=== PATIENT | male | born 1935 | race Caucasian/White ===

== ENCOUNTER 2017-12-29 12:22 | Emergency (ER) | payer OTHER ==
[~2017-12-29] VITALS: Ht 182.9 cm; Wt 88.1 kg
[~2017-12-29 12:22] MED LIST: ACET-1256 PO; ASPI81TA28 PO; ATOR-26 PO; BNT10 PO; CIPR250T26 PO; CLOP1TAB15 PO; CYAN100020 PO; DIGE1CAP10 PO; FLM4 PO; FLUT0.15; IMDSR30 PO; MELA1CAP9 PO; MIRT15TA PO; NRV5 PO; NTRGSL/4 UT; PRLSR20 PO; SERT-234 PO
[2017-12-29 12:29] VITALS: TEMP 36.6; Ht 182.9 cm; Wt 88.1 kg
[2017-12-29] MEDS ORDERED: SODIUM CHLORIDE 0.9% 1000ML 1,000 ML IV STA (12:59)
[2017-12-29 13:11] LABS: BASO % 0.3 %; BASO ABS # 0.01 K/uL (0-0.2); EOS % 2.4 %; EOS ABS # 0.07 K/uL (0-0.5); HEMOGLOBIN 12.4 g/dL (14.0-18.0); IG# 0.01 K/uL (0.00-0.02); LYMPH % 22.6 %; LYMPH ABS # 0.67 K/uL (1.2-3.4); MEAN CELL VOLUME 91.4 fL (80-100); MEAN CORPUSCULAR HEMOGLOBIN 30.6 pg (25-34); MEAN CORPUSCULAR HGB CONC 33.5 g/dl (32-36); MEAN PLATELET VOLUME 10.4 fL (7.4-10.4); MONO % 10.8 %; MONO ABS # 0.32 K/uL (0.11-0.59); NEUT % 63.6 %; NEUT ABS # 1.88 K/uL (1.4-6.5); PLATELET COUNT 147 K/uL (130-400); RED CELL DISTRIBUTION WIDTH CV 14.5 % (11.5-14.5); RED CELL DISTRIBUTION WIDTH SD 48.6 fL (36.4-46.3); WHITE BLOOD COUNT 2.96 K/uL (4.8-10.8)
--- NOTE | 2017-12-29 13:19 | EMERGENCY ROOM VISIT NOTE ---
History Report prepared by Katherine: Catrachito Ledbetter Under the Supervision of: Dr. Charanjit Hubbard M.D. First contact with patient: 12:59 Chief Complaint: ABDOMINAL PAIN Stated Complaint: PAIN IN STOMACH Nursing Triage Summary: Pain under left rib, started during the night and has continued. Also reports nausea, vomiting, and diarrhea. Denies blood in vomit. History of Present Illness The patient is a 82 year old male who presents to the Emergency Room with complaints of epigastric abdominal pain. The patient states the symptoms started overnight. He states he has had associated diarrhea as well as small bouts of clear emesis. He states the pain has been up to a 6/10 and currently rates it as a 2/10. He denies any recent illness but his did have similar complaints x2 weeks ago. He denies chest pain. He denies having a history of this pain. The patient denies black or tarry stool. The patient denies any new leg edema. He denies any urinary complaints. Pt denies LOC, headache, fevers, chills, diaphoresis, visual changes, neck pain , chest pain, breathing difficulties, back pain, melena, hematochezia, urinary symptoms, numbness, weakness, lymphadenopathy, rash, or other complaints. Source of History: patient Onset: x1 day Position: abdomen Symptom Intensity: minimal Quality: ache Timing: intermittent Associated Symptoms: + nausea, + vomiting (clear), + diarrhea, No LOC, No fevers, No chills, No sorethroat, No cough, No chest pain, No SOB, No melena, No hematochezia, No urinary symptoms, No weakness, No numbness, No rash Review of Systems See HPI for pertinent positives and negatives. A total of ten systems were reviewed and were otherwise negative. Constitutional: No fever, No chills Respiratory: No cough, No shortness of breath Cardiovascular: No chest pain Abdomen: + pain, + nausea, + vomiting, + diarrhea, No constipation, No GI bleeding Genitourinary - Male: No hematuria, No dysuria, No urinary frequency, No urinary urgency, No urinary hesitancy, No urinary retention Neurologic: No weakness, No numbness/tingling Endocrine: No fatigue Integumentary: No rash Past Medical & Surgical Medical Problems: (1) AAA (abdominal aortic aneurysm) (2) CAD (coronary artery disease) (3) Carotid stenosis (4) CKD (chronic kidney disease), stage III (5) CLL (chronic lymphocytic leukemia) (6) HLD (hyperlipidemia) (7) HTN (hypertension) (8) TREVOR (obstructive sleep apnea) (9) Osteoarthritis (10) Sinus bradycardia (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 Social History Smoking Status: Never Smoker Alcohol Use: none Drug Use: none Marital Status: Housing Status: lives with family Occupation Status: retired Current/Historical Medications Scheduled Acetaminophen (Tylenol), 2 TAB PO BID Amlodipine Besylate (Amlodipine Besylate), 10 MG PO QAM Aspirin (Aspirin Ec), 81 MG PO QAM Atorvastatin (Lipitor), 40 MG PO QPM Clopidogrel (Plavix), 75 MG PO QAM Cyanocobalamin (Vitamin B12), 1 TAB PO QAM Digestive Enzymes (Digestive Enzyme), 1 CAP PO DAILY Isosorbide Mononitrate (Isosorbide Mononitrate ER), 60 MG PO QAM Melatonin (Melatonin), 1 CAP PO HS Mirtazapine (Remeron), 15 MG PO HS Nitroglycerin (Nitrostat), 0.4 MG UT PRN Omeprazole (Prilosec), 20 MG PO QAM Sertraline (Zoloft), 100 MG PO QPM Tamsulosin HCl (Tamsulosin HCl), 0.4 MG PO HS Scheduled PRN Hydrocodone/Acetaminophen 5MG/325MG ([place] 5MG/325MG), 1 TABS PO Q6H PRN for Pain Allergies Coded Allergies: No Known Allergies (Verified , 12/29/17) Physical Exam Vital Signs Date Time Temp Pulse Resp B/P (MAP) Pulse Ox O2 Delivery O2 Flow Rate FiO2 12/29/17 18:55 57 217/84 94 12/29/17 17:15 60 12/29/17 17:00 53 16 199/77 12/29/17 16:30 53 15 203/83 96 Room Air 12/29/17 16:00 204/88 12/29/17 15:58 53 12 96 Room Air 12/29/17 15:31 203/80 12/29/17 15:28 53 14 96 Room Air 12/29/17 15:10 55 18 188/84 95 Room Air 12/29/17 13:49 55 16 193/87 100 Room Air 12/29/17 13:36 54 12/29/17 12:29 36.6 54 17 130/62 97 Room Air Physical Exam GENERAL: Awake, alert, well-appearing, in no distress HENT: Normocephalic, atraumatic. Oropharynx unremarkable. EYES: Normal conjunctiva. Sclera non-icteric. NECK: Supple. No nuchal rigidity. FROM. No masses. RESPIRATORY: Clear to auscultation. No wheezes. No rales. Normal respiratory effort. CARDIAC: Bradycardia. 1+ edema bilateral lower extremities. Normal rhythm. No murmurs. No rubs. Extremities warm and well perfused. Pulses equal. No JVD. GI: Moderate LLQ tenderness. Soft, non-distended. No rebound or guarding. No masses. RECTAL: Deferred. MUSCULOSKELETAL: Atraumatic. Chest examination reveals no tenderness. The back is symmetrical on inspection without obvious abnormality. There is no CVA tenderness to palpation. No joint edema. LOWER EXTREMITIES: Calves are equal size bilaterally and non-tender. No edema. No discoloration. NEURO: Normal sensorium. No sensory or motor deficits noted. SKIN: No rash or jaundice noted. Medical Decision & Procedures ER Provider Diagnostic Interpretation: Radiology results as stated below per my review and radiologist interpretation: CT OF THE ABDOMEN AND PELVIS WITHOUT CONTRAST CLINICAL HISTORY: Left lower quadrant abdominal pain. COMPARISON STUDY: No previous studies for comparison. TECHNIQUE: Axial images of the abdomen and pelvis were obtained without IV contrast. Images were reviewed in the axial, sagittal, and coronal planes. A dose lowering technique was utilized adhering to the principles of ALARA. FINDINGS: A 4 mm subpleural left lower lobe pulmonary nodule is likely benign. Note is made of a 3.8 x 3.8 cm infrarenal abdominal aortic aneurysm without evidence for rupture. Unenhanced images of the liver, spleen, adrenal glands and pancreas are unremarkable. There are gallstones within the gallbladder. A 3 mm calculus within the upper pole of the right kidney is noted. A 5 mm x 3 mm distal left ureteral calculus results in mild left hydroureteronephrosis with perinephric and periureteral infiltration. Mild bladder wall thickening is noted. There is no evidence for a bowel obstruction. Colonic diverticulosis is noted without evidence for acute diverticulitis. No suspicious osseous lesions are present. Moderate levoscoliosis of the lumbar spine is noted. IMPRESSION: 1. 5 mm x 3 mm distal left ureteral calculus results in mild left hydroureteronephrosis with perinephric and periureteral infiltration. 2. 3.8 cm infrarenal abdominal aortic aneurysm. No evidence for rupture. 3. 3 mm right renal calculus. 4. Cholelithiasis. Laboratory Results 12/29/17 12:48 Red Blood Count 4.05, Mean Corpuscular Volume 91.4, Mean Corpuscular Hemoglobin 30.6, Mean Corpuscular Hemoglobin Concent 33.5, Mean Platelet Volume 10.4, Neutrophils (%) (Auto) 63.6, Lymphocytes (%) (Auto) 22.6, Monocytes (%) (Auto) 10.8, Eosinophils (%) (Auto) 2.4, Basophils (%) (Auto) 0.3, Neutrophils # (Auto ) 1.88, Lymphocytes # (Auto) 0.67, Monocytes # (Auto) 0.32, Eosinophils # (Auto ) 0.07, Basophils # (Auto) 0.01 12/29/17 12:48 Test 12/29/17 12:48 12/29/17 17:16 White Blood Count 2.96 K/uL (4.8-10.8) Red Blood Count 4.05 M/uL (4.7-6.1) Hemoglobin 12.4 g/dL (14.0-18.0) Hematocrit 37.0 % (42-52) Mean Corpuscular Volume 91.4 fL (80-100) Mean Corpuscular Hemoglobin 30.6 pg (25-34) Mean Corpuscular Hemoglobin Concent 33.5 g/dl (32-36) Platelet Count 147 K/uL (130-400) Mean Platelet Volume 10.4 fL (7.4-10.4) Neutrophils (%) (Auto) 63.6 % Lymphocytes (%) (Auto) 22.6 % Monocytes (%) (Auto) 10.8 % Eosinophils (%) (Auto) 2.4 % Basophils (%) (Auto) 0.3 % Neutrophils # (Auto) 1.88 K/uL (1.4-6.5) Lymphocytes # (Auto) 0.67 K/uL (1.2-3.4) Monocytes # (Auto) 0.32 K/uL (0.11-0.59) Eosinophils # (Auto) 0.07 K/uL (0-0.5) Basophils # (Auto) 0.01 K/uL (0-0.2) RDW Standard Deviation 48.6 fL (36.4-46.3) RDW Coefficient of Variation 14.5 % (11.5-14.5) Immature Granulocyte % (Auto) 0.3 % Immature Granulocyte # (Auto) 0.01 K/uL (0.00-0.02) Anion Gap 8.0 mmol/L (3-11) Est Creatinine Clear Calc Drug Dose 27.8 ml/min Estimated GFR () 31.3 Estimated GFR (Non- 27.0 BUN/Creatinine Ratio 13.9 (10-20) Calcium Level 9.2 mg/dl (8.5-10.1) Total Bilirubin 0.3 mg/dl (0.2-1) Direct Bilirubin 0.1 mg/dl (0-0.2) Aspartate Amino Transf (AST/SGOT) 36 U/L (15-37) Alanine Aminotransferase (ALT/SGPT) 30 U/L (12-78) Alkaline Phosphatase 125 U/L (45-117) Troponin I < 0.015 ng/ml (0-0.045) Total Protein 8.3 gm/dl (6.4-8.2) Albumin 3.6 gm/dl (3.4-5.0) Lipase 211 U/L (73-393) Urine Color ORANGE Urine Appearance CLEAR (CLEAR) Urine pH 8.0 (4.5-7.5) Urine Specific Left Hand 1.006 (1.000-1.030) Urine Protein TRACE (NEG) Urine Glucose (UA) NEG (NEG) Urine Ketones NEG (NEG) Urine Occult Blood 3+ (NEG) Urine Nitrite NEG (NEG) Urine Bilirubin NEG (NEG) Urine Urobilinogen NEG (NEG) Urine Leukocyte Esterase NEG (NEG) Urine WBC (Auto) 1-5 /hpf (0-5) Urine RBC (Auto) >30 /hpf (0-4) Urine Hyaline Casts (Auto) 0 /lpf (0-5) Urine Epithelial Cells (Auto) 0-5 /lpf (0-5) Urine Bacteria (Auto) NEG (NEG) Laboratory results reviewed by me Medications Administered Medications (Trade) Dose Ordered Sig/Wolf Route Start Time Stop Time Status Last Admin Dose Admin Sodium Chloride 1,000 ml @ 125 mls/hr Q8H STAT IV 12/29/17 12:59 12/29/17 20:10 DC 12/29/17 13:48 125 MLS/HR Ondansetron HCl (ZOFRAN ODT 4MG Home Pack) 1 homepack UD ONCE PO 12/29/17 18:30 12/29/17 18:31 DC 12/29/17 18:36 1 HOMEPACK Acetaminophen/ Hydrocodone Bitart ([place] 5/325mg Home Pack) 1 homepack UD ONCE PO 12/29/17 18:30 12/29/17 18:31 DC 12/29/17 18:36 1 HOMEPACK ECG Per My Interpretation Indication: abdominal pain Rate (beats per minute): 54 Rhythm: sinus bradycardia Findings: 1st degree AV block, other (Poor R-Wave progressionn, No ST Elevations or Depressions, No PACs or PVCs) Medical Decision Triage Nursing notes reviewed. The patient's presentation and history were concerning for flank pain. Etiologies such as diverticulitis, renal colic, appendicitis, mesenteric ischemia, aortic pathology, infections, inflammatory bowel disease, PUD, biliary pathology, UTI, as well as others were entertained. The patient was evaluated. Clinically he is doing well. He declined analgesia. He had some left lower quadrant tenderness. Blood work was remarkable. Creatinine was baseline. CT imaging was performed and revealed a distal left ureteral stone. The patient was reassessed. He was still declining analgesia. Urinalysis performed. The patient had no sign of UTI. On reassessment he was doing well. He still declined analgesia. He felt well. The patient has a left ureteral stone and is doing exceptionally well with this. I discussed careful use of pain medication, [place] if needed. He was also given Zofran. The patient will follow up with his primary physician. If he worsens in any way, has any problems with medications, develops fever, vomiting, or has any other issues he will come back to the emergency department immediately. Patient and feel very comfortable with conservative management. I gave my usual and customary discussion regarding this issue. By the evaluation outlined above other emergent etiologies such as those listed in the differential, as well as others, were deemed relatively unlikely. The patient was educated about the findings as listed above. All questions were answered and the patient was pleased with the treatment. Return instructions were outlined and the patient was discharged in stable condition. The patient was referred to his PCP for follow-up for a recheck of the current condition. Medication Reconcilliation Current Medication List: was personally reviewed by me Blood Pressure Screening Patient's blood pressure: Normal blood pressure Impression Primary Impression: Ureterolithiasis Scribe Attestation The scribe's documentation has been prepared under my direction and personally reviewed by me in its entirety. I confirm that the note above accurately reflects all work, treatment, procedures, and medical decision making performed by me. Departure Information Dispostion Home / Self-Care Prescriptions Hydrocodone/Acetaminophen 5MG/325MG ([place] 5MG/325MG) Tab 1 TABS PO Q6H Y for Pain, #12 TAB Prov: Charanjit Hubbard MD 12/29/17 Referrals Miguel Santos MD (PCP) Forms HOME CARE DOCUMENTATION FORM, IMPORTANT VISIT INFORMATION Patient Instructions My [facility] [address] Additional Instructions KIDNEY STONE INSTRUCTIONS: Hydrocodone/acetaminophen 5/325mg: Take 1-2 pills every 6 hours as needed for pain. Avoid additional Acetaminophen/Tylenol, alcohol, operating machinery or dangerous equipment, working on ladders or roofs, DRIVING, or situations where being under the influence may be dangerous. It is recommended to use a stool softener such as Colace, 100mg twice daily while taking this medication to avoid constipation. Zofran 4 mg oral dissolving tablets: take one tablet and allow it to melt in your mouth every 4 hours as needed for nausea. Strain your urine and collect all the stones or debris for your family doctor. Rest and avoid strenuous activity until your stone passes and symptoms resolve. Drink plenty of fluids. Return to the ER for worsening abdominal or back pain, vomiting, fevers, passing out, or as needed. Follow-up with your primary care physician in 2 to 3 days for a recheck of your current condition.
[2017-12-29 13:25] LABS: ALBUMIN 3.6 gm/dl (3.4-5.0); ALKALINE PHOSPHATASE 125 U/L (45-117); ALT/SGPT 30 U/L (12-78); AST/SGOT 36 U/L (15-37); BLOOD UREA NITROGEN 30 mg/dl (7-18); CALCIUM 9.2 mg/dl (8.5-10.1); CARBON DIOXIDE 26 mmol/L (21-32); CREATININE 2.17 mg/dl (0.60-1.40); GLUCOSE 110 mg/dl (70-99); LIPASE 211 U/L (73-393); POTASSIUM 4.2 mmol/L (3.5-5.1); SODIUM 137 mmol/L (136-145); TOTAL PROTEIN 8.3 gm/dl (6.4-8.2)
--- NOTE | 2017-12-29 14:21 | DIAGNOSTIC IMAGING REPORT ---
CT OF THE ABDOMEN AND PELVIS WITHOUT CONTRAST CLINICAL HISTORY: Left lower quadrant abdominal pain. COMPARISON STUDY: No previous studies for comparison. TECHNIQUE: Axial images of the abdomen and pelvis were obtained without IV contrast. Images were reviewed in the axial, sagittal, and coronal planes. A dose lowering technique was utilized adhering to the principles of ALARA. FINDINGS: A 4 mm subpleural left lower lobe pulmonary nodule is likely benign. Note is made of a 3.8 x 3.8 cm infrarenal abdominal aortic aneurysm without evidence for rupture. Unenhanced images of the liver, spleen, adrenal glands and pancreas are unremarkable. There are gallstones within the gallbladder. A 3 mm calculus within the upper pole of the right kidney is noted. A 5 mm x 3 mm distal left ureteral calculus results in mild left hydroureteronephrosis with perinephric and periureteral infiltration. Mild bladder wall thickening is noted. There is no evidence for a bowel obstruction. Colonic diverticulosis is noted without evidence for acute diverticulitis. No suspicious osseous lesions are present. Moderate levoscoliosis of the lumbar spine is noted. IMPRESSION: 1. 5 mm x 3 mm distal left ureteral calculus results in mild left hydroureteronephrosis with perinephric and periureteral infiltration. 2. 3.8 cm infrarenal abdominal aortic aneurysm. No evidence for rupture. 3. 3 mm right renal calculus. 4. Cholelithiasis. Electronically signed by: Omari Jimenez M.D. 12/29/2017 2:20 PM Dictated Date/Time: 12/29/2017 2:13 PM
[2017-12-29] MEDS ORDERED: HYDR-5688 PO (18:24)
[2017-12-29] MEDS ORDERED: ONDANSETRON HOME PACK 4MG OD TAB PO ONE (18:30)
[2017-12-29] MEDS ORDERED: NORCO 5/325MG HOME PACK PO ONE (18:30)
[2017-12-29 18:55] VITALS: BP 217/84; PULSE 57; O2SAT 94
== END 2017-12-29 18:55 | disposition home or self-care (01) ==
LOC: C.EDB 12:22
DX: N13.2 Hydronephrosis with renal and ureteral calculous obstruction (principal); I71.4 Abdominal aortic aneurysm, without rupture; I25.10 Atherosclerotic heart disease of native coronary artery without angina pectoris; N18.3 Chronic kidney disease, stage 3 (moderate); I12.9 Hypertensive chronic kidney disease with stage 1 through stage 4 chronic kidney disease, or unspecified chronic kidney disease; Z85.6 Personal history of leukemia; E78.5 Hyperlipidemia, unspecified; G47.33 Obstructive sleep apnea (adult) (pediatric); M19.90 Unspecified osteoarthritis, unspecified site; Z98.52 Vasectomy status; Z79.82 Long term (current) use of aspirin; Z79.899 Other long term (current) drug therapy; Z79.01 Long term (current) use of anticoagulants

== ENCOUNTER 2021-08-26 17:21 | Observation (INO) ==
[2021-08-26] MEDS ORDERED: SODIUM CHLORIDE 0.9% 250 ML IV PRN ×3 (17:34→23:36)
--- NOTE | 2021-08-26 18:17 | Emergency Department Note ---
Impression & Plan Symptomatic anemia, Anemia, Leukopenia ED Provider Note NAME: ADONAY SCHWAB AGE: 86 SEX: M : 1935 ARRIVES VIA: Walk-In INFORMANT: Patient ED PROVIDER(S): Bakari Coy DO CHIEF COMPLAINT: anemia HPI: Patient is an 86-year-old male who presents to the ER with a past medical history of hypertension, CLL, CKD, CAD, who presents to the ER for low hemoglob in. Patient notes that he has follow-up with his sheet metal roofer oncologist and had blood work done. Found to have a low hemoglobin and was referred in. he admits to feeling weak when up moving around. Denies any headache or change in vision. No chest pain or shortness of breath. No nausea, vomiting or diarrhea. Denies any black stools or dark tarry stools. No blood per rectum. No other exacerbating or remitting factors. ROS: See above HPI for pertinent positives & negatives. A total of 10 systems reviewed and were otherwise negative. PAST MEDICAL HISTORY:See Below PAST SURGICAL HISTORY:See Below FAMILY HISTORY:See Below SOCIAL HISTORY:See Below HOME MEDICATIONS:See Below ALLERGIES:See Below VITALS:See Below PHYSICAL EXAMINATION: GENERAL: Sitting up in bed, alert, disheveled, pale, EYE EXAM: normal conjunctiva. PERRL and EOM's grossly intact. OROPHARYNX: no exudate, no erythema, lips, buccal mucosa, and tongue normal and mucous membranes are moist NECK: supple, no nuchal rigidity, no adenopathy, non-tender LUNGS: Clear to auscultation. Normal chest wall mechanics HEART: no murmurs, S1 normal and S2 normal ABDOMEN: abdomen soft, non-tender, normo-active bowel sounds, no masses, no rebound or guarding. RECTAL: Hem neg UPPER EXTREMITIES: upper extremities are grossly normal. LOWER EXTREMITIES: No pitting edema. NEURO EXAM: Normal sensorium, cranial nerves II-XII grossly intact, normal speech, no gross weakness of arms, no gross weakness of legs. MEDICAL DECISION MAKING: Patient is an 86-year-old male with a past medical history as described above who presents to the ER for low hemoglobin. He denies any dark or black stools. He was referred in by his sheet metal roofer. IV was established blood was obtained. Labs show leukopenia at 1.7. Mild anemia at 6.4. Severe neutropenia at 310. INR unremarkable. BMP with a creatinine 1.8 consistent with previous. LFTs bilirubin was unremarkable. COVID was negative. Patient was typed and crossed for 2 units. Rectal heme-negative. He was given 2 units PRBCs while in the ER. He was updated at bedside. Discussed with Dr. Perez admitted for further work-up. Triage Nursing notes reviewed. Limited review of prior medical records performed Vital Signs: reviewed and remarkable for no significant abnormalities Differential diagnosis: Differential diagnoses includes but is not limited to gastritis, peptic ulcer disease, GERD, gallbladder disease, pancreatitis, small bowel obstruction, acute coronary syndrome, pericarditis, ischemic bowel, irritable bowel disease, irritable bowel syndrome, appendicitis, diverticulitis, malignancy, hernia, urinary tract infection, torsion, [/ectopic (if female)], perforation, trauma, infectious. ER treatment provided: See below Diagnostics interpreted by me: ECG: Sinus rhythm rate of 66 Left axis PVCs QTC [address] ST depressions in the lateral leads Cardiac Monitoring: An order was placed for continuous cardiac monitoring. The monitor shows a rate of 70 with sinus rhythm. Laboratory studies: As stated above and show below. Imaging studies: See below Consultation(s): none Procedures: none Critical Care: None Past Med/Surg History Social History Smoking Status: Former smoker Feels Safe at Home: Yes Allergies Allergies Allergy/AdvReac Type Severity Reaction Status Date / Time No Known Allergies Allergy Verified 08/26/21 18:11 Home Meds Home Medications Medication Instructions Recorded Confirmed amlodipine 5 mg tablet 5 mg PO QAM 08/26/21 08/26/21 aspirin 81 mg tablet,delayed 81 mg PO QA 08/26/21 08/26/21 release atorvastatin 40 mg tablet 40 mg PO 08/26/21 08/26/21 cyanocobalamin (vitamin B-12) 1,000 mcg PO QAM 08/26/21 08/26/21 1,000 mcg tablet (Vitamin B-12) finasteride 5 mg tablet 5 mg PO HS 08/26/21 08/26/21 hydralazine 25 mg tablet 25 mg PO BID 08/26/21 08/26/21 isosorbide mononitrate 60 mg 60 mg PO QAM 08/26/21 08/26/21 tablet,extended release 24 hr losartan 25 mg tablet 25 mg PO HS 08/26/21 08/26/21 mirtazapine 15 mg tablet 15 mg PO HS 08/26/21 08/26/21 omeprazole 20 mg capsule,delayed 20 mg PO QAM 08/26/21 08/26/21 release sertraline 100 mg tablet 100 mg PO HS 08/26/21 08/26/21 tamsulosin 0.4 mg capsule (Flomax) 0.4 mg PO HS 08/26/21 08/26/21 Results & Data (ED) Vital Signs Vital Signs - 24 hr 08/26/21 17:26 08/26/21 19:43 08/26/21 20:36 Temperature 36.7 C 36.9 C Temperature Source Temporal Artery Scan Oral Pulse Rate 63 62 62 Pulse Rate [Right Finger] 67 Pulse Rhythm Regular Pulse Rhythm [Right Finger] Regular Pulse Strength Pulse Strength [Right Finger] Normal Respiratory Rate 14 17 21 Respiratory Effort / Characteristics Non-Labored Spontaneous Non-Labored Spontaneous Respiratory Depth Normal Normal Respiratory Pattern Regular Blood Pressure 102/68 205/84 H Blood Pressure [Right Arm] 187/88 H Blood Pressure Mean 79 124 Blood Pressure Mean [Right Arm] 121 Blood Pressure Position Sitting Blood Pressure Position [Right Arm] Lying Pulse Oximetry 97 94 95 Oxygen Delivery Method Room Air Room Air Sepsis Recent Fever Within 48 Hours No Sepsis New/Unexplained Change in Mental Status No Sepsis Action Taken by Nursing No Action Required 08/26/21 20:45 08/26/21 20:54 08/26/21 21:09 Temperature 36.2 C L 36.2 C L Temperature Source Oral Oral Pulse Rate 58 L 58 L Pulse Rate [Right Finger] 59 L Pulse Rhythm Irregular Pulse Rhythm [Right Finger] Pulse Strength Normal Pulse Strength [Right Finger] Respiratory Rate 18 17 14 Respiratory Effort / Characteristics Non-Labored Spontaneous Respiratory Depth Normal Respiratory Pattern Blood Pressure 214/81 H 198/74 H Blood Pressure [Right Arm] 202/81 H Blood Pressure Mean 125 115 Blood Pressure Mean [Right Arm] 121 Blood Pressure Position Right Lateral Right Lateral Blood Pressure Position [Right Arm] Right Lateral Pulse Oximetry 97 94 94 Oxygen Delivery Method Room Air Sepsis Recent Fever Within 48 Hours Sepsis New/Unexplained Change in Mental Status Sepsis Action Taken by Nursing 08/26/21 21:39 Temperature 36.1 C L Temperature Source Oral Pulse Rate 59 L Pulse Rate [Right Finger] Pulse Rhythm Regular Pulse Rhythm [Right Finger] Pulse Strength Normal Pulse Strength [Right Finger] Respiratory Rate 21 Respiratory Effort / Characteristics Respiratory Depth Respiratory Pattern Blood Pressure 192/68 H Blood Pressure [Right Arm] Blood Pressure Mean 109 Blood Pressure Mean [Right Arm] Blood Pressure Position Right Lateral Blood Pressure Position [Right Arm] Pulse Oximetry 95 Oxygen Delivery Method Sepsis Recent Fever Within 48 Hours Sepsis New/Unexplained Change in Mental Status Sepsis Action Taken by Nursing Laboratory Data Result diagrams: 08/26/21 18:21 08/26/21 18:21 Lab Results 08/26/21 08/26/21 08/26/21 Range/Units 18:21 18:21 18:21 WBC 1.75 L (4.8-10.8) K/uL RBC 2.46 L (4.7-6.1) M/uL Hgb 6.4 L* (14.0-18.0) g/dL Hct 21.2 L (42-52) % MCV 86.2 (80-100) fL MCH 26.0 (25-34) pg MCHC 30.2 L (32-36) g/dL RDW Std Deviation 48.7 H (36.4-46.3) fL RDW Coeff of Germaine 15.3 H (11.5-14.5) % Plt Count 141 (130-400) K/uL MPV 10.4 (7.4-10.4) fL Immature Gran % (Auto) 0.0 % Neut % (Auto) 17.7 % Lymph % (Auto) 51.4 % [place] % (Auto) 14.3 % Eos % (Auto) 14.9 % Baso % (Auto) 1.7 % Neut # (Auto) 0.31 L* (1.4-6.5) K/uL Lymph # (Auto) 0.90 L (1.2-3.4) K/uL [place] # (Auto) 0.25 (0.11-0.59) K/uL Eos # (Auto) 0.26 (0-0.5) K/uL Baso # (Auto) 0.03 (0-0.2) K/uL Immature Gran # (Auto) 0.00 (0.00-0.02) K/uL Giant Platelets 2+ Ovalocytes 1+ PT 11.6 (9.0-12.0) Seconds INR 1.1 (0.9-1.1) APTT 26.5 (21.0-31.0) Seconds PTT Ratio 1.0 Sodium (136-145) mmol/L Potassium (3.5-5.1) mmol/L Chloride (98-107) mmol/L Carbon Dioxide (21-32) mmol/L Anion Gap (3-11) BUN (6-23) mg/dl Creatinine (0.6-1.4) mg/dl Est Cr Clr Drug Dosing ml/min Est GFR ( Amer) ml/min Est GFR (Non-Af Amer) ml/min BUN/Creatinine Ratio (10-20) Glucose (70-99(Fasting)) mg/dl Calcium (8.5-10.1) mg/dl Total Bilirubin (0.2-1.0) mg/dl AST (13-39) U/L ALT (7-52) U/L Alkaline Phosphatase (34-104) U/L Total Protein (6.0-8.3) gm/dl Albumin (3.4-5.0) gm/dl Globulin (2.5-4.0) gm/dl Albumin/Globulin Ratio (0.9-2) POC Stool Occult Blood (Negative) SARS-CoV-2, RNA, NAAT (NEGATIVE) Blood Type B Positive Blood Type Recheck Antibody Screen NEGATIVE Crossmatch See Detail 08/26/21 08/26/21 08/26/21 Range/Units 18:21 19:45 19:56 WBC (4.8-10.8) K/uL RBC (4.7-6.1) M/uL Hgb (14.0-18.0) g/dL Hct (42-52) % MCV (80-100) fL MCH (25-34) pg MCHC (32-36) g/dL RDW Std Deviation (36.4-46.3) fL RDW Coeff of Germaine (11.5-14.5) % Plt Count (130-400) K/uL MPV (7.4-10.4) fL Immature Gran % (Auto) % Neut % (Auto) % Lymph % (Auto) % [place] % (Auto) % Eos % (Auto) % Baso % (Auto) % Neut # (Auto) (1.4-6.5) K/uL Lymph # (Auto) (1.2-3.4) K/uL [place] # (Auto) (0.11-0.59) K/uL Eos # (Auto) (0-0.5) K/uL Baso # (Auto) (0-0.2) K/uL Immature Gran # (Auto) (0.00-0.02) K/uL Giant Platelets Ovalocytes PT (9.0-12.0) Seconds INR (0.9-1.1) APTT (21.0-31.0) Seconds PTT Ratio Sodium 138 (136-145) mmol/L Potassium 3.9 (3.5-5.1) mmol/L Chloride 105 (98-107) mmol/L Carbon Dioxide 28 (21-32) mmol/L Anion Gap 5 (3-11) BUN 26 H (6-23) mg/dl Creatinine 1.89 H (0.6-1.4) mg/dl Est Cr Clr Drug Dosing 27.0 ml/min Est GFR ( Amer) 35.9 ml/min Est GFR (Non-Af Amer) 31.0 ml/min BUN/Creatinine Ratio 13.8 (10-20) Glucose 132 H (70-99(Fasting)) mg/dl Calcium 8.2 L (8.5-10.1) mg/dl Total Bilirubin 0.3 (0.2-1.0) mg/dl AST 24 (13-39) U/L ALT 12 (7-52) U/L Alkaline Phosphatase 72 (34-104) U/L Total Protein 6.6 (6.0-8.3) gm/dl Albumin 3.3 L (3.4-5.0) gm/dl Globulin 3.3 (2.5-4.0) gm/dl Albumin/Globulin Ratio 1.0 (0.9-2) POC Stool Occult Blood (Negative) SARS-CoV-2, RNA, NAAT NEGATIVE (NEGATIVE) Blood Type Blood Type Recheck B Positive Antibody Screen Crossmatch 08/26/21 Range/Units 20:45 WBC (4.8-10.8) K/uL RBC (4.7-6.1) M/uL Hgb (14.0-18.0) g/dL Hct (42-52) % MCV (80-100) fL MCH (25-34) pg MCHC (32-36) g/dL RDW Std Deviation (36.4-46.3) fL RDW Coeff of Germaine (11.5-14.5) % Plt Count (130-400) K/uL MPV (7.4-10.4) fL Immature Gran % (Auto) % Neut % (Auto) % Lymph % (Auto) % [place] % (Auto) % Eos % (Auto) % Baso % (Auto) % Neut # (Auto) (1.4-6.5) K/uL Lymph # (Auto) (1.2-3.4) K/uL [place] # (Auto) (0.11-0.59) K/uL Eos # (Auto) (0-0.5) K/uL Baso # (Auto) (0-0.2) K/uL Immature Gran # (Auto) (0.00-0.02) K/uL Giant Platelets Ovalocytes PT (9.0-12.0) Seconds INR (0.9-1.1) APTT (21.0-31.0) Seconds PTT Ratio Sodium (136-145) mmol/L Potassium (3.5-5.1) mmol/L Chloride (98-107) mmol/L Carbon Dioxide (21-32) mmol/L Anion Gap (3-11) BUN (6-23) mg/dl Creatinine (0.6-1.4) mg/dl Est Cr Clr Drug Dosing ml/min Est GFR ( Amer) ml/min Est GFR (Non-Af Amer) ml/min BUN/Creatinine Ratio (10-20) Glucose (70-99(Fasting)) mg/dl Calcium (8.5-10.1) mg/dl Total Bilirubin (0.2-1.0) mg/dl AST (13-39) U/L ALT (7-52) U/L Alkaline Phosphatase (34-104) U/L Total Protein (6.0-8.3) gm/dl Albumin (3.4-5.0) gm/dl Globulin (2.5-4.0) gm/dl Albumin/Globulin Ratio (0.9-2) POC Stool Occult Blood Negative (Negative) SARS-CoV-2, RNA, NAAT (NEGATIVE) Blood Type Blood Type Recheck Antibody Screen Crossmatch Administered Medications Discontinued Medications Hydralazine HCl (Hydralazine Hcl 25 Mg Tab) 25 mg PO NOW STA Stop: 08/26/21 20:13 Last Admin: 08/26/21 20:48 Dose: 25 mg Documented by: [id number] Discharge Plan Visit Data Chief Complaint: Abnormal Labs/Diagnostic Testing Stated Complaint: LOW HEMOGLOBIN SENT BY DR ALVARENGA ED Provider: Bakari Coy Discharge Problem: Symptomatic anemia, Anemia, Leukopenia Forms Stand Alone Forms: My [facility] Prescriptions Prescriptions: No Action atorvastatin 40 mg Tablet 40 mg PO HS RF: 0 sertraline 100 mg Tablet 100 mg PO HS RF: 0 cyanocobalamin (vitamin B-12) [Vitamin B-12] 1,000 mcg Tablet 1,000 mcg PO QAM RF: 0 hydralazine 25 mg Tablet 25 mg PO BID RF: 0 amlodipine 5 mg Tablet 5 mg PO QAM RF: 0 aspirin 81 mg Tablet,Delayed Release (Dr/Ec) 81 mg PO QAM RF: 0 isosorbide mononitrate 60 mg Tablet Extended Release 24 Hr 60 mg PO QAM RF: 0 tamsulosin [Flomax] 0.4 mg Capsule 0.4 mg PO HS RF: 0 losartan 25 mg Tablet 25 mg PO HS RF: 0 omeprazole 20 mg Capsule,Delayed Release(Dr/Ec) 20 mg PO QAM RF: 0 mirtazapine 15 mg Tablet 15 mg PO HS RF: 0 finasteride 5 mg Tablet 5 mg PO HS RF: 0 Referrals Referrals: Miguel Santos MD [Primary Care Provider] - Discharge Problem: Anemia Qualifiers: Anemia type: unspecified type Qualified Code(s): D64.9 - Anemia, unspecified Leukopenia Qualifiers: Leukopenia type: unspecified Qualified Code(s): D72.819 - Decreased white blood cell count, unspecified
[2021-08-26 18:55] LABS: INR 1.1 (0.9-1.1); Partial Thromboplastin Time 26.5 Seconds (21.0-31.0); Prothrombin Time 11.6 Seconds (9.0-12.0)
[2021-08-26 18:57] LABS: Hematocrit (blood only) 21.2 % (42-52); Hemoglobin 6.4 g/dL (14.0-18.0); Mean Corpuscular Hgb Conc 30.2 g/dL (32-36); Mean Corpuscular Volume 86.2 fL (80-100); Mean Platelet Volume 10.4 fL (7.4-10.4); Platelet Count 141 K/uL (130-400); RDW Coefficient of Variation 15.3 % (11.5-14.5); RDW Standard Deviation 48.7 fL (36.4-46.3); Red Blood Count 2.46 M/uL (4.7-6.1); White Blood Count 1.75 K/uL (4.8-10.8)
[2021-08-26 18:58] LABS: Basophils # (auto) 0.03 K/uL (0-0.2); Basophils % (auto) 1.7 %; Eosinophils # (auto) 0.26 K/uL (0-0.5); Eosinophils % (auto) 14.9 %; Giant Platelets 2+; Lymphocytes % (auto) 51.4 %; Monocytes # (auto) 0.25 K/uL (0.11-0.59); Monocytes % (auto) 14.3 %; Neutrophils # (auto) 0.31 K/uL (1.4-6.5); Neutrophils % (auto) 17.7 %; Ovalocytes 1+
[2021-08-26 19:34] LABS: Albumin Level 3.3 gm/dl (3.4-5.0); BUN Creatinine Ratio 13.8 (10-20); Bilirubin,Total 0.3 mg/dl (0.2-1.0); Calcium 8.2 mg/dl (8.5-10.1); Est GFR (African American) 35.9 ml/min; Globulin 3.3 gm/dl (2.5-4.0); Potassium 3.9 mmol/L (3.5-5.1); Total Protein 6.6 gm/dl (6.0-8.3)
[2021-08-26] MEDS ORDERED: hydrALAZINE HCL 25 MG TAB PO STA (20:12)
--- NOTE | 2021-08-26 20:56 | History & Physical Report ---
Date of Service August 26, 2021 Assessment & Plan (1) Anemia: Plan: Acute on chronic anemia Hemoglobin drop from baseline Chronic neutropenia, episode of thrombocytopenia as per records hx CLL sp Rituxan (2014) Patient asymptomatic. FOBT done at the ER was negative. hypertensive urgency CAD status post stent/PVD status post surgery AAA, last measurement of 3. 8 cm on outpatient ultrasound 03/29/2021 hyperlipidemia on statin Rx CRI, creatinine at baseline Hyperglycemia, rule out DM past tobacco abuse OBS Medical telemetry given hypertensive urgency Facilitate home BP meds and titrate as needed Transfuse PRBC to maintain hemoglobin greater than 8 and or for symptomatic anemia, hx of vascular disease Follow outpatient anemia work-up results Check hemoglobin A1c DVT prophylaxis. SCDs Re: Episodic thrombocytopenia Full code Patient son requesting updates from providers. Mr. Konstantin Kirkpatrick, contact #[phone]. Text document was generated using [employer] recognition software. It may contain grammatical or spelling errors. Kindly contact undersigned for clarification of any documentation item in question. History of Present Illness Chief Complaint: abnormal blood work Primary Care Provider: Miguel Santos MD History obtained from patient, family, and records. Medical history significant for CAD status post stent, PVD status post surgery, AAA, hypertension, hyperlipidemia, CLL status post Rituxan, CRI (baseline creatinine 1.8-1.9), TREVOR CPAP intolerance, chronic neutropenia, chronic anemia (baseline hemoglobin 9-10), episodic thrombocytopenia, past tobacco abuse. Last confinement 2015 for metabolic encephalopathy. [place] [facility] [place] [facility] for routine follow-up visit today. Blood work requested. Hemoglobin noted to be 6.9. Rest of anemia work-up pending. Patient denies chest pain, SOB, headache, abdominal pain, black/bloody stools. Patient sent to the ER for evaluation. 1 unit PRBC transfused at the ER. 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 Allergies Allergy/AdvReac Type Severity Reaction Status Date / Time No Known Allergies Allergy Verified 08/26/21 18:11 Home Medications Medication Instructions Recorded Confirmed Type amlodipine 5 mg tablet 5 mg PO QAM 08/26/21 08/26/21 History aspirin 81 mg tablet,delayed 81 mg PO M 08/26/21 08/26/21 History release atorvastatin 40 mg tablet 40 mg PO HS 08/26/21 08/26/21 History cyanocobalamin (vitamin B-12) 1,000 mcg PO QAM 08/26/21 08/26/21 History 1,000 mcg tablet (Vitamin B-12) finasteride 5 mg tablet 5 mg PO HS 08/26/21 08/26/21 History hydralazine 25 mg tablet 25 mg PO BID 08/26/21 08/26/21 History isosorbide mononitrate 60 mg 60 mg PO M 08/26/21 08/26/21 History tablet,extended release 24 hr losartan 25 mg tablet 25 mg PO 08/26/21 08/26/21 History mirtazapine 15 mg tablet 15 mg PO HS 08/26/21 08/26/21 History omeprazole 20 mg capsule,delayed 20 mg PO [facility] 08/26/21 08/26/21 History release sertraline 100 mg tablet 100 mg PO 08/26/21 08/26/21 History tamsulosin 0.4 mg capsule (Flomax) 0.4 mg PO HS 08/26/21 08/26/21 History Past Med/Surg History Social History Smoking Status: Former smoker Smoking End Date: 1970; Second Hand Exposure: No; Do You Dip or Chew Tobacco: No; Tobacco Cessation Education Requested by Patient: No Hx Alcohol Use: No Hx Substance Use: No Preferred Language: Niuean Project Planner Required: No Beliefs That Will Affect Care: None Current Living Situation: Spouse Other Information That Helps Us Care for You: No Feels Safe at Home: Yes Safety Concerns: Feels Safe At This Time Assistive Devices: Hearing Aid - Bilateral Review of Systems Review of Systems: As per HPI, all 10 systems reviewed, all other ROS negative Physical Exam Physical Exam: GENERAL: Comfortable, pleasant, slightly hard of hearing, no respiratory distress SKIN: Pallor, warm HEENT: Pale palpebral conjunctivae, no ptosis, dry buccal mucosa NECK : Supple, no tenderness CHEST : CTA, no tenderness HEART : Bradycardic, no obvious murmurs ABDOMEN: Some distention, nontender EXTREMITIES : No LE swelling/tenderness, no other conspicuous deformities noted NEUROLOGIC : Coherent, no facial asymmetry, slightly hard of hearing, no other gross focality Results & Data Results & Data ([facility]) Vital Signs (Past 12 Hours) Vital Signs Temp Pulse Pulse Resp BP BP Pulse Ox 08/26/21 20:45 59 L 18 202/81 H 97 08/26/21 20:36 36.9 C 62 21 205/84 H 95 08/26/21 19:43 62 67 17 187/88 H 94 08/26/21 17:26 36.7 C 63 14 102/68 97 Laboratory Results Laboratory Results WBC 1.75 K/uL (4.8-10.8) L 08/26/21 18:21 RBC 2.46 M/uL (4.7-6.1) L 08/26/21 18:21 Hgb 6.4 g/dL (14.0-18.0) L* 08/26/21 18: Hct 21.2 % (42-52) L 08/26/21 18:21 MCV 86.2 fL (80-100) 08/26/21 18: MCH 26.0 pg (25-34) 08/26/21 18: MCHC 30.2 g/dL (32-36) L 08/26/21 18:21 RDW Std Deviation 48.7 fL (36.4-46.3) H 08/26/21 18:21 RDW Coeff of Germaine 15.3 % (11.5-14.5) H 08/26/21 18:21 Plt Count 141 K/uL (130-400) 08/26/21 18:21 MPV 10.4 fL (7.4-10.4) 08/26/21 18: Immature Gran % (Auto) 0.0 % 08/26/21 18:21 Neut % (Auto) 17.7 % 08/26/21 18:21 Lymph % (Auto) 51.4 % 08/26/21 18:21 Love % (Auto) 14.3 % 08/26/21 18:21 Eos % (Auto) 14.9 % 08/26/21 18:21 Baso % (Auto) 1.7 % 08/26/21 18:21 Neut # (Auto) 0.31 K/uL (1.4-6.5) L* 08/26/21 18:21 Lymph # (Auto) 0.90 K/uL (1.2-3.4) L 08/26/21 18:21 Love # (Auto) 0.25 K/uL (0.11-0.59) 08/26/21 18:21 Eos # (Auto) 0.26 K/uL (0-0.5) 08/26/21 18:21 Baso # (Auto) 0.03 K/uL (0-0.2) 08/26/21 18:21 Immature Gran # (Auto) 0.00 K/uL (0.00-0.02) 08/26/21 18:21 Giant Platelets 2+ 08/26/21 18:21 Ovalocytes 1+ 08/26/21 18: PT 11.6 Seconds (9.0-12.0) 08/26/21 18: INR 1.1 (0.9-1.1) 08/26/21 18:21 APTT 26.5 Seconds (21.0-31.0) 08/26/21 18: PTT Ratio 1.0 08/26/21 18: Sodium 138 mmol/L (136-145) 08/26/21 18:21 Potassium 3.9 mmol/L (3.5-5.1) 08/26/21 18: Chloride 105 mmol/L (98-107) 08/26/21 18: Carbon Dioxide 28 mmol/L (21-32) 08/26/21 18:21 Anion Gap 5 (3-11) 08/26/21 18:21 BUN 26 mg/dl (6-23) H 08/26/21 18: Creatinine 1.89 mg/dl (0.6-1.4) H 08/26/21 18: Est Cr Clr Drug Dosing 27.0 ml/min 08/26/21 18:21 Est GFR ( Amer) 35.9 ml/min 08/26/21 18: Est GFR (Non-Af Amer) 31.0 ml/min 08/26/21 18: BUN/Creatinine Ratio 13.8 (10-20) 08/26/21 18: Glucose 132 mg/dl (70-99(Fasting)) H 08/26/21 18:21 Calcium 8.2 mg/dl (8.5-10.1) L 08/26/21 18:21 Total Bilirubin 0.3 mg/dl (0.2-1.0) 08/26/21 18:21 AST 24 U/L (13-39) 08/26/21 18:21 ALT 12 U/L (7-52) 08/26/21 18:21 Alkaline Phosphatase 72 U/L (34-104) 08/26/21 18:21 Total Protein 6.6 gm/dl (6.0-8.3) 08/26/21 18:21 Albumin 3.3 gm/dl (3.4-5.0) L 08/26/21 18:21 Globulin 3.3 gm/dl (2.5-4.0) 08/26/21 18:21 Albumin/Globulin Ratio 1.0 (0.9-2) 08/26/21 18:21 POC Stool Occult Blood Negative (Negative) 08/26/21 20:45 SARS-CoV-2, RNA, NAAT NEGATIVE (NEGATIVE) 08/26/21 19:45 Blood Type B Positive 08/26/21 18:21 Antibody Screen NEGATIVE 08/26/21 18:21 Crossmatch See Detail 08/26/21 18:21 Diagnostic Findings EKG as per my interpretation: Rate 65, LAD, LAFB, T wave abnormalities inferior leads
[2021-08-26] MEDS: LOSARTAN POTASSIUM 25 MG TAB PO SCH (21:47)
[2021-08-26] MEDS ORDERED: ACETAMINOPHEN 325 MG TAB PO PRN (22:49)
[2021-08-26] MEDS ORDERED: hydrALAZINE HCL 25 MG TAB PO ONE (23:45)
[2021-08-26] MEDS: ATORVASTATIN 40 MG TAB PO SCH (23:49)
[2021-08-26] MEDS: FINASTERIDE 5 MG TAB PO SCH (23:49)
[2021-08-26] MEDS: MIRTAZAPINE TAB 15 MG TAB PO SCH (23:49)
[2021-08-26] MEDS: SERTRALINE HCL 100 MG TABLET PO SCH (23:49)
[2021-08-26] MEDS: TAMSULOSIN HCL 0.4 MG CAP PO SCH (23:50)
[2021-08-27] MEDS ORDERED: amLODIPine BESYLATE 5 MG TAB PO SCH ×2 (03:10→09:00)
[2021-08-27 07:24] LABS: Estimated Average Glucose 117 mg/dl; Hemoglobin A1C 5.7 % (4.5-5.6)
[2021-08-27 07:56] LABS: Hematocrit (blood only) 27.4 % (42-52); Hemoglobin 8.6 g/dL (14.0-18.0); Mean Corpuscular Hemoglobin 26.2 pg (25-34); Mean Corpuscular Hgb Conc 31.4 g/dL (32-36); Mean Corpuscular Volume 83.5 fL (80-100); Mean Platelet Volume 10.1 fL (7.4-10.4); Platelet Count 121 K/uL (130-400); RDW Coefficient of Variation 16.4 % (11.5-14.5); RDW Standard Deviation 50.2 fL (36.4-46.3); Red Blood Count 3.28 M/uL (4.7-6.1); White Blood Count 2.19 K/uL (4.8-10.8)
[2021-08-27 08:26] LABS: BUN Creatinine Ratio 12.9 (10-20); Calcium 8.4 mg/dl (8.5-10.1); Creatinine Clr Calc Pharmacy 29.9 ml/min; Est GFR (African American) 40.5 ml/min; Potassium 4.1 mmol/L (3.5-5.1)
[2021-08-27] MEDS: PANTOprazole 40 MG TAB PO SCH (08:27)
[2021-08-27] MEDS: hydrALAZINE HCL 25 MG TAB PO SCH ×3 (08:27→20:01)
[2021-08-27] MEDS: ISOSORBIDE MONO EXTENDED REL 60 MG TABCR PO SCH (08:27)
[2021-08-27] MEDS: ASPIRIN 81 MG ECTAB PO SCH (08:28)
[2021-08-27] MEDS: CYANOCOBALAMIN (B-12) 500 MCG TABLET PO SCH (08:28)
[2021-08-27] MEDS ORDERED: hydrALAZINE HCL 25 MG TAB PO SCH (09:00)
--- NOTE | 2021-08-27 09:09 | Electrocardiogram Report ---
Test Reason : Blood Pressure : / mmHG Vent. Rate : 066 BPM Atrial Rate : 066 BPM P-R Int : 212 ms QRS Dur : 084 ms QT Int : 420 ms P-R-T Axes : 028 -28 -20 degrees QTc Int : 440 ms Sinus rhythm with 1st degree A-V block with Premature atrial complexes with Aberrant conduction Abnormal ECG When compared with ECG of 29-DEC-2017 13:09, Aberrant conduction is now Present Confirmed by Veto Acevedo ([id number]) on 08/27/2021 9:09:19 AM Referred By: Az Cox Confirmed By:Michael Acevedo
[2021-08-27 10:09] LABS: Basophils # (auto) 0.01 K/uL (0-0.2); Basophils % (auto) 0.5 %; Eosinophils # (auto) 0.37 K/uL (0-0.5); Eosinophils % (auto) 16.9 %; Lymphocytes # (auto) 1.25 K/uL (1.2-3.4); Lymphocytes % (auto) 57.1 %; Monocytes # (auto) 0.37 K/uL (0.11-0.59); Monocytes % (auto) 16.9 %; Neutrophils # (auto) 0.19 K/uL (1.4-6.5); Neutrophils % (auto) 8.6 %; Ovalocytes 1+
[2021-08-27 12:51] LABS: Hematocrit (blood only) 27.6 % (42-52); Hemoglobin 8.8 g/dL (14.0-18.0)
--- NOTE | 2021-08-27 16:30 | Hospitalist Progress Note ---
Date of Service August 27, 2021 Assessment & Plan (1) Anemia: Plan: Acute on chronic anemia Pancytopenia Likely secondary to CLL, Iron deficiency Hb: 6.4>>8.8 Chronic neutropenia, episode of thrombocytopenia as per records H/O CLL sp Rituxan (2014) FOBT negative. Outpatient Iron Studies: Serum iron 29, TIBC 379, transferrin saturation 8%, ferritin 40 S/P PRBC 2 units Start Iron supplements Monitor CBC Consider venofer tomorrow Hypertensive urgency BP slightly elevated Continue home meds CAD/PVD S/P stent AAA, last measurement of 3. 8 cm on outpatient ultrasound 03/29/2021 Continue aspirin, statin Hyperlipidemia on statin CKD III Monitor renal function Prediabetes HbA1C: 5.7 DVT Px: SCDs Re: Anemia, Thrombocytopenia Code Status Full code Admission and Anticipated Discharge Date Admission Date: August 26, 2021 Subjective Patient is seen and examined at bedside States feeling well today Offers no complaints Eager to get discharged Denies any chest pain, shortness of breath, dizziness, nausea, abdominal pain Review of Systems Review of Systems: All systems reviewed & are unremarkable except as noted in Subjective Physical Exam Physical Exam: Physical Exam: Vitals signs as noted above General Appearance:Moderately built and nourished, no apparent distress Head: normocephalic, Atraumatic Eyes: normal inspection, EOMI, +Pallor Neck: supple, Trachea midline Respiratory/Chest: Normal breath sounds, CTA, No accessory muscle use Cardiovascular: S1, S2, +murmur, +Bradycardia Abdomen/GI:Soft, Non tender, Bowel sounds present Extremities/Musculoskeletal:normal inspection, no edema Neurologic/Psych:AAOX3, grossly no focal neurological deficits Skin: normal color, warm Results & Data Results & Data ([facility]) Vital Signs (Past 12 Hours) Vital Signs Temp Pulse Pulse Resp BP Pulse Ox 08/27/21 15:57 36.6 C 52 L 18 168/80 H 93 08/27/21 15:19 47 L 08/27/21 12:55 37.1 C 53 L 19 131/59 L 95 08/27/21 07:42 36.7 C 53 L 18 158/75 H 96 08/27/21 07:00 49 L 08/27/21 04:27 36.7 C 51 L 18 155/58 H 97 Laboratory Results Short CBC 08/26/21 08/27/21 08/27/21 Range/Units 18:21 07:35 12:42 WBC 1.75 L 2.19 L (4.8-10.8) K/uL Hgb 6.4 L* 8.6 L 8.8 L (14.0-18.0) g/dL Hct 21.2 L 27.4 L 27.6 L (42-52) % Plt Count 141 121 L (130-400) K/uL BMP 08/26/21 08/27/21 18:21 07:35 Sodium 138 139 Potassium 3.9 4.1 Chloride 105 107 Carbon Dioxide 28 28 BUN 26 H 22 Creatinine 1.89 H 1.71 H Glucose 132 H 90 Calcium 8.2 L 8.4 L Liver Function 08/26/21 Range/Units 18:21 Total Bilirubin 0.3 (0.2-1.0) mg/dl AST 24 (13-39) U/L ALT 12 (7-52) U/L Alkaline Phosphatase 72 (34-104) U/L Albumin 3.3 L (3.4-5.0) gm/dl
[2021-08-27] MEDS: FERROUS SULFATE 325 MG TAB PO SCH (18:09)
[2021-08-27] MEDS: FINASTERIDE 5 MG TAB PO SCH (20:01)
[2021-08-27] MEDS: ATORVASTATIN 40 MG TAB PO SCH (20:01)
[2021-08-27] MEDS: TAMSULOSIN HCL 0.4 MG CAP PO SCH (20:02)
[2021-08-27] MEDS: LOSARTAN POTASSIUM 25 MG TAB PO SCH (20:02)
[2021-08-27] MEDS: MIRTAZAPINE TAB 15 MG TAB PO SCH (20:02)
[2021-08-27] MEDS: SERTRALINE HCL 100 MG TABLET PO SCH (20:02)
[2021-08-27] MEDS ORDERED: amLODIPine BESYLATE 5 MG TAB PO ONE (21:15)
[2021-08-27] MEDS ORDERED: hydrALAZINE HCL 20 MG/ML VIAL IV STA (22:27)
[2021-08-27] MEDS ORDERED: PROMETHAZINE HCL 6.25 MG in SODIUM CHLORIDE 0.9% 50 ML IV STA (22:28)
[2021-08-27] MEDS ORDERED: PROMETHAZINE HCL 6.25 MG in SODIUM CHLORIDE 0.9% 50 ML IV PRN (22:28)
[2021-08-28 06:43] LABS: BUN Creatinine Ratio 12.8 (10-20); Calcium 8.5 mg/dl (8.5-10.1); Creatinine Clr Calc Pharmacy 27.3 ml/min; Est GFR (African American) 36.4 ml/min; Est GFR (Non-African American) 31.4 ml/min; Potassium 4.3 mmol/L (3.5-5.1)
[2021-08-28 07:13] LABS: Hematocrit (blood only) 28.7 % (42-52); Hemoglobin 8.9 g/dL (14.0-18.0); Mean Corpuscular Hemoglobin 25.9 pg (25-34); Mean Corpuscular Volume 83.7 fL (80-100); Mean Platelet Volume 10.7 fL (7.4-10.4); Platelet Count 134 K/uL (130-400); RDW Coefficient of Variation 16.4 % (11.5-14.5); RDW Standard Deviation 49.9 fL (36.4-46.3); Red Blood Count 3.43 M/uL (4.7-6.1); White Blood Count 1.37 K/uL (4.8-10.8)
[2021-08-28 07:32] LABS: Basophils # (auto) 0.01 K/uL (0-0.2); Basophils % (auto) 0.7 %; Eosinophils # (auto) 0.09 K/uL (0-0.5); Eosinophils % (auto) 6.6 %; Lymphocytes # (auto) 0.75 K/uL (1.2-3.4); Lymphocytes % (auto) 54.7 %; Monocytes # (auto) 0.21 K/uL (0.11-0.59); Monocytes % (auto) 15.3 %; Neutrophils # (auto) 0.31 K/uL (1.4-6.5); Neutrophils % (auto) 22.7 %; Ovalocytes 1+
[2021-08-28] MEDS ORDERED: IRON SUCROSE 200 MG in 0.9 % SODIUM CHLORIDE 100 ML IV ONE (08:00)
[2021-08-28] MEDS: FERROUS SULFATE 325 MG TAB PO SCH (08:07)
[2021-08-28] MEDS: hydrALAZINE HCL 25 MG TAB PO SCH ×2 (08:09→15:07)
[2021-08-28] MEDS ORDERED: amLODIPine BESYLATE 5 MG TAB PO SCH (09:00)
[2021-08-28] MEDS: ISOSORBIDE MONO EXTENDED REL 60 MG TABCR PO SCH (09:42)
[2021-08-28] MEDS: ASPIRIN 81 MG ECTAB PO SCH (09:42)
[2021-08-28] MEDS: CYANOCOBALAMIN (B-12) 500 MCG TABLET PO SCH (09:42)
[2021-08-28] MEDS: PANTOprazole 40 MG TAB PO SCH (09:43)
--- NOTE | 2021-08-28 14:13 | Hospitalist Progress Note ---
Date of Service August 28, 2021 Assessment & Plan (1) Anemia: Plan: Acute on chronic anemia Pancytopenia Likely secondary to CLL, Iron deficiency Hb: 6.4>>8.8>8.9 Chronic neutropenia, episode of thrombocytopenia as per records H/O CLL sp Rituxan (2014) FOBT negative. Outpatient Iron Studies: Serum iron 29, TIBC 379, transferrin saturation 8%, ferritin 40 S/P PRBC 2 units Start Iron supplements Monitor CBC Given IV venofer today Hb Stable Advised to follow-up with Dr. Cox as outpatient Hypertensive urgency BP Stable Continue home meds Sinus Bradycardia First-degree AV block, PACs No pauses Asymptomatic Not on any AV yoni blocking agents CAD/PVD S/P stent AAA, last measurement of 3. 8 cm on outpatient ultrasound 03/29/2021 Continue aspirin, statin Hyperlipidemia on statin CKD III Monitor renal function Prediabetes HbA1C: 5.7 DVT Px: SCDs Re: Anemia, Thrombocytopenia Code Status Full code Admission and Anticipated Discharge Date Admission Date: August 26, 2021 Subjective Patient is seen and examined at bedside Doing well Hb stable Offers no complaints Denies any chest pain, shortness of breath, dizziness, nausea, abdominal pain No bleeding issues Review of Systems Review of Systems: All systems reviewed & are unremarkable except as noted in Subjective Physical Exam Physical Exam: Physical Exam: Vitals signs as noted above General Appearance:Moderately built and nourished, no apparent distress Head: normocephalic, Atraumatic Eyes: normal inspection, EOMI, +Pallor Neck: supple, Trachea midline Respiratory/Chest: Normal breath sounds, CTA, No accessory muscle use Cardiovascular: S1, S2, +murmur, +Bradycardia Abdomen/GI:Soft, Non tender, Bowel sounds present Extremities/Musculoskeletal:normal inspection, no edema Neurologic/Psych:AAOX3, grossly no focal neurological deficits Skin: normal color, warm Results & Data Results & Data ([facility]) Vital Signs (Past 12 Hours) Vital Signs Temp Pulse Pulse Resp BP Pulse Ox 08/28/21 11:07 36.7 C 50 L 16 125/53 L 94 08/28/21 09:46 49 L 158/59 H 08/28/21 07:23 36.8 C 58 L 16 136/58 L 95 08/28/21 06:14 47 L 08/28/21 02:49 36.6 C 54 L 18 158/74 H 95 Laboratory Results Short CBC 08/28/21 Range/Units 05:37 WBC 1.37 L (4.8-10.8) K/uL Hgb 8.9 L (14.0-18.0) g/dL Hct 28.7 L (42-52) % Plt Count 134 (130-400) K/uL BMP 08/28/21 05:37 Sodium 138 Potassium 4.3 Chloride 105 Carbon Dioxide 26 BUN 24 H Creatinine 1.87 H Glucose 99 Calcium 8.5
--- NOTE | 2021-08-28 14:26 | Discharge Summary ---
Date of Service August 28, 2021 Admission HPI Per Admitting Provider History obtained from patient, family, and records. Medical history significant for CAD status post stent, PVD status post surgery, AAA, hypertension, hyperlipidemia, CLL status post Rituxan, CRI (baseline creatinine 1.8-1.9), TREVOR CPAP intolerance, chronic neutropenia, chronic anemia (baseline hemoglobin 9-10), episodic thrombocytopenia, past tobacco abuse. Last confinement 2015 for metabolic encephalopathy. Patient seen at [facility] for routine follow-up visit today. Blood work requested. Hemoglobin noted to be 6.9. Rest of anemia work-up pending. Patient denies chest pain, SOB, headache, abdominal pain, black/bloody stools. Patient sent to the ER for evaluation. 1 unit PRBC transfused at the ER. Medical History as above Surgical History : Dental surgery, vasectomy, tonsillectomy/adenoidectomy, carotid endarterectomy left Family History : Heart disease, stroke Personal/Social history : Past tobacco abuse, rare EtOH intake, retired [employer], lives with Admission Exam Per Admitting Provider Physical Exam Physical Exam: GENERAL: Comfortable, pleasant, slightly hard of hearing, no respiratory distress SKIN: Pallor, warm HEENT: Pale palpebral conjunctivae, no ptosis, dry buccal mucosa NECK : Supple, no tenderness CHEST : CTA, no tenderness HEART : Bradycardic, no obvious murmurs ABDOMEN: Some distention, nontender EXTREMITIES : No LE swelling/tenderness, no other conspicuous deformities noted NEUROLOGIC : Coherent, no facial asymmetry, slightly hard of hearing, no other gross focality Principal Diagnosis Pancytopenia Iron deficiency anemia Hypertensive urgency Sinus bradycardia Discharge Data Allergies Allergy/AdvReac Type Severity Reaction Status Date / Time No Known Allergies Allergy Verified 08/26/21 18:11 Consultations 08/26/21 19:29 ED Decision to Admit Stat Hospital Course (1) Anemia: Acute on chronic anemia Pancytopenia Likely secondary to CLL, Iron deficiency Hb: 6.4>>8.8>8.9 Chronic neutropenia, episode of thrombocytopenia as per records H/O CLL sp Rituxan (2014) FOBT negative. Outpatient Iron Studies: Serum iron 29, TIBC 379, transferrin saturation 8%, ferritin 40 S/P PRBC 2 units Start Iron supplements Monitor CBC Given IV venofer today Hb Stable Advised to follow-up with Dr. Cox as outpatient Hypertensive urgency BP Stable Continue home meds Sinus Bradycardia First-degree AV block, PACs No pauses Asymptomatic Not on any AV yoni blocking agents CAD/PVD S/P stent AAA, last measurement of 3. 8 cm on outpatient ultrasound 03/29/2021 Continue aspirin, statin Hyperlipidemia on statin CKD III Monitor renal function Prediabetes HbA1C: 5.7 DVT Px: SCDs Re: Anemia, Thrombocytopenia Code Status Full code Disposition Home Updated Patient's Son today Total Time Total Time Spent Total Time Spent (In Minutes): 50 minutes Discharge Plan Discharge Items Patient Disposition: Home - Self-Care Reason For Visit: HTN URG, ANEMIA Discharge Diagnosis: Pancytopenia Iron deficiency anemia Hypertensive urgency Sinus bradycardia Activity: Per Instructions section Exercise/Sports: Gradually increase as tolerated Non-emergency contact: Primary Care Provider and Oncologist Call non-emergency contact if: you have any medication questions, your symptoms worsen, your pain is concerning for you and you have a fever Follow-up/Referrals: Miguel Santos MD [Primary Care Provider] - (Date & Time 09/03/2021 10:40 AM Provider Rosaura Jackson MD [facility] ) Diet: Heart Healthy Addtl Attending Provider Instructions: Follow-up with your primary care physician on 09/03/2021 10:40 AM Follow-up with your oncologist Dr. Cox as advised --- Start taking iron supplements as prescribed --- Your hydralazine is increased to 25 mg 3 times a day for better control of blood pressure. --Check your blood pressure regularly and discuss with your physician for further adjustment as needed. Seek immediate medical attention if your symptoms reoccur or worsen Please take all medications as instructed on discharge list below. Please call if you have any questions or problems. You can reach a [facility] hospitalist on duty at [facility] 24 hours a day by calling [phone] Pending Studies at Discharge: No Stand-Alone Forms: My [facility] [employer], Smoking Cessation Medications and DC Order Prescriptions: New ferrous sulfate 325 mg (65 mg iron) Tablet,Delayed Release (Dr/Ec) 325 mg PO BIDM Qty: 60 RF: 1 Continued atorvastatin 40 mg Tablet 40 mg PO HS RF: 0 sertraline 100 mg Tablet 100 mg PO HS RF: 0 cyanocobalamin (vitamin B-12) [Vitamin B-12] 1,000 mcg Tablet 1,000 mcg PO QAM RF: 0 amlodipine 5 mg Tablet 5 mg PO QAM RF: 0 aspirin 81 mg Tablet,Delayed Release (Dr/Ec) 81 mg PO QAM RF: 0 isosorbide mononitrate 60 mg Tablet Extended Release 24 Hr 60 mg PO QAM RF: 0 tamsulosin [Flomax] 0.4 mg Capsule 0.4 mg PO HS RF: 0 losartan 25 mg Tablet 25 mg PO HS RF: 0 omeprazole 20 mg Capsule,Delayed Release(Dr/Ec) 20 mg PO QAM RF: 0 mirtazapine 15 mg Tablet 15 mg PO HS RF: 0 finasteride 5 mg Tablet 5 mg PO HS RF: 0 Changed hydralazine 25 mg Tablet 25 mg PO TID Qty: 0 RF: 0 Discharge Orders: Discharge Order (Routine); Ordered 08/28/21 Ordered By: Richard Mario Admission Data Admit Date/Time: 08/26/21 20:58 Attending Provider: Richard Mario Admit Provider: Israel Pedro Primary Care Provider: Miguel Santos Other Providers: Israel Pedro
== END 2021-08-28 15:50 | disposition home or self-care (01) ==
LOC: ED 17:21 → 2S 17:21 → 2N 08-27 20:28

== ENCOUNTER 2022-09-24 18:38 | Inpatient (IN) ==
--- NOTE | 2022-09-24 18:55 | Emergency Department Note ---
Impression & Plan Acute CHF (congestive heart failure), Acute respiratory failure with hypoxia, Acute dyspnea, Non-ST elevation NC (NSTEMI) ED Provider Note HISTORY OF PRESENT ILLNESS: Patient is an 87-year-old male presenting with shortness of breath. Patient reportedly has been having progressively worsening shortness of breath over the last 2 to 3 days. Reports significantly worsening shortness of breath last night and today. He does not wear any supplemental oxygen at baseline. Denies any DVT or PE history. She is on aspirin and Plavix daily. He has a history of cardiac stents. Reports that last night he felt like he could not catch his breath and had an episode of vomiting. He had another episode of profound shortness of breath and an episode of vomiting today, prompting evaluation in the emergency department. He reports feeling very weak. He has had bilateral lower extremity edema progressively worsening over the last week. He is not on any diuretic. Denies any chest pain but feels like he cannot catch his breath. Denies any abdominal pain. Denies any dysuria or hematuria. Denies any recent fevers. He noticed that the patient's facility checked his oxygen level and start taking a 90% wall seated at the dinner table. When he got back to his room they checked his oxygen level and it was 81%. ROS: as above PHYSICAL EXAM: Constitutional: Patient appears in no acute distress. HENT: Head: Normocephalic and atraumatic. Eyes: EOMI, PERRL Mouth/Throat: Mucous membranes moist. Neck: Trachea midline. Neck supple. Cardiovascular: RRR, No murmurs, rubs or gallops. Intact distal pulses. Pulmonary/Chest: No respiratory distress. Breath sounds clear and equal bilaterally. Conversationally dyspneic. Coarse breath sounds bilaterally. Abdominal: BS +. Abdomen soft, no tenderness, rebound or guarding. Musculoskeletal: No tenderness or deformity noted. +2 pitting edema of bilateral lower extremities extending to knees. Skin: Warm and dry. No rash, erythema, pallor or cyanosis Psychiatric: Appropriate mood and affect for situation. Neurological: Alert and keenly responsive. CN II-XII grossly intact, moving all extremities equally and fully. MDM: - Vitals signs showed hypertension and hypoxia. Patient started on 3 L nasal cannula - History obtained via patient. Patient presents with shortness of breath. Patient has had progressively worsening shortness of breath over the last few days. He is also bilateral lower extremity edema over the last week. He is not on any diuretic. Denies any DVT or PE history. He was hypoxic and having work of breathing earlier this morning, prompting presentation to the ER. No reported cough or fevers. He does not wear any supplemental oxygen at baseline - Chronic conditions affecting care: chronic anemia; CAD (s/p PCI); AAA; HLD; CKD - Differential diagnoses include, but are not limited to: Congestive heart failure; acute coronary syndrome; COPD/asthma exacerbation; pulmonary edema; pulmonary embolism; pneumonia; pneumothorax; viral syndrome - Order placed for continuous cardiac monitoring. At this time, monitor showed rate of 66 bpm with normal sinus rhythm, per my interpretation. - External medical records reviewed. - EKG reviewed by myself showed normal sinus rhythm. Rate 67 bp. QTc 460. No acute ischemic changes. - Laboratory workup interpreted by myself showed chronic leukopenia (WBC 1.55); chronic anemia (Hgb 8.1); normal electrolytes; CKD (Cr 1.71); elevated BNP (2599); elevated troponin (36.8) - NSTEMI likely type II in nature secondary to patient's heart failure exacerbation. - CXR shows pulmonary vascular congestion, per my interpretation. - Patient givne 80 mg IV lasix in ER. - COVID negative - Discussion was had with social service liaison about patient's case and need for admission. - Hospitalist, Dr. Huerta, consulted for admission. - Patient admitted to [facility] Hospitalist service for further evaluation and management. I provided 34 minutes of critical care time to this patient's care outside of billable procedures. ASSESSMENT AND PLAN: Diagnosis: dyspnea; acute hypoxic respiratory failure; acute CHF exacerbation; NSTEMI Plan: admit Past Med/Surg History Social History Smoking Status: Former smoker Second Hand Exposure: No; Do You Dip or Chew Tobacco: No; Hx Alcohol Use: No Hx Substance Use: No Preferred Language: Uzbek Lead Medical Technologist Required: No Beliefs That Will Affect Care: None Current Living Situation: Spouse Feels Safe at Home: Yes Assistive Devices: Hearing Aid - Bilateral Allergies Allergies Allergy/AdvReac Type Severity Reaction Status Date / Time No Known Allergies Allergy Verified 09/24/22 19:08 Home Meds Home Medications Medication Instructions Recorded Confirmed acetaminophen 325 mg tablet 650 mg PO Q8 PRN .Mild pain, fever 09/24/22 09/24/22 (Tylenol) & headache albuterol sulfate 90 mcg/actuation 1 inh inhalation Q4 PRN .sob/cough 09/24/22 09/24/22 aerosol inhaler amlodipine 10 mg tablet 10 mg PO DAILY 09/24/22 09/24/22 aspirin 81 mg chewable tablet 81 mg PO DAILY 09/24/22 09/24/22 atorvastatin 80 mg tablet 40 mg PO HS 09/24/22 09/24/22 carbamide peroxide 6.5 % ear drops 5 - 10 drp otic (ear) DIRECTED 09/24/22 09/24/22 cyanocobalamin (vitamin B-12) 0 mcg PO DAILY 09/24/22 09/24/22 1,000 mcg tablet (Vitamin B-12) ferrous sulfate 325 mg (65 mg 325 mg PO TIDM 09/24/22 09/24/22 iron) tablet finasteride 5 mg tablet 5 mg PO DAILY 09/24/22 09/24/22 hydralazine 25 mg tablet 25 mg PO TID 09/24/22 09/24/22 isosorbide mononitrate 60 mg 60 mg PO DAILY 09/24/22 09/24/22 tablet,extended release 24 hr losartan 25 mg tablet 25 mg PO DAILY 09/24/22 09/24/22 mirtazapine 15 mg tablet 15 mg PO HS 09/24/22 09/24/22 omeprazole 20 mg tablet,delayed 20 mg PO DAILY 09/24/22 09/24/22 release ondansetron HCl 8 mg tablet 8 mg PO Q12H PRN Nausea 09/24/22 09/24/22 sertraline 100 mg tablet 100 mg PO DAILY 09/24/22 09/24/22 tamsulosin 0.4 mg capsule 0.8 mg PO HS 09/24/22 09/24/22 Results & Data (ED) Vital Signs Vital Signs - 24 hr 09/24/22 18:40 09/24/22 19:24 09/24/22 19:59 Temperature 36.8 C Temperature Source Temporal Artery Scan Pulse Rate 69 66 67 Pulse Rate [Right Finger] Respiratory Rate 20 18 Respiratory Effort / Characteristics Short of Breath Respiratory Depth Respiratory Pattern Blood Pressure 156/64 H 143/122 H Blood Pressure [Left Arm] Blood Pressure Mean 94 129 Blood Pressure Mean [Left Arm] Blood Pressure Position [Left Arm] Pulse Oximetry 86 L 91 Oxygen Delivery Method Room Air Nasal Cannula Oxygen Flow Rate 3 Sepsis Recent Fever Within 48 Hours No Sepsis New/Unexplained Change in Mental Status No Sepsis Action Taken by Nursing No Action Required 09/24/22 20:00 09/24/22 20:02 Temperature 36.9 C Temperature Source Oral Pulse Rate 65 Pulse Rate [Right Finger] 67 Respiratory Rate 18 18 Respiratory Effort / Characteristics Non-Labored Spontaneous Respiratory Depth Normal Respiratory Pattern Regular Blood Pressure Blood Pressure [Left Arm] 143/122 H Blood Pressure Mean Blood Pressure Mean [Left Arm] 129 Blood Pressure Position [Left Arm] Semi-fowlers Pulse Oximetry 91 91 Oxygen Delivery Method Nasal Cannula Nasal Cannula Oxygen Flow Rate 3 3 Sepsis Recent Fever Within 48 Hours Sepsis New/Unexplained Change in Mental Status Sepsis Action Taken by Nursing Laboratory Data 09/24/22 19:30 09/24/22 19:30 Lab Results 09/24/22 09/24/22 09/24/22 Range/Units 19:20 19:30 19:30 WBC 1.55 L (4.8-10.8) K/ul RBC 2.60 L (4.70-6.10) M/uL Hgb 8.1 L (14.0-18.0) g/dl Hct 25.0 L (42.0-52.0) % MCV 96.2 (80.0-100.0) fL MCH 31.2 (25.0-34.0) pg MCHC 32.4 (32.0-36.0) g/dL RDW Std Deviation 57.1 H (36.4-46.3) fL RDW Coeff of Germaine 16.2 H (11.5-14.5) % Plt Count 142 (130-400) K/uL MPV 10.6 (9.4-12.4) fL PT (9.0-12.0) Seconds INR (0.9-1.1) VBG pH (7.36-7.41) VBG pCO2 (38-50) mmHg VBG pO2 mmHg VBG HCO3 mmol/L VBG O2 Saturation % VBG Base Excess mEq/L Sodium 137 (136-145) mmol/L Potassium 4.0 (3.5-5.1) mmol/L Chloride 106 (98-107) mmol/L Carbon Dioxide 24 (21-32) mmol/L Anion Gap 7 (3-11) BUN 30 H (6-23) mg/dl Creatinine 1.71 H (0.6-1.4) mg/dl Est Cr Clr Drug Dosing 30.9 ml/min Est GFR ( Amer) 40.3 ml/min Est GFR (Non-Af Amer) 34.7 ml/min BUN/Creatinine Ratio 17.5 (10-20) Glucose 110 H (70-99(Fasting)) mg/dl Calcium 8.4 L (8.6-10.3) mg/dl Magnesium 2.1 (1.7-2.4) mg/dl Total Bilirubin 0.3 (0.2-1.0) mg/dl AST 27 (13-39) U/L ALT 13 (7-52) U/L Alkaline Phosphatase 76 (34-104) U/L Troponin I High Sens 36.8 H (0-20) pg/ml B-Natriuretic Peptide (0-100) pg/ml Total Protein 7.0 (6.0-8.3) gm/dl Albumin 3.2 L (3.4-5.0) gm/dl Globulin 3.8 (2.5-4.0) gm/dl Albumin/Globulin Ratio 0.8 L (0.9-2) SARS-CoV-2, RNA, NAAT NEGATIVE (NEGATIVE) 09/24/22 09/24/22 09/24/22 Range/Units 19:30 19:30 19:56 WBC (4.8-10.8) K/ul RBC (4.70-6.10) M/uL Hgb (14.0-18.0) g/dl Hct (42.0-52.0) % MCV (80.0-100.0) fL MCH (25.0-34.0) pg MCHC (32.0-36.0) g/dL RDW Std Deviation (36.4-46.3) fL RDW Coeff of Germaine (11.5-14.5) % Plt Count (130-400) K/uL MPV (9.4-12.4) fL PT 11.3 (9.0-12.0) Seconds INR 1.0 (0.9-1.1) VBG pH 7.39 (7.36-7.41) VBG pCO2 42 (38-50) mmHg VBG pO2 35 mmHg VBG HCO3 25 mmol/L VBG O2 Saturation 62.2 % VBG Base Excess 0.3 mEq/L Sodium (136-145) mmol/L Potassium (3.5-5.1) mmol/L Chloride (98-107) mmol/L Carbon Dioxide (21-32) mmol/L Anion Gap (3-11) BUN (6-23) mg/dl Creatinine (0.6-1.4) mg/dl Est Cr Clr Drug Dosing ml/min Est GFR ( Amer) ml/min Est GFR (Non-Af Amer) ml/min BUN/Creatinine Ratio (10-20) Glucose (70-99(Fasting)) mg/dl Calcium (8.6-10.3) mg/dl Magnesium (1.7-2.4) mg/dl Total Bilirubin (0.2-1.0) mg/dl AST (13-39) U/L ALT (7-52) U/L Alkaline Phosphatase (34-104) U/L Troponin I High Sens (0-20) pg/ml B-Natriuretic Peptide 2599 H (0-100) pg/ml Total Protein (6.0-8.3) gm/dl Albumin (3.4-5.0) gm/dl Globulin (2.5-4.0) gm/dl Albumin/Globulin Ratio (0.9-2) SARS-CoV-2, RNA, NAAT (NEGATIVE) Discharge Plan Visit Data Chief Complaint: Shortness of Breath/Dyspnea Stated Complaint: LOW O2,TROUBLE BREATHING ED Provider: Nafisa Rice Discharge Problem: Acute CHF (congestive heart failure), Acute respiratory failure with hypoxia, Acute dyspnea, Non-ST elevation NC (NSTEMI) Forms Stand Alone Forms: My [facility] [employer] Prescriptions Prescriptions: No Action atorvastatin 80 mg Tablet 40 mg PO HS acetaminophen [Tylenol] 325 mg Tablet 650 mg PO Q8 PRN (Reason: .Mild pain, fever & headache) ondansetron HCl 8 mg Tablet 8 mg PO Q12H PRN (Reason: Nausea) sertraline 100 mg Tablet 100 mg PO DAILY cyanocobalamin (vitamin B-12) [Vitamin B-12] 1,000 mcg Tablet 0 mcg PO DAILY hydralazine 25 mg Tablet 25 mg PO TID isosorbide mononitrate 60 mg Tablet Extended Release 24 Hr 60 mg PO DAILY tamsulosin 0.4 mg Capsule 0.8 mg PO HS amlodipine 10 mg Tablet 10 mg PO DAILY ferrous sulfate 325 mg (65 mg iron) Tablet 325 mg PO TIDM losartan 25 mg Tablet 25 mg PO DAILY carbamide peroxide 6.5 % Drops 5 - 10 drp OTIC (EAR) DIRECTED Rx Instructions: Apply 5-10 drops into ear bid PRN for up to 4 days. May flush PRN. aspirin [Baby Aspirin] 81 mg Tablet,Chewable 81 mg PO DAILY mirtazapine 15 mg Tablet 15 mg PO HS albuterol sulfate 90 mcg/actuation Hfa Aerosol Inhaler 1 inh INHALATION Q4 PRN (Reason: .sob/cough) finasteride 5 mg Tablet 5 mg PO DAILY omeprazole 20 mg Tablet,Delayed Release (Dr/Ec) 20 mg PO DAILY Referrals Referrals: Miguel Santos MD [Outside Practitioners] -
[2022-09-24 19:52] LABS: Hemoglobin 8.1 g/dl (14.0-18.0); Mean Corpuscular Hemoglobin 31.2 pg (25.0-34.0); Mean Corpuscular Hgb Conc 32.4 g/dL (32.0-36.0); Mean Corpuscular Volume 96.2 fL (80.0-100.0); Mean Platelet Volume 10.6 fL (9.4-12.4); Platelet Count 142 K/uL (130-400); RDW Coefficient of Variation 16.2 % (11.5-14.5); RDW Standard Deviation 57.1 fL (36.4-46.3); White Blood Count 1.55 K/ul (4.8-10.8)
[2022-09-24 20:10] LABS: Albumin Globulin Ratio 0.8 (0.9-2); Albumin Level 3.2 gm/dl (3.4-5.0); BUN Creatinine Ratio 17.5 (10-20); Bilirubin,Total 0.3 mg/dl (0.2-1.0); Calcium 8.4 mg/dl (8.6-10.3); Creatinine Clr Calc Pharmacy 30.9 ml/min; Est GFR (African American) 40.3 ml/min; Est GFR (Non-African American) 34.7 ml/min; Globulin 3.8 gm/dl (2.5-4.0); Magnesium 2.1 mg/dl (1.7-2.4)
[2022-09-24 20:10] LABS: Base Excess VBG 0.3 mEq/L; HCO3 VBG 25 mmol/L; Oxygen Saturation VBG 62.2 %; PCO2 VBG 42 mmHg (38-50); PO2 VBG 35 mmHg; pH VBG 7.39 (7.36-7.41)
[2022-09-24] MEDS ORDERED: FUROSEMIDE 40 MG/4 ML VIAL IV ONE (20:16)
[2022-09-24 20:19] LABS: Troponin I High Sensitivity 36.8 pg/ml (0-20)
[2022-09-24 20:20] LABS: Prothrombin Time 11.3 Seconds (9.0-12.0)
[2022-09-24 20:34] LABS: Basophils # (auto) 0.02 K/uL (0-0.2); Basophils % (auto) 1.3 %; Eosinophils # (auto) 0.16 K/uL (0-0.50); Eosinophils % (auto) 10.3 %; Lymphocytes # (auto) 0.59 K/uL (1.2-3.4); Lymphocytes % (auto) 38.1 %; Monocytes # (auto) 0.32 K/uL (0.11-0.59); Monocytes % (auto) 20.6 %; Neutrophils # (auto) 0.46 K/uL (1.40-6.50); Neutrophils % (auto) 29.7 %; Ovalocytes 1+; Polychromasia 1+; Tear Drop Cells 1+
[2022-09-24 21:37] LABS: Appearance Urine Clear (Clear); Bacteria Urine Automated Negative (Negative); Bilirubin Urine Negative (Negative); Blood Urine 2+ (Negative); Cast Urine Automated 0 /lpf (0-5); Color Urine Yellow; Epithelial Cell Urine Auto 0-5 /lpf (0-5); Glucose Urine UA Negative (Negative); Ketones Urine Negative (Negative); Leukocyte Esterase Urine Negative (Negative); Nitrite Urine Negative (Negative); Protein Urine 2+ (Negative); Specific Gravity Urine 1.015 (1.000-1.030); Urobilinogen Urine Negative (Negative); WBC Urine Automated 0 /hpf (0-5); pH Urine 5.5 (4.5-7.5)
[2022-09-24] MEDS ORDERED: ACETAMINOPHEN 325 MG TAB PO PRN (22:42)
[2022-09-24] MEDS ORDERED: ALBUTEROL HFA 8 GM INHALER INH PRN (22:42)
[2022-09-24] MEDS ORDERED: CARBAMIDE PEROXIDE 6.5% 15 ML BTL OT PRN (22:42)
[2022-09-24] MEDS ORDERED: POLYETHYLENE (MIRALAX) 17 GM PACK PO PRN (22:42)
[2022-09-24] MEDS ORDERED: NITROGLYCERIN SL 0.4 MG/TAB TAB SL PRN (22:42)
[2022-09-24] MEDS: HEPARIN SOD 5,000 UNIT/0.5 ML VIAL SQ SCH (23:10)
[2022-09-25] MEDS ORDERED: XOPENEX/ATROVENT 1.25mg/0.5MG NEB COMBO NEB PRN (00:14)
--- NOTE | 2022-09-25 00:18 | CT Scan Report ---
Exam(s): CT CHEST Without Contrast EXAM: CT Chest Without Intravenous Contrast CLINICAL HISTORY: Reason for exam: sob, hypoxia, recent covid. TECHNIQUE: Axial computed tomography images of the chest without intravenous contrast. CTDI is 12.97 mGy and DLP is 475.51 mGy-cm. Automated exposure control was utilized for the study. A dose lowering technique was utilized adhering to the principles of ALARA. COMPARISON: No relevant prior studies available. FINDINGS: Lungs: Interstitial and airspace opacities throughout the lungs suggestive of pulmonary edema. Pleural space: Moderate bilateral pleural effusions. Heart: Coronary artery calcifications and cardiomegaly. Bones/joints: No acute findings. Soft tissues: Unremarkable. Vasculature: Unremarkable. Lymph nodes: Unremarkable. IMPRESSION: 1. Interstitial and airspace opacities throughout the lungs suggestive of pulmonary edema. 2. Moderate bilateral pleural effusions. 3. Coronary artery calcifications and cardiomegaly. Electronically signed by: Teofilo Monroe MD 09/25/22 00:17 AM
[2022-09-25] MEDS ORDERED: methylPREDNISolone 40 MG in SYRINGE 0 ML IV STA (00:20)
[2022-09-25] MEDS: IPRATROPIUM BROMIDE NEB SOLN 0.02% 2.5 ML VIAL INH PRN ×2 (00:28→08:36)
[2022-09-25] MEDS: LEVALBUTEROL 1.25 MG/3 ML NEB NEB PRN ×2 (00:28→08:36)
[2022-09-25] MEDS ORDERED: PIPERACILLIN/TAZOBACTAM 4.5 GM in DEXTROSE 5% 100 ML IV ONE (00:30)
[2022-09-25] MEDS ORDERED: DOXYCYCLINE HYCLATE 100 MG in DEXTROSE 5% 100 ML IV SCH (01:00)
--- NOTE | 2022-09-25 02:48 | History and Physical Report ---
DATE OF ADMISSION: 09/24/2022. CHIEF COMPLAINT: Shortness of breath. HISTORY OF PRESENT ILLNESS: This is an 87-year-old male with past medical history significant for hyperlipidemia, prediabetes, history of sleep apnea, lung nodules, history of abdominal aortic aneurysm, history of bradycardia, carotid stenosis, CAD status post stents, GERD, BPH, sensorineural hearing loss, history of CLL, status post Rituxan treatment, history of chronic kidney disease stage IV, baseline creatinine 1.8 to 1.9, history of sleep apnea, CPAP intolerance, history of chronic neutropenia, chronic anemia, baseline hemoglobin 9-10, episode of thrombocytopenia, past tobacco abuse, depression, history of B- cell lymphoma,, progressive neutropenia . B-cell CLL noted on bone marrow examination in October 2014, started on single agent Rituxan, received 4 cycles of chemotherapy, last cycle was in December 2014. Seems no improvement in neutrophil count with Rituxan therapy. He also was found to have a lung mass in 2018 of 2.8 cm, remained asymptomatic and declined further workup as per hem/onc notes. He has anemia of chronic kidney disease. He used to get Aranesp . Since he moved to [facility] after his in February 2022, he stopped taking Aranesp as per heme/onco.. Currently, he is on iron replacement therapy and vitamin B12 supplements. Follows with hem/onc. The patient had COVID in July of this year, treated with Paxlovid. Since COVID, on and off he is getting nausea and vomiting. Since last 2 to 3 days, he has more increasing shortness of breath and last couple of days he is also having a few episodes of nausea, vomiting. Whenever he eats, he was vomiting. Today, in the dinner table, he has had an episode of vomiting and also short of breath. Oxygen was 91%.Staff walked him to the room and in the room his oxygen was 81%, so was brought him here. Currently on 3 liters, he is saturating okay. Chest x-ray showed congestion. He received a dose of Lasix. Very hard of hearing. Son is in the room helping with H and P. The patient denies any chest pain. Has cough. Once in a while brings whitish phlegm. Denies any fevers. Has some chronic back pain. Denies any headache. Has some mild dizziness. No blurred visions, no earache. Has some chronic runny nose. Denies any sore throat. No difficulty swallowing. He is eating regular food. Ambulates with a cane. No diarrhea or constipation. Normal bowel and bladder movements. Recently, he noticed swelling in the legs. Hemodynamics are okay. ALLERGIES: No known drug allergies. PAST MEDICAL HISTORY: As mentioned above. PAST SURGICAL HISTORY: Colonoscopy, dental surgery, EGD, cardiac stent, tonsillectomy, left carotid endarterectomy, vasectomy. MEDICATIONS: The patient is on Tylenol 650 mg p.o. every 8 hours p.r.n., albuterol inhalation every 4 hours p.r.n., amlodipine 10 mg p.o. daily, aspirin 81 mg p.o. daily, atorvastatin 40 mg p.o. at bedtime, vitamin B12 1000 mcg daily, ferrous sulfate 325 mg p.o. t.i.d., finasteride 5 mg p.o. daily, hydralazine 25 mg p.o. t.i.d., isosorbide mononitrate 60 mg p.o. daily, losartan 25 mg p.o. daily, Remeron 15 mg p.o. at bedtime, omeprazole 20 mg p.o. daily, Zofran 8 mg p.o. b.i.d. p.r.n., Zoloft 100 mg p.o. daily, Flomax 0.8 mg p.o. at bedtime. FAMILY HISTORY: Significant for mother has arthritis; father has diabetes, ear problems, eye problems, heart disorder, hypertension; mother has eye problems; sister has Parkinson's; son has solitary kidney. SOCIAL HISTORY: . Currently living at [facility]. Quit smoking in 1970. Smoked 1 pack a day for 20 years. Alcohol, rare. No drug use. REVIEW OF SYSTEMS: As per HPI. Rest of the review of systems is negative. PHYSICAL EXAMINATION: GENERAL: The patient is old and frail, not in acute distress. VITAL SIGNS: Temperature 36.9, pulse 65, respiratory rate 18, blood pressure 143/122, oxygen 91% on 2 liters. HEENT: Pupils equal, round and reactive to light. Oral mucosa moist. NECK: No JVD, no neck masses. CARDIOVASCULAR: S1 and S2 heard. Regular rate and rhythm. No murmur, no gallop. RESPIRATORY SYSTEM: Normal AP diameter. Mild tachypnea. Mild bibasilar crackles. No wheezing. ABDOMEN: Soft, bowel sounds present, nontender, no distention. CENTRAL NERVOUS SYSTEM: Alert and oriented. Speech is clear. No facial droop. Obeys simple commands. Insight is okay. Moves extremities. EXTREMITIES: Bilateral lower extremity +2 pedal edema present, no erythema seen. LABORATORY DATA: WBC 1.5, hemoglobin 8.1, hematocrit 25, platelets 142. PT 11.3, INR 1. 0, pH of 7.39. Sodium 137, potassium 4, chloride 106, bicarbonate 24, BUN 30, creatinine 1.7, serum glucose 110, calcium 8.4, magnesium 2.1, total bilirubin 0.3, AST 27, ALT 13, alkaline phosphatase 76. Troponin I high sensitivity 36.8. BNP 2500. Urinalysis pending. SARS-CoV-2 rapid test negative. IMAGING DATA: Chest x-ray, pulmonary edema. EKG: Sinus rhythm with first-degree AV block, rate of 67, left anterior fascicular block, QTc of 460. ASSESSMENT AND PLAN: This is an 87-year-old male who presents with shortness of breath and hypoxia. 1. Shortness of breath and hypoxia: Most likely looks like congestive heart failure. BNP 2500. No history of congestive heart failure in the past. Will follow the echocardiogram. Received a dose of IV Lasix 80 mg in the ER. Will continue with IV Lasix [address] Will get a CT chest to get a better picture. Echocardiogram, serial cardiac enzymes. Monitor in tele floor. Daily weights, inputs and outputs. Cardiology consult in the a.m. Also ordered Harding catheter. Continue oxygen supplementation. 2. Mild elevation of troponin: Most likely demand ischemia. Will follow the serial enzymes, echocardiogram. The patient denies any chest pain. 3. Chronic kidney disease stage IV: Creatinine of 1.7, seems to be around baseline. Will monitor the BUN and creatinine while the patient is on IV diuretics 4. Thrombocytopenia and anemia: Seems to be chronic. Gets iron supplements and vitamin B12 supplements. Follows with heme/onco.Used to be Aranesp which was stopped since he moved to [facility]. Will follow the labs. 5. History of chronic lymphocytic leukemia, history of small B-cell lymphoma: Status post Rituxan, last dose was in December of 2014, follows with hem/onc. 6. History of abdominal aortic aneurysm: Needs followup. 7. History of coronary artery disease: Status post stent. On aspirin, statin, Imdur. 8. History of carotid stenosis: Status post left carotid endarterectomy. On aspirin and statin. 9. Sleep apnea: Seems to be not tolerating CPAP. 10. History of lung nodule: Diagnosed in 2019. Will follow CT chest. The patient has declined workup in the past as per hem/onc notes. 11. Benign prostatic hypertrophy: Continue finasteride and Flomax. Currently Harding is placed. 12. History of depression: Continue Zoloft and mirtazapine. 13. Gastroesophageal reflux disease: Continue omeprazole. 14. Hypertension: On losartan, Imdur, hydralazine, amlodipine. Currently getting IV Lasix. Monitor the blood pressure. 15. Hyperlipidemia: On statin. 16. Prediabetes: Follow HbA1c level, diabetic diet. 17. Lower extremity edema. Mostly from chf. Management as above. Will follow dopplers. 18. Deep venous thrombosis prophylaxis: Placed on heparin subcutaneous. Addendum: On the floor patient was more tachypneic requiring 15lts oxygen. Placed on bipap which seemed helped.Will monitor DISPOSITION: Closely monitor in the tele floor. Level 1 full code only if there is real chance of recovery as per my discussion with the son. Job ID: [id number] MTDD
[2022-09-25] MEDS: HEPARIN SOD 5,000 UNIT/0.5 ML VIAL SQ SCH ×3 (05:30→21:16)
[2022-09-25] MEDS ORDERED: PIPERACILLIN/TAZOBACTAM 4.5 GM in DEXTROSE 5% 100 ML IV SCH (06:00)
[2022-09-25 06:40] LABS: Hematocrit (blood only) 24.2 % (42.0-52.0); Hemoglobin 7.9 g/dl (14.0-18.0); Mean Corpuscular Hemoglobin 31.2 pg (25.0-34.0); Mean Corpuscular Hgb Conc 32.6 g/dL (32.0-36.0); Mean Corpuscular Volume 95.7 fL (80.0-100.0); Mean Platelet Volume 10.5 fL (9.4-12.4); Platelet Count 127 K/uL (130-400); RDW Coefficient of Variation 15.7 % (11.5-14.5); Red Blood Count 2.53 M/uL (4.70-6.10); White Blood Count 1.22 K/ul (4.8-10.8)
[2022-09-25 06:57] LABS: BUN Creatinine Ratio 16.1 (10-20); Calcium 8.6 mg/dl (8.6-10.3); Creatinine Clr Calc Pharmacy 25.1 ml/min; Est GFR (African American) 34.8 ml/min; Potassium 3.9 mmol/L (3.5-5.1)
[2022-09-25 07:20] LABS: Acanthocytes 1+; Ovalocytes 1+
--- NOTE | 2022-09-25 07:22 | Ultrasound Report ---
BILATERAL LOWER EXTREMITY VENOUS DOPPLER HISTORY: Leg pain. dvt? COMPARISON STUDY: None. FINDINGS: There is normal compressibility, flow, and augmentation within the bilateral lower extremit y deep venous systems. IMPRESSION: No DVT within the right or left lower extremity. ACT 112: Negative or not required by law. Electronically signed by: Massimo Posada M.D. 09/25/2022 7:20 AM
[2022-09-25 07:33] LABS: Basophils # (auto) 0.01 K/uL (0-0.2); Basophils % (auto) 0.8 %; Eosinophils # (auto) 0.01 K/uL (0-0.50); Eosinophils % (auto) 0.8 %; Lymphocytes # (auto) 0.32 K/uL (1.2-3.4); Lymphocytes % (auto) 26.2 %; Monocytes % (auto) 8.2 %; Neutrophils # (auto) 0.78 K/uL (1.40-6.50)
--- NOTE | 2022-09-25 07:49 | XRay Report ---
XR chest 2V PA/lateral CLINICAL HISTORY: Dyspnea. COMPARISON STUDY: Chest radiograph December 06, 2015. FINDINGS: There is no pneumothorax. Moderate bilateral pleural effusions are present. There is modera te cardiomegaly. Interstitial thickening and bilateral airspace opacities are noted. These include a 5.4 cm right upper lobe opacity. IMPRESSION: 1. Cardiomegaly. Interstitial thickening consistent with pulmonary edema and moderate bilateral pleur al effusions. 2. Superimposed airspace opacities, as described above, which likely reflect alveolar pulmonary edema or superimposed pneumonia. Radiographic follow-up to exclude the possibility of an underlying lesion is recommended. ACT 112: Negative or not required by law. Electronically signed by: Omari Jimenez M.D. 09/25/2022 7:47 AM
[2022-09-25] MEDS: ISOSORBIDE MONO EXTENDED REL 60 MG TABCR PO SCH (08:23)
[2022-09-25] MEDS: LOSARTAN POTASSIUM 25 MG TAB PO SCH (08:23)
[2022-09-25] MEDS: FERROUS SULFATE 325 MG TAB PO SCH ×3 (08:23→16:54)
[2022-09-25] MEDS: hydrALAZINE HCL 25 MG TAB PO SCH ×3 (08:23→20:02)
[2022-09-25] MEDS: ASPIRIN 81 MG CHEW PO SCH (08:23)
[2022-09-25] MEDS: FUROSEMIDE 40 MG/4 ML VIAL IV SCH ×2 (08:23→16:54)
[2022-09-25] MEDS: CYANOCOBALAMIN (B-12) 500 MCG TABLET PO SCH (08:23)
[2022-09-25] MEDS: FINASTERIDE 5 MG TAB PO SCH (08:23)
[2022-09-25] MEDS: SERTRALINE HCL 100 MG TABLET PO SCH (08:23)
[2022-09-25] MEDS: amLODIPine BESYLATE 5 MG TAB PO SCH (08:23)
[2022-09-25 08:29] LABS: Estimated Average Glucose 103 mg/dl; Hemoglobin A1C 5.2 % (4.5-5.6)
[2022-09-25] MEDS ORDERED: hydrALAZINE HCL 20 MG/ML VIAL IV PRN (08:39)
[2022-09-25] MEDS ORDERED: PANTOprazole 40 MG TAB PO SCH (09:00)
--- NOTE | 2022-09-25 12:11 | Cardiology Consultation ---
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 Echocardiographic findings are diffuse with moderate LV dysfunction and moderate to severe aortic insufficiency. Initial EKG and mild elevation troponins suggest demand based ischemia but not pattern consistent with acute coronary syndrome Recommendations: Continue to treat congestive heart failure with IV furosemide, BiPAP Continue antihypertensive regimen which includes afterload reduction agents of hydralazine isosorbide and losartan. If renal function declines hold losartan Heart failure appropriate beta-nolvia contraindicated given resting bradycardia and first-degree AV block History of Present Illness Reason for Consultation: Pulmonary edema Requesting Physician: Dr. Mario Attending Physician: Richard Mario MD History of Present Illness Patient is an 87-year-old male resident of [facility] his ongoing cardiac issues as per outpatient note of 06/15/2022 as well as recent review include 1.Coronary artery disease status post PCI to the LAD with a drug-eluting stent in 2008 and PCI with a bare metal stent to the RCA in 2014. 2.Hypertension. Longstanding with multiple drug regimen 3.Hyperlipidemia. 4.Carotid occlusive disease status post carotid endarterectomy. 5.Obstructive sleep apnea, intolerant to CPAP. 6.CLL with small B-cell lymphoma, anemia and thrombocytopenia. Chronic left lung mass 7.CKD stage III 3B Patient notes gradual decline over several months with specific worsening since COVID infection in July 2022. Increasing lower extremity edema several weeks with marked dyspnea x2 to 3 days with associated nausea and vomiting as well resulting in evaluation reflecting significant hypoxia, ER visit with pulmonary edema Patient currently on BiPAP and difficulty conversing Feels he has improved since initial ER presentation with diuresis on initial treatment He denies any chest pains or tachypalpitations does note cough. Notes moderate orthopnea. And lower extremity edema. Appetite and taking medications as been stable. No overt bleeding. Chronic anemia and present Echocardiogram reflects diffuse LV dysfunction EF 35 to 40% with moderate aortic insufficiency Allergies Allergy/AdvReac Type Severity Reaction Status Date / Time No Known Allergies Allergy Verified 09/24/22 19:08 Home Medications Medication Instructions Recorded Confirmed Type acetaminophen 325 mg tablet 650 mg PO Q8 PRN .Mild pain, fever 09/24/22 09/24/22 History (Tylenol) & headache albuterol sulfate 90 mcg/actuation 1 inh inhalation Q4 PRN .sob/cough 09/24/22 09/24/22 History aerosol inhaler amlodipine 10 mg tablet 10 mg PO DAILY 09/24/22 09/24/22 History aspirin 81 mg chewable tablet 81 mg PO DAILY 09/24/22 09/24/22 History atorvastatin 80 mg tablet 40 mg PO HS 09/24/22 09/24/22 History carbamide peroxide 6.5 % ear drops 5 - 10 drp otic (ear) DIRECTED 09/24/22 09/24/22 History cyanocobalamin (vitamin B-12) 0 mcg PO DAILY 09/24/22 09/24/22 History 1,000 mcg tablet (Vitamin B-12) ferrous sulfate 325 mg (65 mg 325 mg PO TIDM 09/24/22 09/24/22 History iron) tablet finasteride 5 mg tablet 5 mg PO DAILY 09/24/22 09/24/22 History hydralazine 25 mg tablet 25 mg PO TID 09/24/22 09/24/22 History isosorbide mononitrate 60 mg 60 mg PO DAILY 09/24/22 09/24/22 History tablet,extended release 24 hr losartan 25 mg tablet 25 mg PO DAILY 09/24/22 09/24/22 History mirtazapine 15 mg tablet 15 mg PO HS 09/24/22 09/24/22 History omeprazole 20 mg tablet,delayed 20 mg PO DAILY 09/24/22 09/24/22 History release ondansetron HCl 8 mg tablet 8 mg PO Q12H PRN Nausea 09/24/22 09/24/22 History sertraline 100 mg tablet 100 mg PO DAILY 09/24/22 09/24/22 History tamsulosin 0.4 mg capsule 0.8 mg PO HS 09/24/22 09/24/22 History Patient History Social History Smoking Status: Former smoker Second Hand Exposure: No; Do You Dip or Chew Tobacco: No; Tobacco Cessation Education Requested by Patient: No Hx Alcohol Use: No Hx Substance Use: No Preferred Language: Yakut Communication Ability: Effective Scientific Advisor Required: No Beliefs That Will Affect Care: None Current Living Situation: Personal Care Facility Current Living Situation Comment: Resides at [facility] Other Information That Helps Us Care for You: No Feels Safe at Home: Yes Safety Concerns: Feels Safe At This Time Assistive Devices: Cane, Denture - Upper, Denture - Lower, Glasses and Walker Assistive Devices Comment: Dentures with patient Review of Systems Review of Systems: All systems reviewed & are unremarkable except as noted in HPI & below Results & Data Vital Signs (Past 12 Hours) Vital Signs Temp Pulse Pulse Resp BP Pulse Ox O2 Del Method 09/25/22 11:20 36.7 C 63 28 H 153/71 H 98 BiPAP 09/25/22 07:30 26 H 93 Oxymask 09/25/22 07:44 36.7 C 64 28 H 194/85 H 93 BiPAP 09/25/22 07:23 60 09/25/22 03:29 36.5 C 56 L 20 173/72 H 94 CPAP 09/25/22 02:30 59 L 25 H 94 09/25/22 00:28 69 26 H 98 BiPAP 09/25/22 00:24 71 36 H 97 O2 Flow Rate FiO2 09/25/22 11:20 09/25/22 07:30 10 09/25/22 07:44 09/25/22 07:23 09/25/22 03:29 09/25/22 02:30 60 09/25/22 00:28 60 09/25/22 00:24 60 Laboratory Results Laboratory Results - last 24 hr 09/24/22 09/24/22 09/24/22 19:20 19:30 19:30 WBC 1.55 L RBC 2.60 L Hgb 8.1 L Hct 25.0 L MCV 96.2 MCH 31.2 MCHC 32.4 RDW Std Deviation 57.1 H RDW Coeff of Germaine 16.2 H Plt Count 142 MPV 10.6 Immature Gran % (Auto) 0.0 Neut % (Auto) 29.7 Lymph % (Auto) 38.1 Irion % (Auto) 20.6 Eos % (Auto) 10.3 Baso % (Auto) 1.3 Neut # (Auto) 0.46 L* Lymph # (Auto) 0.59 L Irion # (Auto) 0.32 Eos # (Auto) 0.16 Baso # (Auto) 0.02 Immature Gran # (Auto) 0.00 L Polychromasia 1+ Tear Drop Cells 1+ Ovalocytes 1+ Acanthocytes (Spur) PT INR VBG pH VBG pCO2 VBG pO2 VBG HCO3 VBG O2 Saturation VBG Base Excess Sodium 137 Potassium 4.0 Chloride 106 Carbon Dioxide 24 Anion Gap 7 BUN 30 H Creatinine 1.71 H Est Cr Clr Drug Dosing 30.9 Est GFR ( Amer) 40.3 Est GFR (Non-Af Amer) 34.7 BUN/Creatinine Ratio 17.5 Glucose 110 H POC Glucose Estimat Average Glucose Hemoglobin A1c Calcium 8.4 L Magnesium 2.1 Total Bilirubin 0.3 AST 27 ALT 13 Alkaline Phosphatase 76 Troponin I High Sens 36.8 H B-Natriuretic Peptide Total Protein 7.0 Albumin 3.2 L Globulin 3.8 Albumin/Globulin Ratio 0.8 L Procalcitonin Urine Color Urine Appearance Urine pH Ur Specific [place] Urine Protein Urine Glucose (UA) Urine Ketones Urine Blood Urine Nitrite Urine Bilirubin Urine Urobilinogen Ur Leukocyte Esterase Urine WBC (Auto) Urine RBC (Auto) U Hyaline Cast (Auto) U Epithel Cells (Auto) Urine Bacteria (Auto) Nasal Screen MRSA (PCR) SARS-CoV-2, RNA, NAAT NEGATIVE 09/24/22 09/24/22 09/24/22 19:30 19:30 19:30 WBC RBC Hgb Hct MCV MCH MCHC RDW Std Deviation RDW Coeff of Germaine Plt Count MPV Immature Gran % (Auto) Neut % (Auto) Lymph % (Auto) Irion % (Auto) Eos % (Auto) Baso % (Auto) Neut # (Auto) Lymph # (Auto) Irion # (Auto) Eos # (Auto) Baso # (Auto) Immature Gran # (Auto) Polychromasia Tear Drop Cells Ovalocytes Acanthocytes (Spur) PT 11.3 INR 1.0 VBG pH VBG pCO2 VBG pO2 VBG HCO3 VBG O2 Saturation VBG Base Excess Sodium Potassium Chloride Carbon Dioxide Anion Gap BUN Creatinine Est Cr Clr Drug Dosing Est GFR ( Amer) Est GFR (Non-Af Amer) BUN/Creatinine Ratio Glucose POC Glucose Estimat Average Glucose Hemoglobin A1c Calcium Magnesium Total Bilirubin AST ALT Alkaline Phosphatase Troponin I High Sens B-Natriuretic Peptide 2599 H Total Protein Albumin Globulin Albumin/Globulin Ratio Procalcitonin 0.05 Urine Color Urine Appearance Urine pH Ur Specific [place] Urine Protein Urine Glucose (UA) Urine Ketones Urine Blood Urine Nitrite Urine Bilirubin Urine Urobilinogen Ur Leukocyte Esterase Urine WBC (Auto) Urine RBC (Auto) U Hyaline Cast (Auto) U Epithel Cells (Auto) Urine Bacteria (Auto) Nasal Screen MRSA (PCR) SARS-CoV-2, RNA, NAAT 09/24/22 09/24/22 09/24/22 19:56 20:58 22:53 WBC RBC Hgb Hct MCV MCH MCHC RDW Std Deviation RDW Coeff of Germaine Plt Count MPV Immature Gran % (Auto) Neut % (Auto) Lymph % (Auto) Irion % (Auto) Eos % (Auto) Baso % (Auto) Neut # (Auto) Lymph # (Auto) Irion # (Auto) Eos # (Auto) Baso # (Auto) Immature Gran # (Auto) Polychromasia Tear Drop Cells Ovalocytes Acanthocytes (Spur) PT INR VBG pH 7.39 VBG pCO2 42 VBG pO2 35 VBG HCO3 25 VBG O2 Saturation 62.2 VBG Base Excess 0.3 Sodium Potassium Chloride Carbon Dioxide Anion Gap BUN Creatinine Est Cr Clr Drug Dosing Est GFR ( Amer) Est GFR (Non-Af Amer) BUN/Creatinine Ratio Glucose POC Glucose 132 H Estimat Average Glucose Hemoglobin A1c Calcium Magnesium Total Bilirubin AST ALT Alkaline Phosphatase Troponin I High Sens B-Natriuretic Peptide Total Protein Albumin Globulin Albumin/Globulin Ratio Procalcitonin Urine Color Yellow Urine Appearance Clear Urine pH 5.5 Ur Specific [place] 1.015 Urine Protein 2+ H Urine Glucose (UA) Negative Urine Ketones Negative Urine Blood 2+ H Urine Nitrite Negative Urine Bilirubin Negative Urine Urobilinogen Negative Ur Leukocyte Esterase Negative Urine WBC (Auto) 0 Urine RBC (Auto) 5-10 H U Hyaline Cast (Auto) 0 U Epithel Cells (Auto) 0-5 Urine Bacteria (Auto) Negative Nasal Screen MRSA (PCR) SARS-CoV-2, RNA, NAAT 09/24/22 09/25/22 09/25/22 22:54 06:15 06:15 WBC 1.22 L RBC 2.53 L Hgb 7.9 L Hct 24.2 L MCV 95.7 MCH 31.2 MCHC 32.6 RDW Std Deviation 55.0 H RDW Coeff of Germaine 15.7 H Plt Count 127 L MPV 10.5 Immature Gran % (Auto) 0.0 Neut % (Auto) 64.0 Lymph % (Auto) 26.2 Irion % (Auto) 8.2 Eos % (Auto) 0.8 Baso % (Auto) 0.8 Neut # (Auto) 0.78 L* Lymph # (Auto) 0.32 L Irion # (Auto) 0.10 L Eos # (Auto) 0.01 Baso # (Auto) 0.01 Immature Gran # (Auto) 0.00 L Polychromasia Tear Drop Cells Ovalocytes 1+ Acanthocytes (Spur) 1+ PT INR VBG pH VBG pCO2 VBG pO2 VBG HCO3 VBG O2 Saturation VBG Base Excess Sodium Potassium Chloride Carbon Dioxide Anion Gap BUN Creatinine Est Cr Clr Drug Dosing Est GFR ( Amer) Est GFR (Non-Af Amer) BUN/Creatinine Ratio Glucose POC Glucose Estimat Average Glucose Hemoglobin A1c Calcium Magnesium Total Bilirubin AST ALT Alkaline Phosphatase Troponin I High Sens 60.2 H* D B-Natriuretic Peptide Total Protein Albumin Globulin Albumin/Globulin Ratio Procalcitonin Urine Color Urine Appearance Urine pH Ur Specific [place] Urine Protein Urine Glucose (UA) Urine Ketones Urine Blood Urine Nitrite Urine Bilirubin Urine Urobilinogen Ur Leukocyte Esterase Urine WBC (Auto) Urine RBC (Auto) U Hyaline Cast (Auto) U Epithel Cells (Auto) Urine Bacteria (Auto) Nasal Screen MRSA (PCR) Negative SARS-CoV-2, RNA, NAAT 09/25/22 09/25/22 09/25/22 06:15 06:15 10:36 WBC RBC Hgb Hct MCV MCH MCHC RDW Std Deviation RDW Coeff of Germaine Plt Count MPV Immature Gran % (Auto) Neut % (Auto) Lymph % (Auto) Irion % (Auto) Eos % (Auto) Baso % (Auto) Neut # (Auto) Lymph # (Auto) Irion # (Auto) Eos # (Auto) Baso # (Auto) Immature Gran # (Auto) Polychromasia Tear Drop Cells Ovalocytes Acanthocytes (Spur) PT INR VBG pH VBG pCO2 VBG pO2 VBG HCO3 VBG O2 Saturation VBG Base Excess Sodium 138 Potassium 3.9 Chloride 105 Carbon Dioxide 26 Anion Gap 7 BUN 31 H Creatinine 1.93 H Est Cr Clr Drug Dosing 25.1 Est GFR ( Amer) 34.8 Est GFR (Non-Af Amer) 30.0 BUN/Creatinine Ratio 16.1 Glucose 120 H POC Glucose Estimat Average Glucose 103 Hemoglobin A1c 5.2 Calcium 8.6 Magnesium 2.0 Total Bilirubin AST ALT Alkaline Phosphatase Troponin I High Sens 70.1 H* B-Natriuretic Peptide Total Protein Albumin Globulin Albumin/Globulin Ratio Procalcitonin Urine Color Urine Appearance Urine pH Ur Specific [place] Urine Protein Urine Glucose (UA) Urine Ketones Urine Blood Urine Nitrite Urine Bilirubin Urine Urobilinogen Ur Leukocyte Esterase Urine WBC (Auto) Urine RBC (Auto) U Hyaline Cast (Auto) U Epithel Cells (Auto) Urine Bacteria (Auto) Nasal Screen MRSA (PCR) SARS-CoV-2, RNA, NAAT
--- NOTE | 2022-09-25 15:23 | Electrocardiogram Report ---
Test Reason : Blood Pressure : / mmHG Vent. Rate : 067 BPM Atrial Rate : 067 BPM P-R Int : 224 ms QRS Dur : 092 ms QT Int : 436 ms P-R-T Axes : 037 -47 115 degrees QTc Int : 460 ms Sinus rhythm with 1st degree A-V block Left anterior fascicular block Minimal voltage criteria for LVH, may be normal variant Abnormal ECG When compared with ECG of 26-AUG-2021 18:36, Aberrant conduction is no longer Present Nonspecific T wave abnormality no longer evident in Inferior leads Confirmed by Veto Acevedo ([id number] on 09/25/2022 3:22:49 PM Referred By: REFERRED SELF Confirmed By:Michael Acevedo
--- NOTE | 2022-09-25 16:35 | Hospitalist Progress Note ---
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 Acute systolic CHF Acute respiratory failure with hypoxia secondary to above Troponin elevation: Type II SD secondary to demand ischemia H/O TREVOR: Intolerance to CPAP --ECHO: Moderate global hypokinesis of left ventricle. Left ventricle is normal in size. EF 35 to 40%. Grade 1 diastolic dysfunction. Moderate to severe aortic regurgitation. Mild to moderate mitral regurgitation. Mild tricuspid regurgitation. --Venous Doppler:No DVT within the right or left lower extremity. --CT Chest:Interstitial and airspace opacities throughout the lungs suggestive of pulmonary edema. Moderate bilateral pleural effusions. Coronary artery calcifications and cardiomegaly. Continue BiPAP for respiratory support Continue IV Lasix Monitor I's and O's, daily weight, volume status Appreciate cardiology input Continue hydralazine, isosorbide and losartan No beta-nolvia as patient has bradycardia, first-degree AV block CKD IV Baseline creatinine ~ 1.9 Monitor renal function Avoid nephrotoxic agents as able May need to hold losartan if renal function worsens Anemia of chronic disease Chronic neutropenia Thrombocytopenia H/O CLL S/P Rituxan H/O B-cell lymphoma Previously on Anaresp Monitor CBC Neutropenia precautions Follows with oncology as outpatient H/O Abdominal aortic aneurysm coronary artery disease S/P Stent carotid stenosis: Status post left carotid endarterectomy. Continue aspirin, statin, Imdur. H/O lung nodule: Diagnosed in 2019 Patient has declined workup in the past as per Oncology BPH Continue finasteride and Flomax Depression: continue Zoloft and mirtazapine. GERD Continue PPI Hypertension: Hypertensive Urgency Continue losartan, Imdur, hydralazine, amlodipine Hyperlipidemia: On statin. Prediabetes: HbA1c level 5.2 Diet controlled DVT Px: Heparin SQ Code Status Full Code Admission and Anticipated Discharge Date Admission Date: September 24, 2022 Subjective Patient is seen and examined at bedside Dyspnea is better when compared to time of admission Reports cough with expectoration On BiPAP No other complaints Review of Systems Review of Systems: All systems reviewed & are unremarkable except as noted in Subjective Physical Exam Physical Exam: Physical Exam: Vitals signs as noted above General Appearance:Moderately built and nourished, no apparent distress Head: normocephalic, Atraumatic Eyes: normal inspection, EOMI Neck: supple, Trachea midline Respiratory/Chest: Decreased breath sounds, Basal Rales, No accessory muscle use Cardiovascular: S1, S2, No murmur Abdomen/GI:Soft, Non tender, Bowel sounds present Extremities/Musculoskeletal:normal inspection, 1-2+ pedal edema Neurologic/Psych:AAOX3, grossly no focal neurological deficits Skin: normal color, warm Results & Data Results & Data Vital Signs (Past 12 Hours) Vital Signs Temp Pulse Pulse Resp BP Pulse Ox O2 Del Method 09/25/22 15:57 55 L 09/25/22 12:00 93 High Flow Nasal Cannula 09/25/22 14:57 36.7 C 55 L 32 H 142/51 H 92 BiPAP 09/25/22 14:12 66 32 H 93 09/25/22 07:30 64 32 H 98 09/25/22 08:00 BiPAP, High Flow Nasal Cannula 09/25/22 11:20 36.7 C 63 28 H 153/71 H 98 BiPAP 09/25/22 07:30 26 H 93 Oxymask 09/25/22 07:44 36.7 C 64 28 H 194/85 H 93 BiPAP 09/25/22 07:23 60 O2 Flow Rate FiO2 09/25/22 15:57 09/25/22 12:00 10 09/25/22 14:57 09/25/22 14:12 40 09/25/22 07:30 60 09/25/22 08:00 09/25/22 11:20 09/25/22 07:30 10 09/25/22 07:44 09/25/22 07:23 Laboratory Results Short CBC 09/24/22 09/25/22 Range/Units 19:30 06:15 WBC 1.55 L 1.22 L (4.8-10.8) K/ul Hgb 8.1 L 7.9 L (14.0-18.0) g/dl Hct 25.0 L 24.2 L (42.0-52.0) % Plt Count 142 127 L (130-400) K/uL BMP 09/24/22 09/25/22 19:30 06:15 Sodium 137 138 Potassium 4.0 3.9 Chloride 106 105 Carbon Dioxide 24 26 BUN 30 H 31 H Creatinine 1.71 H 1.93 H Glucose 110 H 120 H Calcium 8.4 L 8.6 Liver Function 09/24/22 Range/Units 19:30 Total Bilirubin 0.3 (0.2-1.0) mg/dl AST 27 (13-39) U/L ALT 13 (7-52) U/L Alkaline Phosphatase 76 (34-104) U/L Albumin 3.2 L (3.4-5.0) gm/dl Urine 09/24/22 Range/Units 20:58 Urine Color Yellow Urine Appearance Clear (Clear) Urine pH 5.5 (4.5-7.5) Ur Specific [place] 1.015 (1.000-1.030) Urine Protein 2+ H (Negative) Urine Glucose (UA) Negative (Negative)
[2022-09-25] MEDS: NITROGLYCERIN 2% OINTMENT 30GM TUBE EXT SCH ×2 (16:54→21:16)
[2022-09-25] MEDS: TAMSULOSIN HCL 0.4 MG CAP PO SCH (20:02)
[2022-09-25] MEDS: ATORVASTATIN 40 MG TAB PO SCH (20:02)
[2022-09-25] MEDS: MIRTAZAPINE TAB 15 MG TAB PO SCH (20:02)
[2022-09-26] MEDS ORDERED: PANTOPRAZOLE BOLUS/DRIP 1 EACH IV STA (01:18)
[2022-09-26] MEDS ORDERED: PANTOprazole 80 MG in DEXTROSE 5% 100 ML IV ONE (01:30)
[2022-09-26 02:10] LABS: Hematocrit (blood only) 25.6 % (42.0-52.0); Hemoglobin 8.4 g/dl (14.0-18.0)
[2022-09-26] MEDS: PANTOprazole 40 MG in DEXTROSE 5% 100 ML IV SCH ×3 (02:11→12:20)
[2022-09-26] MEDS: NITROGLYCERIN 2% OINTMENT 30GM TUBE EXT SCH ×4 (03:30→22:56)
[2022-09-26 08:23] LABS: Hematocrit (blood only) 25.6 % (42.0-52.0); Hemoglobin 8.2 g/dl (14.0-18.0); Mean Corpuscular Hemoglobin 30.8 pg (25.0-34.0); Mean Corpuscular Volume 96.2 fL (80.0-100.0); Platelet Count 140 K/uL (130-400); RDW Coefficient of Variation 15.9 % (11.5-14.5); RDW Standard Deviation 56.1 fL (36.4-46.3); Red Blood Count 2.66 M/uL (4.70-6.10); White Blood Count 1.97 K/ul (4.8-10.8)
[2022-09-26] MEDS: hydrALAZINE HCL 25 MG TAB PO SCH ×3 (08:32→20:37)
[2022-09-26] MEDS: ASPIRIN 81 MG CHEW PO SCH (08:32)
[2022-09-26] MEDS: FERROUS SULFATE 325 MG TAB PO SCH ×2 (08:32→12:21)
[2022-09-26] MEDS: FINASTERIDE 5 MG TAB PO SCH (08:32)
[2022-09-26 08:33] LABS: BUN Creatinine Ratio 16.8 (10-20); Calcium 8.3 mg/dl (8.6-10.3); Creatinine Clr Calc Pharmacy 25.5 ml/min; Est GFR (African American) 35.4 ml/min; Est GFR (Non-African American) 30.6 ml/min; Magnesium 1.9 mg/dl (1.7-2.4); Potassium 3.4 mmol/L (3.5-5.1)
[2022-09-26] MEDS: LOSARTAN POTASSIUM 25 MG TAB PO SCH (08:33)
[2022-09-26] MEDS: amLODIPine BESYLATE 5 MG TAB PO SCH (08:33)
[2022-09-26] MEDS: ISOSORBIDE MONO EXTENDED REL 60 MG TABCR PO SCH (08:34)
[2022-09-26] MEDS: CYANOCOBALAMIN (B-12) 500 MCG TABLET PO SCH (08:34)
[2022-09-26] MEDS: FUROSEMIDE 40 MG/4 ML VIAL IV SCH ×2 (08:35→17:23)
[2022-09-26] MEDS: SERTRALINE HCL 100 MG TABLET PO SCH (08:35)
[2022-09-26] MEDS ORDERED: POTASSIUM CHLORIDE CRTAB 20 MEQ TABCR PO ONE (09:13)
[2022-09-26] MEDS: POTASSIUM CHLORIDE / WTR 10 MEQ/100 ML PLCT IV SCH ×2 (09:33→10:46)
--- NOTE | 2022-09-26 10:59 | Communication Note ---
Date of Service: September 26, 2022 Received consult for melena for 87 yo M with mult comorbidities admit for SOB attrib to CHF currently on high oxygen requirement. We are consulted for melen a, but he is hypertensive and hgb is stable. He is also reported to have nausea. He is at high risk for complications from endoscopy, and there is no urgent indcation for a procedure. Would follow for now. Diet as tolerated,cont pulm toilet. Can switch PPI to oral twice daily. Would hold iron given nausea. Please reconsult if has evidence of clnically significant GIB, or if nausea is persistent and unexplained.
--- NOTE | 2022-09-26 15:26 | Cardiology Progress Note ---
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 Echocardiographic findings are diffuse with moderate LV dysfunction and moderate to severe aortic insufficiency, LVEF 35-40%. Initial EKG and mild elevation troponin levels suggest demand based ischemia but not pattern consistent with acute coronary syndrome Recommendations: Continue to treat congestive heart failure with IV furosemide 40 mg IV BID. Continue antihypertensive regimen which includes afterload reduction agents of hydralazine, isosorbide, topical nitroglycerin and losartan. If renal function declines hold losartan Heart failure appropriate beta-nolvia contraindicated given resting bradycardia and first-degree AV block. Admission and Anticipated Discharge Date Admission Date: September 24, 2022 Subjective Patient seen in cardiology follow up. He is out of bed in in the bedside chair. He is off of Bipap. SOB improved. Telemetry reveals sinus bradycardia, for the most part in the 50s, occasionally down to the 40s. Review of Systems Review of Systems: All systems reviewed & are unremarkable except as noted in HPI & below Physical Exam Constitutional: no acute distress Respiratory: Auscultation: + diminished lung sounds (decreased BS at the bases); no crackles and no rales Cardiovascular: Rate/Rhythm: regular rate and regular rhythm Heart Sounds: normal S1 and normal S2; no murmur Extremities: + edema (trace LE and pedal edema) Neurologic: PERRL, EOMI, accommodation nl, no face palsy, no dysarthria Results & Data Vital Signs (Past 12 Hours) Vital Signs Temp Pulse Pulse Resp BP Pulse Ox O2 Del Method 09/26/22 15:15 36.8 C 53 L 18 142/52 H 94 High Flow Nasal Cannula 09/26/22 11:56 36.7 C 56 L 19 147/53 H 90 High Flow Nasal Cannula 09/26/22 11:21 93 Oxymask 09/26/22 10:30 93 Oxymask 09/26/22 10:09 96 Oxymask 09/26/22 07:48 36.6 C 65 20 180/66 H 94 Oxymask 09/26/22 07:45 68 09/26/22 07:45 Oxymask, BiPAP O2 Flow Rate 09/26/22 15:15 4 09/26/22 11:56 4 09/26/22 11:21 4 09/26/22 10:30 6 09/26/22 10:09 8 09/26/22 07:48 13 09/26/22 07:45 09/26/22 07:45 Laboratory Results CBC 09/26/22 09/26/22 Range/Units 01:31 07:16 WBC 1.97 L (4.8-10.8) K/ul RBC 2.66 L (4.70-6.10) M/uL Hgb 8.4 L 8.2 L (14.0-18.0) g/dl Hct 25.6 L 25.6 L (42.0-52.0) % Plt Count 140 (130-400) K/uL Comprehensive Metabolic Panel 09/26/22 Range/Units 07:16 Sodium 139 (136-145) mmol/L Potassium 3.4 L (3.5-5.1) mmol/L Chloride 103 (98-107) mmol/L Carbon Dioxide 28 (21-32) mmol/L BUN 32 H (6-23) mg/dl Creatinine 1.90 H (0.6-1.4) mg/dl Glucose 104 H (70-99(Fasting)) mg/dl Calcium 8.3 L (8.6-10.3) mg/dl
--- NOTE | 2022-09-26 16:45 | Hospitalist Progress Note ---
Date of Service September 26, 2022 Assessment & Plan (1) Acute CHF (congestive heart failure): (2) Heart failure with reduced ejection fraction due to cardiomyopathy: Plan: Patient is an 87 yr male who presents with shortness of breath and hypoxia. Acute systolic CHF Acute respiratory failure with hypoxia secondary to above Troponin elevation: Type II GA secondary to demand ischemia H/O TREVOR: Intolerance to CPAP --ECHO: Moderate global hypokinesis of left ventricle. Left ventricle is normal in size. EF 35 to 40%. Grade 1 diastolic dysfunction. Moderate to severe aortic regurgitation. Mild to moderate mitral regurgitation. Mild tricuspid regurgitation. --Venous Doppler:No DVT within the right or left lower extremity. --CT Chest:Interstitial and airspace opacities throughout the lungs suggestive of pulmonary edema. Moderate bilateral pleural effusions. Coronary artery calcifications and cardiomegaly. -- Respiratory status improved: On 4 L supplemental oxygen BiPAP as needed Monitor I's and O's, daily weight, volume status Appreciate cardiology input Continue hydralazine, isosorbide and losartan No beta-nolvia as patient has bradycardia, first-degree AV block Continue IV Lasix Melena Chronic per patient + FOBT Hb Stable Continue PPI Appreciate GI Input Monitor CBC Advance diet as tolerated Delirium Reorient frequently CKD IV Baseline creatinine ~ 1.9 Monitor renal function Avoid nephrotoxic agents as able May need to hold losartan if renal function worsens Renal function stable Anemia of chronic disease Chronic neutropenia Thrombocytopenia H/O CLL S/P Rituxan H/O B-cell lymphoma Previously on Aranesp Monitor CBC Neutropenia precautions Follows with oncology as outpatient H/O Abdominal aortic aneurysm coronary artery disease S/P Stent carotid stenosis: Status post left carotid endarterectomy. Continue aspirin, statin, Imdur. H/O lung nodule: Diagnosed in 2019 Patient has declined workup in the past as per Oncology BPH Continue finasteride and Flomax Depression: continue Zoloft and mirtazapine. GERD Continue PPI Hypertension: Hypertensive Urgency Continue losartan, Imdur, hydralazine, amlodipine Hyperlipidemia: On statin. Prediabetes: HbA1c level 5.2 Diet controlled DVT Px: Heparin SQ Code Status Full Code Admission and Anticipated Discharge Date Admission Date: September 24, 2022 Subjective Patient is seen and examined at bedside States feeling better today Delirious overnight but more oriented this morning Saturating well on 4 L supplemental oxygen Had melena overnight Still has minimal cough with expectoration Denies any chest pain, dizziness, nausea, vomiting, abdominal pain Hemoglobin stable Review of Systems Review of Systems: All systems reviewed & are unremarkable except as noted in Subjective Physical Exam Physical Exam: Physical Exam: Vitals signs as noted above General Appearance:Moderately built and nourished, no apparent distress Head: normocephalic, Atraumatic Eyes: normal inspection, EOMI Neck: supple, Trachea midline Respiratory/Chest: Decreased breath sounds, CTA, No accessory muscle use Cardiovascular: S1, S2, No murmur Abdomen/GI:Soft, Non tender, Bowel sounds present Extremities/Musculoskeletal:normal inspection, 1-2+ pedal edema Neurologic/Psych:AAOX3, grossly no focal neurological deficits Skin: normal color, warm Results & Data Results & Data Vital Signs (Past 12 Hours) Vital Signs Temp Pulse Pulse Resp BP Pulse Ox O2 Del Method 09/26/22 15:15 36.8 C 53 L 18 142/52 H 94 High Flow Nasal Cannula 09/26/22 11:56 36.7 C 56 L 19 147/53 H 90 High Flow Nasal Cannula 09/26/22 11:21 93 Oxymask 09/26/22 10:30 93 Oxymask 09/26/22 10:09 96 Oxymask 09/26/22 07:48 36.6 C 65 20 180/66 H 94 Oxymask 09/26/22 07:45 68 09/26/22 07:45 Oxymask, BiPAP O2 Flow Rate 09/26/22 15:15 4 09/26/22 11:56 4 09/26/22 11:21 4 09/26/22 10:30 6 09/26/22 10:09 8 09/26/22 07:48 13 09/26/22 07:45 09/26/22 07:45 Laboratory Results Short CBC 09/26/22 09/26/22 Range/Units 01:31 07:16 WBC 1.97 L (4.8-10.8) K/ul Hgb 8.4 L 8.2 L (14.0-18.0) g/dl Hct 25.6 L 25.6 L (42.0-52.0) % Plt Count 140 (130-400) K/uL BMP 09/26/22 07:16 Sodium 139 Potassium 3.4 L Chloride 103 Carbon Dioxide 28 BUN 32 H Creatinine 1.90 H Glucose 104 H Calcium 8.3 L
[2022-09-26] MEDS: MIRTAZAPINE TAB 15 MG TAB PO SCH (20:37)
[2022-09-26] MEDS: TAMSULOSIN HCL 0.4 MG CAP PO SCH (20:37)
[2022-09-26] MEDS: ATORVASTATIN 40 MG TAB PO SCH (20:37)
[2022-09-26] MEDS: PANTOprazole 40 MG TAB PO SCH (20:38)
[2022-09-27] MEDS: NITROGLYCERIN 2% OINTMENT 30GM TUBE EXT SCH ×3 (05:23→16:56)
[2022-09-27 07:20] LABS: Hematocrit (blood only) 26.6 % (42.0-52.0); Hemoglobin 8.5 g/dl (14.0-18.0); Mean Corpuscular Hemoglobin 30.7 pg (25.0-34.0); Mean Platelet Volume 10.9 fL (9.4-12.4); Platelet Count 136 K/uL (130-400); RDW Coefficient of Variation 15.7 % (11.5-14.5); RDW Standard Deviation 55.7 fL (36.4-46.3); Red Blood Count 2.77 M/uL (4.70-6.10); White Blood Count 1.98 K/ul (4.8-10.8)
[2022-09-27 07:34] LABS: BUN Creatinine Ratio 15.9 (10-20); Calcium 8.6 mg/dl (8.6-10.3); Creatinine Clr Calc Pharmacy 24.1 ml/min; Est GFR (African American) 33.1 ml/min; Est GFR (Non-African American) 28.6 ml/min; Potassium 3.4 mmol/L (3.5-5.1)
[2022-09-27] MEDS: PANTOprazole 40 MG TAB PO SCH ×2 (08:32→20:31)
[2022-09-27] MEDS: LOSARTAN POTASSIUM 25 MG TAB PO SCH (08:36)
[2022-09-27] MEDS: CYANOCOBALAMIN (B-12) 500 MCG TABLET PO SCH (08:36)
[2022-09-27] MEDS: SERTRALINE HCL 100 MG TABLET PO SCH (08:36)
[2022-09-27] MEDS: hydrALAZINE HCL 25 MG TAB PO SCH ×3 (08:36→20:31)
[2022-09-27] MEDS: FINASTERIDE 5 MG TAB PO SCH (08:37)
[2022-09-27] MEDS: amLODIPine BESYLATE 5 MG TAB PO SCH (08:37)
[2022-09-27] MEDS: ASPIRIN 81 MG CHEW PO SCH (08:37)
[2022-09-27] MEDS: FUROSEMIDE 40 MG/4 ML VIAL IV SCH ×2 (08:37→16:55)
[2022-09-27] MEDS: ISOSORBIDE MONO EXTENDED REL 60 MG TABCR PO SCH (08:37)
--- NOTE | 2022-09-27 10:34 | XRay Report ---
XR chest 1V portable CLINICAL HISTORY: increased oxygen needs TECHNIQUE: Single frontal radiograph of the chest was obtained. Comparison: Comparison is made to chest radiograph 09/24/2022 FINDINGS: No lines and tubes are seen. Cardiomegaly is noted. Multifocal airspace opacities are seen. There are bilateral pleural effusions. IMPRESSION: Redemonstration of multifocal airspace opacities and bilateral pleural effusions, approximately uncha nged from prior exam. Previously noted density in the right upper lung is less confluent on today's e xam reason suspicion for underlying mass. ACT 112: Negative or not required by law. Electronically signed by: Romario Martínez M.D. 09/27/2022 10:32 AM
[2022-09-27] MEDS: POTASSIUM CHLORIDE CRTAB 20 MEQ TABCR PO SCH ×2 (10:55→20:31)
--- NOTE | 2022-09-27 11:55 | Communication Note ---
Date of Service: September 27, 2022 Hgb stable from yesterday to today, no further recs. Please call us if needed.
[2022-09-27] MEDS: DOXYCYCLINE HYCLATE 100 MG CAP PO SCH ×2 (13:22→20:31)
--- NOTE | 2022-09-27 16:23 | Hospitalist Progress Note ---
Date of Service September 27, 2022 Assessment & Plan (1) Acute CHF (congestive heart failure): (2) Heart failure with reduced ejection fraction due to cardiomyopathy: Plan: Patient is an 87 yr male who presents with shortness of breath and hypoxia. Acute systolic CHF Acute respiratory failure with hypoxia secondary to above Troponin elevation: Type II CT secondary to demand ischemia H/O TREVOR: Intolerance to CPAP --ECHO: Moderate global hypokinesis of left ventricle. Left ventricle is normal in size. EF 35 to 40%. Grade 1 diastolic dysfunction. Moderate to severe aortic regurgitation. Mild to moderate mitral regurgitation. Mild tricuspid regurgitation. --Venous Doppler:No DVT within the right or left lower extremity. --CT Chest:Interstitial and airspace opacities throughout the lungs suggestive of pulmonary edema. Moderate bilateral pleural effusions. Coronary artery calcifications and cardiomegaly. BiPAP as needed Monitor I's and O's, daily weight, volume status Appreciate cardiology input Continue hydralazine, isosorbide and losartan No beta-nolvia as patient has bradycardia, first-degree AV block Continue IV Lasix Wean off of supplemental oxygen as able ? Pneumonia Check bio fire Empirically started on Doxy Check procalcitonin Melena Chronic per patient + FOBT Hb Stable Continue PPI Appreciate GI Input Monitor CBC Delirium Reorient frequently Delirium precautions Melatonin at bedtime CKD IV Baseline creatinine ~ 1.9 Monitor renal function Avoid nephrotoxic agents as able May need to hold losartan if renal function worsens Renal function stable Cr 2.0 today Anemia of chronic disease Chronic neutropenia Thrombocytopenia H/O CLL S/P Rituxan H/O B-cell lymphoma Previously on Aranesp Monitor CBC Neutropenia precautions Follows with oncology as outpatient H/O Abdominal aortic aneurysm coronary artery disease S/P Stent carotid stenosis: Status post left carotid endarterectomy. Continue aspirin, statin, Imdur. H/O lung nodule: Diagnosed in 2019 Patient has declined workup in the past as per Oncology BPH Continue finasteride and Flomax Depression: continue Zoloft and mirtazapine. GERD Continue PPI Hypertension: Hypertensive Urgency Continue losartan, Imdur, hydralazine, amlodipine Hyperlipidemia: On statin. Prediabetes: HbA1c level 5.2 Diet controlled DVT Px: Heparin SQ Code Status Full Code Admission and Anticipated Discharge Date Admission Date: September 24, 2022 Subjective Patient is seen and examined at bedside Delirious overnight but oriented this morning Persistent cough with expectoration Chest x-ray today suggestive of multifocal pneumonia, bilateral pleural effusions. Saturating well on 6 L supplemental oxygen Hb stable No Bleeding issues today Denies any chest pain, dizziness, nausea, vomiting, abdominal pain Review of Systems Review of Systems: All systems reviewed & are unremarkable except as noted in Subjective Physical Exam Physical Exam: Physical Exam: Vitals signs as noted above General Appearance:Moderately built and nourished, no apparent distress Head: normocephalic, Atraumatic Eyes: normal inspection, EOMI Neck: supple, Trachea midline Respiratory/Chest: Decreased breath sounds, CTA, No accessory muscle use Cardiovascular: S1, S2, No murmur Abdomen/GI:Soft, Non tender, Bowel sounds present Extremities/Musculoskeletal:normal inspection, 1-2+ pedal edema Neurologic/Psych:AAOX3, grossly no focal neurological deficits Skin: normal color, warm Results & Data Results & Data Vital Signs (Past 12 Hours) Vital Signs Temp Pulse Pulse Resp BP Pulse Ox O2 Del Method 09/27/22 15:48 36.8 C 71 20 154/77 H 90 Nasal Cannula 09/27/22 09:00 Nasal Cannula, High Flow Nasal Cannula 09/27/22 11:34 36.7 C 64 21 144/59 H 92 Nasal Cannula 09/27/22 11:09 92 High Flow Nasal Cannula 09/27/22 09:30 93 High Flow Nasal Cannula 09/27/22 08:30 94 High Flow Nasal Cannula 09/27/22 07:27 36.6 C 69 24 173/72 H 92 High Flow Nasal Cannula 09/27/22 07:25 64 O2 Flow Rate 09/27/22 15:48 6 09/27/22 09:00 09/27/22 11:34 5 09/27/22 11:09 6 09/27/22 09:30 8 09/27/22 08:30 10 09/27/22 07:27 15 09/27/22 07:25 Laboratory Results Short CBC 09/27/22 Range/Units 06:48 WBC 1.98 L (4.8-10.8) K/ul Hgb 8.5 L (14.0-18.0) g/dl Hct 26.6 L (42.0-52.0) % Plt Count 136 (130-400) K/uL BMP 09/27/22 06:48 Sodium 139 Potassium 3.4 L Chloride 102 Carbon Dioxide 29 BUN 32 H Creatinine 2.01 H Glucose 99 Calcium 8.6
[2022-09-27 16:32] LABS: Adenovirus PCR Not Detected (NotDetected); Bordetella parapertussis PCR Not Detected (NotDetected); Bordetella pertussis PCR Not Detected (NotDetected); Chlamydia pneumoniae PCR Not Detected (NotDetected); Coronavirus 229E PCR Not Detected (NotDetected); Coronavirus CoV-2 (COVID19)PCR Not Detected (NotDetected); Coronavirus HKU1 PCR Not Detected (NotDetected); Coronavirus NL63 PCR Not Detected (NotDetected); Coronavirus OC43PCR Not Detected (NotDetected); Human Metapneumovirus PCR Not Detected (NotDetected); Influenza A PCR Not Detected (NotDetected); Influenza B PCR Not Detected (NotDetected); Mycoplasma pneumoniae PCR Not Detected (NotDetected); Parainfluenza Virus 1 PCR Not Detected (NotDetected); Parainfluenza Virus 2 PCR Not Detected (NotDetected); Parainfluenza Virus 3 PCR Not Detected (NotDetected); Parainfluenza Virus 4 PCR Not Detected (NotDetected); Respiratory Syncytial VirusPCR Not Detected (NotDetected); Rhinovirus/Enterovirus PCR Not Detected (NotDetected)
--- NOTE | 2022-09-27 17:17 | Cardiology Progress Note ---
Date of Service September 27, 2022 Assessment & Plan (1) Acute CHF (congestive heart failure): (2) Acute respiratory failure with hypoxia: (3) Heart failure with reduced ejection fraction due to cardiomyopathy: (4) CKD (chronic kidney disease), stage III: Plan 87-year-old male presents with subacute onset respiratory distress of several days in duration with declining functional capacity times several months and evidence of pulmonary edema, hypoxic respiratory failure and declined LV systolic function. Echocardiographic findings are diffuse with moderate LV dysfunction and moderate to severe aortic insufficiency, LVEF 35-40%. Initial EKG and mild elevation troponin levels suggest demand based ischemia but not pattern consistent with acute coronary syndrome Recommendations: Continue to treat congestive heart failure with IV furosemide 40 mg IV BID. Continue antihypertensive regimen which includes afterload reduction agents of hydralazine, isosorbide, and losartan. If renal function declines hold losartan. Discontinue topical nitrates. Heart failure appropriate beta-nolvia contraindicated given resting bradycardia and first-degree AV block. Admission and Anticipated Discharge Date Admission Date: September 24, 2022 Subjective Patient seen in cardiology follow-up. He is eating his evening meal. Feeling well. Breathing much improved over the last 48 hours. He has not required BiPAP, but still has a significant oxygen requirement as he is on 6 L/min by nasal cannula with pulse oximetry of 90%. Blood pressure still little on the high side, but generally improved. Physical Exam Constitutional: no acute distress Respiratory: Auscultation: + diminished lung sounds (decreased BS at the bases); no crackles and no rales Cardiovascular: Rate/Rhythm: regular rate and regular rhythm Heart Sounds: normal S1 and normal S2; no murmur Extremities: + edema (trace LE and pedal edema) Neurologic: PERRL, EOMI, accommodation nl, no face palsy, no dysarthria Results & Data Vital Signs (Past 12 Hours) Vital Signs Temp Pulse Pulse Resp BP Pulse Ox O2 Del Method 09/27/22 15:48 36.8 C 71 20 154/77 H 90 Nasal Cannula 09/27/22 09:00 Nasal Cannula, High Flow Nasal Cannula 09/27/22 11:34 36.7 C 64 21 144/59 H 92 Nasal Cannula 09/27/22 11:09 92 High Flow Nasal Cannula 09/27/22 09:30 93 High Flow Nasal Cannula 09/27/22 08:30 94 High Flow Nasal Cannula 09/27/22 07:27 36.6 C 69 24 173/72 H 92 High Flow Nasal Cannula 09/27/22 07:25 64 O2 Flow Rate 09/27/22 15:48 6 09/27/22 09:00 09/27/22 11:34 5 09/27/22 11:09 6 09/27/22 09:30 8 09/27/22 08:30 10 09/27/22 07:27 15 09/27/22 07:25 Laboratory Results Cardiac Enzymes 09/27/22 Range/Units 06:48 B-Natriuretic Peptide 2018 H (0-100) pg/ml Coagulation 09/27/22 Range/Units 06:48 B-Natriuretic Peptide 2018 H (0-100) pg/ml CBC 09/27/22 Range/Units 06:48 WBC 1.98 L (4.8-10.8) K/ul RBC 2.77 L (4.70-6.10) M/uL Hgb 8.5 L (14.0-18.0) g/dl Hct 26.6 L (42.0-52.0) % Plt Count 136 (130-400) K/uL Comprehensive Metabolic Panel 09/27/22 Range/Units 06:48 Sodium 139 (136-145) mmol/L Potassium 3.4 L (3.5-5.1) mmol/L Chloride 102 (98-107) mmol/L Carbon Dioxide 29 (21-32) mmol/L BUN 32 H (6-23) mg/dl Creatinine 2.01 H (0.6-1.4) mg/dl Glucose 99 (70-99(Fasting)) mg/dl Calcium 8.6 (8.6-10.3) mg/dl
[2022-09-27] MEDS: ATORVASTATIN 40 MG TAB PO SCH (20:31)
[2022-09-27] MEDS: MIRTAZAPINE TAB 15 MG TAB PO SCH (20:31)
[2022-09-27] MEDS: TAMSULOSIN HCL 0.4 MG CAP PO SCH (20:31)
[2022-09-28 07:47] LABS: Hematocrit (blood only) 30.2 % (42.0-52.0); Hemoglobin 9.8 g/dl (14.0-18.0)
[2022-09-28] MEDS: amLODIPine BESYLATE 5 MG TAB PO SCH (08:20)
[2022-09-28] MEDS: DOXYCYCLINE HYCLATE 100 MG CAP PO SCH ×2 (08:21→21:08)
[2022-09-28] MEDS: FINASTERIDE 5 MG TAB PO SCH (08:21)
[2022-09-28] MEDS: CYANOCOBALAMIN (B-12) 500 MCG TABLET PO SCH (08:21)
[2022-09-28] MEDS: ASPIRIN 81 MG CHEW PO SCH (08:21)
[2022-09-28] MEDS: LOSARTAN POTASSIUM 25 MG TAB PO SCH (08:22)
[2022-09-28] MEDS: hydrALAZINE HCL 25 MG TAB PO SCH ×3 (08:22→21:06)
[2022-09-28] MEDS: FUROSEMIDE 40 MG/4 ML VIAL IV SCH ×2 (08:22→17:15)
[2022-09-28] MEDS: ISOSORBIDE MONO EXTENDED REL 60 MG TABCR PO SCH (08:22)
[2022-09-28] MEDS: PANTOprazole 40 MG TAB PO SCH ×2 (08:22→21:08)
[2022-09-28] MEDS: SERTRALINE HCL 100 MG TABLET PO SCH (08:23)
[2022-09-28] MEDS: POTASSIUM CHLORIDE CRTAB 20 MEQ TABCR PO SCH ×2 (08:23→21:13)
[2022-09-28 08:40] LABS: BUN Creatinine Ratio 15.5 (10-20); Calcium 8.8 mg/dl (8.6-10.3); Creatinine Clr Calc Pharmacy 24.2 ml/min; Est GFR (African American) 33.3 ml/min; Est GFR (Non-African American) 28.7 ml/min; Magnesium 1.8 mg/dl (1.7-2.4); Potassium 3.8 mmol/L (3.5-5.1)
--- NOTE | 2022-09-28 14:13 | Hospitalist Progress Note ---
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 Acute systolic CHF Acute respiratory failure with hypoxia secondary to above Troponin elevation: Type II IN secondary to demand ischemia H/O TREVOR: Intolerance to CPAP --ECHO: Moderate global hypokinesis of left ventricle. Left ventricle is normal in size. EF 35 to 40%. Grade 1 diastolic dysfunction. Moderate to severe aortic regurgitation. Mild to moderate mitral regurgitation. Mild tricuspid regurgitation. --Venous Doppler:No DVT within the right or left lower extremity. --CT Chest:Interstitial and airspace opacities throughout the lungs suggestive of pulmonary edema. Moderate bilateral pleural effusions. Coronary artery calcifications and cardiomegaly. BiPAP as needed Monitor I's and O's, daily weight, volume status Appreciate cardiology input Continue hydralazine, isosorbide and losartan No beta-nolvia as patient has bradycardia, first-degree AV block Continue IV Lasix Given persistent hypoxia despite IV diuretics, will consult pulmonary for possible thoracentesis Suspected Pneumonia/ ? mass Biofire: Negative Normal procalcitonin Empirically started on Doxy Melena Chronic per patient + FOBT Continue PPI Appreciate GI Input Monitor CBC Hb Stable Delirium Reorient frequently Delirium precautions Melatonin at bedtime CKD IV Baseline creatinine ~ 1.9 Monitor renal function Avoid nephrotoxic agents as able May need to hold losartan if renal function worsens Renal function stable Cr 2.0 today Anemia of chronic disease Chronic neutropenia Thrombocytopenia H/O CLL S/P Rituxan H/O B-cell lymphoma Previously on Aranesp Monitor CBC Neutropenia precautions Follows with oncology as outpatient H/O Abdominal aortic aneurysm coronary artery disease S/P Stent carotid stenosis: Status post left carotid endarterectomy. Continue aspirin, statin, Imdur. H/O lung nodule: Diagnosed in 2019 Patient has declined workup in the past as per Oncology BPH Continue finasteride and Flomax Depression: continue Zoloft and mirtazapine. GERD Continue PPI Hypertension: Hypertensive Urgency Continue losartan, Imdur, hydralazine, amlodipine BP better today Hyperlipidemia: On statin. Prediabetes: HbA1c level 5.2 Diet controlled DVT Px: Heparin SQ Code Status Full Code Admission and Anticipated Discharge Date Admission Date: September 24, 2022 Subjective Patient is seen and examined at bedside Offers no new complaints Remains hypoxic requiring 15 L supplemental oxygen Denies any chest pain, dyspnea, dizziness, nausea, abdominal pain Reports cough with occasional expectoration Review of Systems Review of Systems: All systems reviewed & are unremarkable except as noted in Subjective Physical Exam Physical Exam: Physical Exam: Vitals signs as noted above General Appearance:Moderately built and nourished, no apparent distress Head: normocephalic, Atraumatic Eyes: normal inspection, EOMI Neck: supple, Trachea midline Respiratory/Chest: Decreased breath sounds, No accessory muscle use Cardiovascular: S1, S2, No murmur Abdomen/GI:Soft, Non tender, Bowel sounds present Extremities/Musculoskeletal:normal inspection, 1-2+ pedal edema Neurologic/Psych:AAOX3, grossly no focal neurological deficits Skin: normal color, warm Results & Data Results & Data Vital Signs (Past 12 Hours) Vital Signs Temp Pulse Resp BP Pulse Ox O2 Del Method O2 Flow Rate 09/28/22 11:56 36.3 C L 86 20 116/42 L 94 Oxymask 15 09/28/22 07:52 Oxymask 15 09/28/22 07:29 36.9 C 81 20 161/79 H 91 Oxymask 15 09/28/22 04:04 36.7 C 65 20 168/68 H 91 Oxymask 15 Laboratory Results Short CBC 09/28/22 Range/Units 07:03 Hgb 9.8 L (14.0-18.0) g/dl Hct 30.2 L (42.0-52.0) % BMP 09/28/22 07:03 Sodium 138 Potassium 3.8 Chloride 101 Carbon Dioxide 29 BUN 31 H Creatinine 2.00 H Glucose 102 H Calcium 8.8
--- NOTE | 2022-09-28 15:34 | Pulmonary Consultation ---
Date of Consultation September 28, 2022 Assessment & Plan (1) Acute CHF (congestive heart failure): (2) Acute dyspnea: (3) Pleural effusion: Plan Impression: 87-year-old male with heart failure exacerbation with reduced ejection fraction and severe AI with bilateral pleural effusions despite attempts at diuresis. His serum creatinine has bumped with diuretic. He is almost 4 L negative since admission. Recommendations: 1. Bilateral pleural effusions: Suspect related to valvular heart disease as well as decreased ejection fraction. Given his persistent hypoxemia effusions despite diuresis, it is appropriate to consider thoracentesis to characterize the fluid on initial attempt as well as see if it offers him a clinical benefit. Would not recommend thoracentesis as a long-term management for the patient's volume status. Refractory pleural effusions in the setting of heart failure typically portend a very poor prognosis and consideration for discussion of the patient's CODE STATUS and establishment of goals of therapy would be appropriate. 2. Hypoxemia: Continue supplemental oxygen titrated to keep oxygen saturations at or above 88%. Hopefully thoracentesis will result in improvement in the patient's pulmonary aeration and oxygen requirement. 3. Management of the patient's other medical issues is deferred to the primary admitting service. We will follow-up with pleural fluid studies as well as postthoracentesis chest x-ray. The above recommendations and plan were discussed with the patient. He agreed to proceed as outlined above. History of Present Illness Attending Physician: Richard Mario MD History of Present Illness Asked by hospitalist to evaluate this patient with heart failure and bilateral pleural effusions for possible thoracentesis. History is obtained from review electronic medical record as well as discussion with the patient. Patient is an 87-year-old male who presented to the hospital 09/24/2022 with complaints of shortness of breath. His BNP was markedly elevated. Echocardiogram showed an EF of 20% with valvular dysfunction (severe AI). He was seen by cardiology. He does have chronic kidney disease as well as a history of CLL/small B-cell lymphoma. He has undergone diuresis but unfortunately the effusions are persisted and he remains on high flow oxygen. The patient is not coughing or expectorating phlegm. He denies chest pain or palpitations. He does get dizzy and lightheaded with significant activity. He has not had any fevers chills or night sweats. Allergies Allergy/AdvReac Type Severity Reaction Status Date / Time No Known Allergies Allergy Verified 09/24/22 19:08 Home Medications Medication Instructions Recorded Confirmed Type acetaminophen 325 mg tablet 650 mg PO Q8 PRN .Mild pain, fever 09/24/22 09/24/22 History (Tylenol) & headache albuterol sulfate 90 mcg/actuation 1 inh inhalation Q4 PRN .sob/cough 09/24/22 09/24/22 History aerosol inhaler amlodipine 10 mg tablet 10 mg PO DAILY 09/24/22 09/24/22 History aspirin 81 mg chewable tablet 81 mg PO DAILY 09/24/22 09/24/22 History atorvastatin 80 mg tablet 40 mg PO HS 09/24/22 09/24/22 History carbamide peroxide 6.5 % ear drops 5 - 10 drp otic (ear) DIRECTED 09/24/22 09/24/22 History cyanocobalamin (vitamin B-12) 0 mcg PO DAILY 09/24/22 09/24/22 History 1,000 mcg tablet (Vitamin B-12) ferrous sulfate 325 mg (65 mg 325 mg PO TIDM 09/24/22 09/24/22 History iron) tablet finasteride 5 mg tablet 5 mg PO DAILY 09/24/22 09/24/22 History hydralazine 25 mg tablet 25 mg PO TID 09/24/22 09/24/22 History isosorbide mononitrate 60 mg 60 mg PO DAILY 09/24/22 09/24/22 History tablet,extended release 24 hr losartan 25 mg tablet 25 mg PO DAILY 09/24/22 09/24/22 History mirtazapine 15 mg tablet 15 mg PO HS 09/24/22 09/24/22 History omeprazole 20 mg tablet,delayed 20 mg PO DAILY 09/24/22 09/24/22 History release ondansetron HCl 8 mg tablet 8 mg PO Q12H PRN Nausea 09/24/22 09/24/22 History sertraline 100 mg tablet 100 mg PO DAILY 09/24/22 09/24/22 History tamsulosin 0.4 mg capsule 0.8 mg PO HS 09/24/22 09/24/22 History Patient History Social History Smoking Status: Former smoker Second Hand Exposure: No; Do You Dip or Chew Tobacco: No; Tobacco Cessation Education Requested by Patient: No Hx Alcohol Use: No Hx Substance Use: No Preferred Language: Salvadorean Communication Ability: Effective Rn Orthopedic Required: No Beliefs That Will Affect Care: None Current Living Situation: Personal Care Facility Current Living Situation Comment: Resides at [facility] Other Information That Helps Us Care for You: No Feels Safe at Home: Yes Safety Concerns: Feels Safe At This Time Assistive Devices: Cane Assistive Devices Comment: Dentures with patient Review of Systems Review of Systems: All systems reviewed & are unremarkable except as noted in Subjective Physical Exam Constitutional: no acute distress Respiratory: Auscultation: + diminished lung sounds (decreased BS at the bases); no crackles and no rales Cardiovascular: Rate/Rhythm: regular rate and regular rhythm Heart Sounds: normal S1, normal S2 and + murmur Extremities: + edema (trace LE and pedal edema) Neurologic: PERRL, EOMI, accommodation nl, no face palsy, no dysarthria Results & Data Results & Data Vital Signs (Past 12 Hours) Vital Signs Temp Pulse Pulse Resp BP Pulse Ox O2 Del Method 09/28/22 07:29 62 09/28/22 11:56 36.3 C L 86 20 116/42 L 94 Oxymask 09/28/22 07:52 Oxymask 09/28/22 07:29 36.9 C 81 20 161/79 H 91 Oxymask 09/28/22 04:04 36.7 C 65 20 168/68 H 91 Oxymask O2 Flow Rate 09/28/22 07:29 09/28/22 11:56 15 09/28/22 07:52 15 09/28/22 07:29 15 09/28/22 04:04 15 Critical Care Results & Data Vital Signs (Past 12 Hours) Vital Signs Temp Pulse Pulse Resp BP Pulse Ox O2 Del Method 09/28/22 07:29 62 09/28/22 11:56 36.3 C L 86 20 116/42 L 94 Oxymask 09/28/22 07:52 Oxymask 09/28/22 07:29 36.9 C 81 20 161/79 H 91 Oxymask 09/28/22 04:04 36.7 C 65 20 168/68 H 91 Oxymask O2 Flow Rate 09/28/22 07:29 09/28/22 11:56 15 09/28/22 07:52 15 09/28/22 07:29 15 09/28/22 04:04 15 Lab & Micro Results (Past 24 Hours) Hgb 9.8 g/dl (14.0-18.0) L 09/28/22 Hct 30.2 % (42.0-52.0) L 09/28/22 Na 138 mmol/L (136-145) 09/28/22 K 3.8 mmol/L (3.5-5.1) 09/28/22 Cl 101 mmol/L (98-107) 09/28/22 CO2 29 mmol/L (21-32) 09/28/22 Anion Gap 8 (3-11) 09/28/22 BUN 31 mg/dl (6-23) H 09/28/22 Creatinine 2.00 mg/dl (0.6-1.4) H 09/28/22 Estimated GFR ( Amer) 33.3 ml/min 09/28/22 Estimated GFR (Non-Af Amer) 28.7 ml/min 09/28/22 BUN/Creatinine Ratio 15.5 (10-20) 09/28/22 Glu 102 mg/dl (70-99(Fasting)) H 09/28/22 Ca 8.8 mg/dl (8.6-10.3) 09/28/22 Mg 1.8 mg/dl (1.7-2.4) 09/28/22 07:03 Calcium Level 8.8 mg/dl (8.6-10.3) 09/28/22 07:03 I & O Totals 24 Hours 09/27/22 09/28/22 09/29/22 06:59 06:59 06:59 Intake Total 1398.667 / 0071.420 4404 / 1270 Output Total 1853 / 1853 2250 / 2250 Balance -454.333 / -454.333 -980 / -980 Cumulative 09/24/22 18:38 thru 09/28/22 05:45 Intake Total 4032.667 Output Total 7953 Balance -3920.333 RT Ventilator Mngmt (Last Documented) Ventilator Ordered Settings Respiratory Rate 20 09/28/22 11:56 Fraction of Inspired Oxygen 40 09/25/22 22:59 Ventilator - PT Measurements Respiratory Rate 20 PG Care Time/CCT Total # of Minutes Spent Total Time Spent with Patient: Total time spent is greater than 50% in coordination of care (as documented) at patient's floor/unit and/or counseling patient: Coding Level of Care Code 28287 INT INP/OBS CARE 375MIN Diagnoses Acute CHF (congestive heart failure) I50.9 Acute dyspnea R06.00 Pleural effusion J90
--- NOTE | 2022-09-28 15:35 | Procedure Note ---
Procedure Note Date of Service September 28, 2022 Note Procedure: Diagnostic therapeutic ultrasound-guided catheter thoracentesis, right Absorption And Adsorption Engineer: Dr. Rm Schafer Indication: Pleural effusion Consent: Signed by patient and verified with timeout prior to procedure Anesthesia: 8 mL's 1% lidocaine without epinephrine local. Procedure: Consent was verified and timeout performed. Appropriate imaging studies were reviewed prior to the procedure. Patient was placed in a seated position and limited thoracic ultrasound was performed of the bilateral chest. Bilateral effusions were identified, right greater than left. Compressive atelectasis was also noted. Site appropriate for thoracentesis was selected on the right. The skin was prepped and draped in normal sterile fashion. Lidocaine was used for local analgesia. Fluid was aspirated via the finder needle. A small skin wilian was made with the scalpel and the catheter over the needle apparatus was advanced over the rib into the pleural space. Using the syringe one-way valve system, a total of 1500 mL's of clear yellow fluid was removed. Procedure was terminated due to patient cough. The catheter was removed and observed to be intact. A sterile dressing was applied. Post procedure chest x-ray was ordered. Post procedure ultrasound demonstrated a small residual pleural fluid collection. Lung sliding was present Fluid was sent for cytology, Gram stain and culture, cell count differential, LDH, pH, total protein, and glucose. The patient tolerated the procedure well without obvious complication Coding CPT Codes Pulmonary/Thoracic - Pulmonary and Thoracic: 09485 Thoracentesis w imaging ([id number]) [facility] [place] Procedure Codes (Charges) Pulmonary/Thoracic Procedure 1: Pulmonary and Thoracic: 63448 Thoracentesis w imaging
[2022-09-28 16:09] LABS: Glucose Pleural Fluid 113 mg/dl; LDH Pleural Fluid 103 U/L; Total Protein Pleural Fluid < 3.0 gm/dl
--- NOTE | 2022-09-28 16:54 | XRay Report ---
XR chest 1V portable CLINICAL HISTORY: S/P Thoracentesis COMPARISON STUDY: Chest CT September 24, 2022. Chest radiograph September 27, 2022. FINDINGS: There is no pneumothorax following right thoracentesis. The right pleural effusion has sign ificantly decreased in size. There is a small residual right pleural effusion. A small to moderate le ft pleural effusion is again noted. Interstitial thickening and bilateral opacities are present. Find ings have improved since exam of September 24, 2022. IMPRESSION: 1. No pneumothorax following right thoracentesis. 2. Interstitial thickening and bilateral opacities suggestive of pulmonary edema, improved since capri ier exam of September 24, 2022. ACT 112: Negative or not required by law. Electronically signed by: Omari Jimenez M.D. 09/28/2022 4:53 PM
[2022-09-28 17:38] LABS: Appearance Pleural Fluid Slightly Hazy; Color Pleural Fluid Pale Yellow; Eosinophils, Fluid 1 %; Lymphocytes, Fluid 21 %; Mono,Macrophage,Mesothelial 75 %; Neutrophils, Fluid 3 %; RBC Pleural Fluid Auto < 2000 /uL; Source Pleural Fluid Right Lung; WBC Pleural Fluid Auto 231 /uL
--- NOTE | 2022-09-28 18:13 | Cardiology Progress Note ---
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 Echocardiographic findings are diffuse with moderate LV dysfunction and moderate to severe aortic insufficiency, LVEF 35-40%. Initial EKG and mild elevation troponin levels suggest demand based ischemia but not pattern consistent with acute coronary syndrome Recommendations: Continue to treat congestive heart failure with IV furosemide 40 mg IV BID. Continue antihypertensive regimen which includes afterload reduction agents of hydralazine, isosorbide. Holding losartan as creatinine has trended up to 2 mg/dL. Pulmonary input noted and appreciated, with patient having undergone right-sided thoracentesis today yielding 1500 mL of pleural fluid. Heart failure appropriate beta-nolvia contraindicated given resting bradycardia and first-degree AV block. Admission and Anticipated Discharge Date Admission Date: September 24, 2022 Subjective Patient seen in cardiology follow-up. Denies subjective complaint but has ongoing significant oxygen demand, with low pulse oximetry when he removes his oxygen and he is currently on a 15 L/min oxime mask supplementation. Physical Exam Constitutional: no acute distress Respiratory: Auscultation: + diminished lung sounds (decreased BS at the bases); no crackles and no rales Cardiovascular: Rate/Rhythm: regular rate and regular rhythm Heart Sounds: normal S1 and normal S2; no murmur Extremities: + edema (trace LE and pedal edema) Neurologic: PERRL, EOMI, accommodation nl, no face palsy, no dysarthria Results & Data Vital Signs (Past 12 Hours) Vital Signs Temp Pulse Pulse Resp BP Pulse Ox O2 Del Method 09/28/22 14:59 60 09/28/22 07:29 62 09/28/22 11:56 36.3 C L 86 20 116/42 L 94 Oxymask 09/28/22 07:52 Oxymask 09/28/22 07:29 36.9 C 81 20 161/79 H 91 Oxymask O2 Flow Rate 09/28/22 14:59 09/28/22 07:29 09/28/22 11:56 15 09/28/22 07:52 15 09/28/22 07:29 15 Laboratory Results CBC 09/28/22 Range/Units 07:03 Hgb 9.8 L (14.0-18.0) g/dl Hct 30.2 L (42.0-52.0) % Comprehensive Metabolic Panel 09/28/22 Range/Units 07:03 Sodium 138 (136-145) mmol/L Potassium 3.8 (3.5-5.1) mmol/L Chloride 101 (98-107) mmol/L Carbon Dioxide 29 (21-32) mmol/L BUN 31 H (6-23) mg/dl Creatinine 2.00 H (0.6-1.4) mg/dl Glucose 102 H (70-99(Fasting)) mg/dl Calcium 8.8 (8.6-10.3) mg/dl Intake and Output 09/28/22 09/28/22 09/28/22 06:59 14:59 22:59 Intake Total 480 / 1270 Output Total 450 / 2250 Balance 30 / -980 Intake: Oral 480 / 1270 Output: Urine Amount (Catheter) 450 / 2250 Harding/Indwelling 450 / 2250 Other: Weight 77.8 kg Weight Measurement Method Built in [facility]
[2022-09-28] MEDS ORDERED: OLANZapine ZYDIS 5 MG ORALLY DIS. TAB PO PRN (19:39)
[2022-09-28] MEDS: TAMSULOSIN HCL 0.4 MG CAP PO SCH (21:07)
[2022-09-28] MEDS: MIRTAZAPINE TAB 15 MG TAB PO SCH (21:07)
[2022-09-28] MEDS: ATORVASTATIN 40 MG TAB PO SCH (21:08)
[2022-09-29 08:47] LABS: Hematocrit (blood only) 26.3 % (42.0-52.0); Hemoglobin 8.6 g/dl (14.0-18.0); Mean Corpuscular Hemoglobin 30.5 pg (25.0-34.0); Mean Corpuscular Hgb Conc 32.7 g/dL (32.0-36.0); Mean Corpuscular Volume 93.3 fL (80.0-100.0); Mean Platelet Volume 10.7 fL (9.4-12.4); Platelet Count 143 K/uL (130-400); RDW Coefficient of Variation 15.4 % (11.5-14.5); RDW Standard Deviation 53.1 fL (36.4-46.3); Red Blood Count 2.82 M/uL (4.70-6.10); White Blood Count 2.52 K/ul (4.8-10.8)
[2022-09-29 09:08] LABS: BUN Creatinine Ratio 17.1 (10-20); Calcium 8.5 mg/dl (8.6-10.3); Creatinine Clr Calc Pharmacy 22.4 ml/min; Est GFR (African American) 30.3 ml/min; Est GFR (Non-African American) 26.2 ml/min; Magnesium 1.7 mg/dl (1.7-2.4); Potassium 3.8 mmol/L (3.5-5.1)
[2022-09-29] MEDS: POTASSIUM CHLORIDE CRTAB 20 MEQ TABCR PO SCH ×2 (09:09→20:24)
[2022-09-29] MEDS: CYANOCOBALAMIN (B-12) 500 MCG TABLET PO SCH (09:09)
[2022-09-29] MEDS: FINASTERIDE 5 MG TAB PO SCH (09:09)
[2022-09-29] MEDS: amLODIPine BESYLATE 5 MG TAB PO SCH (09:10)
[2022-09-29] MEDS: DOXYCYCLINE HYCLATE 100 MG CAP PO SCH ×2 (09:10→20:24)
[2022-09-29] MEDS: PANTOprazole 40 MG TAB PO SCH ×2 (09:10→20:25)
[2022-09-29] MEDS: SERTRALINE HCL 100 MG TABLET PO SCH (09:10)
[2022-09-29] MEDS: ASPIRIN 81 MG CHEW PO SCH (09:10)
[2022-09-29] MEDS: ISOSORBIDE MONO EXTENDED REL 60 MG TABCR PO SCH (09:10)
[2022-09-29] MEDS: hydrALAZINE HCL 25 MG TAB PO SCH ×3 (09:11→20:24)
[2022-09-29] MEDS: FUROSEMIDE 40 MG/4 ML VIAL IV SCH ×2 (09:11→17:03)
--- NOTE | 2022-09-29 10:21 | Pulmonology Progress Note ---
Date of Service September 29, 2022 Assessment & Plan (1) Acute CHF (congestive heart failure): (2) Acute respiratory failure with hypoxia: (3) Pleural effusion: Plan IMPRESSION: 87-year-old male with heart failure exacerbation in the setting of heart failure with reduced ejection fraction and severe aortic insufficiency presenting with bilateral pleural effusions despite aggressive attempts at diuresis. Patient is status post RIGHT-sided thoracentesis with drainage of 1500 mL of pleural fluid. He continues to require 6 L nasal cannula. RECOMMENDATIONS: 1. Bilateral Pleural Effusions - * Patient down to 6 L nasal cannula at this time. Apparently, the patient is prone to remove his oxygen desaturate well into the low 80s. He now has a one-to-one sitter. * Patient doing well status post RIGHT-sided thoracentesis. * Drain approximately 1500 mL of transudative fluid. * Pleural gram stain without significant findings. * Cytology still pending. * Discussed with him draining LEFT-sided pleural fluid. He reports that he would rather hold off at this time. He states that he did not have too much discomfort with the RIGHT-sided thoracentesis procedure, but wishes to forego LEFT-sided thoracentesis at this point if able. * He is down on his FiO2 requirement. We will continue to titrate down as tolerated. * Continue with ongoing management of the patient's underlying heart failure. 2. Hypoxemia - * Likely secondary to #1. * Titrate down supplemental O2 as tolerated. * Goal SaO2 >88%. 3. Acute CHF Exacerbation - * Per cardiology recommendations. Thank you for allowing us to participate in the care of this patient. We will continue to follow along. Admission and Anticipated Discharge Date Admission Date: September 24, 2022 Subjective Patient was seen and evaluated by myself. He is resting comfortably in a bedside chair. He does have a one-to-one sitter as he is prone to remove his oxygen and desat well into the 80s. He reports that his breathing feels improved. He does appear pleasantly confused, but is able to provide some historical information. He reports no complaints of chest pain, hemoptysis, or worsening cough. He states that he did well with the procedure yesterday with minimal discomfort. Review of Systems Review of Systems: A complete 6 point review of systems was reviewed with the patient with pertinent positives and negatives as per history of present illness. All else were negative. Physical Exam Physical Exam: VITAL SIGNS - Vital signs and nursing notes were reviewed. GENERAL - 87-year-old male appearing his stated age who is in no acute distress. Communicates well with provider and answers questions appropriately. Seems pleasantly confused. SKIN - RIGHT sided thoracentesis site clean, dry, and intact. NOSE - Midline and without cyanosis. MOUTH/OROPHARYNX - Without perioral cyanosis. NECK - Neck with FROM. LUNGS - Auscultation reveals clear lung sounds on the RIGHT with slight LEFT sided basilar rales appreciated. CARDIAC - RRR with S1/S2. No murmur, rubs, or gallops appreciated. ABDOMEN - Flat abdomen. BS normoactive all four quadrants. No tenderness, palpable masses, or ascites noted. EXTREMITIES - +3/5 radial palpated throughout. PSYCH - Patient awake and alert to location and reason for visit. Otherwise seem a bit confused. Results & Data Results & Data Vital Signs (Past 12 Hours) Vital Signs Temp Pulse Resp BP BP Pulse Ox O2 Del Method 09/29/22 09:39 61 16 129/57 L 95 Nasal Cannula 09/29/22 08:00 37.1 C 150/68 H 09/29/22 09:30 94 Nasal Cannula 09/28/22 22:45 36.7 C 62 20 144/54 H 94 Oxymask O2 Flow Rate 09/29/22 09:39 8 09/29/22 08:00 09/29/22 09:30 9 09/28/22 22:45 8 PG Care Time/CCT Total # of Minutes Spent Total Time Spent with Patient: Total time spent is greater than 50% in coordination of care (as documented) at patient's floor/unit and/or counseling patient: Coding Level of Care Code 73774 SUB INP/OBS CARE 2/35MIN Diagnoses Acute CHF (congestive heart failure) I50.9 Acute respiratory failure with hypoxia J96.01 Pleural effusion J90
--- NOTE | 2022-09-29 17:23 | Hospitalist Progress Note ---
Date of Service September 29, 2022 Assessment & Plan (1) Acute CHF (congestive heart failure): (2) Heart failure with reduced ejection fraction due to cardiomyopathy: Plan: Patient is an 87 yr male who presents with shortness of breath and hypoxia. Acute systolic CHF Acute respiratory failure with hypoxia secondary to above Troponin elevation: Type II CA secondary to demand ischemia H/O TREVOR: Intolerance to CPAP --ECHO: Moderate global hypokinesis of left ventricle. Left ventricle is normal in size. EF 35 to 40%. Grade 1 diastolic dysfunction. Moderate to severe aortic regurgitation. Mild to moderate mitral regurgitation. Mild tricuspid regurgitation. --Venous Doppler:No DVT within the right or left lower extremity. --CT Chest:Interstitial and airspace opacities throughout the lungs suggestive of pulmonary edema. Moderate bilateral pleural effusions. Coronary artery calcifications and cardiomegaly. BiPAP as needed --S/P thoracentesis on 09/28/2022: 1500 mL of transudative fluid removed. Monitor I's and O's, daily weight, volume status Appreciate cardiology input Continue hydralazine, isosorbide No beta-nolvia as patient has bradycardia, first-degree AV block Continue IV Lasix Hold losartan as creatinine levels worsening Suspected Pneumonia--Less likely Biofire: Negative Normal procalcitonin Empirically started on Doxy Melena Chronic per patient + FOBT Continue PPI Appreciate GI Input Monitor CBC Hb 8.6 today Delirium Reorient frequently Delirium precautions Melatonin at bedtime CKD IV Baseline creatinine ~ 1.9 Monitor renal function Avoid nephrotoxic agents as able hold losartan Renal function stable Cr 2.16 today Anemia of chronic disease Chronic neutropenia Thrombocytopenia H/O CLL S/P Rituxan H/O B-cell lymphoma Previously on Aranesp Monitor CBC Neutropenia precautions Follows with oncology as outpatient H/O Abdominal aortic aneurysm coronary artery disease S/P Stent carotid stenosis: Status post left carotid endarterectomy. Continue aspirin, statin, Imdur. H/O lung nodule: Diagnosed in 2019 Patient has declined workup in the past as per Oncology BPH Continue finasteride and Flomax Depression: continue Zoloft and mirtazapine. GERD Continue PPI Hypertension: Hypertensive Urgency Continue Imdur, hydralazine, amlodipine Hold losartan as above Hyperlipidemia: On statin. Prediabetes: HbA1c level 5.2 Diet controlled DVT Px: Heparin SQ Code Status Full Code Admission and Anticipated Discharge Date Admission Date: September 24, 2022 Subjective Patient is seen and examined at bedside Patient was delirious overnight and received Zyprexa Oriented this morning sitting in chair comfortably during my encounter Saturating well on 3 L supplemental oxygen Offers no new complaints Minimal non expectorant cough Denies any chest pain, dyspnea, dizziness, nausea, abdominal pain Review of Systems Review of Systems: All systems reviewed & are unremarkable except as noted in Subjective Physical Exam Physical Exam: Physical Exam: Vitals signs as noted above General Appearance:Moderately built and nourished, no apparent distress Head: normocephalic, Atraumatic Eyes: normal inspection, EOMI Neck: supple, Trachea midline Respiratory/Chest: Decreased breath sounds, No accessory muscle use Cardiovascular: S1, S2, No murmur Abdomen/GI:Soft, Non tender, Bowel sounds present Extremities/Musculoskeletal:normal inspection, 1-2+ pedal edema Neurologic/Psych:AAOX3, grossly no focal neurological deficits Skin: normal color, warm Results & Data Results & Data Vital Signs (Past 12 Hours) Vital Signs Temp Pulse Resp BP BP Pulse Ox O2 Del Method 09/29/22 17:10 91 Nasal Cannula 09/29/22 16:00 36.6 C 56 L 18 134/47 L 96 Nasal Cannula 09/29/22 12:10 36.3 C L 60 18 110/47 L 93 Nasal Cannula 09/29/22 12:21 Nasal Cannula 09/29/22 09:39 61 16 129/57 L 95 Nasal Cannula 09/29/22 08:00 37.1 C 150/68 H 09/29/22 09:30 94 Nasal Cannula O2 Flow Rate 09/29/22 17:10 3 09/29/22 16:00 4 09/29/22 12:10 5 09/29/22 12:21 7 09/29/22 09:39 8 09/29/22 08:00 09/29/22 09:30 9 Laboratory Results Short CBC 09/29/22 Range/Units 08:09 WBC 2.52 L (4.8-10.8) K/ul Hgb 8.6 L (14.0-18.0) g/dl Hct 26.3 L (42.0-52.0) % Plt Count 143 (130-400) K/uL BMP 09/29/22 08:09 Sodium 138 Potassium 3.8 Chloride 101 Carbon Dioxide 29 BUN 37 H Creatinine 2.16 H Glucose 110 H Calcium 8.5 L
--- NOTE | 2022-09-29 18:57 | Cardiology Progress Note ---
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 Continue furosemide 40 mg IV twice daily. Pulmonary input noted and appreciated, with patient having undergone right-sided thoracentesis today yielding 1500 mL of pleural fluid on 09/28/2022. Heart failure appropriate beta-nolvia contraindicated given resting bradycardia and first-degree AV block. Admission and Anticipated Discharge Date Admission Date: September 24, 2022 Subjective Patient seen in cardiology follow-up. Denies chest discomfort. Oxygen saturation improved status post thoracentesis, down to 3 L nasal cannula today for pulse oximetry of 91%. Physical Exam Constitutional: no acute distress Respiratory: Auscultation: + diminished lung sounds (decreased BS at the bases); no crackles and no rales Cardiovascular: Rate/Rhythm: regular rate and regular rhythm Heart Sounds: normal S1 and normal S2; no murmur Extremities: + edema (trace LE and pedal edema) Neurologic: PERRL, EOMI, accommodation nl, no face palsy, no dysarthria Results & Data Vital Signs (Past 12 Hours) Vital Signs Temp Pulse Resp BP BP Pulse Ox O2 Del Method 09/29/22 17:10 91 Nasal Cannula 09/29/22 16:00 36.6 C 56 L 18 134/47 L 96 Nasal Cannula 09/29/22 12:10 36.3 C L 60 18 110/47 L 93 Nasal Cannula 09/29/22 12:21 Nasal Cannula 09/29/22 09:39 61 16 129/57 L 95 Nasal Cannula 09/29/22 08:00 37.1 C 150/68 H 09/29/22 09:30 94 Nasal Cannula O2 Flow Rate 09/29/22 17:10 3 09/29/22 16:00 4 09/29/22 12:10 5 09/29/22 12:21 7 09/29/22 09:39 8 09/29/22 08:00 09/29/22 09:30 9
[2022-09-29] MEDS: TAMSULOSIN HCL 0.4 MG CAP PO SCH (20:23)
[2022-09-29] MEDS: ATORVASTATIN 40 MG TAB PO SCH (20:24)
[2022-09-29] MEDS: MIRTAZAPINE TAB 15 MG TAB PO SCH (20:25)
--- NOTE | 2022-09-30 08:08 | Pulmonology Progress Note ---
Date of Service September 30, 2022 Assessment & Plan (1) Acute CHF (congestive heart failure): (2) Acute respiratory failure with hypoxia: (3) Pleural effusion: Plan IMPRESSION: 87-year-old male with heart failure exacerbation in the setting of heart failure with reduced ejection fraction and severe aortic insufficiency presenting with bilateral pleural effusions despite aggressive attempts at diuresis. Patient is status post RIGHT-sided thoracentesis with drainage of 1500 mL of pleural fluid. His oxygen requirement is decreasing and he is not interested in additional procedures. RECOMMENDATIONS: 1. Bilateral Pleural Effusions -transudative on the right. Suspect the same e tiology on the left. The patient's not interested in pursuing additional invasive pulmonary procedures at this time. We will follow-up with pleural fluid cytology and contact the patient if significant findings are identified. Ongoing management per cardiology and primary service 2. Hypoxemia -improving: Continue to wean as tolerated 3. Acute CHF Exacerbation -Per cardiology We will sign off at this point in time. Please contact us if we can be of additional assistance. Admission and Anticipated Discharge Date Admission Date: September 24, 2022 Subjective Patient seen and examined. He is in no distress. He is experiencing some delirium requiring a sitter. He states his breathing is fine. He states he wants to go home. He is not interested in any additional invasive pulmonary procedures at this time Review of Systems Review of Systems: All systems reviewed & are unremarkable except as noted in Subjective Physical Exam Constitutional: no acute distress Respiratory: Auscultation: + diminished lung sounds (decreased BS at the bases); no crackles and no rales Cardiovascular: Rate/Rhythm: regular rate and regular rhythm Heart Sounds: normal S1, normal S2 and + murmur Extremities: + edema (trace LE and pedal edema) Neurologic: PERRL, EOMI, accommodation nl, no face palsy, no dysarthria Results & Data Results & Data Vital Signs (Past 12 Hours) Vital Signs Temp Pulse Pulse Resp BP BP Pulse Ox 09/30/22 07:01 36.8 C 65 18 150/61 H 90 09/30/22 04:00 36.7 C 63 20 147/62 H 93 09/29/22 22:00 69 09/29/22 22:00 09/29/22 22:51 36.9 C 72 20 154/64 H 89 L 09/29/22 20:28 Pulse Ox O2 Del Method O2 Del Method O2 Flow Rate O2 Flow Rate 09/30/22 07:01 Nasal Cannula 4 09/30/22 04:00 Nasal Cannula 3 09/29/22 22:00 09/29/22 22:00 94 Nasal Cannula 3 09/29/22 22:51 Nasal Cannula 3 09/29/22 20:28 Nasal Cannula 3 Laboratory Results Pleural fluid studies consistent with transudate Pleural fluid cytology pending PG Care Time/CCT Total # of Minutes Spent Total Time Spent with Patient: Total time spent is greater than 50% in coordination of care (as documented) at patient's floor/unit and/or counseling patient: Coding Level of Care Code 97871 SUB INP/OBS CARE 2/35MIN Diagnoses Acute CHF (congestive heart failure) I50.9 Acute respiratory failure with hypoxia J96.01 Pleural effusion J90
[2022-09-30 08:16] LABS: Hematocrit (blood only) 25.3 % (42.0-52.0); Hemoglobin 8.5 g/dl (14.0-18.0); Mean Corpuscular Hemoglobin 31.3 pg (25.0-34.0); Mean Corpuscular Hgb Conc 33.6 g/dL (32.0-36.0); Mean Platelet Volume 10.2 fL (9.4-12.4); Platelet Count 129 K/uL (130-400); RDW Coefficient of Variation 15.6 % (11.5-14.5); RDW Standard Deviation 53.1 fL (36.4-46.3); Red Blood Count 2.72 M/uL (4.70-6.10); White Blood Count 1.92 K/ul (4.8-10.8)
[2022-09-30 08:32] LABS: BUN Creatinine Ratio 17.9 (10-20); Calcium 8.5 mg/dl (8.6-10.3); Creatinine Clr Calc Pharmacy 21.7 ml/min; Est GFR (African American) 29.2 ml/min; Est GFR (Non-African American) 25.2 ml/min
[2022-09-30] MEDS: CYANOCOBALAMIN (B-12) 500 MCG TABLET PO SCH (08:51)
[2022-09-30] MEDS: POTASSIUM CHLORIDE CRTAB 20 MEQ TABCR PO SCH ×2 (08:52→20:16)
[2022-09-30] MEDS: amLODIPine BESYLATE 5 MG TAB PO SCH (08:52)
[2022-09-30] MEDS: SERTRALINE HCL 100 MG TABLET PO SCH (08:52)
[2022-09-30] MEDS: FINASTERIDE 5 MG TAB PO SCH (08:53)
[2022-09-30] MEDS: DOXYCYCLINE HYCLATE 100 MG CAP PO SCH ×2 (08:53→20:23)
[2022-09-30] MEDS: hydrALAZINE HCL 25 MG TAB PO SCH ×3 (08:53→20:24)
[2022-09-30] MEDS: ASPIRIN 81 MG CHEW PO SCH (08:54)
[2022-09-30] MEDS: ISOSORBIDE MONO EXTENDED REL 60 MG TABCR PO SCH (08:54)
[2022-09-30] MEDS: PANTOprazole 40 MG TAB PO SCH ×2 (08:54→20:23)
[2022-09-30] MEDS: FUROSEMIDE 40 MG/4 ML VIAL IV SCH ×2 (08:55→17:31)
--- NOTE | 2022-09-30 13:02 | Cardiology Progress Note ---
Date of Service September 30, 2022 Assessment & Plan (1) Acute CHF (congestive heart failure): (2) Acute respiratory failure with hypoxia: (3) Heart failure with reduced ejection fraction due to cardiomyopathy: (4) CKD (chronic kidney disease), stage III: Plan Continue furosemide 40 mg IV twice daily through today, holding thereafter Considering a trial of low dose spironolactone pending eGFR in AM Beta-nolvia contraindicated given resting bradycardia and first-degree AV block , aortic insufficiency. Admission and Anticipated Discharge Date Admission Date: September 24, 2022 Supervising Physician Co-Signing Physician Notes Supervising Physician Attestation: I have personally performed a history and physical examination on the patient. I agree with the physician programs assistant's findings and plan as documented with the following additions. Subjective: Patient with ongoing oxygen requirement, 4 L/min nasal cannula, pulse oximetry 92%. He is frustrated with regards to how long he has been in the hospital. He resides at [facility]. Exam: Pulmonary mildly reduced breath sounds at bases Cardiovascular: Regular, 1/6 systolic murmur, no edema Data: Telemetry reveals sinus rhythm 60s Creatinine 2.23 Assessment and Plan: -As noted above -Pulmonary input noted and appreciated with patient having undergone previous thoracentesis this hospital stay. DVT prophylaxis: Patient is not on pharmacologic DVT prophylaxis. Continue SCDs Kang Lovett, Subjective Patient seen and examined. Chart, medications, and telemetry reviewed. Son at bedside. Status post right-sided thoracentesis, declining left-sided thoracentesis Complaints: Dry mouth. Low back pain. Started eating the same chicken 3 consecutive meals. No chest pain. Breathing has improved. No palpitations. No orthopnea. No PND. No peripheral edema. SPO2 95% on 4 L/min via nasal cannula. Continuous night monitor reveals sinus rhythm in the 60s. September 25, 2022 TTE Interpretation Summary ([facility], Dr. St): Normal size LV. Moderate global hypokinesis of the LV. Ejection fraction 35 to 40%. Grade 1 diastolic dysfunction. Moderately calcified aortic valve leaflets, minimal aortic stenosis. Moderate to severe aortic regurgitation. Mild to moderate mitral regurgitation. Mild tricuspid regurgitation. Physical Exam Physical Exam: General: A&Ox3. NAD. HENT: Normocephalic. Atraumatic. Eyes: PER. Conjunctiva pink, sclera clear. Neck: 3 cm JVD. + HJR. Heart: RRR. Soft systolic murmur. No diastolic murmur appreciated in the supine or upright position. Lungs: Absent breath sounds one third up on the left. All at the right base. No wheeze. Abdomen: +BS. Enlarged, pulsatile liver Harding catheter in place Extremities: No clubbing, cyanosis, or edema. Limited neurological examination is without focal deficits. Pulses: radial=2/4, posterior tibial=2/4. Results & Data Vital Signs (Past 12 Hours) Vital Signs Temp Pulse Resp BP BP Pulse Ox O2 Del Method 09/30/22 11:34 36.8 C 61 18 102/47 L 95 Nasal Cannula 09/30/22 07:01 36.8 C 65 18 150/61 H 90 Nasal Cannula 09/30/22 04:00 36.7 C 63 20 147/62 H 93 Nasal Cannula O2 Flow Rate 09/30/22 11:34 4 09/30/22 07:01 4 09/30/22 04:00 3 Laboratory Results CBC 09/30/22 Range/Units 07:47 WBC 1.92 L (4.8-10.8) K/ul RBC 2.72 L (4.70-6.10) M/uL Hgb 8.5 L (14.0-18.0) g/dl Hct 25.3 L (42.0-52.0) % Plt Count 129 L (130-400) K/uL Comprehensive Metabolic Panel 09/30/22 Range/Units 07:47 Sodium 138 (136-145) mmol/L Potassium 4.0 (3.5-5.1) mmol/L Chloride 101 (98-107) mmol/L Carbon Dioxide 30 (21-32) mmol/L BUN 40 H (6-23) mg/dl Creatinine 2.23 H (0.6-1.4) mg/dl Glucose 110 H (70-99(Fasting)) mg/dl Calcium 8.5 L (8.6-10.3) mg/dl Intake and Output 09/29/22 09/30/22 09/30/22 22:59 06:59 14:59 Intake Total 150 / 750 Output Total 1200 / 2250 600 / 2250 Balance -1050 / -1500 -600 / -1500 Intake: Oral 150 / 750 Output: Urine Amount (Catheter) 1200 / 2250 600 / 2250 Harding/Indwelling 1200 / 2250 600 / 2250 Other: Other Intake Source sips Weight 72.8 kg Weight Measurement Method Built in [facility]
--- NOTE | 2022-09-30 16:16 | Hospitalist Progress Note ---
Date of Service September 30, 2022 Assessment & Plan (1) Acute CHF (congestive heart failure): (2) Heart failure with reduced ejection fraction due to cardiomyopathy: Plan: Patient is an 87 yr male who presents with shortness of breath and hypoxia. Acute systolic CHF Acute respiratory failure with hypoxia secondary to above Troponin elevation: Type II KS secondary to demand ischemia H/O TREVOR: Intolerance to CPAP --ECHO: Moderate global hypokinesis of left ventricle. Left ventricle is normal in size. EF 35 to 40%. Grade 1 diastolic dysfunction. Moderate to severe aortic regurgitation. Mild to moderate mitral regurgitation. Mild tricuspid regurgitation. --Venous Doppler:No DVT within the right or left lower extremity. --CT Chest:Interstitial and airspace opacities throughout the lungs suggestive of pulmonary edema. Moderate bilateral pleural effusions. Coronary artery calcifications and cardiomegaly. BiPAP as needed --S/P thoracentesis on 09/28/2022: 1500 mL of transudative fluid removed. Monitor I's and O's, daily weight, volume status Appreciate cardiology input Continue hydralazine, isosorbide No beta-nolvia as patient has bradycardia, first-degree AV block Received IV Lasix 40 mg this morning Hold losartan as creatinine levels worsening Reassess renal function tomorrow prior to restarting IV Lasix Creatinine slowly worsening Consider to be started on trial of Aldactone as able Suspected Pneumonia--Less likely Biofire: Negative Normal procalcitonin Empirically started on Doxy Melena Chronic per patient + FOBT Continue PPI Appreciate GI Input Monitor CBC Hb 8.5 today Delirium Reorient frequently Delirium precautions Melatonin at bedtime CKD IV Baseline creatinine ~ 1.9 Monitor renal function Avoid nephrotoxic agents as able hold losartan Renal function stable Cr 2.23 today Will consider nephrology input if renal function continues to worsen Anemia of chronic disease Chronic neutropenia Thrombocytopenia H/O CLL S/P Rituxan H/O B-cell lymphoma Previously on Aranesp Monitor CBC Neutropenia precautions Follows with oncology as outpatient H/O Abdominal aortic aneurysm coronary artery disease S/P Stent carotid stenosis: Status post left carotid endarterectomy. Continue aspirin, statin, Imdur. H/O lung nodule: Diagnosed in 2019 Patient has declined workup in the past as per Oncology BPH Continue finasteride and Flomax Depression: continue Zoloft and mirtazapine. GERD Continue PPI Hypertension: Hypertensive Urgency Continue Imdur, hydralazine, amlodipine Hold losartan as above Hyperlipidemia: On statin. Prediabetes: HbA1c level 5.2 Diet controlled DVT Px: Heparin SQ Code Status Full Code Admission and Anticipated Discharge Date Admission Date: September 24, 2022 Subjective Patient is seen and examined at bedside No significant change compared to yesterday Saturating well on 4 L supplemental oxygen Patient offers no new complaints Blood pressure relatively low Sitting in chair during my encounter Denies any chest pain, dyspnea, dizziness, nausea, abdominal pain Review of Systems Review of Systems: All systems reviewed & are unremarkable except as noted in Subjective Physical Exam Physical Exam: Physical Exam: Vitals signs as noted above General Appearance:Moderately built and nourished, no apparent distress Head: normocephalic, Atraumatic Eyes: normal inspection, EOMI Neck: supple, Trachea midline Respiratory/Chest: Decreased breath sounds, No accessory muscle use Cardiovascular: S1, S2, No murmur Abdomen/GI:Soft, Non tender, Bowel sounds present Extremities/Musculoskeletal:normal inspection, 1+ pedal edema Neurologic/Psych:AAOX3, grossly no focal neurological deficits Skin: normal color, warm Results & Data Results & Data Vital Signs (Past 12 Hours) Vital Signs Temp Pulse Resp BP BP Pulse Ox Pulse Ox 09/30/22 14:57 36.8 C 62 20 107/51 L 92 09/30/22 08:00 09/30/22 08:30 95 09/30/22 11:34 36.8 C 61 18 102/47 L 95 09/30/22 07:01 36.8 C 65 18 150/61 H 90 O2 Del Method O2 Del Method O2 Flow Rate 09/30/22 14:57 Nasal Cannula 4 09/30/22 08:00 Nasal Cannula 4 09/30/22 08:30 Room Air 09/30/22 11:34 Nasal Cannula 4 09/30/22 07:01 Nasal Cannula 4
[2022-09-30] MEDS: ATORVASTATIN 40 MG TAB PO SCH (20:16)
[2022-09-30] MEDS: MIRTAZAPINE TAB 15 MG TAB PO SCH (20:23)
[2022-09-30] MEDS: TAMSULOSIN HCL 0.4 MG CAP PO SCH (20:23)
[2022-10-01 06:27] LABS: BUN Creatinine Ratio 17.9 (10-20); Calcium 8.4 mg/dl (8.6-10.3); Creatinine Clr Calc Pharmacy 21.7 ml/min; Est GFR (African American) 29.2 ml/min; Est GFR (Non-African American) 25.2 ml/min; Potassium 3.9 mmol/L (3.5-5.1)
[2022-10-01] MEDS: ISOSORBIDE MONO EXTENDED REL 60 MG TABCR PO SCH (08:18)
[2022-10-01] MEDS: DOXYCYCLINE HYCLATE 100 MG CAP PO SCH ×2 (08:18→20:12)
[2022-10-01] MEDS: POTASSIUM CHLORIDE CRTAB 20 MEQ TABCR PO SCH ×2 (08:18→20:12)
[2022-10-01] MEDS: hydrALAZINE HCL 25 MG TAB PO SCH ×3 (08:19→20:12)
[2022-10-01] MEDS: CYANOCOBALAMIN (B-12) 500 MCG TABLET PO SCH (08:19)
[2022-10-01] MEDS: SERTRALINE HCL 100 MG TABLET PO SCH (08:19)
[2022-10-01] MEDS: PANTOprazole 40 MG TAB PO SCH ×2 (08:19→20:11)
[2022-10-01] MEDS: amLODIPine BESYLATE 5 MG TAB PO SCH (08:19)
[2022-10-01] MEDS: ASPIRIN 81 MG CHEW PO SCH (08:20)
[2022-10-01] MEDS: FINASTERIDE 5 MG TAB PO SCH (08:20)
[2022-10-01] MEDS ORDERED: FUROSEMIDE 40 MG/4 ML VIAL IV ONE (11:34)
--- NOTE | 2022-10-01 12:06 | Cardiology Progress Note ---
Date of Service October 01, 2022 Assessment & Plan (1) Acute CHF (congestive heart failure): (2) Acute respiratory failure with hypoxia: (3) Heart failure with reduced ejection fraction due to cardiomyopathy: (4) CKD (chronic kidney disease), stage III: Plan Transition from furosemide 40 mg twice daily to torsemide 20 mg twice daily at 7 AM and 1400. Will likely need to permit some degree of azotemia. Hold off on spironolactone for now given elevated creatinine of just above 2. Patient is status post thoracentesis of right pleural effusion yielding 1500 mL of transudate of fluid this admission. Follow-up chest x-ray on 09/28/2022 was markedly improved. Discontinue Harding catheter. Beta-nolvia contraindicated given resting bradycardia and first-degree AV block, aortic insufficiency. Admission and Anticipated Discharge Date Admission Date: September 24, 2022 Subjective Patient sitting in bedside chair. Harding catheter remains in place. Most recent pulse oximetry 98% on 4 L nasal cannula Physical Exam Constitutional: no acute distress Respiratory: Auscultation: + diminished lung sounds (decreased BS at the bases); no crackles and no rales Cardiovascular: Rate/Rhythm: regular rate and regular rhythm Heart Sounds: normal S1 and normal S2; no murmur Extremities: + edema (trace LE and pedal edema) Neurologic: PERRL, EOMI, accommodation nl, no face palsy, no dysarthria Results & Data Vital Signs (Past 12 Hours) Vital Signs Temp Pulse Resp BP Pulse Ox O2 Del Method O2 Flow Rate 10/01/22 10:45 36.7 C 60 18 143/68 H 98 Nasal Cannula 4 10/01/22 07:10 36.8 C 62 16 139/74 94 Nasal Cannula 3 10/01/22 03:00 36.8 C 65 20 150/58 H 92 Nasal Cannula 2 Laboratory Results Comprehensive Metabolic Panel 10/01/22 Range/Units 05:39 Sodium 138 (136-145) mmol/L Potassium 3.9 (3.5-5.1) mmol/L Chloride 102 (98-107) mmol/L Carbon Dioxide 30 (21-32) mmol/L BUN 40 H (6-23) mg/dl Creatinine 2.23 H (0.6-1.4) mg/dl Glucose 97 (70-99(Fasting)) mg/dl Calcium 8.4 L (8.6-10.3) mg/dl Intake and Output 09/30/22 10/01/22 10/01/22 22:59 06:59 14:59 Intake Total 120 / 825 180 / 825 240 / 240 Output Total 851 / 1426 425 / 1426 Balance -731 / -601 -245 / -601 240 / 240 Intake: Oral 120 / 825 180 / 825 240 / 240 Output: Urine Amount (Catheter) 850 / 1425 425 / 1425 Harding/Indwelling 850 / 1425 425 / 1425 # Bowel Movements Other: Weight 74.5 kg Weight Measurement Method Built in [facility]
--- NOTE | 2022-10-01 13:26 | XRay Report ---
XR chest 1V portable HISTORY: Dyspnea COMPARISON: Chest 09/28/2022. FINDINGS: No pneumothorax. The cardiac silhouette remains enlarged. There is upper lobe and perihilar interstitial thickening which has slightly progressed. Small left pleural effusion, unchanged. IMPRESSION: 1. Interval progression of interstitial thickening which likely represents pulmonary edema. 2. Small left pleural effusion persists. 3. No pneumothorax. ACT 112: Negative or not required by law. Electronically signed by: Massimo Posada M.D. 10/01/2022 1:25 PM
--- NOTE | 2022-10-01 13:28 | Hospitalist Progress Note ---
Date of Service October 01, 2022 Assessment & Plan (1) Acute CHF (congestive heart failure): (2) Heart failure with reduced ejection fraction due to cardiomyopathy: Plan: Patient is an 87 yr male who presents with shortness of breath and hypoxia. Acute systolic CHF Acute respiratory failure with hypoxia secondary to above Troponin elevation: Type II PR secondary to demand ischemia H/O TREVOR: Intolerance to CPAP --ECHO: Moderate global hypokinesis of left ventricle. Left ventricle is normal in size. EF 35 to 40%. Grade 1 diastolic dysfunction. Moderate to severe aortic regurgitation. Mild to moderate mitral regurgitation. Mild tricuspid regurgitation. --Venous Doppler:No DVT within the right or left lower extremity. --CT Chest:Interstitial and airspace opacities throughout the lungs suggestive of pulmonary edema. Moderate bilateral pleural effusions. Coronary artery calcifications and cardiomegaly. BiPAP as needed --S/P thoracentesis on 09/28/2022: 1500 mL of transudative fluid removed. Monitor I's and O's, daily weight, volume status Appreciate cardiology input Continue hydralazine, isosorbide No beta-nolvia as patient has bradycardia, first-degree AV block Received IV Lasix 40 mg this morning Hold losartan for now Cr stable when compared to yesterday Chest x-ray today suggestive of pulmonary edema, no significant pleural effusions No plan to be started on spironolactone given creatinine greater than 2 Plan to transition to torsemide as recommended by cardiology Will need 2 step prior to discharge Needs follow-up with cardiology upon discharge Suspected Pneumonia--Less likely Biofire: Negative Normal procalcitonin Empirically started on Doxy Melena Chronic per patient + FOBT Continue PPI Appreciate GI Input Monitor CBC Hb 8.5 Delirium Reorient frequently Delirium precautions Melatonin at bedtime CKD IV Baseline creatinine ~ 1.9 Monitor renal function Avoid nephrotoxic agents as able hold losartan Renal function stable Cr 2.23 today Anemia of chronic disease Chronic neutropenia Thrombocytopenia H/O CLL S/P Rituxan H/O B-cell lymphoma Previously on Aranesp Monitor CBC Neutropenia precautions Follows with oncology as outpatient H/O Abdominal aortic aneurysm coronary artery disease S/P Stent carotid stenosis: Status post left carotid endarterectomy. Continue aspirin, statin, Imdur. H/O lung nodule: Diagnosed in 2019 Patient has declined workup in the past as per Oncology BPH Continue finasteride and Flomax Depression: continue Zoloft and mirtazapine. GERD Continue PPI Hypertension: Hypertensive Urgency Continue Imdur, hydralazine, amlodipine Hold losartan as above Hyperlipidemia: On statin. Prediabetes: HbA1c 5.2 Diet controlled DVT Px: Heparin SQ Code Status Full Code Disposition PT OT prior to discharge Admission and Anticipated Discharge Date Admission Date: September 24, 2022 Subjective Patient is seen and examined at bedside Sitting in chair comfortably during my encounter Offers no new complaints Saturating well on 4 L supplemental oxygen Sitter at bedside Chest x-ray today suggestive of pulmonary edema, no significant pleural effusions Denies any chest pain, dyspnea, dizziness, nausea, abdominal pain Review of Systems Review of Systems: All systems reviewed & are unremarkable except as noted in Subjective Physical Exam Physical Exam: Physical Exam: Vitals signs as noted above General Appearance:Moderately built and nourished, no apparent distress Head: normocephalic, Atraumatic Eyes: normal inspection, EOMI Neck: supple, Trachea midline Respiratory/Chest: Decreased breath sounds, + Crackles, No accessory muscle use Cardiovascular: S1, S2, No murmur Abdomen/GI:Soft, Non tender, Bowel sounds present Extremities/Musculoskeletal:normal inspection, 1+ pedal edema Neurologic/Psych:AAOX3, grossly no focal neurological deficits Skin: normal color, warm Results & Data Results & Data Vital Signs (Past 12 Hours) Vital Signs Temp Pulse Resp BP Pulse Ox O2 Del Method O2 Flow Rate 10/01/22 10:45 36.7 C 60 18 143/68 H 98 Nasal Cannula 4 10/01/22 07:10 36.8 C 62 16 139/74 94 Nasal Cannula 3 10/01/22 03:00 36.8 C 65 20 150/58 H 92 Nasal Cannula 2 Laboratory Results [facility] 10/01/22 05:39 Sodium 138 Potassium 3.9 Chloride 102 Carbon Dioxide 30 BUN 40 H Creatinine 2.23 H Glucose 97 Calcium 8.4 L
[2022-10-01] MEDS: TORSEMIDE 10 MG TAB PO SCH (14:15)
[2022-10-01] MEDS: IPRATROPIUM BROMIDE NEB SOLN 0.02% 2.5 ML VIAL INH PRN (15:06)
[2022-10-01] MEDS: LEVALBUTEROL 1.25 MG/3 ML NEB NEB PRN (15:06)
[2022-10-01 20:06] LABS: Appearance Urine Cloudy (Clear); Bacteria Urine Automated Negative (Negative); Bilirubin Urine Negative (Negative); Blood Urine 2+ (Negative); Color Urine Yellow; Epithelial Cell Urine Auto 0-5 /lpf (0-5); Glucose Urine UA Negative (Negative); Ketones Urine Negative (Negative); Leukocyte Esterase Urine Negative (Negative); Nitrite Urine Negative (Negative); Protein Urine Trace (Negative); Urobilinogen Urine Negative (Negative)
[2022-10-01] MEDS: ATORVASTATIN 40 MG TAB PO SCH (20:10)
[2022-10-01] MEDS: TAMSULOSIN HCL 0.4 MG CAP PO SCH (20:11)
[2022-10-01] MEDS: MIRTAZAPINE TAB 15 MG TAB PO SCH (20:13)
[2022-10-02 06:39] LABS: Hematocrit (blood only) 25.4 % (42.0-52.0); Hemoglobin 8.2 g/dl (14.0-18.0); Mean Corpuscular Hemoglobin 30.5 pg (25.0-34.0); Mean Corpuscular Hgb Conc 32.3 g/dL (32.0-36.0); Mean Corpuscular Volume 94.4 fL (80.0-100.0); Mean Platelet Volume 9.8 fL (9.4-12.4); Platelet Count 141 K/uL (130-400); RDW Coefficient of Variation 15.6 % (11.5-14.5); RDW Standard Deviation 53.7 fL (36.4-46.3); Red Blood Count 2.69 M/uL (4.70-6.10); White Blood Count 1.84 K/ul (4.8-10.8)
[2022-10-02 06:53] LABS: BUN Creatinine Ratio 17.9 (10-20); Calcium 8.7 mg/dl (8.6-10.3); Creatinine Clr Calc Pharmacy 20.7 ml/min; Est GFR (African American) 27.5 ml/min; Est GFR (Non-African American) 23.8 ml/min; Potassium 3.9 mmol/L (3.5-5.1)
[2022-10-02] MEDS: TORSEMIDE 10 MG TAB PO SCH ×2 (07:35→13:29)
[2022-10-02] MEDS: FINASTERIDE 5 MG TAB PO SCH (08:50)
[2022-10-02] MEDS: CYANOCOBALAMIN (B-12) 500 MCG TABLET PO SCH (08:50)
[2022-10-02] MEDS: DOXYCYCLINE HYCLATE 100 MG CAP PO SCH (08:50)
[2022-10-02] MEDS: ISOSORBIDE MONO EXTENDED REL 60 MG TABCR PO SCH (08:50)
[2022-10-02] MEDS: PANTOprazole 40 MG TAB PO SCH ×2 (08:50→21:44)
[2022-10-02] MEDS: ASPIRIN 81 MG CHEW PO SCH (08:50)
[2022-10-02] MEDS: amLODIPine BESYLATE 5 MG TAB PO SCH (08:50)
[2022-10-02] MEDS: hydrALAZINE HCL 25 MG TAB PO SCH ×3 (08:51→21:43)
[2022-10-02] MEDS: POTASSIUM CHLORIDE CRTAB 20 MEQ TABCR PO SCH (08:51)
[2022-10-02] MEDS: SERTRALINE HCL 100 MG TABLET PO SCH (08:51)
--- NOTE | 2022-10-02 15:58 | Hospitalist Progress Note ---
Date of Service October 02, 2022 Assessment & Plan (1) Acute CHF (congestive heart failure): (2) Heart failure with reduced ejection fraction due to cardiomyopathy: Plan: Patient is an 87 yr male who presents with shortness of breath and hypoxia. Acute systolic CHF Acute respiratory failure with hypoxia secondary to above Troponin elevation: Type II RI secondary to demand ischemia H/O TREVOR: Intolerance to CPAP --ECHO: Moderate global hypokinesis of left ventricle. Left ventricle is normal in size. EF 35 to 40%. Grade 1 diastolic dysfunction. Moderate to severe aortic regurgitation. Mild to moderate mitral regurgitation. Mild tricuspid regurgitation. --Venous Doppler:No DVT within the right or left lower extremity. --CT Chest:Interstitial and airspace opacities throughout the lungs suggestive of pulmonary edema. Moderate bilateral pleural effusions. Coronary artery calcifications and cardiomegaly. BiPAP as needed --S/P thoracentesis on 09/28/2022: 1500 mL of transudative fluid removed. Monitor I's and O's, daily weight, volume status Appreciate cardiology input Continue hydralazine, isosorbide No beta-nolvia as patient has bradycardia, first-degree AV block Was receiving parenteral diuretics, now switched to torsemide 20mg BID Hold losartan for now due to hypotension Chest x-ray 10/01 suggestive of pulmonary edema, no significant pleural effusions. On exam patient does appear euvolemic. With his CKD, would be ca utious with diuresis No plan to be started on spironolactone given creatinine greater than 2 Needs follow-up with cardiology upon discharge Suspected Pneumonia--Less likely Biofire: Negative Normal procalcitonin Empirically started on Doxy. Will discontinue Melena Chronic per patient + FOBT Continue PPI Appreciate GI Input Monitor CBC Hb 8.5 Delirium Reorient frequently Delirium precautions Melatonin at bedtime CKD IV Baseline creatinine ~ 1.9 Monitor renal function Avoid nephrotoxic agents as able hold losartan Renal function stable Anemia of chronic disease Chronic neutropenia Thrombocytopenia H/O CLL S/P Rituxan H/O B-cell lymphoma Previously on Aranesp Monitor CBC Neutropenia precautions Follows with oncology as outpatient H/O Abdominal aortic aneurysm coronary artery disease S/P Stent carotid stenosis: Status post left carotid endarterectomy. Continue aspirin, statin, Imdur. H/O lung nodule: Diagnosed in 2019 Patient has declined workup in the past as per Oncology BPH Continue finasteride and Flomax Depression: continue Zoloft and mirtazapine. GERD Continue PPI Hypertension: Hypertensive Urgency Continue Imdur, hydralazine, amlodipine Hold losartan as above Hyperlipidemia: On statin. Prediabetes: HbA1c 5.2 Diet controlled DVT Px: Heparin SQ Code Status Full Code Disposition Patient is medically stable for discharge. Needs placement. Admission and Anticipated Discharge Date Admission Date: September 24, 2022 Subjective Patient feels well. Wants to go home Denies discomfort currently Review of Systems Review of Systems: as above Physical Exam Physical Exam: Appears well. Sitting in chair, pleasant and comfortable. Forgetful Respiratory: No wheezing/rhonchi/rales, diminished at bases Cardiovascular: Regular rate and rhythm, no murmurs/rubs Gastrointestinal (Abdomen): soft, non tender Musculoskeletal: No edema Neurologic: awake, spontaneously moving extremities, forgetful Results & Data Results & Data Vital Signs (Past 12 Hours) Vital Signs Temp Pulse Pulse Resp BP Pulse Ox O2 Del Method 10/02/22 15:28 60 10/02/22 15:08 36.8 C 61 20 100/50 L 98 Nasal Cannula 10/02/22 11:28 36.7 C 60 19 103/47 L 98 Nasal Cannula 10/02/22 09:58 59 L 10/02/22 09:58 Nasal Cannula 10/02/22 07:51 36.8 C 61 17 137/66 98 Nasal Cannula O2 Flow Rate 10/02/22 15:28 10/02/22 15:08 4 10/02/22 11:28 4 10/02/22 09:58 10/02/22 09:58 4 10/02/22 07:51 4
--- NOTE | 2022-10-02 19:32 | Cardiology Progress Note ---
Date of Service October 02, 2022 Assessment & Plan (1) Acute CHF (congestive heart failure): (2) Acute respiratory failure with hypoxia: (3) Heart failure with reduced ejection fraction due to cardiomyopathy: (4) CKD (chronic kidney disease), stage III: Plan Patient oral torsemide 20 mg BID today, 10/02/22, having been on furosemide 40 mg IV BID. Mental status, respiratory status improved, however creatinine has increased slightly to 2.34. Will hold torsemide and potassium tomorrow pending repeat chemistry panel. If creatinine is less than 2.3 , resume torsemide 20 mg twice daily, if stable, consider torsemide 20 mg daily, if greater than 2.5 mg/dL, hold diuretics tomorr ow. As previously noted, will likely need to put up with some degree of azotemia. Beta-nolvia contraindicated given resting bradycardia and first-degree AV block, aortic insufficiency. Dr Germaine taylor on 10/03/22, call with questions or concerns. Admission and Anticipated Discharge Date Admission Date: September 24, 2022 Subjective Patient seen in cardiology follow-up. Oxygen weaned to 1 L/min, pulse oximetry 97%. Mental status improved. No acute complaints. Physical Exam Constitutional: no acute distress Respiratory: Auscultation: + diminished lung sounds (decreased BS at the bases); no crackles and no rales Cardiovascular: Rate/Rhythm: regular rate and regular rhythm Heart Sounds: normal S1 and normal S2; no murmur Extremities: + edema (trace LE and pedal edema) Neurologic: PERRL, EOMI, accommodation nl, no face palsy, no dysarthria Results & Data Vital Signs (Past 12 Hours) Vital Signs Temp Pulse Pulse Resp BP Pulse Ox O2 Del Method 10/02/22 18:08 97 Nasal Cannula 10/02/22 15:28 60 10/02/22 15:08 36.8 C 61 20 100/50 L 98 Nasal Cannula 10/02/22 11:28 36.7 C 60 19 103/47 L 98 Nasal Cannula 10/02/22 09:58 59 L 10/02/22 09:58 Nasal Cannula 10/02/22 07:51 36.8 C 61 17 137/66 98 Nasal Cannula O2 Flow Rate 10/02/22 18:08 1 10/02/22 15:28 10/02/22 15:08 4 10/02/22 11:28 4 10/02/22 09:58 10/02/22 09:58 4 10/02/22 07:51 4 Laboratory Results CBC 10/02/22 Range/Units 06:13 WBC 1.84 L (4.8-10.8) K/ul RBC 2.69 L (4.70-6.10) M/uL Hgb 8.2 L (14.0-18.0) g/dl Hct 25.4 L (42.0-52.0) % Plt Count 141 (130-400) K/uL Comprehensive Metabolic Panel 10/02/22 Range/Units 06:13 Sodium 139 (136-145) mmol/L Potassium 3.9 (3.5-5.1) mmol/L Chloride 101 (98-107) mmol/L Carbon Dioxide 31 (21-32) mmol/L BUN 42 H (6-23) mg/dl Creatinine 2.34 H (0.6-1.4) mg/dl Glucose 101 H (70-99(Fasting)) mg/dl Calcium 8.7 (8.6-10.3) mg/dl Intake and Output 10/02/22 10/02/22 10/02/22 06:59 14:59 22:59 Intake Total 120 / 800 300 / 300 Output Total 850 / 2151 300 / 300 Balance -730 / -1351 0 / 0 Intake: Oral 120 / 800 300 / 300 Output: Urine Amount (Catheter) 850 / 2150 300 / 300 Harding/Indwelling 850 / 2150 300 / 300 Other: Weight 73.8 kg 73.8 kg Weight Measurement Method Built in [facility] Patient Weight 10/03/22 06:59 Weight 73.8 kg
[2022-10-02] MEDS: ATORVASTATIN 40 MG TAB PO SCH (21:43)
[2022-10-02] MEDS: MIRTAZAPINE TAB 15 MG TAB PO SCH (21:44)
[2022-10-02] MEDS: TAMSULOSIN HCL 0.4 MG CAP PO SCH (21:44)
[2022-10-03] MEDS: CYANOCOBALAMIN (B-12) 500 MCG TABLET PO SCH (09:39)
[2022-10-03] MEDS: PANTOprazole 40 MG TAB PO SCH ×2 (09:40→20:31)
[2022-10-03] MEDS: hydrALAZINE HCL 25 MG TAB PO SCH ×3 (09:40→20:30)
[2022-10-03] MEDS: FINASTERIDE 5 MG TAB PO SCH (09:40)
[2022-10-03] MEDS: ISOSORBIDE MONO EXTENDED REL 60 MG TABCR PO SCH (09:41)
[2022-10-03] MEDS: SERTRALINE HCL 100 MG TABLET PO SCH (09:41)
[2022-10-03] MEDS: amLODIPine BESYLATE 5 MG TAB PO SCH (09:41)
[2022-10-03] MEDS: ASPIRIN 81 MG CHEW PO SCH (09:41)
[2022-10-03 12:57] LABS: BUN Creatinine Ratio 20.4 (10-20); Calcium 8.4 mg/dl (8.6-10.3); Est GFR (African American) 23.3 ml/min; Est GFR (Non-African American) 20.1 ml/min; Hemoglobin 7.9 g/dl (14.0-18.0); Mean Corpuscular Hemoglobin 30.6 pg (25.0-34.0); Mean Corpuscular Hgb Conc 32.9 g/dL (32.0-36.0); Mean Platelet Volume 10.8 fL (9.4-12.4); Platelet Count 170 K/uL (130-400); RDW Coefficient of Variation 15.4 % (11.5-14.5); RDW Standard Deviation 52.4 fL (36.4-46.3); Red Blood Count 2.58 M/uL (4.70-6.10); White Blood Count 1.67 K/ul (4.8-10.8)
--- NOTE | 2022-10-03 14:38 | Hospitalist Progress Note ---
Date of Service October 03, 2022 Assessment & Plan (1) Acute CHF (congestive heart failure): (2) Heart failure with reduced ejection fraction due to cardiomyopathy: Plan: Patient is an 87 yr male who presents with shortness of breath and hypoxia. Acute systolic CHF Acute respiratory failure with hypoxia secondary to above Troponin elevation: Type II CA secondary to demand ischemia H/O TREVOR: Intolerance to CPAP --ECHO: Moderate global hypokinesis of left ventricle. Left ventricle is normal in size. EF 35 to 40%. Grade 1 diastolic dysfunction. Moderate to severe aortic regurgitation. Mild to moderate mitral regurgitation. Mild tricuspid regurgitation. --Venous Doppler:No DVT within the right or left lower extremity. --CT Chest:Interstitial and airspace opacities throughout the lungs suggestive of pulmonary edema. Moderate bilateral pleural effusions. Coronary artery calcifications and cardiomegaly. BiPAP as needed --S/P thoracentesis on 09/28/2022: 1500 mL of transudative fluid removed. Monitor I's and O's, daily weight, volume status Appreciate cardiology input Continue hydralazine, isosorbide No beta-nolvia as patient has bradycardia, first-degree AV block Was receiving parenteral diuretics, now switched to torsemide 20mg BID Chest x-ray 10/01 suggestive of pulmonary edema, no significant pleural effusions. On exam patient does appear euvolemic. No plan to be started on spironolactone given creatinine greater than 2 Needs follow-up with cardiology upon discharge Suspected Pneumonia--Less likely Biofire: Negative Normal procalcitonin Empirically started on Doxy. Now discontinued Melena Chronic per patient + FOBT Continue PPI Appreciate GI Input Monitor CBC Hb 8.5 Delirium Reorient frequently Delirium precautions Melatonin at bedtime CKD IV Baseline creatinine ~ 1.9 Monitor renal function Avoid nephrotoxic agents as able hold losartan Renal function stable Anemia of chronic disease Chronic neutropenia Thrombocytopenia H/O CLL S/P Rituxan H/O B-cell lymphoma Previously on Aranesp Monitor CBC Neutropenia precautions Follows with oncology as outpatient H/O Abdominal aortic aneurysm coronary artery disease S/P Stent carotid stenosis: Status post left carotid endarterectomy. Continue aspirin, statin, Imdur. H/O lung nodule: Diagnosed in 2019 Patient has declined workup in the past as per Oncology BPH Continue finasteride and Flomax Depression: continue Zoloft and mirtazapine. GERD Continue PPI Hypertension: Hypertensive Urgency Continue Imdur, hydralazine, amlodipine Hold losartan as above Hyperlipidemia: On statin. Prediabetes: HbA1c 5.2 Diet controlled DVT Px: Heparin SQ Code Status Full Code Disposition Patient is medically stable for discharge. Needs placement. Admission and Anticipated Discharge Date Admission Date: September 24, 2022 Subjective Patient and family thought he was being discharged today to rehab. He was dressed, his bags were packed He was understandably disappointed and upset when told we are still waiting to hear back from rehab He is doing well otherwise Currently on room air Tolerating meals Refused telemetry and vitals this morning but later agreed Review of Systems Review of Systems: as above Physical Exam Physical Exam: Sitting in chair, dressed in home clothes, upset but pleasant Respiratory: Clear, no wheezing/rhonchi/rales Cardiovascular: Regular rate and rhythm, no murmurs/rubs/gallops Gastrointestinal (Abdomen): soft, non tender Musculoskeletal: trace ankle edema Neurologic: awake, alert, spontaneously moving extremities Results & Data Results & Data Vital Signs (Past 12 Hours) Vital Signs Temp Pulse Resp BP BP Pulse Ox Pulse Ox 10/03/22 14:17 62 126/62 10/03/22 13:00 94 10/03/22 11:46 36.6 C 61 19 100/49 L 94 10/03/22 09:31 36.6 C 60 18 143/61 H 96 10/03/22 03:27 36.7 C 63 20 141/65 H 95 O2 Del Method O2 Del Method 10/03/22 14:17 10/03/22 13:00 Room Air 10/03/22 11:46 Room Air 10/03/22 09:31 Room Air 10/03/22 03:27 Room Air
[2022-10-03] MEDS: ATORVASTATIN 40 MG TAB PO SCH (20:30)
[2022-10-03] MEDS: MIRTAZAPINE TAB 15 MG TAB PO SCH (20:31)
[2022-10-03] MEDS: TAMSULOSIN HCL 0.4 MG CAP PO SCH (20:31)
[2022-10-04 06:27] LABS: Hematocrit (blood only) 24.8 % (42.0-52.0); Hemoglobin 8.3 g/dl (14.0-18.0); Mean Corpuscular Hemoglobin 30.7 pg (25.0-34.0); Mean Corpuscular Hgb Conc 33.5 g/dL (32.0-36.0); Mean Corpuscular Volume 91.9 fL (80.0-100.0); Mean Platelet Volume 10.8 fL (9.4-12.4); Platelet Count 175 K/uL (130-400); RDW Coefficient of Variation 15.5 % (11.5-14.5); RDW Standard Deviation 51.6 fL (36.4-46.3); White Blood Count 1.76 K/ul (4.8-10.8)
[2022-10-04 06:33] LABS: BUN Creatinine Ratio 21.9 (10-20); Calcium 8.6 mg/dl (8.6-10.3); Creatinine Clr Calc Pharmacy 18.6 ml/min; Est GFR (African American) 24.3 ml/min; Est GFR (Non-African American) 20.9 ml/min; Magnesium 1.7 mg/dl (1.7-2.4); Potassium 3.6 mmol/L (3.5-5.1)
[2022-10-04] MEDS: amLODIPine BESYLATE 5 MG TAB PO SCH (08:10)
[2022-10-04] MEDS: ASPIRIN 81 MG CHEW PO SCH (08:10)
[2022-10-04] MEDS: hydrALAZINE HCL 25 MG TAB PO SCH ×3 (08:10→21:02)
[2022-10-04] MEDS: CYANOCOBALAMIN (B-12) 500 MCG TABLET PO SCH (08:10)
[2022-10-04] MEDS: FINASTERIDE 5 MG TAB PO SCH (08:11)
[2022-10-04] MEDS: SERTRALINE HCL 100 MG TABLET PO SCH (08:11)
[2022-10-04] MEDS: PANTOprazole 40 MG TAB PO SCH ×2 (08:11→21:03)
[2022-10-04] MEDS: ISOSORBIDE MONO EXTENDED REL 60 MG TABCR PO SCH (08:11)
[2022-10-04] MEDS ORDERED: MAGNESIUM SULFATE / D5W 1 GM/100 ML BAG IV ONE (11:42)
[2022-10-04] MEDS ORDERED: POTASSIUM CHLORIDE 10 MEQ TABCR PO STA (11:45)
--- NOTE | 2022-10-04 12:36 | Hospitalist Progress Note ---
Date of Service October 04, 2022 Assessment & Plan (1) Acute CHF (congestive heart failure): (2) Heart failure with reduced ejection fraction due to cardiomyopathy: Plan: Patient is an 87 yr male who presents with shortness of breath and hypoxia here with acute systolic CHF. Acute systolic CHF Troponin elevation: Type II IA secondary to demand ischemia H/O TREVOR: Intolerance to CPAP --ECHO: Moderate global hypokinesis of left ventricle. Left ventricle is normal in size. EF 35 to 40%. Grade 1 diastolic dysfunction. Moderate to severe aortic regurgitation. Mild to moderate mitral regurgitation. Mild tricuspid regurgitation. --Venous Doppler:No DVT within the right or left lower extremity. --CT Chest:Interstitial and airspace opacities throughout the lungs suggestive of pulmonary edema. Moderate bilateral pleural effusions. Coronary artery calcifications and cardiomegaly. BiPAP as needed --S/P thoracentesis on 09/28/2022: 1500 mL of transudative fluid removed. Monitor I's and O's, daily weight, volume status Appreciate cardiology input Continue hydralazine, isosorbide No beta-nolvia as patient has bradycardia, first-degree AV block Was receiving parenteral diuretics, now switched to torsemide 20mg BID which has been held due to REGINA No plan to be started on spironolactone given creatinine greater than 2 Needs follow-up with cardiology upon discharge Acute respiratory failure with hypoxia secondary to above -now weaned to room air Suspected Pneumonia--Less likely Biofire: Negative Normal procalcitonin Empirically started on Doxy. Now discontinued Melena Chronic per patient + FOBT Continue PPI Appreciate GI Input Monitor CBC Hb 8.5 Delirium Reorient frequently Delirium precautions Melatonin at bedtime REGINA on CKD IV Baseline creatinine ~ 1.9 Monitor renal function Avoid nephrotoxic agents as able hold losartan hold torsemide monitor BMP Anemia of chronic disease Chronic neutropenia Thrombocytopenia H/O CLL S/P Rituxan H/O B-cell lymphoma Previously on Aranesp Monitor CBC Neutropenia precautions Follows with oncology as outpatient H/O Abdominal aortic aneurysm coronary artery disease S/P Stent carotid stenosis: Status post left carotid endarterectomy. Continue aspirin, statin, Imdur. H/O lung nodule: Diagnosed in 2019 Patient has declined workup in the past as per Oncology BPH Continue finasteride and Flomax Depression: continue Zoloft and mirtazapine. GERD Continue PPI Hypertension: Hypertensive Urgency Continue Imdur, hydralazine, amlodipine Hold losartan as above Hyperlipidemia: On statin. Prediabetes: HbA1c 5.2 Diet controlled DVT Px: Heparin SQ Code Status Full Code Disposition Plan for rehab then [facility] to [facility] Admission and Anticipated Discharge Date Admission Date: September 24, 2022 Subjective Feels well No chest pain, shortness of breath Tolerating diet Remains on room air Review of Systems Review of Systems: as above Physical Exam Physical Exam: Appears stated age, no acute distress, sitting in chair in regular clothes Respiratory: Clear bilaterally, diminished at bases, no wheezing/rhonchi/rales Cardiovascular: Regular rate and rhythm, no murmurs/rubs Gastrointestinal (Abdomen): soft, non tender, non distended Musculoskeletal: 1+ edema bilateral ankles Neurologic: awake, alert, spontaneously moving extremities Results & Data Results & Data Vital Signs (Past 12 Hours) Vital Signs Temp Pulse Resp BP Pulse Ox O2 Del Method 10/04/22 12:05 36.6 C 62 19 114/51 L 93 Room Air 10/04/22 07:44 36.5 C 64 16 128/57 L 92 Room Air 10/04/22 03:11 37.0 C 61 16 154/55 H 94 Room Air
[2022-10-04] MEDS: MAGNESIUM OXIDE 400 MG TAB PO SCH (21:01)
[2022-10-04] MEDS: TAMSULOSIN HCL 0.4 MG CAP PO SCH (21:02)
[2022-10-04] MEDS: ATORVASTATIN 40 MG TAB PO SCH (21:02)
[2022-10-04] MEDS: MIRTAZAPINE TAB 15 MG TAB PO SCH (21:03)
[2022-10-05 07:49] LABS: Hematocrit (blood only) 22.6 % (42.0-52.0); Hemoglobin 7.3 g/dl (14.0-18.0); Mean Corpuscular Hemoglobin 30.2 pg (25.0-34.0); Mean Corpuscular Hgb Conc 32.3 g/dL (32.0-36.0); Mean Corpuscular Volume 93.4 fL (80.0-100.0); Mean Platelet Volume 10.2 fL (9.4-12.4); Platelet Count 173 K/uL (130-400); RDW Coefficient of Variation 15.2 % (11.5-14.5); RDW Standard Deviation 52.3 fL (36.4-46.3); Red Blood Count 2.42 M/uL (4.70-6.10)
[2022-10-05 08:08] LABS: BUN Creatinine Ratio 21.5 (10-20); Calcium 8.4 mg/dl (8.6-10.3); Creatinine Clr Calc Pharmacy 18.6 ml/min; Est GFR (African American) 24.1 ml/min; Est GFR (Non-African American) 20.8 ml/min; Magnesium 1.8 mg/dl (1.7-2.4); Potassium 3.9 mmol/L (3.5-5.1)
[2022-10-05] MEDS: hydrALAZINE HCL 25 MG TAB PO SCH ×3 (08:25→20:38)
[2022-10-05] MEDS: FINASTERIDE 5 MG TAB PO SCH (08:25)
[2022-10-05] MEDS: PANTOprazole 40 MG TAB PO SCH ×2 (08:25→20:38)
[2022-10-05] MEDS: SERTRALINE HCL 100 MG TABLET PO SCH (08:25)
[2022-10-05] MEDS: ISOSORBIDE MONO EXTENDED REL 60 MG TABCR PO SCH (08:25)
[2022-10-05] MEDS: amLODIPine BESYLATE 5 MG TAB PO SCH (08:26)
[2022-10-05] MEDS: CYANOCOBALAMIN (B-12) 500 MCG TABLET PO SCH (08:26)
[2022-10-05] MEDS: ASPIRIN 81 MG CHEW PO SCH (08:26)
[2022-10-05] MEDS: MAGNESIUM OXIDE 400 MG TAB PO SCH (08:26)
[2022-10-05] MEDS ORDERED: SODIUM CHLORIDE 0.9% 250 ML IV PRN (09:10)
--- NOTE | 2022-10-05 10:10 | Nephrology Consultation ---
Date of Consultation October 05, 2022 Assessment & Plan (1) Acute kidney injury superimposed on CKD: Patient with CKD stage IIIb baseline creatinine of 2 in setting of hypertension and heart disease. He now has acute kidney injury with creatinine up to 2.6 in setting of aggressive diuresis. Patient has been off diuretics for about 2 days. Patient will need to be on some diuretics with close monitoring of renal function. No indication for dialysis. Patient will need outpatient nephrology follow-up on discharge. 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 Patient also has severe aortic insufficiency. His diuretics are on hold in setting of worsening renal function. I recommend resuming torsemide at 20 mg daily. Patient can be discharged on this dose with close outpatient follow-up with nephrology and cardiology. (3) Anemia: Patient with anemia of multifactorial etiology including his history of CLL and CKD. Hemoglobin of 7.3. Patient would benefit from a unit of blood transfusion before discharge. 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 He was found to have pulmonary edema and bilateral pleural effusions. S/p thoracentesis with improvement in breathing. Patient was also diuresed initially with IV Lasix 40 mg twice daily and later transitioned to torsemide 20 mg twice daily but has been off diuretics for about 2 days. Admission weight was 83 kg and patient now weighing 73 kg. He denies shortness of breath or leg swelling. He is making urine although is not documented in the chart. Creatinine has been uptrending to 2.6 today. Patient also has anemia with hemoglobin of 7.3 and leukopenia of 2.1. He denies any nausea or vomiting. Allergies Allergy/AdvReac Type Severity Reaction Status Date / Time No Known Allergies Allergy Verified 09/24/22 19:08 Home Medications Medication Instructions Recorded Confirmed Type acetaminophen 325 mg tablet 650 mg PO Q8 PRN .Mild pain, fever 09/24/22 09/24/22 History (Tylenol) & headache albuterol sulfate 90 mcg/actuation 1 inh inhalation Q4 PRN .sob/cough 09/24/22 09/24/22 History aerosol inhaler amlodipine 10 mg tablet 10 mg PO DAILY 09/24/22 09/24/22 History aspirin 81 mg chewable tablet 81 mg PO DAILY 09/24/22 09/24/22 History atorvastatin 80 mg tablet 40 mg PO HS 09/24/22 09/24/22 History carbamide peroxide 6.5 % ear drops 5 - 10 drp otic (ear) DIRECTED 09/24/22 09/24/22 History cyanocobalamin (vitamin B-12) 0 mcg PO DAILY 09/24/22 09/24/22 History 1,000 mcg tablet (Vitamin B-12) ferrous sulfate 325 mg (65 mg 325 mg PO TIDM 09/24/22 09/24/22 History iron) tablet finasteride 5 mg tablet 5 mg PO DAILY 09/24/22 09/24/22 History hydralazine 25 mg tablet 25 mg PO TID 09/24/22 09/24/22 History isosorbide mononitrate 60 mg 60 mg PO DAILY 09/24/22 09/24/22 History tablet,extended release 24 hr losartan 25 mg tablet 25 mg PO DAILY 09/24/22 09/24/22 History mirtazapine 15 mg tablet 15 mg PO HS 09/24/22 09/24/22 History omeprazole 20 mg tablet,delayed 20 mg PO DAILY 09/24/22 09/24/22 History release ondansetron HCl 8 mg tablet 8 mg PO Q12H PRN Nausea 09/24/22 09/24/22 History sertraline 100 mg tablet 100 mg PO DAILY 09/24/22 09/24/22 History tamsulosin 0.4 mg capsule 0.8 mg PO HS 09/24/22 09/24/22 History Patient History Social History Smoking Status: Former smoker Second Hand Exposure: No; Do You Dip or Chew Tobacco: No; Tobacco Cessation Education Requested by Patient: No Hx Alcohol Use: No Hx Substance Use: No Preferred Language: Afghan Communication Ability: Effective 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 Capital Required: No Beliefs That Will Affect Care: None Current Living Situation: Personal Care Facility Current Living Situation Comment: Resides at [facility] Other Information That Helps Us Care for You: No Feels Safe at Home: Yes Safety Concerns: Feels Safe At This Time Assistive Devices: Cane Assistive Devices Comment: Dentures with patient Review of Systems Review of Systems: All other systems were reviewed and negative except as noted in HPI Physical Exam Physical Exam: General exam: Appears comfortable, no acute distress HEENT: Pupils are equal and reactive to light Neck: No JVD, neck is supple trachea is midline Respiratory system: Clear breath sounds bilaterally. Gastrointestinal: Abdomen is soft, non distended, non tender, bowel sounds are present CVS: Regular rate and rhythm. No murmurs, rubs or gallops Musculoskeletal: No joint or muscle tenderness Extremities: Non tender, 1+ edema, peripheral pulses are present Neuro: Oriented, no tremors, no focal neurological deficits Skin: No rashes Results & Data Vital Signs (Past 12 Hours) Vital Signs Temp Pulse Resp BP BP Pulse Ox O2 Del Method 10/05/22 08:24 36.8 C 65 20 124/69 94 Room Air 10/05/22 03:34 37.0 C 61 20 110/56 L 94 Room Air 10/04/22 23:00 Room Air 10/04/22 23:19 36.6 C 66 18 167/65 H 93 Room Air Laboratory Results 10/05/22 07:21 10/05/22 07:21 WBC 2.10 L RBC 2.42 L MCV 93.4 MCH 30.2 MCHC 32.3 RDW Std Deviation 52.3 H RDW Coeff of Germaine 15.2 H Plt Count 173 MPV 10.2 (3) Anemia Anemia type: unspecified type Qualified Code(s): D64.9 - Anemia, unspecified
[2022-10-05] MEDS ORDERED: IRON SUCROSE 200 MG in 0.9 % SODIUM CHLORIDE 100 ML IV ONE (10:30)
[2022-10-05] MEDS: TORSEMIDE 10 MG TAB PO SCH (13:15)
[2022-10-05 15:02] LABS: Hemoglobin 7.7 g/dl (14.0-18.0)
--- NOTE | 2022-10-05 18:28 | Hospitalist Progress Note ---
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 Acute systolic CHF Troponin elevation: Type II [place] secondary to demand ischemia H/O TREVOR: Intolerance to CPAP --ECHO: Moderate global hypokinesis of left ventricle. Left ventricle is normal in size. EF 35 to 40%. Grade 1 diastolic dysfunction. Moderate to severe aortic regurgitation. Mild to moderate mitral regurgitation. Mild tricuspid regurgitation. --Venous Doppler:No DVT within the right or left lower extremity. --CT Chest:Interstitial and airspace opacities throughout the lungs suggestive of pulmonary edema. Moderate bilateral pleural effusions. Coronary artery calcifications and cardiomegaly. BiPAP as needed --S/P thoracentesis on 09/28/2022: 1500 mL of transudative fluid removed. Monitor I's and O's, daily weight, volume status Appreciate cardiology input Continue hydralazine, isosorbide No beta-nolvia as patient has bradycardia, first-degree AV block Weaned off of supplemental oxygen Saturating well on room air IV diuretics discontinued Transition to p.o. torsemide Appreciate cardiology input Acute respiratory failure with hypoxia secondary to above Resolved Saturating well on room air Suspected Pneumonia--Less likely Biofire: Negative Normal procalcitonin Empirically started on Doxy. Now discontinued Melena Chronic per patient + FOBT Continue PPI Appreciate GI Input Monitor CBC Hb 7.7 today Given IV Venofer Delirium Reorient frequently Delirium precautions Melatonin at bedtime REGINA on CKD IV Baseline creatinine ~ 1.9 Monitor renal function Avoid nephrotoxic agents as able hold losartan Resume torsemide today monitor BMP Appreciate nephrology input Anemia of chronic disease Chronic neutropenia Thrombocytopenia H/O CLL S/P Rituxan H/O B-cell lymphoma Previously on Aranesp Monitor CBC Neutropenia precautions Follows with oncology as outpatient H/O Abdominal aortic aneurysm coronary artery disease S/P Stent carotid stenosis: Status post left carotid endarterectomy. Continue aspirin, statin, Imdur. H/O lung nodule: Diagnosed in 2019 Patient has declined workup in the past as per Oncology BPH Continue finasteride and Flomax Depression: continue Zoloft and mirtazapine. GERD Continue PPI Hypertension: Hypertensive Urgency Continue Imdur, hydralazine, amlodipine Hold losartan as above Hyperlipidemia: On statin. Prediabetes: HbA1c 5.2 Diet controlled DVT Px: Heparin SQ Code Status Full Code Disposition Rehab when accepted Admission and Anticipated Discharge Date Admission Date: September 24, 2022 Subjective Patient is seen and examined at bedside Offers no new complaints today Denies any chest pain, dyspnea, dizziness, nausea, abdominal pain Also denies any bleeding issues Noted drop in hemoglobin today Blood consent obtained Review of Systems Review of Systems: All systems reviewed & are unremarkable except as noted in Subjective Physical Exam Physical Exam: Physical Exam: Vitals signs as noted above General Appearance:Moderately built and nourished, no apparent distress Head: normocephalic, Atraumatic Eyes: normal inspection, EOMI Neck: supple, Trachea midline Respiratory/Chest: Decreased breath sounds, CTA, No accessory muscle use Cardiovascular: S1, S2, No murmur Abdomen/GI:Soft, Non tender, Bowel sounds present Extremities/Musculoskeletal:normal inspection, Trace pedal edema Neurologic/Psych:AAOX3, grossly no focal neurological deficits Skin: normal color, warm Results & Data Results & Data Vital Signs (Past 12 Hours) Vital Signs Temp Pulse Pulse Resp BP BP Pulse Ox 10/05/22 14:00 74 10/05/22 16:13 36.8 C 58 L 18 134/55 L 92 10/05/22 13:00 10/05/22 11:12 36.7 C 61 18 123/54 L 93 10/05/22 11:14 36.8 C 60 16 102/49 L 90 10/05/22 10:43 36.7 C 62 18 119/48 L 91 10/05/22 08:24 36.8 C 65 20 124/69 94 Pulse Ox O2 Del Method O2 Del Method 10/05/22 14:00 10/05/22 16:13 Room Air 10/05/22 13:00 92 Room Air 10/05/22 11:12 Room Air 10/05/22 11:14 Room Air 10/05/22 10:43 Room Air 10/05/22 08:24 Room Air Laboratory Results Short CBC 10/05/22 10/05/22 Range/Units 07:21 14:35 WBC 2.10 L (4.8-10.8) K/ul Hgb 7.3 L 7.7 L (14.0-18.0) g/dl Hct 22.6 L 24.0 L (42.0-52.0) % Plt Count 173 (130-400) K/uL BMP 10/05/22 07:21 Sodium 139 Potassium 3.9 Chloride 101 Carbon Dioxide 31 BUN 56 H Creatinine 2.61 H Glucose 93 Calcium 8.4 L
[2022-10-05] MEDS: TAMSULOSIN HCL 0.4 MG CAP PO SCH (20:38)
[2022-10-05] MEDS: ATORVASTATIN 40 MG TAB PO SCH (20:38)
[2022-10-05] MEDS: MIRTAZAPINE TAB 15 MG TAB PO SCH (20:38)
[2022-10-06 07:36] LABS: Hematocrit (blood only) 24.4 % (42.0-52.0); Hemoglobin 7.9 g/dl (14.0-18.0); Mean Corpuscular Hgb Conc 32.4 g/dL (32.0-36.0); Mean Corpuscular Volume 92.8 fL (80.0-100.0); Mean Platelet Volume 10.2 fL (9.4-12.4); Platelet Count 191 K/uL (130-400); RDW Coefficient of Variation 15.5 % (11.5-14.5); RDW Standard Deviation 52.7 fL (36.4-46.3); Red Blood Count 2.63 M/uL (4.70-6.10); White Blood Count 1.81 K/ul (4.8-10.8)
[2022-10-06] MEDS: PANTOprazole 40 MG TAB PO SCH ×2 (08:05→20:50)
[2022-10-06] MEDS: hydrALAZINE HCL 25 MG TAB PO SCH ×3 (08:05→20:50)
[2022-10-06] MEDS: CYANOCOBALAMIN (B-12) 500 MCG TABLET PO SCH (08:06)
[2022-10-06] MEDS: ASPIRIN 81 MG CHEW PO SCH (08:06)
[2022-10-06] MEDS: amLODIPine BESYLATE 5 MG TAB PO SCH (08:06)
[2022-10-06] MEDS: FINASTERIDE 5 MG TAB PO SCH (08:06)
[2022-10-06] MEDS: TORSEMIDE 10 MG TAB PO SCH (08:06)
[2022-10-06] MEDS: ISOSORBIDE MONO EXTENDED REL 60 MG TABCR PO SCH (08:06)
[2022-10-06] MEDS: SERTRALINE HCL 100 MG TABLET PO SCH (08:06)
[2022-10-06] MEDS ORDERED: IRON SUCROSE 200 MG in 0.9 % SODIUM CHLORIDE 100 ML IV ONE (09:45)
[2022-10-06 10:08] LABS: BUN Creatinine Ratio 19.3 (10-20); Calcium 8.4 mg/dl (8.6-10.3); Creatinine Clr Calc Pharmacy 19.1 ml/min; Est GFR (African American) 24.9 ml/min; Est GFR (Non-African American) 21.5 ml/min; Potassium 3.6 mmol/L (3.5-5.1)
--- NOTE | 2022-10-06 10:09 | Nephrology Progress Note ---
Date of Service October 06, 2022 Assessment & Plan Admission and Anticipated Discharge Date Admission Date: September 24, 2022 Subjective A/p: REGINA on CKD--Creat baseline is 2 and last few days about 2.6. He Does need some diuretics. Continue torsemide 20 daily.May need more. will have to accept a slightly higher baseline creat to maintain better volume Status. make sure hgb higher than 7.5 and transfuse if below. Creat not much changed for 4 days now-maybe new baseline labs: Creat 2.5 from today. but hgb is 7.9 S---less SOB. on Room air. making urine ?? amount. getting PRBC. Physical Exam Physical Exam: General exam: Appears comfortable, no acute distress HEENT: Pupils are equal and reactive to light Neck: No JVD, neck is supple trachea is midline Respiratory system: Clear breath sounds bilaterally. Gastrointestinal: Abdomen is soft, non distended, non tender, bowel sounds are present CVS: Regular rate and rhythm. No murmurs, rubs or gallops Musculoskeletal: No joint or muscle tenderness Extremities: Non tender, No edema, Neuro: Oriented, no tremors, no focal neurological deficits Skin: No rashes Results & Data Vital Signs (Past 12 Hours) Vital Signs Temp Pulse Resp BP Pulse Ox O2 Del Method 10/06/22 08:04 36.6 C 60 18 126/62 94 Room Air 10/06/22 02:39 36.4 C L 61 17 124/65 93 Room Air 10/05/22 23:12 36.7 C 63 18 128/60 92 Room Air
[2022-10-06] MEDS: MIRTAZAPINE TAB 15 MG TAB PO SCH (20:49)
[2022-10-06] MEDS: TAMSULOSIN HCL 0.4 MG CAP PO SCH (20:49)
[2022-10-06] MEDS: ATORVASTATIN 40 MG TAB PO SCH (20:49)
[2022-10-06] MEDS: MELATONIN 3 MG TAB PO PRN (23:53)
[2022-10-07 07:32] LABS: Hematocrit (blood only) 24.2 % (42.0-52.0); Hemoglobin 7.8 g/dl (14.0-18.0)
[2022-10-07 07:46] LABS: Calcium 8.4 mg/dl (8.6-10.3); Potassium 3.4 mmol/L (3.5-5.1)
[2022-10-07 07:52] LABS: BUN Creatinine Ratio 20.1 (10-20); Creatinine Clr Calc Pharmacy 19.9 ml/min; Est GFR (African American) 26.2 ml/min; Est GFR (Non-African American) 22.6 ml/min
[2022-10-07] MEDS: PANTOprazole 40 MG TAB PO SCH ×2 (08:18→20:26)
[2022-10-07] MEDS: amLODIPine BESYLATE 5 MG TAB PO SCH (08:18)
[2022-10-07] MEDS: CYANOCOBALAMIN (B-12) 500 MCG TABLET PO SCH (08:19)
[2022-10-07] MEDS: hydrALAZINE HCL 25 MG TAB PO SCH ×3 (08:19→20:26)
[2022-10-07] MEDS: SERTRALINE HCL 100 MG TABLET PO SCH (08:19)
[2022-10-07] MEDS: FINASTERIDE 5 MG TAB PO SCH (08:19)
[2022-10-07] MEDS: ISOSORBIDE MONO EXTENDED REL 60 MG TABCR PO SCH (08:19)
[2022-10-07] MEDS: ASPIRIN 81 MG CHEW PO SCH (08:19)
[2022-10-07] MEDS: TORSEMIDE 10 MG TAB PO SCH (08:19)
[2022-10-07] MEDS ORDERED: POTASSIUM CHLORIDE CRTAB 20 MEQ TABCR PO ONE (10:11)
--- NOTE | 2022-10-07 11:08 | Nephrology Progress Note ---
Date of Service October 07, 2022 Assessment & Plan Admission and Anticipated Discharge Date Admission Date: September 24, 2022 Subjective Subjective A/p: REGINA on CKD--Creat baseline is 2 and last few days about 2.6. He Does need some diuretics. Continue torsemide 20 daily.May need more. will have to accept a slightly higher baseline creat to maintain better volume Status. make sure hgb h igher than 7.5 and transfuse if below. Creat not much changed for 5 days now-maybe new baseline Low k so will add kcl 20 daily labs: Creat 2.4 from today k low. S---less SOB. on Room air. making urine ?? amount. Physical Exam Physical Exam: General exam: Appears comfortable, no acute distress HEENT: Pupils are equal and reactive to light Neck: No JVD, neck is supple trachea is midline Respiratory system: Clear breath sounds bilaterally. Gastrointestinal: Abdomen is soft, non distended, non tender, bowel sounds are present CVS: Regular rate and rhythm. No murmurs, rubs or gallops Musculoskeletal: No joint or muscle tenderness Extremities: Non tender, No edema, Neuro: Oriented, no tremors, no focal neurological deficits Skin: No rashes Results & Data Vital Signs (Past 12 Hours) Vital Signs Temp Pulse Pulse Resp BP Pulse Ox O2 Del Method 10/07/22 07:00 53 L 10/07/22 07:51 36.6 C 58 L 17 101/41 L 95 Room Air 10/07/22 03:36 59 L 20 129/54 L 93 Room Air 10/06/22 23:24 36.4 C L 64 18 168/75 H 93 Room Air
[2022-10-07] MEDS ORDERED: POTASSIUM CHLORIDE CRTAB 20 MEQ TABCR PO SCH (11:15)
--- NOTE | 2022-10-07 17:20 | Hospitalist Progress Note ---
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 Acute systolic CHF Troponin elevation: Type II [place] secondary to demand ischemia H/O TREVOR: Intolerance to CPAP --ECHO: Moderate global hypokinesis of left ventricle. Left ventricle is normal in size. EF 35 to 40%. Grade 1 diastolic dysfunction. Moderate to severe aortic regurgitation. Mild to moderate mitral regurgitation. Mild tricuspid regurgitation. --Venous Doppler:No DVT within the right or left lower extremity. --CT Chest:Interstitial and airspace opacities throughout the lungs suggestive of pulmonary edema. Moderate bilateral pleural effusions. Coronary artery calcifications and cardiomegaly. BiPAP as needed --S/P thoracentesis on 09/28/2022: 1500 mL of transudative fluid removed. Monitor I's and O's, daily weight, volume status Appreciate cardiology input Continue hydralazine, isosorbide No beta-nolvia as patient has bradycardia, first-degree AV block Weaned off of supplemental oxygen Saturating well on room air IV diuretics discontinued Transition to p.o. torsemide Appreciate cardiology input Continue torsemide 20 mg daily with potassium supplements Acute respiratory failure with hypoxia secondary to above Resolved Saturating well on room air Suspected Pneumonia--Less likely Biofire: Negative Normal procalcitonin Empirically received Doxy Melena Chronic per patient + FOBT Continue PPI Appreciate GI Input Hb 7.8 today Given IV Venofer Monitor Delirium Reorient frequently Delirium precautions Melatonin at bedtime Resolved REGINA on CKD IV Baseline creatinine ~ 1.9 Monitor renal function Avoid nephrotoxic agents as able hold losartan monitor BMP Appreciate nephrology input Anemia of chronic disease Chronic neutropenia Thrombocytopenia H/O CLL S/P Rituxan H/O B-cell lymphoma Previously on Aranesp Monitor CBC Neutropenia precautions Follows with oncology as outpatient H/O Abdominal aortic aneurysm coronary artery disease S/P Stent carotid stenosis: Status post left carotid endarterectomy. Continue aspirin, statin, Imdur. H/O lung nodule: Diagnosed in 2019 Patient has declined workup in the past as per Oncology BPH Continue finasteride and Flomax Depression: continue Zoloft and mirtazapine. GERD Continue PPI Hypertension: Hypertensive Urgency Continue Imdur, hydralazine, amlodipine Hold losartan as above Hyperlipidemia: On statin. Prediabetes: HbA1c 5.2 Diet controlled DVT Px: Heparin SQ Code Status Full Code Disposition Rehab when accepted Admission and Anticipated Discharge Date Admission Date: September 24, 2022 Subjective Patient is seen and examined at bedside Eager to get discharged No new Complaints Denies any chest pain, dyspnea, dizziness, nausea, abdominal pain Renal function is stable Review of Systems Review of Systems: All systems reviewed & are unremarkable except as noted in Subjective Physical Exam Physical Exam: Physical Exam: Vitals signs as noted above General Appearance:Moderately built and nourished, no apparent distress Head: normocephalic, Atraumatic Eyes: normal inspection, EOMI Neck: supple, Trachea midline Respiratory/Chest: Decreased breath sounds, CTA, No accessory muscle use Cardiovascular: S1, S2, No murmur Abdomen/GI:Soft, Non tender, Bowel sounds present Extremities/Musculoskeletal:normal inspection, Trace pedal edema Neurologic/Psych:AAOX3, grossly no focal neurological deficits Skin: normal color, warm Results & Data Results & Data Vital Signs (Past 12 Hours) Vital Signs Temp Pulse Pulse Resp BP BP Pulse Ox 10/07/22 15:00 56 L 10/07/22 14:34 117/56 L 10/07/22 11:51 36.6 C 56 L 19 103/43 L 95 10/07/22 07:00 53 L 10/07/22 07:51 36.6 C 58 L 17 101/41 L 95 O2 Del Method 10/07/22 15:00 10/07/22 14:34 10/07/22 11:51 Room Air 10/07/22 07:00 10/07/22 07:51 Room Air Laboratory Results Short CBC 10/07/22 Range/Units 07:10 Hgb 7.8 L (14.0-18.0) g/dl Hct 24.2 L (42.0-52.0) % BMP 10/07/22 07:10 Sodium 140 Potassium 3.4 L Chloride 101 Carbon Dioxide 32 BUN 49 H Creatinine 2.44 H Glucose 93 Calcium 8.4 L
[2022-10-07] MEDS: MIRTAZAPINE TAB 15 MG TAB PO SCH (20:25)
[2022-10-07] MEDS: ATORVASTATIN 40 MG TAB PO SCH (20:26)
[2022-10-07] MEDS: MELATONIN 3 MG TAB PO PRN (20:26)
[2022-10-07] MEDS: TAMSULOSIN HCL 0.4 MG CAP PO SCH (20:26)
[2022-10-08 08:18] LABS: BUN Creatinine Ratio 18.8 (10-20); Calcium 8.6 mg/dl (8.6-10.3); Creatinine Clr Calc Pharmacy 18.6 ml/min; Est GFR (African American) 24.3 ml/min; Est GFR (Non-African American) 20.9 ml/min; Magnesium 1.8 mg/dl (1.7-2.4); Potassium 4.2 mmol/L (3.5-5.1)
[2022-10-08] MEDS: TORSEMIDE 10 MG TAB PO SCH (08:56)
[2022-10-08] MEDS: PANTOprazole 40 MG TAB PO SCH (08:56)
[2022-10-08] MEDS: SERTRALINE HCL 100 MG TABLET PO SCH (08:57)
[2022-10-08] MEDS: FINASTERIDE 5 MG TAB PO SCH (08:57)
[2022-10-08] MEDS: ISOSORBIDE MONO EXTENDED REL 60 MG TABCR PO SCH (08:57)
[2022-10-08] MEDS: hydrALAZINE HCL 25 MG TAB PO SCH (08:57)
[2022-10-08] MEDS: ASPIRIN 81 MG CHEW PO SCH (08:57)
[2022-10-08] MEDS: CYANOCOBALAMIN (B-12) 500 MCG TABLET PO SCH (08:57)
[2022-10-08] MEDS ORDERED: amLODIPine BESYLATE 5 MG TAB PO SCH (09:00)
[2022-10-08] MEDS ORDERED: POTASSIUM CHLORIDE CRTAB 20 MEQ TABCR PO SCH (09:00)
--- NOTE | 2022-10-08 10:31 | Nephrology Progress Note ---
Date of Service October 08, 2022 Assessment & Plan Admission and Anticipated Discharge Date Admission Date: September 24, 2022 Subjective A/p: REGINA on CKD--Creat baseline is 2 and last few days about 2.6. He Does need some diuretics. Continue torsemide 20 daily.May need more. will have to accept a slightly higher baseline creat to maintain better volume Status. make sure hgb higher than 7.5 and transfuse if below. Creat not much changed for 6 days now-maybe new baseline. labs: Creat 2.6 from today k is normal. S---less SOB. No edema now. On Room air. making urine ?? amount. Physical Exam Physical Exam: General exam: Appears comfortable, no acute distress HEENT: Pupils are equal and reactive to light Neck: No JVD, neck is supple trachea is midline Respiratory system: Clear breath sounds bilaterally. Gastrointestinal: Abdomen is soft, non distended, non tender, bowel sounds are present CVS: Regular rate and rhythm. No murmurs, rubs or gallops Musculoskeletal: No joint or muscle tenderness Extremities: Non tender, No edema, Neuro: Oriented, no tremors, no focal neurological deficits Skin: No rashes Results & Data Vital Signs (Past 12 Hours) Vital Signs Temp Pulse Pulse Resp BP Pulse Ox O2 Del Method 10/08/22 07:56 37.1 C 60 16 109/57 L 95 Room Air 10/08/22 07:00 53 L 10/08/22 03:28 36.6 C 62 20 131/61 93 Room Air
--- NOTE | 2022-10-08 11:47 | Hospitalist Progress Note ---
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 Acute systolic CHF Troponin elevation: Type II [place] secondary to demand ischemia H/O TREVOR: Intolerance to CPAP --ECHO: Moderate global hypokinesis of left ventricle. Left ventricle is normal in size. EF 35 to 40%. Grade 1 diastolic dysfunction. Moderate to severe aortic regurgitation. Mild to moderate mitral regurgitation. Mild tricuspid regurgitation. --Venous Doppler:No DVT within the right or left lower extremity. --CT Chest:Interstitial and airspace opacities throughout the lungs suggestive of pulmonary edema. Moderate bilateral pleural effusions. Coronary artery calcifications and cardiomegaly. BiPAP as needed --S/P thoracentesis on 09/28/2022: 1500 mL of transudative fluid removed. Monitor I's and O's, daily weight, volume status Appreciate cardiology input Continue hydralazine, isosorbide No beta-nolvia as patient has bradycardia, first-degree AV block Weaned off of supplemental oxygen Saturating well on room air IV diuretics discontinued Transitioned to p.o. torsemide Appreciate cardiology input Continue torsemide 20 mg daily with potassium supplements Plan to discharge back to personal care facility today Acute respiratory failure with hypoxia secondary to above Resolved Saturating well on room air Suspected Pneumonia--Less likely Biofire: Negative Normal procalcitonin Empirically received Doxy Melena Chronic per patient + FOBT Continue PPI Appreciate GI Input Hb 7.8 Given IV Venofer No recurrence of melena Continue iron supplements Monitor Delirium Reorient frequently Delirium precautions Melatonin at bedtime Resolved REGINA on CKD IV Baseline creatinine ~ 1.9...Now Likely 2.5 new baseline Monitor renal function Avoid nephrotoxic agents as able hold losartan--plan to discontinue for now monitor BMP Appreciate nephrology input Anemia of chronic disease Chronic neutropenia Thrombocytopenia H/O CLL S/P Rituxan H/O B-cell lymphoma Previously on Aranesp Monitor CBC Neutropenia precautions Follows with oncology as outpatient H/O Abdominal aortic aneurysm coronary artery disease S/P Stent carotid stenosis: Status post left carotid endarterectomy. Continue aspirin, statin, Imdur. H/O lung nodule: Diagnosed in 2019 Patient has declined workup in the past as per Oncology BPH Continue finasteride and Flomax Depression: continue Zoloft and mirtazapine. GERD Continue PPI Hypertension: Hypertensive Urgency Continue Imdur, hydralazine, amlodipine Losartan discontinued Hyperlipidemia: On statin. Prediabetes: HbA1c 5.2 Diet controlled DVT Px: Heparin SQ Code Status Full Code Disposition PCF Admission and Anticipated Discharge Date Admission Date: September 24, 2022 Subjective Patient is seen and examined at bedside Sitting in chair comfortably during my encounter States feeling well Saturating well on room air Offers no complaints Denies any chest pain, dyspnea, dizziness, nausea, abdominal pain Renal function is stable Plan to be discharged to personal care facility today Review of Systems 2 Review of Systems: All systems reviewed & are unremarkable except as noted in Subjective Physical Exam Physical Exam: Physical Exam: Vitals signs as noted above General Appearance:Moderately built and nourished, no apparent distress Head: normocephalic, Atraumatic Eyes: normal inspection, EOMI Neck: supple, Trachea midline Respiratory/Chest: Decreased breath sounds, CTA, No accessory muscle use Cardiovascular: S1, S2, No murmur Abdomen/GI:Soft, Non tender, Bowel sounds present Extremities/Musculoskeletal:normal inspection, Trace pedal edema Neurologic/Psych:AAOX3, grossly no focal neurological deficits Skin: normal color, warm Results & Data Results & Data Vital Signs (Past 12 Hours) Vital Signs Temp Pulse Pulse Resp BP Pulse Ox O2 Del Method 10/08/22 10:57 36.8 C 54 L 18 109/55 L 96 Room Air 10/08/22 10:50 Room Air 10/08/22 07:56 37.1 C 60 16 109/57 L 95 Room Air 10/08/22 07:00 53 L 10/08/22 03:28 36.6 C 62 20 131/61 93 Room Air Laboratory Results [facility] 10/08/22 07:23 Sodium 140 Potassium 4.2 D Chloride 101 Carbon Dioxide 33 H BUN 49 H Creatinine 2.60 H Glucose 90 Calcium 8.6
--- NOTE | 2022-10-08 11:57 | Discharge Summary ---
Date of Service October 08, 2022 Admission HPI Per Admitting Provider CHIEF COMPLAINT: Shortness of breath. HISTORY OF PRESENT ILLNESS: This is an 87-year-old male with past medical history significant for hyperlipidemia, prediabetes, history of sleep apnea, lung nodules, history of abdominal aortic aneurysm, history of bradycardia, carotid stenosis, CAD status post stents, GERD, BPH, sensorineural hearing loss, history of CLL, status post Rituxan treatment, history of chronic kidney disease stage IV, baseline creatinine 1.8 to 1.9, history of sleep apnea, CPAP intolerance, history of chronic neutropenia, chronic anemia, baseline hemoglobin 9-10, episode of thrombocytopenia, past tobacco abuse, depression, history of B- cell lymphoma,, progressive neutropenia . B-cell CLL noted on bone marrow examination in October 2014, started on single agent Rituxan, received 4 cycles of chemotherapy, last cycle was in December 2014. Seems no improvement in neutrophil count with Rituxan therapy. He also was found to have a lung mass in 2018 of 2.8 cm, remained asymptomatic and declined further workup as per hem/onc notes. He has anemia of chronic kidney disease. He used to get Aranesp . Since he moved to [facility] after his in February 2022, he stopped taking Aranesp as per heme/onco.. Currently, he is on iron replacement therapy and vitamin B12 supplements. Follows with hem/onc. The patient had COVID in July of this year, treated with Paxlovid. Since COVID, on and off he is getting nausea and vomiting. Since last 2 to 3 days, he has more increasing shortness of breath and last couple of days he is also having a few episodes of nausea, vomiting. Whenever he eats, he was vomiting. Today, in the dinner table, he has had an episode of vomiting and also short of breath. Oxygen was 91%.Staff walked him to the room and in the room his oxygen was 81%, so was brought him here. Currently on 3 liters, he is saturating okay. Chest x-ray showed congestion. He received a dose of Lasix. Very hard of hearing. Son is in the room helping with H and P. The patient denies any chest pain. Has cough. Once in a while brings whitish phlegm. Denies any fevers. Has some chronic back pain. Denies any headache. Has some mild dizziness. No blurred visions, no ea rache. Has some chronic runny nose. Denies any sore throat. No difficulty swallowing. He is eating regular food. Ambulates with a cane. No diarrhea or constipation. Normal bowel and bladder movements. Recently, he noticed swelling in the legs. Hemodynamics are okay. Admission Exam Per Admitting Provider PHYSICAL EXAMINATION: GENERAL: The patient is old and frail, not in acute distress. VITAL SIGNS: Temperature 36.9, pulse 65, respiratory rate 18, blood pressure 143/122, oxygen 91% on 2 liters. HEENT: Pupils equal, round and reactive to light. Oral mucosa moist. NECK: No JVD, no neck masses. CARDIOVASCULAR: S1 and S2 heard. Regular rate and rhythm. No murmur, no gallop. RESPIRATORY SYSTEM: Normal AP diameter. Mild tachypnea. Mild bibasilar crackles. No wheezing. ABDOMEN: Soft, bowel sounds present, nontender, no distention. CENTRAL NERVOUS SYSTEM: Alert and oriented. Speech is clear. No facial droop. Obeys simple commands. Insight is okay. Moves extremities. EXTREMITIES: Bilateral lower extremity +2 pedal edema present, no erythema seen. Principal Diagnosis Acute systolic congestive heart failure Acute respiratory failure with hypoxia Melena Acute kidney injury on CKD stage IV Anemia of chronic disease Discharge Data Allergies Allergy/AdvReac Type Severity Reaction Status Date / Time No Known Allergies Allergy Verified 09/24/22 19:08 Consultations 09/24/22 20:22 ED Decision to Admit Stat 09/25/22 08:00 Consult Cardiology Routine 09/26/22 07:31 Consult Gastroenterology Routine 09/28/22 11:42 Consult Pulmonology Routine 10/05/22 09:13 Consult Nephrology Routine Procedures Performed Laboratory Results WBC 1.81 K/ul (4.8-10.8) L 10/06/22 07:00 RBC 2.63 M/uL (4.70-6.10) L 10/06/22 07:00 Hgb 7.8 g/dl (14.0-18.0) L 10/07/22 07:10 Hct 24.2 % (42.0-52.0) L 10/07/22 07:10 MCV 92.8 fL (80.0-100.0) 10/06/22 07:00 MCH 30.0 pg (25.0-34.0) 10/06/22 07:00 MCHC 32.4 g/dL (32.0-36.0) 10/06/22 07:00 RDW Std Deviation 52.7 fL (36.4-46.3) H 10/06/22 07:00 RDW Coeff of Germaine 15.5 % (11.5-14.5) H 10/06/22 07:00 Plt Count 191 K/uL (130-400) 10/06/22 07:00 MPV 10.2 fL (9.4-12.4) 10/06/22 07:00 Immature Gran % (Auto) 0.0 % 09/25/22 06:15 Neut % (Auto) 64.0 % 09/25/22 06:15 Lymph % (Auto) 26.2 % 09/25/22 06:15 Atkinson % (Auto) 8.2 % 09/25/22 06:15 Eos % (Auto) 0.8 % 09/25/22 06:15 Baso % (Auto) 0.8 % 09/25/22 06:15 Neut # (Auto) 0.78 K/uL (1.40-6.50) L* 09/25/22 06:15 Lymph # (Auto) 0.32 K/uL (1.2-3.4) L 09/25/22 06:15 Atkinson # (Auto) 0.10 K/uL (0.11-0.59) L 09/25/22 06:15 Eos # (Auto) 0.01 K/uL (0-0.50) 09/25/22 06:15 Baso # (Auto) 0.01 K/uL (0-0.2) 09/25/22 06:15 Immature Gran # (Auto) 0.00 K/uL (0.01-0.20) L 09/25/22 06:15 Blood Smear Review Cancelled 09/28/22 15:00 Polychromasia 1+ 09/24/22 19:30 Tear Drop Cells 1+ 09/24/22 19:30 Ovalocytes 1+ 09/25/22 06:15 Acanthocytes (Spur) 1+ 09/25/22 06:15 PT 11.3 Seconds (9.0-12.0) 09/24/22 19:30 INR 1.0 (0.9-1.1) 09/24/22 19:30 VBG pH 7.39 (7.36-7.41) 09/24/22 19:56 VBG pCO2 42 mmHg (38-50) 09/24/22 19:56 VBG pO2 35 mmHg 09/24/22 19:56 VBG HCO3 25 mmol/L 09/24/22 19:56 VBG O2 Saturation 62.2 % 09/24/22 19:56 VBG Base Excess 0.3 mEq/L 09/24/22 19:56 Sodium 140 mmol/L (136-145) 10/08/22 07:23 Potassium 4.2 mmol/L (3.5-5.1) D 10/08/22 07:23 Chloride 101 mmol/L (98-107) 10/08/22 07:23 Carbon Dioxide 33 mmol/L (21-32) H 10/08/22 07:23 Anion Gap 6 (3-11) 10/08/22 07:23 BUN 49 mg/dl (6-23) H 10/08/22 07:23 Creatinine 2.60 mg/dl (0.6-1.4) H 10/08/22 07:23 Est Cr Clr Drug Dosing 18.6 ml/min 10/08/22 07:23 Est GFR ( Amer) 24.3 ml/min 10/08/22 07:23 Est GFR (Non-Af Amer) 20.9 ml/min 10/08/22 07:23 BUN/Creatinine Ratio 18.8 (10-20) 10/08/22 07:23 Glucose 90 mg/dl (70-99(Fasting)) 10/08/22 07:23 POC Glucose 144 mg/dl (70-99) H 10/02/22 11:16 Estimat Average Glucose 103 mg/dl 09/25/22 06:15 Hemoglobin A1c 5.2 % (4.5-5.6) 09/25/22 06:15 Calcium 8.6 mg/dl (8.6-10.3) 10/08/22 07:23 Magnesium 1.8 mg/dl (1.7-2.4) 10/08/22 07:23 Total Bilirubin 0.3 mg/dl (0.2-1.0) 09/24/22 19:30 AST 27 U/L (13-39) 09/24/22 19:30 ALT 13 U/L (7-52) 09/24/22 19:30 Alkaline Phosphatase 76 U/L (34-104) 09/24/22 19:30 Troponin I High Sens 70.1 pg/ml (0-20) H* 09/25/22 10:36 B-Natriuretic Peptide 2018 pg/ml (0-100) H 09/27/22 06:48 Total Protein 7.0 gm/dl (6.0-8.3) 09/24/22 19:30 Albumin 3.2 gm/dl (3.4-5.0) L 09/24/22 19:30 Globulin 3.8 gm/dl (2.5-4.0) 09/24/22 19: Albumin/Globulin Ratio 0.8 (0.9-2) L 09/24/22 19:30 Procalcitonin 0.28 ng/ml (0-0.5) 09/28/22 07:03 Urine Color Yellow 10/01/22 19:00 Urine Appearance Cloudy (Clear) A 10/01/22 19:00 Urine pH 5.0 (4.5-7.5) 10/01/22 19:00 Ur Specific [place] 1.010 (1.000-1.030) 10/01/22 19:00 Urine Protein Trace (Negative) H 10/01/22 19:00 Urine Glucose (UA) Negative (Negative) 10/01/22 19:00 Urine Ketones Negative (Negative) 10/01/22 19:00 Urine Blood 2+ (Negative) H 10/01/22 19:00 Urine Nitrite Negative (Negative) 10/01/22 19:00 Urine Bilirubin Negative (Negative) 10/01/22 19:00 Urine Urobilinogen Negative (Negative) 10/01/22 19:00 Ur Leukocyte Esterase Negative (Negative) 10/01/22 19:00 Urine WBC (Auto) 1-5 /hpf (0-5) 10/01/22 19:00 Urine RBC (Auto) 10-30 /hpf (0-4) H 10/01/22 19:00 U Hyaline Cast (Auto) 1-5 /lpf (0-5) 10/01/22 19:00 U Epithel Cells (Auto) 0-5 /lpf (0-5) 10/01/22 19:00 Urine Bacteria (Auto) Negative (Negative) 10/01/22 19:00 Fluid Neutrophils % 3 % 09/28/22 15:00 Fluid Lymphocytes % 21 % 09/28/22 15:00 Fluid Eosinophils % 1 % 09/28/22 15:00 Fluid Meso/Macro/Atkinson % 75 % 09/28/22 15:00 Fluid Slide Review 09/28/22 15:00 Fluid Comment 09/28/22 15:00 Pleural Fluid Source Right Lung 09/28/22 15:00 Pleural Color Pale Yellow 09/28/22 15:00 Pleural Appearance Slightly Hazy 09/28/22 15:00 Pleural pH 7.52 (7.3-7.4) H 09/28/22 15:00 Pleural WBC (Auto) 231 /uL 09/28/22 15:00 Pleural RBC (Auto) < 2000 /uL 09/28/22 15:00 Pleural Total Protein < 3.0 gm/dl 09/28/22 15:00 Pleural LDH 103 U/L 09/28/22 15:00 Pleural Glucose 113 mg/dl 09/28/22 15:00 Nasal Screen MRSA (PCR) Negative (Negative) 09/24/22 22:54 Stool Occult Bld Scrn Positive (Negative) A 09/26/22 Unknown Adenovirus (PCR) Not Detected (NotDetected) 09/27/22 15:00 B. pertussis DNA (PCR) Not Detected (NotDetected) 09/27/22 15:00 B.parapertussis DNA PCR Not Detected (NotDetected) 09/27/22 15:00 C. pneumoniae DNA (PCR) Not Detected (NotDetected) 09/27/22 15:00 Coronavirus OC43 (PCR) Not Detected (NotDetected) 09/27/22 15:00 Coronavirus HKU1 (PCR) Not Detected (NotDetected) 09/27/22 15:00 Coronavirus 229E (PCR) Not Detected (NotDetected) 09/27/22 15:00 SARS-CoV-2 (PCR) Not Detected (NotDetected) 09/27/22 15:00 Coronavirus NL63 (PCR) Not Detected (NotDetected) 09/27/22 15:00 Human Metapneumovir PCR Not Detected (NotDetected) 09/27/22 15:00 Influenza Type A (PCR) Not Detected (NotDetected) 09/27/22 15:00 Influenza Type B (PCR) Not Detected (NotDetected) 09/27/22 15:00 M. pneumoniae (PCR) Not Detected (NotDetected) 09/27/22 15:00 Parainfluenza 1 (PCR) Not Detected (NotDetected) 09/27/22 15:00 Parainfluenza 2 (PCR) Not Detected (NotDetected) 09/27/22 15:00 Parainfluenza 3 (PCR) Not Detected (NotDetected) 09/27/22 15:00 Parainfluenza 4 (PCR) Not Detected (NotDetected) 09/27/22 15:00 RSV (PCR) Not Detected (NotDetected) 09/27/22 15:00 Entero/Rhino (PCR) Not Detected (NotDetected) 09/27/22 15:00 SARS-CoV-2, RNA, NAAT NEGATIVE (NEGATIVE) 10/07/22 Unknown Blood Type B Positive 10/05/22 09:16 Antibody Screen NEGATIVE 10/05/22 09:16 Crossmatch See Detail 10/05/22 09:[address] 09/24/22 21:15 Exam(s): CT CHEST Without Contrast EXAM: CT Chest Without Intravenous Contrast CLINICAL HISTORY: Reason for exam: sob, hypoxia, recent covid. TECHNIQUE: Axial computed tomography images of the chest without intravenous contrast. CTDI is 12.97 mGy and DLP is 475.51 mGy-cm. Automated exposure control was utilized for the study. A dose lowering technique was utilized adhering to the principles of ALARA. COMPARISON: No relevant prior studies available. FINDINGS: Lungs: Interstitial and airspace opacities throughout the lungs suggestive of pulmonary edema. Pleural space: Moderate bilateral pleural effusions. Heart: Coronary artery calcifications and cardiomegaly. Bones/joints: No acute findings. Soft tissues: Unremarkable. Vasculature: Unremarkable. Lymph nodes: Unremarkable. IMPRESSION: 1. Interstitial and airspace opacities throughout the lungs suggestive of pulmonary edema. 2. Moderate bilateral pleural effusions. 3. Coronary artery calcifications and cardiomegaly. Electronically signed by: Teofilo Monroe MD 09/25/22 00:17 AM Venous Doppler Study 09/24/22 22:42 BILATERAL LOWER EXTREMITY VENOUS DOPPLER HISTORY: Leg pain. dvt? COMPARISON STUDY: None. FINDINGS: There is normal compressibility, flow, and augmentation within the bi lateral lower extremity deep venous systems. IMPRESSION: No DVT within the right or left lower extremity. ACT 112: Negative or not required by law. Electronically signed by: Massimo Posada M.D. 09/25/2022 7:20 AM Chest X-Ray 10/01/22 12:54 XR chest 1V portable HISTORY: Dyspnea COMPARISON: Chest 09/28/2022. FINDINGS: No pneumothorax. The cardiac silhouette remains enlarged. There is upper lobe and perihilar interstitial thickening which has slightly progressed. Small left pleural effusion, unchanged. IMPRESSION: 1. Interval progression of interstitial thickening which likely represents pulmonary edema. 2. Small left pleural effusion persists. 3. No pneumothorax. ACT 112: Negative or not required by law. Electronically signed by: Massimo Posada M.D. 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 Acute systolic CHF Troponin elevation: Type II IA secondary to demand ischemia H/O TREVOR: Intolerance to CPAP --ECHO: Moderate global hypokinesis of left ventricle. Left ventricle is normal in size. EF 35 to 40%. Grade 1 diastolic dysfunction. Moderate to severe aortic regurgitation. Mild to moderate mitral regurgitation. Mild tricuspid regurgitation. --Venous Doppler:No DVT within the right or left lower extremity. --CT Chest:Interstitial and airspace opacities throughout the lungs suggestive of pulmonary edema. Moderate bilateral pleural effusions. Coronary artery calcifications and cardiomegaly. BiPAP as needed --S/P thoracentesis on 09/28/2022: 1500 mL of transudative fluid removed. Monitor I's and O's, daily weight, volume status Appreciate cardiology input Continue hydralazine, isosorbide No beta-nolvia as patient has bradycardia, first-degree AV block Weaned off of supplemental oxygen Saturating well on room air IV diuretics discontinued Transitioned to p.o. torsemide Appreciate cardiology input Continue torsemide 20 mg daily with potassium supplements Plan to discharge back to personal care facility today Acute respiratory failure with hypoxia secondary to above Resolved Saturating well on room air Suspected Pneumonia--Less likely Biofire: Negative Normal procalcitonin Empirically received Doxy Melena Chronic per patient + FOBT Continue PPI Appreciate GI Input Hb 7.8 Given IV Venofer No recurrence of melena Continue iron supplements Monitor Delirium Reorient frequently Delirium precautions Melatonin at bedtime Resolved REGINA on CKD IV Baseline creatinine ~ 1.9...Now Likely 2.5 new baseline Monitor renal function Avoid nephrotoxic agents as able hold losartan--plan to discontinue for now monitor BMP Appreciate nephrology input Anemia of chronic disease Chronic neutropenia Thrombocytopenia H/O CLL S/P Rituxan H/O B-cell lymphoma Previously on Aranesp Monitor CBC Neutropenia precautions Follows with oncology as outpatient H/O Abdominal aortic aneurysm coronary artery disease S/P Stent carotid stenosis: Status post left carotid endarterectomy. Continue aspirin, statin, Imdur. H/O lung nodule: Diagnosed in 2019 Patient has declined workup in the past as per Oncology BPH Continue finasteride and Flomax Depression: continue Zoloft and mirtazapine. GERD Continue PPI Hypertension: Hypertensive Urgency Continue Imdur, hydralazine, amlodipine Losartan discontinued Hyperlipidemia: On statin. Prediabetes: HbA1c 5.2 Diet controlled DVT Px: Heparin SQ Code Status Full Code Disposition PCF Total Time Total Time Spent Total Time Spent (In Minutes): 65 minutes Discharge Plan Discharge Items Patient Disposition: Personal Custodial Reason For Visit: SOB Discharge Diagnosis: Acute systolic congestive heart failure Acute respiratory failure with hypoxia Melena Acute kidney injury on CKD stage IV Anemia of chronic disease Activity: Per Instructions section Exercise/Sports: Gradually increase as tolerated Non-emergency contact: Primary Care Provider and Logging Contractor Call non-emergency contact if: you have any medication questions, your symptoms worsen, your pain is concerning for you and you have a fever Follow-up/Referrals: MARK De Anda [Primary Care Provider] - Diet: Heart Healthy Fluids: 2000ml (8 cups) Addtl Attending Provider Instructions: Follow-up with your primary care physician in 1 week Follow-up with your network field engineer in 3-4 weeks Consider following with a workers compensation consultant in 4 weeks. Seek immediate medical attention if your symptoms reoccur or worsen Please take all medications as instructed on discharge list below. Please call if you have any questions or problems. You can reach a [facility] hospitalist on duty at [facility] 24 hours a day by calling [phone] Call your Primary Care doctor if any of the following symptoms or problems start or get worse: * Shortness of breath or difficulty breathing * Wake up at night short of breath * Chest pain * Cough * Swelling of your hands, feet, or legs * More fatigued or tired with your normal activity * Palpitations - sudden fast heart beats WEIGHT * Weigh yourself every morning after using the bathroom. * Use the same scale. * Wear the same amount of clothing. * Write your weight down on a chart. * Call your Primary Care doctor if you gain more than 2-3 pounds in 1-2 days. MEDICATIONS * Use this discharge instruction sheet for medication instructions. * Take your medications at the time your doctor ordered. * Do not skip a dose of your medicines. * If you miss a dose of medicine, take it as soon as possible, but DO NOT DOUBLE A DOSE. * Read your medicine information when you get home. * Know all of the side effects of your medicine. If in doubt, ask your pharmacist * Call your Primary Care doctor's office if you have any side effects. * Be sure all of your doctors know what medicine and herbs you take (including cold, flu, and herbal medicine). Take the following with you to your follow-up doctor appointments: * Weight Chart * Medication List * List of questions Do not drink excessive alcohol, beer or wine. Pending Studies at Discharge: No Stand-Alone Forms: My [facility], Smoking Cessation Skilled Items Patient informed of condition?: Yes DNR: No Discharge Level of Care: Other Communicable Disease: No Discharge Prognosis: Stable Lines: None Urinary Catheter: No Medications and DC Order Prescriptions: New torsemide 10 mg Tablet 20 mg PO QAM Qty: 30 0RF pantoprazole 40 mg Tablet,Delayed Release (Dr/Ec) 40 mg PO BID Qty: 60 1RF potassium chloride 10 mEq Tablet,Er Particles/Crystals 10 meq PO QAM Qty: 30 0RF Continued atorvastatin 80 mg Tablet 40 mg PO HS acetaminophen [Tylenol] 325 mg Tablet 650 mg PO Q8 PRN (Reason: .Mild pain, fever & headache) ondansetron HCl 8 mg Tablet 8 mg PO Q12H PRN (Reason: Nausea) sertraline 100 mg Tablet 100 mg PO DAILY cyanocobalamin (vitamin B-12) [Vitamin B-12] 1,000 mcg Tablet 0 mcg PO DAILY hydralazine 25 mg Tablet 25 mg PO TID isosorbide mononitrate 60 mg Tablet Extended Release 24 Hr 60 mg PO DAILY tamsulosin 0.4 mg Capsule 0.8 mg PO HS ferrous sulfate 325 mg (65 mg iron) Tablet 325 mg PO TIDM carbamide peroxide 6.5 % Drops 5 - 10 drp OTIC (EAR) DIRECTED Rx Instructions: Apply 5-10 drops into ear bid PRN for up to 4 days. May flush PRN. aspirin [Baby Aspirin] 81 mg Tablet,Chewable 81 mg PO DAILY mirtazapine 15 mg Tablet 15 mg PO HS albuterol sulfate 90 mcg/actuation Hfa Aerosol Inhaler 1 inh INHALATION Q4 PRN (Reason: .sob/cough) finasteride 5 mg Tablet 5 mg PO DAILY Changed amlodipine 10 mg Tablet 5 mg PO DAILY Qty: 30 0RF Discontinued losartan 25 mg Tablet 25 mg PO DAILY omeprazole 20 mg Tablet,Delayed Release (Dr/Ec) 20 mg PO DAILY Discharge Orders: Discharge Order- CHF (Routine); Ordered 10/08/22 Ordered By: Richard Mario Admission Data Admit Date/Time: 09/24/22 21:14 Attending Provider: Richard Mario Admit Provider: Abelino Huerta [facility] Other Providers: Abelino Huerta ; Felicia Welch ; Kang Lovett ; Mello [address] ; Cheo Looney ; Josias Herron ; Manan Becerril ; Trudy Steele ; Zaina Winkler ; Felicia Carey ; Geovanni Koenig ; Mary Mcginnis ; Vy Grider ; Eric Kirkpatrick ; Lorrie Kirby ; Rosey Roy ; Priya Haile ; Indira Dallas ; Pasha Munoz ; Moreno Beebe ; Sweetie Graff ; Bakari Daniel ; Jose Francisco Barbosa ; Nicole Young ; Josseline Sena ; Yolis Lee ; Lexie Coker ; Solomon Pickett ; Marvin Lerner ; Poli Prather ; Felicia Cotto ; Sarai Carrera Jr ; Kaushik Steward ; Jarrett Santos ; Arpit Best ; Rm Schafer ; Ashlee Alvarado ; Kate Becerra ; Richard Mario ; Eren Malin [facility] [place] ; Ezra Beard
[2022-10-09] MEDS ORDERED: POTASSIUM CHLORIDE 10 MEQ TABCR PO SCH (09:00)
== END 2022-10-08 12:35 | disposition home or self-care (01) | DRG 291 ==
LOC: ED 18:38 → SUATTDRO 21:14 → 2S 21:14

== ENCOUNTER 2022-12-20 18:12 | Inpatient (IN) ==
--- NOTE | 2022-12-20 18:23 | Emergency Department Note ---
Impression & Plan Aspiration into airway ED Provider Note CHIEF COMPLAINT: SOB, AMS HISTORY OF PRESENT ILLNESS: This 79-year-old male patient with past medical history of congestive heart failure, coronary artery disease, lymphoma, AAA, chronic kidney disease, hypertension, hyperlipidemia presents to the emergency department with complaints of shortness of breath. The patient vomited this afternoon, which is not uncommon according to his sons. He recently moved into a personal care facility and has had difficulty with weight loss. Patient reiterates he did not like the food. Tonight the patient had a change in his breathing after he vomited. He was noted to be hypoxic. He did not notice a fever but the patient is chilled and requesting warm blankets. REVIEW OF SYSTEMS: A review of systems was performed with positives and pertinent negatives listed in the history of present illness. 10 systems were reviewed and are otherwise negative. ALLERGIES: see below MEDICATIONS: see below PMH: see below SOCIAL HISTORY: see below DDx: Reactive airway disease, pneumonia, pneumothorax, COPD, CHF, infections, cardiac ischemia, pulmonary embolism, musculoskeletal, gastrointestinal, as well as other pathologies. PHYSICAL EXAM: Vital signs reviewed. General: Chronically ill-appearing 87-year-old male in no significant distress. HEENT: No scleral icterus, PERRLA, neck supple. Moist mucous membranes, hard of hearing Cardiovascular: Regular rate and rhythm, systolic ejection murmur Pulmonary: Distant breath sounds but coarse bilaterally, normal work of breathing on nasal cannula oxygen. Abdomen: Soft, nontender, nondistended, positive bowel sounds. Musculoskeletal: Atraumatic, no peripheral edema. Neurologic: Patient awake alert and oriented x 3 Skin: Warm, dry, no rash EMERGENCY DEPARTMENT COURSE/MDM: This patient was evaluated and appeared to be in no significant distress. IV access was obtained and laboratory work was drawn. Patient was placed on the vehicle monitor technician and noted to be in a sinus rhythm with a first-degree AV block. Chest x-ray was performed and reveals mild congestive change. The patient's laboratory work reveals chronic renal dysfunction and a slightly elevated HS troponin, 33->35. Patient was given 40 mg of IV Lasix. Patient is thought to likely have aspirated causing the acute decline in his respiratory status after vomiting. His case was discussed with the hospitalist service who will evaluate the patient for admission and further management. He and his family were made aware of the plan and agree. MONITORING: An order for cardiac monitoring was placed and the patient is noted to be in a beats per minute. RADIOLOGY: To my interpretation reveals mild congestive change with trace pleural effusions. Otherwise defer to radiology's overread. EKG: To my interpretation reveals a sinus rhythm with first-degree AV block at 68 bpm. Left anterior fascicular block with LVH. Normal ST segments, no PVC, no PAC. QTc is 435. 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 without improvement in the neutrophil count" Surgical History History of bilateral carotid endarterectomy Social History Smoking Status: Former smoker Second Hand Exposure: No; Do You Dip or Chew Tobacco: No; Hx Alcohol Use: No Hx Substance Use: No Preferred Language: Uzbek Communication Ability: Effective Senior Ecologist Required: No Beliefs That Will Affect Care: None Current Living Situation: Personal Care Facility Current Living Situation Comment: Resides at [facility] Other Information That Helps Us Care for You: No Feels Safe at Home: Yes Assistive Devices: Walker Assistive Devices Comment: Hearing aids not here. Allergies Allergies Allergy/AdvReac Type Severity Reaction Status Date / Time No Known Allergies Allergy Verified 12/20/22 22:33 Home Meds Home Medications Medication Instructions Recorded Confirmed Qc Pain Reliever Pm 1 tab PO HS 12/20/22 12/20/22 albuterol sulfate 90 mcg/actuation 1 inh inhalation Q4 PRN Shortness 12/20/22 12/20/22 aerosol inhaler Of Breath Or Wheezing aspirin 81 mg chewable tablet 81 mg PO DAILY 12/20/22 12/20/22 atorvastatin 80 mg tablet 40 mg PO HS 12/20/22 12/20/22 carbamide peroxide 6.5 % ear drops 5 - 10 drp otic (ear) Q12H PRN .UP 12/20/22 12/20/22 TO 4 DAYS cyanocobalamin (vitamin B-12) 0 mcg PO DAILY 12/20/22 12/20/22 1,000 mcg tablet (Vitamin B-12) famotidine 20 mg tablet 20 mg PO BID 12/20/22 12/20/22 ferrous sulfate 325 mg (65 mg 325 mg PO TID 12/20/22 12/20/22 iron) tablet finasteride 5 mg tablet 5 mg PO DAILY 12/20/22 12/20/22 hydralazine 25 mg tablet 25 mg PO TID 12/20/22 12/20/22 isosorbide mononitrate 60 mg 60 mg PO DAILY 12/20/22 12/20/22 tablet,extended release 24 hr lactulose 10 gram/15 mL oral 30 ml PO DAILY PRN Constipation 12/20/22 12/20/22 solution mirtazapine 15 mg tablet 15 mg PO HS 12/20/22 12/20/22 ondansetron 4 mg disintegrating 4 mg translingual Q6H PRN Nausea 12/20/22 12/20/22 tablet pantoprazole 40 mg tablet,delayed 40 mg PO BID 12/20/22 12/20/22 release potassium chloride 10 mEq 10 meq PO DAILY 12/20/22 12/20/22 tablet,extended release sertraline 100 mg tablet 100 mg PO DAILY 12/20/22 12/20/22 tamsulosin 0.4 mg capsule 0.8 mg PO HS 12/20/22 12/20/22 torsemide 20 mg tablet 20 mg PO DAILY 12/20/22 12/20/22 Results & Data (ED) Vital Signs Vital Signs - 24 hr 12/20/22 18:15 Temperature 37.3 C Temperature Source Temporal Artery Scan Pulse Rate 71 Pulse Rhythm Regular Pulse Strength Normal Respiratory Rate 20 Respiratory Depth Normal Blood Pressure 174/69 H Blood Pressure Mean 104 Blood Pressure Position Sitting Pulse Oximetry 94 Oxygen Delivery Method Room Air Sepsis Recent Fever Within 48 Hours Yes Sepsis New/Unexplained Change in Mental Status No Sepsis Action Taken by Nursing No Action Required Home Medications Current Medication List: was personally reviewed by me Laboratory Data Attestation: I reviewed the patient's lab results. 12/22/22 06:22 12/22/22 14:38 Lab Results 12/20/22 12/20/2212/20/23 Range/Units 18:32 18:32 18:32 WBC 2.92 L (4.8-10.8) K/ul RBC 2.45 L (4.70-6.10) M/uL Hgb 7.7 L (14.0-18.0) g/dl Hct 23.9 L (42.0-52.0) % MCV 97.6 (80.0-100.0) fL MCH 31.4 (25.0-34.0) pg MCHC 32.2 (32.0-36.0) g/dL RDW Std Deviation 51.8 H (36.4-46.3) fL RDW Coeff of Germaine 14.5 (11.5-14.5) % Plt Count 154 (130-400) K/uL MPV 10.3 (9.4-12.4) fL Immature Gran % (Auto) 0.0 % Neut % (Auto) 65.5 % Lymph % (Auto) 16.8 % [place] % (Auto) 9.9 % Eos % (Auto) 6.8 % Baso % (Auto) 1.0 % Neut # (Auto) 1.91 (1.40-6.50) K/uL Lymph # (Auto) 0.49 L (1.2-3.4) K/uL [place] # (Auto) 0.29 (0.11-0.59) K/uL Eos # (Auto) 0.20 (0-0.50) K/uL Baso # (Auto) 0.03 (0-0.2) K/uL Immature Gran # (Auto) 0.00 L (0.01-0.20) K/uL Polychromasia 1+ Tear Drop Cells 1+ ABG pH (7.35-7.45) ABG pCO2 (35-46) mmHg ABG pO2 (80-95) mmHg ABG HCO3 (19-24) mmol/L ABG O2 Saturation (90-95) % ABG Base Excess (-9-1.8) mEq/L Deandre Test (Pos) Oxygen Given Sodium 135 L (136-145) mmol/L Potassium 3.7 (3.5-5.1) mmol/L Chloride 98 (98-107) mmol/L Carbon Dioxide 29 (21-32) mmol/L Anion Gap 8 (3-11) BUN 39 H (6-23) mg/dl Creatinine 2.62 H (0.6-1.4) mg/dl Est Cr Clr Drug Dosing 18.5 ml/min Est GFR ( Amer) 24.0 ml/min Est GFR (Non-Af Amer) 20.7 ml/min BUN/Creatinine Ratio 14.9 (10-20) Glucose 134 H (70-99(Fasting)) mg/dl Lactate 1.7 (0.4-2.0) mmol/L Calcium 8.2 L (8.6-10.3) mg/dl Magnesium 2.1 (1.7-2.4) mg/dl Total Bilirubin 0.3 (0.2-1.0) mg/dl AST 27 (13-39) U/L ALT 11 (7-52) U/L Alkaline Phosphatase 70 (34-104) U/L Troponin I High Sens 33.9 H (0-20) pg/ml Total Protein 6.9 (6.0-8.3) gm/dl Albumin 3.0 L (3.4-5.0) gm/dl Globulin 3.9 (2.5-4.0) gm/dl Albumin/Globulin Ratio 0.8 L (0.9-2) Urine Color Urine Appearance (Clear) Urine pH (4.5-7.5) Ur Specific [place] (1.000-1.030) Urine Protein (Negative) Urine Glucose (UA) (Negative) Urine Ketones (Negative) Urine Blood (Negative) Urine Nitrite (Negative) Urine Bilirubin (Negative) Urine Urobilinogen (Negative) Ur Leukocyte Esterase (Negative) Urine WBC (Auto) (0-5) /hpf Urine RBC (Auto) (0-4) /hpf U Hyaline Cast (Auto) (0-5) /lpf U Epithel Cells (Auto) (0-5) /lpf Urine Bacteria (Auto) (Negative) SARS-CoV-2 (PCR) (Negative) 12/20/22 12/20/22 12/20/22 Range/Units 18:49 19:35 20:38 WBC (4.8-10.8) K/ul RBC (4.70-6.10) M/uL Hgb (14.0-18.0) g/dl Hct (42.0-52.0) % MCV (80.0-100.0) fL MCH (25.0-34.0) pg MCHC (32.0-36.0) g/dL RDW Std Deviation (36.4-46.3) fL RDW Coeff of Germaine (11.5-14.5) % Plt Count (130-400) K/uL MPV (9.4-12.4) fL Immature Gran % (Auto) % Neut % (Auto) % Lymph % (Auto) % [place] % (Auto) % Eos % (Auto) % Baso % (Auto) % Neut # (Auto) (1.40-6.50) K/uL Lymph # (Auto) (1.2-3.4) K/uL [place] # (Auto) (0.11-0.59) K/uL Eos # (Auto) (0-0.50) K/uL Baso # (Auto) (0-0.2) K/uL Immature Gran # (Auto) (0.01-0.20) K/uL Polychromasia Tear Drop Cells ABG pH (7.35-7.45) ABG pCO2 (35-46) mmHg ABG pO2 (80-95) mmHg ABG HCO3 (19-24) mmol/L ABG O2 Saturation (90-95) % ABG Base Excess (-9-1.8) mEq/L Deandre Test (Pos) Oxygen Given Sodium (136-145) mmol/L Potassium (3.5-5.1) mmol/L Chloride (98-107) mmol/L Carbon Dioxide (21-32) mmol/L Anion Gap (3-11) BUN (6-23) mg/dl Creatinine (0.6-1.4) mg/dl Est Cr Clr Drug Dosing ml/min Est GFR ( Amer) ml/min Est GFR (Non-Af Amer) ml/min BUN/Creatinine Ratio (10-20) Glucose (70-99(Fasting)) mg/dl Lactate (0.4-2.0) mmol/L Calcium (8.6-10.3) mg/dl Magnesium (1.7-2.4) mg/dl Total Bilirubin (0.2-1.0) mg/dl AST (13-39) U/L ALT (7-52) U/L Alkaline Phosphatase (34-104) U/L Troponin I High Sens 35.5 H (0-20) pg/ml Total Protein (6.0-8.3) gm/dl Albumin (3.4-5.0) gm/dl Globulin (2.5-4.0) gm/dl Albumin/Globulin Ratio (0.9-2) Urine Color Yellow Urine Appearance Clear (Clear) Urine pH 6.5 (4.5-7.5) Ur Specific [place] 1.012 (1.000-1.030) Urine Protein 1+ H (Negative) Urine Glucose (UA) Negative (Negative) Urine Ketones Negative (Negative) Urine Blood 3+ H (Negative) Urine Nitrite Negative (Negative) Urine Bilirubin Negative (Negative) Urine Urobilinogen Negative (Negative) Ur Leukocyte Esterase Negative (Negative) Urine WBC (Auto) 1-5 (0-5) /hpf Urine RBC (Auto) >30 H (0-4) /hpf U Hyaline Cast (Auto) 1-5 (0-5) /lpf U Epithel Cells (Auto) 0-5 (0-5) /lpf Urine Bacteria (Auto) Negative (Negative) SARS-CoV-2 (PCR) NEGATIVE (Negative) 12/20/22 Range/Units 21:56 WBC (4.8-10.8) K/ul RBC (4.70-6.10) M/uL Hgb (14.0-18.0) g/dl Hct (42.0-52.0) % MCV (80.0-100.0) fL MCH (25.0-34.0) pg MCHC (32.0-36.0) g/dL RDW Std Deviation (36.4-46.3) fL RDW Coeff of Germaine (11.5-14.5) % Plt Count (130-400) K/uL MPV (9.4-12.4) fL Immature Gran % (Auto) % Neut % (Auto) % Lymph % (Auto) % [place] % (Auto) % Eos % (Auto) % Baso % (Auto) % Neut # (Auto) (1.40-6.50) K/uL Lymph # (Auto) (1.2-3.4) K/uL [place] # (Auto) (0.11-0.59) K/uL Eos # (Auto) (0-0.50) K/uL Baso # (Auto) (0-0.2) K/uL Immature Gran # (Auto) (0.01-0.20) K/uL Polychromasia Tear Drop Cells ABG pH 7.48 H (7.35-7.45) ABG pCO2 38 (35-46) mmHg ABG pO2 86 (80-95) mmHg ABG HCO3 28 H (19-24) mmol/L ABG O2 Saturation 99.5 H (90-95) % ABG Base Excess 4.6 H (-9-1.8) mEq/L Deandre Test POS (Pos) Oxygen Given 2L O2 Sodium (136-145) mmol/L Potassium (3.5-5.1) mmol/L Chloride (98-107) mmol/L Carbon Dioxide (21-32) mmol/L Anion Gap (3-11) BUN (6-23) mg/dl Creatinine (0.6-1.4) mg/dl Est Cr Clr Drug Dosing ml/min Est GFR ( Amer) ml/min Est GFR (Non-Af Amer) ml/min BUN/Creatinine Ratio (10-20) Glucose (70-99(Fasting)) mg/dl Lactate (0.4-2.0) mmol/L Calcium (8.6-10.3) mg/dl Magnesium (1.7-2.4) mg/dl Total Bilirubin (0.2-1.0) mg/dl AST (13-39) U/L ALT (7-52) U/L Alkaline Phosphatase (34-104) U/L Troponin I High Sens (0-20) pg/ml Total Protein (6.0-8.3) gm/dl Albumin (3.4-5.0) gm/dl Globulin (2.5-4.0) gm/dl Albumin/Globulin Ratio (0.9-2) Urine Color Urine Appearance (Clear) Urine pH (4.5-7.5) Ur Specific [place] (1.000-1.030) Urine Protein (Negative) Urine Glucose (UA) (Negative) Urine Ketones (Negative) Urine Blood (Negative) Urine Nitrite (Negative) Urine Bilirubin (Negative) Urine Urobilinogen (Negative) Ur Leukocyte Esterase (Negative) Urine WBC (Auto) (0-5) /hpf Urine RBC (Auto) (0-4) /hpf U Hyaline Cast (Auto) (0-5) /lpf U Epithel Cells (Auto) (0-5) /lpf Urine Bacteria (Auto) (Negative) SARS-CoV-2 (PCR) (Negative) Administered Medications Aspirin (Aspirin 81 Mg Ectab) 81 mg PO DAILY BON Stop: 01/20/23 08:59 Last Admin: 12/22/22 08:29 Dose: 81 mg Documented By: Admin: 12/21/22 11:32 Dose: 81 mg Documented By: Atorvastatin Calcium (Atorvastatin 40 Mg Tab) 40 mg PO HS BON Stop: 01/20/23 20:59 Last Admin: 12/21/22 20:11 Dose: 40 mg Documented By: BOBBI Cyanocobalamin (Cyanocobalamin (B-12) 500 Mcg Tablet) 1,000 mcg PO DAILY BON Stop: 01/20/23 08:59 Last Admin: 12/22/22 08:28 Dose: 1,000 mcg Documented By: Admin: 12/21/22 11:32 Dose: 1,000 mcg Documented By: Famotidine (Famotidine 20 Mg Tab) 20 mg PO BID BON Stop: 01/20/23 08:59 Last Admin: 12/22/22 08:28 Dose: 20 mg Documented By: Admin: 12/21/22 20:11 Dose: 20 mg Documented By: Admin: 12/21/22 11:32 Dose: 20 mg Documented By: Ferrous Sulfate (Ferrous Sulfate 325 Mg Tab) 325 mg PO TID BON Stop: 01/20/23 08:59 Last Admin: 12/22/22 14:56 Dose: 325 mg Documented By: Admin: 12/22/22 08:29 Dose: 325 mg Documented By: Admin: 12/21/22 20:12 Dose: 325 mg Documented By: Admin: 12/21/22 13:54 Dose: 325 mg Documented By: Admin: 12/21/22 11:32 Dose: 325 mg Documented By: Finasteride (Finasteride 5 Mg Tab) 5 mg PO DAILY BON Stop: 01/20/23 08:59 Last Admin: 12/22/22 08:28 Dose: 5 mg Documented By: Admin: 12/21/22 11:32 Dose: 5 mg Documented By: MS Hydralazine HCl (Hydralazine Hcl 25 Mg Tab) 37.5 mg PO TID BON Stop: 01/21/23 13:59 Last Admin: 12/22/22 14:56 Dose: 37.5 mg Documented By: MS Isosorbide Dinitrate (Isosorbide Dinitrate 20 Mg Tab) 20 mg PO TID BON Stop: 01/21/23 08:59 Last Admin: 12/22/22 14:56 Dose: 20 mg Documented By: Admin: 12/22/22 08:28 Dose: 20 mg Documented By: MS Mirtazapine (Mirtazapine Tab 15 Mg Tab) 15 mg PO [facility] Stop: 01/20/23 20:59 Last Admin: 12/21/22 20:11 Dose: 15 mg Documented By: BOBBI Nitroglycerin (Nitroglycerin Sl 0.4 Mg/Tab Tab) 0.4 mg SL Q5M PRN PRN Reason: Chest Pain Stop: 01/20/23 09:42 Last Admin: 12/21/22 10:06 Dose: 0.4 mg Documented By: MS Pantoprazole Sodium (Pantoprazole 40 Mg Tab) 40 mg PO BID BON Stop: 01/20/23 08:59 Last Admin: 12/22/22 09:57 Dose: 40 mg Documented By: Admin: 12/21/22 20:11 Dose: 40 mg Documented By: Admin: 12/21/22 11:31 Dose: 40 mg Documented By: MS Potassium Chloride (Potassium Chloride Crtab 20 Meq Tabcr) 20 meq PO BID BON Stop: 01/20/23 08:59 Last Admin: 12/22/22 08:33 Dose: Not Given Documented By: Admin: 12/21/22 20:13 Dose: 20 meq Documented By: Admin: 12/21/22 11:31 Dose: 20 meq Documented By: MS Sertraline HCl (Sertraline Hcl 100 Mg Tablet) 100 mg PO DAILY BON Stop: 01/20/23 08:59 Last Admin: 12/22/22 08:28 Dose: 100 mg Documented By: Admin: 12/21/22 11:31 Dose: 100 mg Documented By: MS Tamsulosin HCl (Tamsulosin Hcl 0.4 Mg Cap) 0.8 mg PO [facility] Stop: 01/20/23 20:59 Last Admin: 12/21/22 20:11 Dose: 0.8 mg Documented By: BOBBI Discontinued Medications Albuterol (Albut/Ipratrop 3mg/0.5mg Neb 3 Ml Vial) 3 ml NEB NOW STA; Protocol Stop: 12/20/22 21:36 Last Admin: 12/20/22 21:53 Dose: 3 ml Documented By: MICHEAL Furosemide (Furosemide 40 Mg/4 Ml Vial) 40 mg IV ONE ONE Stop: 12/20/22 21:26 Last Admin: 12/20/22 21:40 Dose: Not Given Documented By: MICHEAL Furosemide (Furosemide 40 Mg/4 Ml Vial) 60 mg IV ONE ONE Stop: 12/20/22 21:37 Last Admin: 12/20/22 21:53 Dose: 60 mg Documented By: MICHAEL Furosemide (Furosemide 40 Mg/4 Ml Vial) 60 mg IV DAILY [facility] Stop: 12/22/22 05:19 Last Admin: 12/21/22 06:24 Dose: 60 mg Documented By: AMY Furosemide (Furosemide 40 Mg/4 Ml Vial) 40 mg IV ONE ONE Stop: 12/21/22 10:06 Last Admin: 12/21/22 11:39 Dose: Not Given Documented By: MS Furosemide (Furosemide 40 Mg/4 Ml Vial) 60 mg IV ONE ONE Stop: 12/21/22 17:01 Last Admin: 12/21/22 16:41 Dose: Not Given Documented By: MS Furosemide (Furosemide 10 Mg/Ml 10 Ml Vial) 100 mg IV ONE ONE Stop: 12/21/22 16:05 Last Admin: 12/21/22 16:32 Dose: 100 mg Documented By: MS Furosemide (Furosemide 40 Mg/4 Ml Vial) 60 mg IV ONE ONE Stop: 12/22/22 09:06 Last Admin: 12/22/22 09:12 Dose: 60 mg Documented By: MS Hydralazine HCl (Hydralazine Hcl 25 Mg Tab) 25 mg PO NOW STA Stop: 12/21/22 00:46 Last Admin: 12/21/22 01:19 Dose: 25 mg Documented By: AMY Hydralazine HCl (Hydralazine Hcl 25 Mg Tab) 25 mg PO TID [facility] Stop: 01/20/23 08:59 Last Admin: 12/22/22 08:28 Dose: 25 mg Documented By: Admin: 12/21/22 20:10 Dose: 25 mg Documented By: Admin: 12/21/22 15:34 Dose: 25 mg Documented By: Admin: 12/21/22 11:31 Dose: 25 mg Documented By: MS Furosemide 200 mg/ EMPTY BAG 20 mls @ 24 mls/hr IV ONE ONE Stop: 12/22/22 12:19 Last Infusion: 12/22/22 12:58 Dose: 0 mls/hr Documented By: Admin: 12/22/22 12:07 Dose: 24 mls/hr Documented By: MS Isosorbide Mononitrate (Isosorbide [place] Extended Rel 60 Mg Tabcr) 60 mg PO DAILY BON Stop: 01/20/23 08:59 Last Admin: 12/21/22 11:31 Dose: 60 mg Documented By: MS Potassium Chloride (Potassium Chloride Crtab 20 Meq Tabcr) 40 meq PO NOW STA Stop: 12/21/22 05:19 Last Admin: 12/21/22 06:24 Dose: 40 meq Documented By: AMY Potassium Chloride (Potassium Chloride Crtab 20 Meq Tabcr) 20 meq PO NOW ONE Stop: 12/21/22 11:51 Last Admin: 12/21/22 13:55 Dose: 20 meq Documented By: MS Potassium Chloride (Potassium Chloride Crtab 20 Meq Tabcr) 20 meq PO NOW ONE Stop: 12/21/22 17:01 Last Admin: 12/21/22 16:42 Dose: Not Given Documented By: MS Potassium Chloride (Potassium Chloride Crtab 20 Meq Tabcr) 40 meq PO NOW STA Stop: 12/21/22 16:05 Last Admin: 12/21/22 16:32 Dose: 40 meq Documented By: MS Imaging Data Radiologist's Impression: Chest X-Ray 12/20/22 18:21 XR chest 1V portable CLINICAL HISTORY: Dyspnea TECHNIQUE: Single frontal radiograph of the chest was obtained. Comparison: Comparison is made to chest radiograph 10/10/2022 FINDINGS: No lines and tubes are seen. Cardiomegaly is noted. The aortic arch is calcified. Reticular interstitial opacities are seen. Likely superimposed vas cular congestion. Small, left greater than right pleural effusions. IMPRESSION: Small bilateral pleural effusions. Interstitial thickening is seen. There may be mild pulmonary congestion. ACT 112: Negative or not required by law. Electronically signed by: Romario Martínez M.D. 12/20/2022 8:28 PM Discharge Plan Visit Data Chief Complaint: Illness Stated Complaint: FEVER,FALL,BLOOD OXYGEN LEVEL LOW,COLD,VOMIT ED Provider: Jennifer Cullen Discharge Problem: Aspiration into airway Patient Disposition: Admitted As Inpatient Discharge Instructions Interventions: ED Discharge Assessment Last Done: 12/21/22 01:07 Aspiration into airway Qualifiers: Encounter type: initial encounter Qualified Code(s): T17.908A - Unspecified foreign body in respiratory tract, part unspecified causing other injury, initial encounter
[2022-12-20 18:48] LABS: Basophils # (auto) 0.03 K/uL (0-0.2); Eosinophils % (auto) 6.8 %; Hematocrit (blood only) 23.9 % (42.0-52.0); Hemoglobin 7.7 g/dl (14.0-18.0); Lymphocytes # (auto) 0.49 K/uL (1.2-3.4); Lymphocytes % (auto) 16.8 %; Mean Corpuscular Hemoglobin 31.4 pg (25.0-34.0); Mean Corpuscular Hgb Conc 32.2 g/dL (32.0-36.0); Mean Corpuscular Volume 97.6 fL (80.0-100.0); Mean Platelet Volume 10.3 fL (9.4-12.4); Monocytes # (auto) 0.29 K/uL (0.11-0.59); Monocytes % (auto) 9.9 %; Neutrophils # (auto) 1.91 K/uL (1.40-6.50); Neutrophils % (auto) 65.5 %; Platelet Count 154 K/uL (130-400); RDW Coefficient of Variation 14.5 % (11.5-14.5); RDW Standard Deviation 51.8 fL (36.4-46.3); Red Blood Count 2.45 M/uL (4.70-6.10); White Blood Count 2.92 K/ul (4.8-10.8)
[2022-12-20 19:05] LABS: Albumin Globulin Ratio 0.8 (0.9-2); BUN Creatinine Ratio 14.9 (10-20); Bilirubin,Total 0.3 mg/dl (0.2-1.0); Calcium 8.2 mg/dl (8.6-10.3); Creatinine Clr Calc Pharmacy 18.5 ml/min; Est GFR (Non-African American) 20.7 ml/min; Globulin 3.9 gm/dl (2.5-4.0); Magnesium 2.1 mg/dl (1.7-2.4); Potassium 3.7 mmol/L (3.5-5.1); Total Protein 6.9 gm/dl (6.0-8.3)
[2022-12-20 19:08] LABS: Polychromasia 1+; Tear Drop Cells 1+
[2022-12-20 19:11] LABS: Troponin I High Sensitivity 33.9 pg/ml (0-20)
[2022-12-20 19:50] LABS: Appearance Urine Clear (Clear); Bacteria Urine Automated Negative (Negative); Bilirubin Urine Negative (Negative); Blood Urine 3+ (Negative); Color Urine Yellow; Epithelial Cell Urine Auto 0-5 /lpf (0-5); Glucose Urine UA Negative (Negative); Ketones Urine Negative (Negative); Leukocyte Esterase Urine Negative (Negative); Nitrite Urine Negative (Negative); Protein Urine 1+ (Negative); RBC Urine Automated >30 /hpf (0-4); Specific Gravity Urine 1.012 (1.000-1.030); Urobilinogen Urine Negative (Negative); pH Urine 6.5 (4.5-7.5)
--- NOTE | 2022-12-20 20:29 | XRay Report ---
XR chest 1V portable CLINICAL HISTORY: Dyspnea TECHNIQUE: Single frontal radiograph of the chest was obtained. Comparison: Comparison is made to chest radiograph 10/10/2022 FINDINGS: No lines and tubes are seen. Cardiomegaly is noted. The aortic arch is calcified. Reticular interstit ial opacities are seen. Likely superimposed vascular congestion. Small, left greater than right pleur al effusions. IMPRESSION: Small bilateral pleural effusions. Interstitial thickening is seen. There may be mild pulmonary conge stion. ACT 112: Negative or not required by law. Electronically signed by: Romario Martínez M.D. 12/20/2022 8:28 PM
[2022-12-20] MEDS ORDERED: FUROSEMIDE 40 MG/4 ML VIAL IV ONE ×2 (21:25→21:36)
[2022-12-20] MEDS ORDERED: ALBUT/IPRATROP 3MG/0.5MG NEB 3 ML VIAL NEB STA (21:35)
[2022-12-20 22:04] LABS: Base Excess ABG 4.6 mEq/L (-9-1.8); HCO3 ABG 28 mmol/L (19-24); Oxygen Saturation ABG 99.5 % (90-95); PCO2 ABG 38 mmHg (35-46); PO2 ABG 86 mmHg (80-95); pH ABG 7.48 (7.35-7.45)
[2022-12-20 22:05] LABS: Allen Test POS (Pos)
--- NOTE | 2022-12-20 23:54 | History & Physical Report ---
Date of Service December 20, 2022 Assessment & Plan (1) Acute hypoxemic respiratory failure: Plan: Secondary to decompensated heart failure hx systolic dysfunction Cardiorenal syndrome, baseline kidney dysfunction Second admission this year Hypertension elevated secondary to above Troponin elevation secondary to illness in the setting of kidney dysfunction hx 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 PCU Supplemental O2 Patient ABG Stat nebs Lasix dosed for renal function Strict I/Os, daily weights, CHF education, fluid restriction Cardiology consult Re: Decompensated heart failure Consider Palliative care consultation if deemed appropriate given recurrent admission for cardiorenal syndrome. Transfuse PRBC to maintain hemoglobin greater than 8 and or for symptomatic anemia once patient breathing improved DVT prophylaxis. SCDs Re: hx UGIB DNR Patient son/listed first contact (Mr. Stephon Kirkpatrick from [place], [place], contact #[phone]) updated of plan of care. He does not feel patient would want to dialysis if kidney function continues to deteriorate. He will discuss recommendation for inpatient consultation to discuss goals of care palliative care with other family members. He requests any of his brothers who live locally to be updated of patient's progress. Mr. Konstantin Kirkpatrick, contact #[phone]. Mr. Landon Kirpkatrick, contact #[phone]. Total critical care time was 45 minutes. Text document was generated using [employer] voice recognition software. It may contain grammatical or spelling errors. Kindly contact undersigned for clarification of any documentation item in question. History of Present Illness Chief Complaint: My sons brought me here. Hypoxemia, confusion as per records Primary Care Provider: [facility] History obtained from patient, family, and records. Limited history from patient secondary to confusion. 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 Last confinement September 24 to October 08, 2022 for decompensated heart failure. Patient noted to have heme positive melanotic stools during confinement. PPI recommended. Endoscopy deferred due to patient multiple medical issues as per note. Patient discharged back to personal care facility on Torsemide. Patient noted to have low pulse ox at personal care facility today. Patient noted to have difficulty breathing, denies cough symptoms. Denies chest pain. Patient more confused than usual as per transfer note. Lowest O2 sats of 80s noted at the ER. 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 Allergies Allergy/AdvReac Type Severity Reaction Status Date / Time No Known Allergies Allergy Verified 12/20/22 22:33 Home Medications Medication Instructions Recorded Confirmed Type Qc Pain Reliever Pm 1 tab PO HS 12/20/22 12/20/22 History albuterol sulfate 90 mcg/actuation 1 inh inhalation Q4 PRN Shortness 12/20/22 12/20/22 History aerosol inhaler Of Breath Or Wheezing aspirin 81 mg chewable tablet 81 mg PO DAILY 12/20/22 12/20/22 History atorvastatin 80 mg tablet 40 mg PO HS 12/20/22 12/20/22 History carbamide peroxide 6.5 % ear drops 5 - 10 drp otic (ear) Q12H PRN .UP 12/20/22 12/20/22 History TO 4 DAYS cyanocobalamin (vitamin B-12) 0 mcg PO DAILY 12/20/22 12/20/22 History 1,000 mcg tablet (Vitamin B-12) famotidine 20 mg tablet 20 mg PO BID 12/20/22 12/20/22 History ferrous sulfate 325 mg (65 mg 325 mg PO TID 12/20/22 12/20/22 History iron) tablet finasteride 5 mg tablet 5 mg PO DAILY 12/20/22 12/20/22 History hydralazine 25 mg tablet 25 mg PO TID 12/20/22 12/20/22 History isosorbide mononitrate 60 mg 60 mg PO DAILY 12/20/22 12/20/22 History tablet,extended release 24 hr lactulose 10 gram/15 mL oral 30 ml PO DAILY PRN Constipation 12/20/22 12/20/22 History solution mirtazapine 15 mg tablet 15 mg PO HS 12/20/22 12/20/22 History ondansetron 4 mg disintegrating 4 mg translingual Q6H PRN Nausea 12/20/22 History tablet pantoprazole 40 mg tablet,delayed 40 mg PO BID 12/20/22 12/20/22 History release potassium chloride 10 mEq 10 meq PO DAILY 12/20/22 12/20/22 History tablet,extended release sertraline 100 mg tablet 100 mg PO DAILY 12/20/22 12/20/22 History tamsulosin 0.4 mg capsule 0.8 mg PO HS 12/20/22 12/20/22 History torsemide 20 mg tablet 20 mg PO DAILY 12/20/22 12/20/22 History Past Med/Surg History Medical History AAA (abdominal aortic aneurysm) Anemia CAD (coronary artery disease) "2008 - SONI to LAD 08/2014 - BMS to RCA" CKD (chronic kidney disease), stage III CLL (chronic lymphocytic leukemia) Heart failure with reduced ejection fraction due to cardiomyopathy HLD (hyperlipidemia) HTN (hypertension) Leukopenia TREVOR (obstructive sleep apnea) 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 without improvement in the neutrophil count" Surgical History History of bilateral carotid endarterectomy Social History Smoking Status: Former smoker Second Hand Exposure: No; Do You Dip or Chew Tobacco: No; Hx Alcohol Use: No Hx Substance Use: No Preferred Language: Telugu Communication Ability: Effective Hog Feeder Required: No Beliefs That Will Affect Care: None Current Living Situation: Personal Care Facility Current Living Situation Comment: Resides at [facility] Other Information That Helps Us Care for You: No Feels Safe at Home: Yes Assistive Devices: Cane, Denture - Upper, Denture - Lower and Walker Assistive Devices Comment: Hearing aids not here. Review of Systems Review of Systems: Could not be reliably obtained secondary to disorientation Physical Exam Physical Exam: GENERAL: Disoriented, slightly hard of hearing, no respiratory distress SKIN: Pallor, warm HEENT: Pale palpebral conjunctivae, no ptosis, dry buccal mucosa, nasal cannula in place NECK : Supple, no tenderness CHEST : Decreased breath sounds, no tenderness HEART :RRR, no obvious murmurs ABDOMEN: Some distention, nontender EXTREMITIES : No LE swelling/tenderness, no other conspicuous deformities noted NEUROLOGIC : Disoriented, no facial asymmetry, slightly hard of hearing, gait and stance not assessed Results & Data Results & Data Vital Signs (Past 12 Hours) Vital Signs Temp Pulse Resp BP Pulse Ox O2 Del Method O2 Flow Rate 12/20/22 23:00 74 24 169/75 H 94 Nasal Cannula 2 12/20/22 22:30 79 23 91 Nasal Cannula 2 12/20/22 22:31 78 12/20/22 21:30 69 21 95 Nasal Cannula 2 12/20/22 21:00 81 180/82 H 96 Nasal Cannula 2 12/20/22 21:25 94 Nasal Cannula 2 12/20/22 21:23 87 L Room Air 12/20/22 20:30 68 16 95 Nasal Cannula 2 12/20/22 20:01 67 23 160/70 H 96 Nasal Cannula 2 12/20/22 19:30 74 22 111/73 94 Nasal Cannula 2 12/20/22 19:33 81 20 93 Nasal Cannula 2 12/20/22 18:35 73 12/20/22 18:15 37.3 C 71 20 174/69 H 94 Room Air Laboratory Results Laboratory Results WBC 2.92 K/ul (4.8-10.8) L 12/20/22 18:32 RBC 2.45 M/uL (4.70-6.10) L 12/20/22 18:32 Hgb 7.7 g/dl (14.0-18.0) L 12/20/22 18:32 Hct 23.9 % (42.0-52.0) L 12/20/22 18:32 MCV 97.6 fL (80.0-100.0) 12/20/22 18:32 MCH 31.4 pg (25.0-34.0) 12/20/22 18: MCHC 32.2 g/dL (32.0-36.0) 12/20/22 18: RDW Std Deviation 51.8 fL (36.4-46.3) H 12/20/22 18: RDW Coeff of Germaine 14.5 % (11.5-14.5) 12/20/22 18: Plt Count 154 K/uL (130-400) 12/20/22 18: MPV 10.3 fL (9.4-12.4) 12/20/22 18: Immature Gran % (Auto) 0.0 % 12/20/22 18: Neut % (Auto) 65.5 % 12/20/22 18: Lymph % (Auto) 16.8 % 12/20/22 18: [place] % (Auto) 9.9 % 12/20/22 18: Eos % (Auto) 6.8 % 12/20/22 18: Baso % (Auto) 1.0 % 12/20/22 18: Neut # (Auto) 1.91 K/uL (1.40-6.50) 12/20/22 18:32 Lymph # (Auto) 0.49 K/uL (1.2-3.4) L 12/20/22 18: [place] # (Auto) 0.29 K/uL (0.11-0.59) 12/20/22 18: Eos # (Auto) 0.20 K/uL (0-0.50) 12/20/22 18: Baso # (Auto) 0.03 K/uL (0-0.2) 12/20/22 18: Immature Gran # (Auto) 0.00 K/uL (0.01-0.20) L 12/20/22 18:32 Polychromasia 1+ 12/20/22 18: Tear Drop Cells 1+ 12/20/22 18: ABG pH 7.48 (7.35-7.45) H 12/20/22 21:56 ABG pCO2 38 mmHg (35-46) 12/20/22 21:56 ABG pO2 86 mmHg (80-95) 12/20/22 21:56 ABG HCO3 28 mmol/L (19-24) H 12/20/22 21:56 ABG O2 Saturation 99.5 % (90-95) H 12/20/22 21:56 ABG Base Excess 4.6 mEq/L (-9-1.8) H 12/20/22 21:56 Deandre Test POS (Pos) 12/20/22 21:56 Oxygen Given 2L O2 12/20/22 21:56 Sodium 135 mmol/L (136-145) L 12/20/22 18:32 Potassium 3.7 mmol/L (3.5-5.1) 12/20/22 18:32 Chloride 98 mmol/L (98-107) 12/20/22 18:32 Carbon Dioxide 29 mmol/L (21-32) 12/20/22 18:32 Anion Gap 8 (3-11) 12/20/22 18:32 BUN 39 mg/dl (6-23) H 12/20/22 18:32 Creatinine 2.62 mg/dl (0.6-1.4) H 12/20/22 18:32 Est Cr Clr Drug Dosing 18.5 ml/min 12/20/22 18:32 Est GFR ( Amer) 24.0 ml/min 12/20/22 18:32 Est GFR (Non-Af Amer) 20.7 ml/min 12/20/22 18:32 BUN/Creatinine Ratio 14.9 (10-20) 12/20/22 18:32 Glucose 134 mg/dl (70-99(Fasting)) H 12/20/22 18:32 Lactate 1.7 mmol/L (0.4-2.0) 12/20/22 18:32 Calcium 8.2 mg/dl (8.6-10.3) L 12/20/22 18:32 Magnesium 2.1 mg/dl (1.7-2.4) 12/20/22 18:32 Total Bilirubin 0.3 mg/dl (0.2-1.0) 12/20/22 18:32 AST 27 U/L (13-39) 12/20/22 18:32 ALT 11 U/L (7-52) 12/20/22 18:32 Alkaline Phosphatase 70 U/L (34-104) 12/20/22 18:32 Troponin I High Sens 35.5 pg/ml (0-20) H 12/20/22 20:38 Total Protein 6.9 gm/dl (6.0-8.3) 12/20/22 18:32 Albumin 3.0 gm/dl (3.4-5.0) L 12/20/22 18:32 Globulin 3.9 gm/dl (2.5-4.0) 12/20/22 18:32 Albumin/Globulin Ratio 0.8 (0.9-2) L 12/20/22 18:32 Urine Color Yellow 12/20/22 19:35 Urine Appearance Clear (Clear) 12/20/22 19:35 Urine pH 6.5 (4.5-7.5) 12/20/22 19:35 Ur Specific [place] 1.012 (1.000-1.030) 12/20/22 19:35 Urine Protein 1+ (Negative) H 12/20/22 19:35 Urine Glucose (UA) Negative (Negative) 12/20/22 19:35 Urine Ketones Negative (Negative) 12/20/22 19:35 Urine Blood 3+ (Negative) H 12/20/22 19:35 Urine Nitrite Negative (Negative) 12/20/22 19:35 Urine Bilirubin Negative (Negative) 12/20/22 19:35 Urine Urobilinogen Negative (Negative) 12/20/22 19:35 Ur Leukocyte Esterase Negative (Negative) 12/20/22 19:35 Urine WBC (Auto) 1-5 /hpf (0-5) 12/20/22 19:35 Urine RBC (Auto) >30 /hpf (0-4) H 12/20/22 19:35 U Hyaline Cast (Auto) 1-5 /lpf (0-5) 12/20/22 19:35 U Epithel Cells (Auto) 0-5 /lpf (0-5) 12/20/22 19:35 Urine Bacteria (Auto) Negative (Negative) 12/20/22 19:35 SARS-CoV-2 (PCR) NEGATIVE (Negative) 12/20/22 18:49 Impressions Chest X-Ray 12/20/22 18:21 XR chest 1V portable CLINICAL HISTORY: Dyspnea TECHNIQUE: Single frontal radiograph of the chest was obtained. Comparison: Comparison is made to chest radiograph 10/10/2022 FINDINGS: No lines and tubes are seen. Cardiomegaly is noted. The aortic arch is calcified. Reticular interstitial opacities are seen. Likely superimposed vascular congestion. Small, left greater than right pleural effusions. IMPRESSION: Small bilateral pleural effusions. Interstitial thickening is seen. There may be mild pulmonary congestion. ACT 112: Negative or not required by law. Electronically signed by: Romario Martínez M.D. 12/20/2022 8:28 PM Diagnostic Findings EKG as per my interpretation : Rate 70, LAD, LAFB, LVH, septal infarct, T wave abnormalities septal leads
[2022-12-21] MEDS ORDERED: OLANZapine 10 MG/2.1 ML SDV IM PRN
[2022-12-21] MEDS ORDERED: hydrALAZINE HCL 25 MG TAB PO STA (00:45)
[2022-12-21] MEDS ORDERED: ACETAMINOPHEN 325 MG TAB PO PRN (01:06)
[2022-12-21] MEDS ORDERED: LACTULOSE SYRUP 20 GM/30 ML UDC PO PRN (01:15)
[2022-12-21 03:31] LABS: Basophils # (auto) 0.02 K/uL (0-0.2); Basophils % (auto) 0.8 %; Eosinophils % (auto) 4.1 %; Hematocrit (blood only) 21.9 % (42.0-52.0); Hemoglobin 7.3 g/dl (14.0-18.0); Lymphocytes # (auto) 0.82 K/uL (1.2-3.4); Lymphocytes % (auto) 33.7 %; Mean Corpuscular Hgb Conc 33.3 g/dL (32.0-36.0); Mean Corpuscular Volume 96.1 fL (80.0-100.0); Mean Platelet Volume 10.3 fL (9.4-12.4); Monocytes % (auto) 12.3 %; Neutrophils # (auto) 1.19 K/uL (1.40-6.50); Neutrophils % (auto) 49.1 %; Platelet Count 131 K/uL (130-400); RDW Coefficient of Variation 14.6 % (11.5-14.5); RDW Standard Deviation 50.6 fL (36.4-46.3); Red Blood Count 2.28 M/uL (4.70-6.10); White Blood Count 2.43 K/ul (4.8-10.8)
[2022-12-21 03:48] LABS: BUN Creatinine Ratio 15.2 (10-20); Calcium 8.1 mg/dl (8.6-10.3); Creatinine Clr Calc Pharmacy 19.4 ml/min; Est GFR (African American) 25.4 ml/min; Est GFR (Non-African American) 21.9 ml/min; Potassium 3.4 mmol/L (3.5-5.1); RBC Morphology Unremarkable
[2022-12-21] MEDS ORDERED: SODIUM CHLORIDE 0.9% 250 ML IV PRN (05:17)
[2022-12-21] MEDS ORDERED: POTASSIUM CHLORIDE CRTAB 20 MEQ TABCR PO STA ×2 (05:18→16:04)
[2022-12-21] MEDS ORDERED: FUROSEMIDE 40 MG/4 ML VIAL IV SCH ×2 (05:20→09:00)
--- NOTE | 2022-12-21 07:43 | Cardiology Consultation ---
Date of Consultation December 21, 2022 Assessment & Plan (1) Acute on chronic heart failure with reduced ejection fraction and diastolic dysfunction: (2) Acute hypoxemic respiratory failure: (3) Demand ischemia: (4) CAD (coronary artery disease): Supervising Physician Co-Signing Physician Notes Attending Staff: Pt seen and evaluated with [facility] staff. Concur with observations and plans 87 yo man presenting with dyspnea Duration - days Ischemic Cardiomyopathy LVEF 35-40% (09/2022) MR - mild to moderate MR AI - moderate to severe - mild + Volume overload Diuresis started Lasix 60 mg IV x 1 on 12/20/22 Lasix 40 mg IV x 1 in AM on 12/21/2022 Recent admission in 09/2022 for Acute on chronic combined CHF Lives in correction + Dementia HGB 7.3 on presentation No obvious source of bleeding Transfusion started - Chest tightness with transfusion Work up for transfusion reaction Repeat Hgb 8.3 Troponin mild elevated - rising 33- 124 EKG: Sinus @ 60 BPM. LAFB + 1st degree AVB + nonspecific ST/T wave abnormalities Hx: * Known CAD * PCI - SONI- (2008) - LAD * PCI - BMS - (2014) - RCA * HTN * Hyperlipidemia * Non smoker * No DM * + PVD - carotid disease (Left 2010); AAA (4.3 cm- 10/2022) * Anemia - declined evaluation * CLL * CKD - Stage III-IV Exam: Thin man / + Tachypnea Pale JVP 16 cmH20 S1S2 No severe ; + MR 2/6 systolic murmur 2/4 diastolic c/w AI Bilateral crackles on lung exam + BS No c/c/e Plans: * Dx - acute on chronic combined CHF * Cardiomyopathy LVEF 35-40% * + Valvular heart disease (AI + MR) * Exam - moderate volume overload * + Hypoxia on arrival - on supplemental O2 * Plans to diurese * Replete K+ * K+ goal 4.5-5 * Kdur 40 meq x 2 then check PM BMP * May benefit from PM Lasix dosing - 100 mg IV x 1 * CKD - baseline creat is 2.5 - at baseline * Mag goal >2 * Troponin elevation likely secondary to demand ischemia in the setting of acute decompensated CHF * Not on DOC/ARB/ARNI - CKD * Creat >2 - no Aldactone * No beta blockers - sinus mando * Continue Hydralazine 25 mg po TID * Stop Imdur * Start Isordil 20 mg po TID * On DVT ppx * HGB >8; transfusion reaction labs sent- patient has deferred w/u for anemia in past * Wean FIO2 As tolerated * Check Urine Protein/Creatinine ratio * Nutritional support Nagi Taylor History of Present Illness Reason for Consultation: Respiratory failure; CHF Requesting Physician: Dr. Pedro Attending Physician: Debby Tomas MD History of Present Illness Patient is an 87 year old male known to [facility], Dr. Herron. History includes: 1. Ischemic cardiomyopathy 35-40% with coronary artery disease - PCI to the LAD with a drug-eluting stent in 2008 and PCI with a bare metal stent to the RCA in 2014. 2. Chronic HFrEF 3. Sleep apnea 4. CLL 5. Hypertension 6. dyslipidemia 7. Peripheral vascular disease with a history of carotid endarterectomy 8. Chronic anemia declining evaluation 9. CKD stage IV 10. AAA, 4.3 cm on recent outpatient aortic duplex measurement October 2022 11. sinus bradycardia, not on beta nolvia Patient admitted in September for acute HFrEF, treated with IV diuretics, doses limited on discharge due to CKD. LVEF at that time with Patient presented to [facility] with worsening SOB over the last few days. Resides at correction. Compliant with meds. Daily weights completed and recent 5 lb weight gain noted. Chest xray on admission revealed b/l pleural effusions with hypoxia on vitals. Started on furosemide 60 mg x1 in the ER and then repeat dose of furosemide 60 mg this morning with supplemental potassium. He was also found to have worsening of his chronic anemia, with hbg 7.7 (baseline around 9.0). He started to receive 1 unit PRBC's but apparently patient developed mild chest tightness at the onset of transfusion and transfusion was stopped due to concerns for potential reaction. He received 1 SL nitro at the time and symptoms resolved. He had EKG completed (reviewed on paper chart) without acute changes. Creatinine also above baseline around 2.5. Troponin minimally elevated at 33 and increasing to 124 this morning. At time of consult, patient denies chest pain. He reports ongoing SOB and breathlessness. Mild conversational dyspnea noted. He denies chest pain earlier. ? Mild dementia noted. He reports feeling better since admission but remains SOB at rest. Frequent urination noted with lasix this morning. Allergies Allergy/AdvReac Type Severity Reaction Status Date / Time No Known Allergies Allergy Verified 12/20/22 22:33 Home Medications Medication Instructions Recorded Confirmed Type Qc Pain Reliever Pm 1 tab PO HS 12/20/22 12/20/22 History albuterol sulfate 90 mcg/actuation 1 inh inhalation Q4 PRN Shortness 12/20/22 12/20/22 History aerosol inhaler Of Breath Or Wheezing aspirin 81 mg chewable tablet 81 mg PO DAILY 12/20/22 12/20/22 History atorvastatin 80 mg tablet 40 mg PO HS 12/20/22 12/20/22 History carbamide peroxide 6.5 % ear drops 5 - 10 drp otic (ear) Q12H PRN .UP 12/20/22 12/20/22 History TO 4 DAYS cyanocobalamin (vitamin B-12) 0 mcg PO DAILY 12/20/22 12/20/22 History 1,000 mcg tablet (Vitamin B-12) famotidine 20 mg tablet 20 mg PO BID 12/20/22 12/20/22 History ferrous sulfate 325 mg (65 mg 325 mg PO TID 12/20/22 12/20/22 History iron) tablet finasteride 5 mg tablet 5 mg PO DAILY 12/20/22 12/20/22 History hydralazine 25 mg tablet 25 mg PO TID 12/20/22 12/20/22 History isosorbide mononitrate 60 mg 60 mg PO DAILY 12/20/22 12/20/22 History tablet,extended release 24 hr lactulose 10 gram/15 mL oral 30 ml PO DAILY PRN Constipation 12/20/22 12/20/22 History solution mirtazapine 15 mg tablet 15 mg PO HS 12/20/22 12/20/22 History ondansetron 4 mg disintegrating 4 mg translingual Q6H PRN Nausea 12/20/22 12/20/22 History tablet pantoprazole 40 mg tablet,delayed 40 mg PO BID 12/20/22 12/20/22 History release potassium chloride 10 mEq 10 meq PO DAILY 12/20/22 12/20/22 History tablet,extended release sertraline 100 mg tablet 100 mg PO DAILY 12/20/22 12/20/22 History tamsulosin 0.4 mg capsule 0.8 mg PO HS 12/20/22 12/20/22 History torsemide 20 mg tablet 20 mg PO DAILY 12/20/22 12/20/22 History Patient History Medical History AAA (abdominal aortic aneurysm) Anemia CAD (coronary artery disease) "2008 - SONI to LAD 08/2014 - BMS to RCA" CKD (chronic kidney disease), stage III CLL (chronic lymphocytic leukemia) Heart failure with reduced ejection fraction due to cardiomyopathy HLD (hyperlipidemia) HTN (hypertension) Leukopenia TREVOR (obstructive sleep apnea) 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 without improvement in the neutrophil count" Surgical History History of bilateral carotid endarterectomy Social History Smoking Status: Former smoker Second Hand Exposure: No; Do You Dip or Chew Tobacco: No; Hx Alcohol Use: No Hx Substance Use: No Preferred Language: Slovak Communication Ability: Effective Gun Number Required: No Beliefs That Will Affect Care: None Current Living Situation: Personal Care Facility Current Living Situation Comment: Resides at [facility] Other Information That Helps Us Care for You: No Feels Safe at Home: Yes Assistive Devices: Walker Assistive Devices Comment: Hearing aids not here. Review of Systems Review of Systems: All systems reviewed & are unremarkable except as noted in HPI & below Physical Exam Constitutional: WD/WN, vitals as above + thin; no acute distress Respiratory: + labored breathing (Mild conversational dyspnea) Auscultation: + diminished lung sounds and + rales Cardiovascular: Rate/Rhythm: regular rate and regular rhythm Heart Sounds: + murmur (II/ systolic murmur throughout the precordium) Vessels: + JVD Extremities: no edema Gastrointestinal (Abdomen): normal bowel sounds, soft, nontender, no hepatosplenomegaly Skin: no rashes, warm and dry Neurologic: PERRL, EOMI, accommodation nl, no face palsy, no dysarthria Results & Data Vital Signs (Past 12 Hours) Vital Signs Temp Pulse Pulse Resp BP BP Pulse Ox 12/21/22 07:30 37.1 C 68 16 156/59 H 96 12/21/22 07:17 64 12/21/22 07:00 36.9 C 60 16 148/55 H 96 12/21/22 06:45 36.9 C 65 16 151/59 H 97 12/21/22 06:30 36.6 C 65 16 153/58 H 93 12/21/22 03:47 36.7 C 72 18 122/60 93 12/21/22 02:59 12/21/22 01:17 37.1 C 67 16 146/66 H 96 12/21/22 01:17 12/20/22 23:00 74 24 169/75 H 94 12/20/22 22:30 79 23 91 12/20/22 22:31 78 12/20/22 21:30 69 21 95 12/20/22 21:00 81 180/82 H 96 12/20/22 21:25 94 12/20/22 21:23 87 L 12/20/22 20:30 68 16 95 12/20/22 20:01 67 23 160/70 H 96 Pulse Ox O2 Del Method O2 Del Method O2 Flow Rate O2 Flow Rate 12/21/22 07:30 12/21/22 07:17 12/21/22 07:00 12/21/22 06:45 3 12/21/22 06:30 3 12/21/22 03:47 Nasal Cannula 3 12/21/22 02:59 Nasal Cannula 3 12/21/22 01:17 Nasal Cannula 3 12/21/22 01:17 96 Nasal Cannula 3 12/20/22 23:00 Nasal Cannula 2 12/20/22 22:30 Nasal Cannula 2 12/20/22 22:31 12/20/22 21:30 Nasal Cannula 2 12/20/22 21:00 Nasal Cannula 2 12/20/22 21:25 Nasal Cannula 2 12/20/22 21:23 Room Air 12/20/22 20:30 Nasal Cannula 2 12/20/22 20:01 Nasal Cannula 2 Laboratory Results Cardiac Enzymes 12/20/22 12/20/22 Range/Units 18:32 20:38 AST 27 (13-39) U/L Troponin I High Sens 33.9 H 35.5 H (0-20) pg/ml CBC 12/20/22 12/21/22 Range/Units 18:32 03:08 WBC 2.92 L 2.43 L (4.8-10.8) K/ul RBC 2.45 L 2.28 L (4.70-6.10) M/uL Hgb 7.7 L 7.3 L (14.0-18.0) g/dl Hct 23.9 L 21.9 L (42.0-52.0) % Plt Count 154 131 (130-400) K/uL Neut # (Auto) 1.91 1.19 L (1.40-6.50) K/uL Lymph # (Auto) 0.49 L 0.82 L (1.2-3.4) K/uL Hood # (Auto) 0.29 0.30 (0.11-0.59) K/uL Eos # (Auto) 0.20 0.10 (0-0.50) K/uL Baso # (Auto) 0.03 0.02 (0-0.2) K/uL Comprehensive Metabolic Panel 12/20/22 12/21/22 Range/Units 18:32 03:08 Sodium 135 L 136 (136-145) mmol/L Potassium 3.7 3.4 L (3.5-5.1) mmol/L Chloride 98 99 (98-107) mmol/L Carbon Dioxide 29 28 (21-32) mmol/L BUN 39 H 38 H (6-23) mg/dl Creatinine 2.62 H 2.50 H (0.6-1.4) mg/dl Glucose 134 H 98 (70-99(Fasting)) mg/dl Calcium 8.2 L 8.1 L (8.6-10.3) mg/dl AST 27 (13-39) U/L ALT 11 (7-52) U/L Alkaline Phosphatase 70 (34-104) U/L Total Protein 6.9 (6.0-8.3) gm/dl Albumin 3.0 L (3.4-5.0) gm/dl Intake and Output 12/20/22 12/21/22 12/21/22 22:59 06:59 14:59 Intake Total 0 / 0 Output Total 200 / 1025 825 / 1025 Balance -200 / -1025 -825 / -1025 Intake: Intake (Blood Product) Amt 0 / 0 Packed Cells, Leukoreduced 0 / 0 Unit [id number] Output: Urine 200 / 1025 825 / 1025 Other: Weight 80 kg Weight Measurement Method Built in [facility] Diagnostic Findings Repeat EKG this morning at time of mild chest tightness: Sinus bradycardia with 1st degree AV block. LAFB nonspecific ST/T wave abnormality but no significant change from previous EKG on admission 12/20: Sinus rhythm with 1st degree A-V block Incomplete right bundle branch block LAD possible old septal infarct Voltage criteria for LVH When compared with ECG in October 2022 Minimal criteria for Septal infarct are now Present ST no longer depressed in Anterior leads T wave inversion no longer evident in Anterior leads Chest X-Ray 12/21/22 07:47 XR chest 1V portable CLINICAL HISTORY: chest tightness TECHNIQUE: Single frontal radiograph of the chest was obtained. Comparison: Comparison is made to chest radiograph of 12/20/2022 FINDINGS: No lines and tubes are seen. Cardiomegaly is noted. The aortic arch is calcified. Reticular interstitial opacities are seen. Interval increase in size of a loculated right pleural effusion with decrease in size of small left pleural effusion. IMPRESSION: Interval evolutionary changes of bilateral pleural effusions. Interstitial disease is seen. ACT 112: Negative or not required by law. Electronically signed by: Romario Martínez M.D. 12/21/2022 8:39 AM Prior echo report reviewed dated September 2022: 35-40% with global hypokinesis Mild Moderate/severe AI mild/mod MR Medications Administered Current Inpatient Medications Acetaminophen (Acetaminophen 325 Mg Tab) 650 mg PO Q4H PRN PRN Reason: Pain or Fever Stop: 01/20/23 01:05 Aspirin (Aspirin 81 Mg Ectab) 81 mg PO DAILY BON Stop: 01/20/23 08:59 Atorvastatin Calcium (Atorvastatin 40 Mg Tab) 40 mg PO HS BON Stop: 01/20/23 20:59 Cyanocobalamin (Cyanocobalamin (B-12) 500 Mcg Tablet) 1,000 mcg PO DAILY BON Stop: 01/20/23 08:59 Famotidine (Famotidine 20 Mg Tab) 20 mg PO BID BON Stop: 01/20/23 08:59 Ferrous Sulfate (Ferrous Sulfate 325 Mg Tab) 325 mg PO TID BON Stop: 01/20/23 08:59 Finasteride (Finasteride 5 Mg Tab) 5 mg PO DAILY BON Stop: 01/20/23 08:59 Furosemide (Furosemide 40 Mg/4 Ml Vial) 60 mg IV DAILY BON Stop: 12/22/22 05:19 Last Admin: 12/21/22 06:24 Dose: 60 mg Hydralazine HCl (Hydralazine Hcl 25 Mg Tab) 25 mg PO TID BNO Stop: 01/20/23 08:59 Sodium Chloride (Nss) 250 mls @ 15 mls/hr IV .[id number] PRN PRN Reason: For Transfusion Duration Stop: 12/21/22 15:17 Isosorbide Mononitrate (Isosorbide Hood Extended Rel 60 Mg Tabcr) 60 mg PO DAILY BON Stop: 01/20/23 08:59 Lactulose (Lactulose Syrup 20 Gm/30 Ml Udc) 20 gm PO DAILY PRN PRN Reason: Constipation Stop: 01/20/23 01:14 Mirtazapine (Mirtazapine Tab 15 Mg Tab) 15 mg PO HS BON Stop: 01/20/23 20:59 Olanzapine (Olanzapine 10 Mg/2.1 Ml Sdv) 2.5 mg IM Q4H PRN PRN Reason: Anxiety/Agitation Stop: 01/20/23 00:00 Pantoprazole Sodium (Pantoprazole 40 Mg Tab) 40 mg PO BID BON Stop: 01/20/23 08:59 Potassium Chloride (Potassium Chloride Crtab 20 Meq Tabcr) 20 meq PO BID BON Stop: 01/20/23 08:59 Sertraline HCl (Sertraline Hcl 100 Mg Tablet) 100 mg PO DAILY BON Stop: 01/20/23 08:59 Tamsulosin HCl (Tamsulosin Hcl 0.4 Mg Cap) 0.8 mg PO HS BON Stop: 01/20/23 20:59
--- NOTE | 2022-12-21 08:40 | XRay Report ---
XR chest 1V portable CLINICAL HISTORY: chest tightness TECHNIQUE: Single frontal radiograph of the chest was obtained. Comparison: Comparison is made to chest radiograph of 12/20/2022 FINDINGS: No lines and tubes are seen. Cardiomegaly is noted. The aortic arch is calcified. Reticular interstit ial opacities are seen. Interval increase in size of a loculated right pleural effusion with decrease in size of small left pleural effusion. IMPRESSION: Interval evolutionary changes of bilateral pleural effusions. Interstitial disease is seen. ACT 112: Negative or not required by law. Electronically signed by: Romario Martínez M.D. 12/21/2022 8:39 AM
[2022-12-21] MEDS ORDERED: ISOSORBIDE MONO EXTENDED REL 60 MG TABCR PO SCH (09:00)
[2022-12-21 09:13] LABS: Hematocrit (blood only) 25.3 % (42.0-52.0); Hemoglobin 8.3 g/dl (14.0-18.0); Mean Corpuscular Hemoglobin 31.2 pg (25.0-34.0); Mean Corpuscular Hgb Conc 32.8 g/dL (32.0-36.0); Mean Corpuscular Volume 95.1 fL (80.0-100.0); Mean Platelet Volume 10.1 fL (9.4-12.4); Platelet Count 138 K/uL (130-400); RDW Coefficient of Variation 14.6 % (11.5-14.5); RDW Standard Deviation 50.4 fL (36.4-46.3); Red Blood Count 2.66 M/uL (4.70-6.10); White Blood Count 2.28 K/ul (4.8-10.8)
[2022-12-21 09:22] LABS: Albumin Level 2.9 gm/dl (3.4-5.0); Bilirubin Direct 0.1 mg/dl (0-0.2); Bilirubin,Total 0.4 mg/dl (0.2-1.0); Total Protein 6.5 gm/dl (6.0-8.3)
[2022-12-21] MEDS ORDERED: NITROGLYCERIN SL 0.4 MG/TAB TAB SL PRN (09:43)
[2022-12-21] MEDS ORDERED: FUROSEMIDE 40 MG/4 ML VIAL IV ONE ×2 (10:05→17:00)
[2022-12-21 10:13] LABS: Blood Urine 3+ (Negative); RBC Urine Automated >30 /hpf (0-4)
[2022-12-21] MEDS: PANTOprazole 40 MG TAB PO SCH ×2 (11:31→20:11)
[2022-12-21] MEDS: SERTRALINE HCL 100 MG TABLET PO SCH (11:31)
[2022-12-21] MEDS: hydrALAZINE HCL 25 MG TAB PO SCH ×3 (11:31→20:10)
[2022-12-21] MEDS: POTASSIUM CHLORIDE CRTAB 20 MEQ TABCR PO SCH ×2 (11:31→20:13)
[2022-12-21] MEDS: FINASTERIDE 5 MG TAB PO SCH (11:32)
[2022-12-21] MEDS: ASPIRIN 81 MG ECTAB PO SCH (11:32)
[2022-12-21] MEDS: FAMOTIDINE 20 MG TAB PO SCH ×2 (11:32→20:11)
[2022-12-21] MEDS: FERROUS SULFATE 325 MG TAB PO SCH ×3 (11:32→20:12)
[2022-12-21] MEDS: CYANOCOBALAMIN (B-12) 500 MCG TABLET PO SCH (11:32)
[2022-12-21] MEDS ORDERED: POTASSIUM CHLORIDE CRTAB 20 MEQ TABCR PO ONE ×2 (11:50→17:00)
--- NOTE | 2022-12-21 14:07 | Electrocardiogram Report ---
Test Reason : Blood Pressure : / mmHG Vent. Rate : 068 BPM Atrial Rate : 068 BPM P-R Int : 256 ms QRS Dur : 092 ms QT Int : 410 ms P-R-T Axes : 041 -45 124 degrees QTc Int : 435 ms Sinus rhythm with 1st degree A-V block Left anterior fascicular block Left ventricular hypertrophy with repolarization abnormality ( R in aVL ) Cannot rule out Septal infarct , age undetermined Abnormal ECG When compared with ECG of 10-OCT-2022 11:41, Minimal criteria for Septal infarct are now Present ST no longer depressed in Anterior leads T wave inversion no longer evident in Anterior leads Confirmed by Fletcher Valdez ([id number]) on 12/21/2022 2:06:52 PM Referred By: REFERRED SELF Confirmed By:Fletcher Valdez
[2022-12-21 15:04] LABS: Hemoglobin 8.2 g/dl (14.0-18.0)
[2022-12-21 15:19] LABS: BUN Creatinine Ratio 15.2 (10-20); Calcium 8.2 mg/dl (8.6-10.3); Creatinine Clr Calc Pharmacy 19.9 ml/min; Est GFR (African American) 26.2 ml/min; Est GFR (Non-African American) 22.6 ml/min; Potassium 3.9 mmol/L (3.5-5.1)
--- NOTE | 2022-12-21 15:24 | Hospitalist Progress Note ---
Date of Service December 21, 2022 Assessment & Plan (1) Acute hypoxemic respiratory failure: Plan: Acute hypoxemic respiratory failure: Patient continues to use oxygen at home Acute on chronic heart failure with reduced ejection fraction and diastolic dysfunction Demand ischemia Patient presenting with shortness of breath and chest tightness over several days, needing 3 L oxygen at presentation. At admission, received multiple doses of IV Lasix with minimal improvement. BNP elevated, CXR with congestion and pleural effusion. Troponin elevated, likely demand ischemia secondary to acute heart failure. Cardiology on board, appreciate recommendation Further diuresis during the day, monitor replete electrolytes. Continue with telemetry. Strict I's and O's and daily weights. Fluid restriction of 1500 mL Chronic anemia: Monitor hemoglobin, transfuse if symptomatic anemia or hemoglobin less than 7.5. Concern for transfusion reaction: Likely false alarm -see , labs stable, vitals stable, will continue to monitor. Other chronic medical conditions: Continue with/resume home meds as and when able hx 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 DVT prophylaxis. SCDs Re: hx UGIB DNR Text document was generated using [employer] voice recognition software. It may contain grammatical or spelling errors. Kindly contact undersigned for clarification of any documentation item in question. A total of 74 minutes spent in reviewing chart/reviewing and ordering labs and imaging/communicating with marketing operations coordinator/communicating with RN and cardiolog y/documenting/bedside exam etc. Per admitting provider: Patient son/listed first contact (Mr. Stephon Kirkpatrick from [place], [place], contact #[phone]) updated of plan of care. He does not feel patient would want to dialysis if kidney function continues to deteriorate. He will discuss recommendation for inpatient consultation to discuss goals of care palliative care with other family members. He requests any of his brothers who live locally to be updated of patient's progress. Mr. Konstantin Kirkpatrick, contact #[phone]. Mr. Landon Kirkpatrick, contact #[phone]. Admission and Anticipated Discharge Date Admission Date: December 20, 2022 Subjective Patient seen and examined at bedside as a follow-up of acute decompensated heart failure, acute hypoxemic respiratory failure, demand ischemia. Patient was lying in bed, on 3 L oxygen via nasal cannula, does not appear to be in distress, reported chest tightness that has been ongoing for few days, denies chest pain or pressure, denies headache or dizziness, denies fever or chills or new cough. Reports eating at his baseline which is generally low appetite for him, reports moving bowels okay. Denies any change in the color of the stool. I was paged by RN as patient complained of chest tightness during blood transfusion. 110 mL of blood was transfused and 50-minute has passed by the time patient brought chest tightness to the nursing. Patient set of vitals at the time {100% on 3 L, 58 bpm, temperature 37.1 C, 150/64 mmHg}. Patient was seen and examined at bedside, patient reported similar chest tightness ongoing for several days and it is not new at this time. Patient denied any bleeding or abdominal pain or headache or dizziness or warmth or urticaria or SOB. On examination, he was on 3 L nasal cannula oxygen which has not increased from his presentation, no wheezing heard, no abdominal pain noted, vitals at the time of leaving bedside exam were 62 bpm, respiratory rate of 17, 173 / 60 mmHg, 96% on 2 L. Blood transfusion was stopped, LFT/LDH/repeat CBC/troponin/EKG/FOBT/CXR sent. Patient was left in hemodynamically stable condition. EKG with no acute ST or T changes, troponin elevated likely demand ischemia from acute decompensated heart failure, hemoglobin came back better at 8.3. Discussed with cardiology due to elevated troponin and chest tightness, no indication for heparin infusion at this point. BNP highly elevated. LFT with normal bilirubin levels. FOBT pending. CXR with volume overload features. Continue with aspirin. Hold blood transfusion for now. A total of 74 minutes spent in reviewing chart/reviewing and ordering labs and imaging/communicating with marketing operations coordinator/communicating with RN and cardiology/documenting/bedside exam etc. Physical Exam Physical Exam: GENERAL: Alert and oriented x3. NAD, on 3L NC O2. [place] HEENT: No pallor, no icterus. Pupils equal, round and reactive to light. Oral mucosa moist. NECK: No JVD, no neck masses. HEART: S1 and S2 heard. Regular rate and rhythm. + murmur, no gallop. RESPIRATORY SYSTEM: Normal AP diameter. No accessory muscle use. No wheezing, b/b rales and diminished breath sounds ABDOMEN: Soft, bowel sounds present, nontender, no distention. CENTRAL NERVOUS SYSTEM: No facial droop. Speech is clear. Obeys simple commands. Moves extremities. EXTREMITIES: No edema, no erythema seen. Results & Data Results & Data Vital Signs (Past 12 Hours) Vital Signs Temp Pulse Pulse Resp BP BP Pulse Ox 12/21/22 13:57 144/70 H 12/21/22 11:18 36.8 C 63 18 167/67 H 91 12/21/22 10:15 61 17 140/57 L 96 12/21/22 10:03 78 19 172/70 H 96 12/21/22 09:00 65 12/21/22 09:00 12/21/22 09:00 36.7 C 63 18 171/71 H 93 12/21/22 08:45 59 L 16 160/63 H 96 12/21/22 08:15 62 17 173/60 H 96 12/21/22 08:01 57 L 23 149/76 H 96 12/21/22 07:45 59 L 22 150/64 H 96 12/21/22 07:30 60 10 L 156/59 H 97 12/21/22 08:00 12/21/22 07:53 59 L 18 150/64 H 12/21/22 07:30 37.1 C 68 16 156/59 H 96 12/21/22 07:17 64 12/21/22 07:00 36.9 C 60 16 148/55 H 96 12/21/22 06:45 36.9 C 65 16 151/59 H 97 12/21/22 06:30 36.6 C 65 16 153/58 H 93 12/21/22 03:47 36.7 C 72 18 122/60 93 Pulse Ox O2 Del Method O2 Del Method O2 Flow Rate 12/21/22 13:57 12/21/22 11:18 Nasal Cannula 2 12/21/22 10:15 Nasal Cannula 3 08/14/23 10:03 Nasal Cannula 3 12/21/22 09:00 12/21/22 09:00 Nasal Cannula 3 12/21/22 09:00 Nasal Cannula 3 12/21/22 08:45 Nasal Cannula 3 12/21/22 08:15 12/21/22 08:01 12/21/22 07:45 12/21/22 07:30 12/21/22 08:00 96 Room Air 12/21/22 07:53 Nasal Cannula 2 12/21/22 07:30 12/21/22 07:17 12/21/22 07:00 12/21/22 06:45 3 12/21/22 06:30 3 12/21/22 03:47 Nasal Cannula 3
[2022-12-21] MEDS ORDERED: FUROSEMIDE 10 MG/ML 10 ML VIAL IV ONE (16:04)
[2022-12-21] MEDS: TAMSULOSIN HCL 0.4 MG CAP PO SCH (20:11)
[2022-12-21] MEDS: ATORVASTATIN 40 MG TAB PO SCH (20:11)
[2022-12-21] MEDS: MIRTAZAPINE TAB 15 MG TAB PO SCH (20:11)
[2022-12-22 07:16] LABS: Hematocrit (blood only) 24.8 % (42.0-52.0); Mean Corpuscular Hemoglobin 31.7 pg (25.0-34.0); Mean Corpuscular Hgb Conc 32.3 g/dL (32.0-36.0); Mean Corpuscular Volume 98.4 fL (80.0-100.0); Mean Platelet Volume 10.4 fL (9.4-12.4); Platelet Count 131 K/uL (130-400); RDW Coefficient of Variation 14.8 % (11.5-14.5); RDW Standard Deviation 53.5 fL (36.4-46.3); Red Blood Count 2.52 M/uL (4.70-6.10); White Blood Count 1.75 K/ul (4.8-10.8)
[2022-12-22 07:33] LABS: BUN Creatinine Ratio 15.5 (10-20); Calcium 8.3 mg/dl (8.6-10.3); Creatinine Clr Calc Pharmacy 19.2 ml/min; Est GFR (African American) 25.2 ml/min; Est GFR (Non-African American) 21.7 ml/min; Magnesium 2.2 mg/dl (1.7-2.4); Phosphorus 4.3 mg/dl (2.5-4.9); Potassium 4.8 mmol/L (3.5-5.1)
--- NOTE | 2022-12-22 07:57 | Cardiology Progress Note ---
Date of Service December 22, 2022 Assessment & Plan (1) Acute on chronic heart failure with reduced ejection fraction and diastolic dysfunction: (2) Acute hypoxemic respiratory failure: (3) Demand ischemia: (4) CAD (coronary artery disease): Admission and Anticipated Discharge Date Admission Date: December 20, 2022 Supervising Physician Co-Signing Physician Notes Attending Staff: Pt seen and evaluated with [facility] staff. Concur with observations and plans 87 yo man presenting with dyspnea Duration - days Ischemic Cardiomyopathy LVEF 35-40% (09/2022) MR - mild to moderate MR AI - moderate to severe - mild + Volume overload Diuresis started on presentation Lasix 60 mg IV x 1 on 12/20/22 Lasix 40 mg IV x 1 in AM on 12/21/2022 Recent admission in 09/2022 for Acute on chronic combined CHF Lives in correction + Dementia HGB 7.3 on presentation No obvious source of bleeding Transfusion started - Chest tightness with transfusion Work up for transfusion reaction Repeat Hgb 8.3 Troponin mildly elevated - 33- 124 - 120 EKG: Sinus @ 60 BPM. LAFB + 1st degree AVB + nonspecific ST/T wave abnormalities Hx: * Known CAD * PCI - SONI- (2008) - LAD * PCI - BMS - (2014) - RCA * HTN * Hyperlipidemia * Non smoker * No DM * + PVD - carotid disease (Left 2010); AAA (4.3 cm- 10/2022) * Anemia - declined evaluation * CLL * CKD - Stage III-IV Plans: * Dx - acute on chronic combined CHF * Cardiomyopathy LVEF 35-40% * + Valvular heart disease (AI + MR) * Exam - moderate volume overload * + Hypoxia on arrival - on supplemental O2 * Diuresis * Replete K+ * K+ goal 4.5-5 * Kdur 40 meq per day (HOLD until repeat BMP) * BID BMP check * Lasix 200 mg IV x 1; limited response to PM lasix dose at 100 mg IV x 1 * CKD - baseline creat is 2.5 - at baseline * Mag goal >2 * Troponin elevation likely secondary to demand ischemia in the setting of acute decompensated CHF * Not on DOC/ARB/ARNI - CKD * Creat >2 - no Aldactone * No beta blockers - sinus mando * Increase Hydralazine to 37.5 mg * Imdur (OFF) * Continue Isordil 20 mg po TID * On DVT ppx * HGB >8; transfusion reaction labs sent- patient has deferred w/u for anemia in past * Wean FIO2 As tolerated * Check Urine Protein/Creatinine ratio * Nutritional support * Mobilize - bed to chair Nagi Taylor Subjective Events overnight: * No events reported * No telemetry events Subjective: * No complaints Review of Systems Review of Systems: All systems reviewed & are unremarkable except as noted in HPI & below Physical Exam Physical Exam: Thin man / + Tachypnea Pale JVP 14 cmH20 S1S2 No severe ; + MR 2/6 systolic murmur 2/4 diastolic c/w AI Bilateral crackles on lung exam + BS No c/c/e Results & Data Vital Signs (Past 12 Hours) Vital Signs Temp Pulse Pulse Resp BP Pulse Ox O2 Del Method 12/22/22 07:00 60 12/22/22 07:25 36.7 C 57 L 19 148/60 H 94 Nasal Cannula 12/22/22 02:33 36.4 C L 62 18 157/65 H 92 Nasal Cannula 12/22/22 00:00 12/21/22 23:16 59 L 12/21/22 23:09 36.5 C 60 18 165/63 H 97 Nasal Cannula O2 Del Method O2 Flow Rate 12/22/22 07:00 12/22/22 07:25 2 12/22/22 02:33 2 12/22/22 00:00 Nasal Cannula 12/21/22 23:16 12/21/22 23:09 2 Laboratory Results Cardiac Enzymes 12/21/22 12/21/22 12/21/22 Range/Units 08:35 08:35 08:35 AST 25 (13-39) U/L Troponin I High Sens 124.1 H* D (0-20) pg/ml B-Natriuretic Peptide > 4700 H (0-100) pg/ml 12/21/22 12/21/22 12/21/22 Range/Units 11:07 16:57 22:44 AST (13-39) U/L Troponin I High Sens 123.6 H* 131.0 H* 120.2 H* (0-20) pg/ml B-Natriuretic Peptide (0-100) pg/ml Coagulation 12/21/22 Range/Units 08:35 B-Natriuretic Peptide > 4700 H (0-100) pg/ml CBC 12/21/22 12/21/22 12/22/22 Range/Units 08:35 14:37 06:22 WBC 2.28 L 1.75 L (4.8-10.8) K/ul RBC 2.66 L 2.52 L (4.70-6.10) M/uL Hgb 8.3 L 8.2 L 8.0 L (14.0-18.0) g/dl Hct 25.3 L 25.0 L 24.8 L (42.0-52.0) % Plt Count 138 131 (130-400) K/uL Comprehensive Metabolic Panel 12/21/22 12/21/22 12/21/22 Range/Units 08:35 14:37 14:37 Sodium 136 (136-145) mmol/L Potassium 3.8 3.9 (3.5-5.1) mmol/L Chloride 101 (98-107) mmol/L Carbon Dioxide 29 (21-32) mmol/L BUN 37 H (6-23) mg/dl Creatinine 2.44 H (0.6-1.4) mg/dl Glucose 100 H (70-99(Fasting)) mg/dl Calcium 8.2 L (8.6-10.3) mg/dl Direct Bilirubin 0.1 (0-0.2) mg/dl AST 25 (13-39) U/L ALT 10 (7-52) U/L Alkaline Phosphatase 62 (34-104) U/L Total Protein 6.5 (6.0-8.3) gm/dl Albumin 2.9 L (3.4-5.0) gm/dl 12/22/22 Range/Units 06:22 Sodium 139 (136-145) mmol/L Potassium 4.8 D (3.5-5.1) mmol/L Chloride 103 (98-107) mmol/L Carbon Dioxide 30 (21-32) mmol/L BUN 39 H (6-23) mg/dl Creatinine 2.52 H (0.6-1.4) mg/dl Glucose 91 (70-99(Fasting)) mg/dl Calcium 8.3 L (8.6-10.3) mg/dl Direct Bilirubin (0-0.2) mg/dl AST (13-39) U/L ALT (7-52) U/L Alkaline Phosphatase (34-104) U/L Total Protein (6.0-8.3) gm/dl Albumin (3.4-5.0) gm/dl Intake and Output 12/21/22 12/22/22 12/22/22 22:59 06:59 14:59 Intake Total 120 / 1090 300 / 1090 Output Total 700 / 1100 400 / 1100 Balance -580 / -10 -100 / -10 Intake: Oral 120 / 980 300 / 980 Output: Urine 700 / 1100 400 / 1100 Other: # Unmeasured Voids 1 Weight 71.4 kg Medications Administered Current Inpatient Medications Acetaminophen (Acetaminophen 325 Mg Tab) 650 mg PO Q4H PRN PRN Reason: Pain or Fever Stop: 01/20/23 01:05 Aspirin (Aspirin 81 Mg Ectab) 81 mg PO DAILY [facility] Stop: 01/20/23 08:59 Last Admin: 12/21/22 11:32 Dose: 81 mg Atorvastatin Calcium (Atorvastatin 40 Mg Tab) 40 mg PO HS BON Stop: 01/20/23 20:59 Last Admin: 12/21/22 20:11 Dose: 40 mg Cyanocobalamin (Cyanocobalamin (B-12) 500 Mcg Tablet) 1,000 mcg PO DAILY [facility] Stop: 01/20/23 08:59 Last Admin: 12/21/22 11:32 Dose: 1,000 mcg Famotidine (Famotidine 20 Mg Tab) 20 mg PO BID [facility] Stop: 01/20/23 08:59 Last Admin: 12/21/22 20:11 Dose: 20 mg Ferrous Sulfate (Ferrous Sulfate 325 Mg Tab) 325 mg PO TID [facility] Stop: 01/20/23 08:59 Last Admin: 12/21/22 20:12 Dose: 325 mg Finasteride (Finasteride 5 Mg Tab) 5 mg PO DAILY [facility] Stop: 01/20/23 08:59 Last Admin: 12/21/22 11:32 Dose: 5 mg Hydralazine HCl (Hydralazine Hcl 25 Mg Tab) 25 mg PO TID [facility] Stop: 01/20/23 08:59 Last Admin: 12/21/22 20:10 Dose: 25 mg Isosorbide Dinitrate (Isosorbide Dinitrate 20 Mg Tab) 20 mg PO TID [facility] Stop: 01/21/23 08:59 Lactulose (Lactulose Syrup 20 Gm/30 Ml Udc) 20 gm PO DAILY PRN PRN Reason: Constipation Stop: 01/20/23 01:14 Mirtazapine (Mirtazapine Tab 15 Mg Tab) 15 mg PO HS BON Stop: 01/20/23 20:59 Last Admin: 12/21/22 20:11 Dose: 15 mg Nitroglycerin (Nitroglycerin Sl 0.4 Mg/Tab Tab) 0.4 mg SL Q5M PRN PRN Reason: Chest Pain Stop: 01/20/23 09:42 Last Admin: 12/21/22 10:06 Dose: 0.4 mg Olanzapine (Olanzapine 10 Mg/2.1 Ml Sdv) 2.5 mg IM Q4H PRN PRN Reason: Anxiety/Agitation Stop: 01/20/23 00:00 Pantoprazole Sodium (Pantoprazole 40 Mg Tab) 40 mg PO BID [facility]ON Stop: 01/20/23 08:59 Last Admin: 12/21/22 20:11 Dose: 40 mg Potassium Chloride (Potassium Chloride Crtab 20 Meq Tabcr) 20 meq PO BID [facility] Stop: 01/20/23 08:59 Last Admin: 12/21/22 20:13 Dose: 20 meq Sertraline HCl (Sertraline Hcl 100 Mg Tablet) 100 mg PO DAILY [facility] Stop: 01/20/23 08:59 Last Admin: 12/21/22 11:31 Dose: 100 mg Tamsulosin HCl (Tamsulosin Hcl 0.4 Mg Cap) 0.8 mg PO HS [facility]ON Stop: 01/20/23 20:59 Last Admin: 12/21/22 20:11 Dose: 0.8 mg
[2022-12-22] MEDS: SERTRALINE HCL 100 MG TABLET PO SCH (08:28)
[2022-12-22] MEDS: FINASTERIDE 5 MG TAB PO SCH (08:28)
[2022-12-22] MEDS: FAMOTIDINE 20 MG TAB PO SCH ×2 (08:28→20:14)
[2022-12-22] MEDS: ISOSORBIDE DINITRATE 20 MG TAB PO SCH ×3 (08:28→20:13)
[2022-12-22] MEDS: hydrALAZINE HCL 25 MG TAB PO SCH ×3 (08:28→20:15)
[2022-12-22] MEDS: CYANOCOBALAMIN (B-12) 500 MCG TABLET PO SCH (08:28)
[2022-12-22] MEDS: ASPIRIN 81 MG ECTAB PO SCH (08:29)
[2022-12-22] MEDS: FERROUS SULFATE 325 MG TAB PO SCH ×3 (08:29→20:13)
[2022-12-22] MEDS: POTASSIUM CHLORIDE CRTAB 20 MEQ TABCR PO SCH ×2 (08:33→20:23)
[2022-12-22] MEDS ORDERED: FUROSEMIDE 40 MG/4 ML VIAL IV ONE (09:05)
--- NOTE | 2022-12-22 09:49 | Palliative Care Consultation ---
Date of Consultation December 22, 2022 Assessment & Plan (1) Palliative care encounter: Mr. Kirkpatrick is pleasantly confused and does not have insight into the extent of his illness. He tells me that he is looking forward to his 88th birthday in a couple months because it will be a milestone in his family. The men in his family generally don't live beyond their 70s. He says that he is not afraid to when it is his time but does not understand his prognosis. I spoke with his son, Landon, on the phone and reviewed the conversation that I had with his father. He would like to have a family meeting with all the brothers and they are not available to do this today. Unfortunately, I will be out of town after today. I tentatively set up a family family meeting tomorrow at 10am with Wendy Garcia DNP to further discuss goals of care. History of Present Illness Reason for Consultation: goals of care Requesting Physician: Dr. Tomas Attending Physician: Debby Tomas MD History of Present Illness 87 yo gentleman who resides at [facility]. He has a history of ischemic cardiomyopathy, valvular heart disease, PVD, CLL, TREVOR and chronic anemia with heme positive stools on previous admission. He presented with acute hypoxic respiratory failure secondary to decompensated HFrEF. He had an admission for the same in September of this year. On admission, his BNP was greater than 4700 and he has over 1 L negative fluid balance in the last two days. He has chronic kidney disease and had creatinine of 2.62 on admission. His creatinine today with diuresis is 2.52 and GFR is 15.5. He is awake and alert, sitting in chair at bedside. He is oriented to person only, telling me that it is February and he is out of the hospital. He denies pain or dyspnea. Allergies Allergy/AdvReac Type Severity Reaction Status Date / Time No Known Allergies Allergy Verified 12/20/22 22:33 Home Medications Medication Instructions Recorded Confirmed Type Qc Pain Reliever Pm 1 tab PO HS 12/20/22 12/20/22 History albuterol sulfate 90 mcg/actuation 1 inh inhalation Q4 PRN Shortness 12/20/22 12/20/22 History aerosol inhaler Of Breath Or Wheezing aspirin 81 mg chewable tablet 81 mg PO DAILY 12/20/22 12/20/22 History atorvastatin 80 mg tablet 40 mg PO HS 12/20/22 12/20/22 History carbamide peroxide 6.5 % ear drops 5 - 10 drp otic (ear) Q12H PRN .UP 12/20/22 12/20/22 History TO 4 DAYS cyanocobalamin (vitamin B-12) 0 mcg PO DAILY 12/20/22 12/20/22 History 1,000 mcg tablet (Vitamin B-12) famotidine 20 mg tablet 20 mg PO BID 12/20/22 12/20/22 History ferrous sulfate 325 mg (65 mg 325 mg PO TID 12/20/22 12/20/22 History iron) tablet finasteride 5 mg tablet 5 mg PO DAILY 12/20/22 12/20/22 History hydralazine 25 mg tablet 25 mg PO TID 12/20/22 12/20/22 History isosorbide mononitrate 60 mg 60 mg PO DAILY 12/20/22 12/20/22 History tablet,extended release 24 hr lactulose 10 gram/15 mL oral 30 ml PO DAILY PRN Constipation 12/20/22 12/20/22 History solution mirtazapine 15 mg tablet 15 mg PO HS 12/20/22 12/20/22 History ondansetron 4 mg disintegrating 4 mg translingual Q6H PRN Nausea 12/20/22 12/20/22 History tablet pantoprazole 40 mg tablet,delayed 40 mg PO BID 12/20/22 12/20/22 History release potassium chloride 10 mEq 10 meq PO DAILY 12/20/22 12/20/22 History tablet,extended release sertraline 100 mg tablet 100 mg PO DAILY 12/20/22 12/20/22 History tamsulosin 0.4 mg capsule 0.8 mg PO HS 12/20/22 12/20/22 History torsemide 20 mg tablet 20 mg PO DAILY 12/20/22 12/20/22 History Patient History Medical History AAA (abdominal aortic aneurysm) Anemia CAD (coronary artery disease) "2008 - SONI to LAD 08/2014 - BMS to RCA" CKD (chronic kidney disease), stage III CLL (chronic lymphocytic leukemia) Heart failure with reduced ejection fraction due to cardiomyopathy HLD (hyperlipidemia) HTN (hypertension) Leukopenia TREVOR (obstructive sleep apnea) 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 without improvement in the neutrophil count" Surgical History History of bilateral carotid endarterectomy Social History Smoking Status: Former smoker Second Hand Exposure: No; Do You Dip or Chew Tobacco: No; Hx Alcohol Use: No Hx Substance Use: No Preferred Language: Amharic Communication Ability: Effective Striker Out Required: No Beliefs That Will Affect Care: None Current Living Situation: Personal Care Facility Current Living Situation Comment: Resides at [facility] Other Information That Helps Us Care for You: No Feels Safe at Home: Yes Assistive Devices: Walker Assistive Devices Comment: Hearing aids not here. Review of Systems Review of Systems: ESAS Pain 0/3 Dyspnea 0/3 Nausea 0/3 Drowsiness 0/3 Physical Exam Constitutional: no acute distress Respiratory: normal respiratory effort; no labored breathing Cardiovascular: Rate/Rhythm: regular rate and regular rhythm Extremities: no edema Musculoskeletal: Extremities: + muscle atrophy Neurologic: Speech / Cognition: + abnormal cognition Results & Data Vital Signs (Past 12 Hours) Vital Signs Temp Pulse Pulse Resp BP Pulse Ox O2 Del Method 12/22/22 07:00 60 12/22/22 07:25 98.1 F 57 L 19 148/60 H 94 Nasal Cannula 12/22/22 02:33 97.5 F L 62 18 157/65 H 92 Nasal Cannula 12/22/22 00:00 12/21/22 23:16 59 L 12/21/22 23:09 97.7 F 60 18 165/63 H 97 Nasal Cannula O2 Del Method O2 Flow Rate 12/22/22 07:00 12/22/22 07:25 2 12/22/22 02:33 2 12/22/22 00:00 Nasal Cannula 12/21/22 23:16 12/21/22 23:09 2 PG Care Time/CCT Total # of Minutes Spent Total Time Spent with Patient: Total time spent is greater than 50% in coordination of care (as documented) at patient's floor/unit and/or counseling patient: Coding Level of Care Code 59752 INT INP/OBS CARE 1/40MIN Diagnoses Palliative care encounter Z51.5
[2022-12-22] MEDS: PANTOprazole 40 MG TAB PO SCH ×2 (09:57→20:14)
[2022-12-22] MEDS ORDERED: FUROSEMIDE 10 MG/ML 10 ML VIAL IV ONE (11:18)
[2022-12-22] MEDS ORDERED: FUROSEMIDE IV ONE (11:30)
[2022-12-22 15:10] LABS: BUN Creatinine Ratio 16.1 (10-20); Calcium 8.2 mg/dl (8.6-10.3); Creatinine Clr Calc Pharmacy 18.6 ml/min; Est GFR (African American) 24.1 ml/min; Est GFR (Non-African American) 20.8 ml/min; Magnesium 2.2 mg/dl (1.7-2.4); Potassium 4.4 mmol/L (3.5-5.1)
--- NOTE | 2022-12-22 15:53 | Electrocardiogram Report ---
Test Reason : Blood Pressure : / mmHG Vent. Rate : 059 BPM Atrial Rate : 059 BPM P-R Int : 244 ms QRS Dur : 090 ms QT Int : 428 ms P-R-T Axes : 031 -47 162 degrees QTc Int : 423 ms Sinus bradycardia with 1st degree A-V block Left anterior fascicular block Nonspecific ST and T wave abnormality Abnormal ECG When compared with ECG of 20-DEC-2022 18:44, Minimal criteria for Septal infarct are no longer Present Non-specific change in ST segment in Anterior leads Confirmed by Fletcher Valdez ([id number]) on 12/22/2022 3:53:29 PM Referred By: REFERRED SELF Confirmed By:Fletcher Valdez
--- NOTE | 2022-12-22 15:58 | Hospitalist Progress Note ---
Date of Service December 22, 2022 Assessment & Plan (1) Acute hypoxemic respiratory failure: Plan: Hypoxia: Patient doesn't use oxygen at home Acute on chronic heart failure with reduced ejection fraction and diastolic dysfunction Demand ischemia Patient presenting with shortness of breath and chest tightness over several days, needing 3 L oxygen at presentation. At admission, received multiple doses of IV Lasix with minimal improvement. BNP elevated, CXR with congestion and pleural effusion. Troponin elevated, likely demand ischemia secondary to acute heart failure. Cardiology on board, appreciate recommendation, managing diuresis. Further diuresis during the day, monitor replete electrolytes. Continue with telemetry. Strict I's and O's and daily weights. Fluid restriction of 1500 mL Chronic anemia: Monitor hemoglobin, transfuse if symptomatic anemia or hemoglobin less than 7.5. Hemoglobin is stable. FOBT negative. Concern for transfusion reaction: Likely false alarm -see subjective 12/21, labs stable, vitals stable, will continue to monitor. Other chronic medical conditions: Continue with/resume home meds as and when able hx 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 DVT prophylaxis. SCDs Re: hx UGIB DNR Disposition: Palliative care on board, await recommendation. Text document was generated using [employer] voice recognition software. It may contain grammatical or spelling errors. Kindly contact undersigned for clarification of any documentation item in question. Per admitting provider: Patient son/listed first contact (Mr. Stephon Kirkpatrick from [place], [place], contact #[phone]) updated of plan of care. He does not feel patient would want to dialysis if kidney function continues to deteriorate. He will discuss recommendation for inpatient consultation to discuss goals of care palliative care with other family members. He requests any of his brothers who live locally to be updated of patient's progress. Mr. Konstantin Kirkpatrick, contact #[phone]. Mr. Landon Kirkpatrick, contact #[phone]. Admission and Anticipated Discharge Date Admission Date: December 20, 2022 Subjective Patient seen and examined at bedside as a follow-up of acute decompensated heart failure, acute hypoxemic respiratory failure, demand ischemia. Patient was sitting up in chair, on 1 L oxygen via nasal cannula, does not appear to be in distress, reported no chest tightness, denies chest pain or p ressure, denies headache or dizziness, denies fever or chills or new cough. Reports eating at his baseline which is generally low appetite for him, reports moving bowels okay. Physical Exam Physical Exam: GENERAL: Alert and oriented x3. NAD, on 1L NC O2. [place] HEENT: No pallor, no icterus. Pupils equal, round and reactive to light. Oral mucosa moist. NECK: No JVD, no neck masses. HEART: S1 and S2 heard. Regular rate and rhythm. + murmur, no gallop. RESPIRATORY SYSTEM: Normal AP diameter. No accessory muscle use. No wheezing, b/b rales and diminished breath sounds ABDOMEN: Soft, bowel sounds present, nontender, no distention. CENTRAL NERVOUS SYSTEM: No facial droop. Speech is clear. Obeys simple commands. Moves extremities. EXTREMITIES: No edema, no erythema seen. Results & Data Results & Data Vital Signs (Past 12 Hours) Vital Signs Temp Pulse Pulse Resp BP Pulse Ox O2 Del Method 12/22/22 15:20 36.5 C 53 L 19 125/63 94 Nasal Cannula 12/22/22 14:10 144/65 H 12/22/22 12:46 61 18 133/58 L 91 Nasal Cannula 12/22/22 11:19 36.8 C 54 L 19 124/57 L 93 Nasal Cannula 12/22/22 07:00 60 12/22/22 07:25 36.7 C 57 L 19 148/60 H 94 Nasal Cannula O2 Flow Rate 12/22/22 15:20 1 12/22/22 14:10 12/22/22 12:46 1 12/22/22 11:19 1 12/22/22 07:00 12/22/22 07:25 2
[2022-12-22] MEDS: MIRTAZAPINE TAB 15 MG TAB PO SCH (20:14)
[2022-12-22] MEDS: ATORVASTATIN 40 MG TAB PO SCH (20:15)
[2022-12-22] MEDS: TAMSULOSIN HCL 0.4 MG CAP PO SCH (20:15)
[2022-12-23 06:59] LABS: Hematocrit (blood only) 23.8 % (42.0-52.0); Hemoglobin 7.6 g/dl (14.0-18.0)
[2022-12-23 07:11] LABS: BUN Creatinine Ratio 15.4 (10-20); Calcium 8.1 mg/dl (8.6-10.3); Creatinine Clr Calc Pharmacy 17.8 ml/min; Est GFR (Non-African American) 19.8 ml/min; Potassium 4.3 mmol/L (3.5-5.1)
[2022-12-23] MEDS: ISOSORBIDE DINITRATE 20 MG TAB PO SCH (08:01)
[2022-12-23] MEDS: PANTOprazole 40 MG TAB PO SCH ×2 (08:01→20:07)
[2022-12-23] MEDS: SERTRALINE HCL 100 MG TABLET PO SCH (08:01)
[2022-12-23] MEDS: CYANOCOBALAMIN (B-12) 500 MCG TABLET PO SCH (08:02)
[2022-12-23] MEDS: ASPIRIN 81 MG ECTAB PO SCH (08:02)
[2022-12-23] MEDS: FERROUS SULFATE 325 MG TAB PO SCH (08:02)
[2022-12-23] MEDS: FINASTERIDE 5 MG TAB PO SCH (08:02)
[2022-12-23] MEDS: FAMOTIDINE 20 MG TAB PO SCH ×2 (08:02→20:07)
[2022-12-23] MEDS: hydrALAZINE HCL 25 MG TAB PO SCH ×3 (08:02→20:07)
[2022-12-23] MEDS: POTASSIUM CHLORIDE CRTAB 20 MEQ TABCR PO SCH (08:07)
[2022-12-23] MEDS ORDERED: GLYCOPYRROLATE 0.2 MG/ML VIAL IV PRN (10:56)
[2022-12-23] MEDS ORDERED: haloperidoL 1 MG TAB PO PRN (10:56)
[2022-12-23] MEDS ORDERED: HYDROmorphone HCL 2 MG TAB PO PRN (10:58)
--- NOTE | 2022-12-23 11:14 | Palliative Care Progress Note ---
Date of Service December 23, 2022 Assessment & Plan (1) Dyspnea and respiratory abnormalities: Plan: terminal heart failure, adv valv heart failure, ischemic heart dz, PVD, TREVOR (2) Chest pain: Plan: demand ischemia, adv valvular heart failure (3) Altered mental status: Plan: progressing vasc dementia (4) Weakness generalized: (5) Palliative care by specialist: Plan: Met with family: tyler Navarrete and Konstantin/ Tricia and miriam Szymanski on telephone. I provided overview of Palliative Medicine, a subspecialty that provides specialized medical care for people living with a serious illness by offering a focus on quality of life. Palliative Medicine is often conflated with hospice: I advised patient/family that Palliative and hospice can be partners but we are not the same. It is important to understand the difference so that we may be informed, and not afraid. Palliative Medicine works to improve QOL through reduction of symptom burden/more control over their illness, for both the patient and family. Palliative medicine clinicians are board certified, spec ially-trained and another member of the patient's medical care team. We often provide an extra layer of support because our care is based on the needs of the patient, not the prognosis; as such, it's appropriate at any age/advancing stage of a serious illness and can be provided along with curative treatment. Palliative Medicine clinicians are also trained in advanced communication methodologies, to facilitate complex discussions about advanced illness planning, which are needed to help assure that the treatment choices match the patient's goals, aka delivering Goal Concordant care. Finally, we discussed that hospice is a visiting nurse service that focuses on care delivered at the very end of life for patients with terminal illness, with life expectancy less than 6 month. (6) Discussion about advance care planning held with family member: Plan: 70min Face to face ACP meeting with family: tyler Navarrete and Konstantin/ Tricia and miriam Szymanski on telephone. We reviewed that all chronic/progressive disease has a declining trajectory over time where facets of patient self-identity and independence are lost. Every acute event leads to a further decline, resulting- many times, in a new baseline. Advised that the greatest priority is to determine what matters most to pt, then family and to develop a plan of care that is aligned with those priorities. Advance illness planning conversations are conducted to review goals and expectations, support shared decision-making, and engage in disease specific advance care planning. This type of advance care planning is sometimes referred to as 'preparedness planning. It is used to review the risks and benefits of offered therapy, elicit and deepen understanding of the underlying illness and therapeutic options, ensure adequate psychosocial support, address existential concerns and coping, and engage in end-of-life planning. Preparedness planning is not meant to replace informed consent discussions. Palliative medicine plays a role in the process of deepening a patients understanding of this specific medical intervention and ensuring this treatment aligns with their goals of care remains a central tenet of the planning conversation. We discussed the changes to expect as heart failure patients near the end of their lives, with attention to: patients may feel increasingly breathless both during activity and at rest, persistent coughing or wheezing/sometimes productive of white or pink mucus and can be worse at night or when lying down; sometimes more physical pain may be present that can often be relieved by non pharmacological remedies such as PT, massage, etc., additionally cognitive impairments may worsen and as such impair the patient's ability to be interactive with their loved ones - this can sometimes get better with improved volume status but it is unlikely to resolve. We spoke about how end-of-life care in patients with heart failure is an additive process, whereby therapies to treat symptoms not alleviated by guideline-based medical therapy are integrated into the care of these individuals. Once traditional medical therapies and nonpharmacologic therapies have been exhausted, low-dose opioids are generally felt to be first-line adjuvant therapy to treat dyspnea. Sometimes, providers may be uncomfortable with utilization of more potent opiates, which is why collaboration with hospice at the chcf will be useful. Finally, we discussed that as a patient transitions to the end of life with HF, there is so much more to do as far as reducing symptom burden and improving QOL - which we as provioders can best address via a thoughtful ACP as we have discussed (and outlined above) in place. We reviewed his vascular dementia: * Dementia is a terminal illness. Aggressive medical treatment for residents with advanced dementia is often inappropriate for medical reasons, has a low rate of success, and can have negative outcomes that hasten functional decline and . ([employer] Ethics Committee and Clinical Practice and Models of Care Committee. J Am Geriatr Soc. 2014 Aug;62(8):1590-3 and Maynor SL, Bri JM, Donald SC, Arcadio V. A national study of the location of for older persons with dementia. J Am Geriatr Soc 2005; 53(2):299-305 .) * Tube feeding in residents with advanced dementia does not increase survival. It does not prevent aspiration pneumonia, malnutrition or pressure ulcers. It does not reduce the risk of infections or improve functional status or comfort of the patient. (from: Ga LA, Lauri T Percutaneous endoscopic gastrostomy does not prolong survival in patients with dementia. Arch Massage Operator Med 2003; 163(11):5987-4623 AND Cy HUIZAR, Pramod LARISA, Charles Sanchez, Jamee S, Santino RS. High short-term mortality in hospitalized patients with advanced dementia - Lack of benefit of tube feeding. Arch Massage Operator Med 2001; 161(4):594- 599.) * Simple strategies involving hands-on care by well-trained staff such as massage, oral hygiene, changes in diet, and hand-feeding -- can prevent infection and manage feeding problems without resort to tube-feeding. * Tube feeding does not prevent aspiration pneumonia and might actually increase its incidence, and does not prevent the consequences of malnutrition * Hand feeding can be provided until the beginning of the dying process when all physiological processes shut down, note that cognitively intact cancer patients indicate that dying residents do not feel hunger and thirst. * Voluntary refusal of food and liquids is often initiated by hospice patients and does not result in discomfort * The majority of older Americans whose underlying cause of is attributable to dementia on their certificate in nursing homes. State-level factors, including the availability of hospital and chcf beds and the age of decedents in the population, explain, in part, the wide [id number] variability in the proportion of dementia-related deaths occurring in the hospital. * Older adults with dementia frequently receive acute care in their last year of life although Hospice care was more common for home/[facility] residents. Overall time in hospice remains short due to the underutilization of the hospice benefit for terminal dementia (Maria Victoria MM, Katie JM, Prather KM, Boris DE, Mauro PY. Dementia Care in the Last Year of Life: Experiences in a [facility] and in [place] [facility] Facilities. J Palliat Care. 2022;38(2):135-142. doi:10.1177/[id number]) * Home Hospice is a valuable option for terminal dementia who desire to have peaceful EOL at home. Home hospice care for advanced dementia can improve symptom management and caregiver satisfaction, while decreasing caregiver burden, preventing hospitalizations and discontinuing unnecessary medications (Katherine MUIR, Michel R, Ketan G, et al. Home hospice for older people with advanced dementia: a airplane patrol pilot project [published correction appears in Isr J Health Policy Res. 2019 Nov 07;8(1):56]. Isr J Health Policy Res. 2019;8(1):42. Published 2018September 12. doi:10.1186/h59594-726-4095-y) * If the plan if for SNF placement, I recommend hospice at SNF: Hospice is a valuable service for persons with advanced dementia, particularly in management of pain, continuous involvement of the primary physician, and avoidance of hospitalization. Social support provided to caregivers is also important given their high levels of depressive symptoms and anxiety. The goal of care for residents with advanced dementia is primarily maintenance of function and patient should not be transferred to an acute care setting because hospitalization results in decline of functional abilities that do not recover after discharge back into chcf. If this is desired, then Care Mgt follow up is needed to determine if pt is eligible for hospice at SNF/deferred to CM and primary team. We reviewed Comfort plan of care which we will begin now and transition back to [facility] with him. they want a focus on comfort. We discussed the goals of hospice as a patient service and the goals of care; we discussed EOL trajectories and transitions iris the emotional impact of realizing mortality as a concrete reality from prior abstract considerations. Pt was reassured that no matter where they are along this trajectory, they are not alone - their medical team will remain by their side through their journey. Discussed the pros/cons of accepting help when especially weakened and distressed by pain-which would also help provide relief/decrease caregiver burden/strain. I provided education about the hospice benefit: an interdisciplinary program offered by nurses, nurses aides, social workers, chaplains and a medical coding manager for patients with a terminal condition and a life expectancy of less than 6 months. This is covered by Medicare at 100%/no out of pocket expense to patient and all meds/supplies needed by patient for the reason they are on hospice are paid for/covered by hospice. The goal is assure quality of life of the patient in their home setting (home, chcf, inpatient hospice setting) by providing symptoms management, psychosocial and spiritual support. However, they cannot offer 24 hours care and if the family is unable to provide that care, they will have to consider personal care with out of pocket cost vs. chcf placement. We discussed the goals of hospice as a patient service and the goals of care; we discussed EOL trajectories and transitions iris the emotional impact of realizing mortality as a concrete reality from prior abstract considerations. Pt was reassured that no matter where they are along this trajectory, they are not alone - their medical team will remain by their side through their journey. Discussed the pros/cons of accepting help when especially weakened and distressed by pain-which would also help provide relief/decrease caregiver burden/strain. At family request we reviewed the changes and expected decline at this stage. Discussed changes pt may move through in the dying process including but not limited to sleeping more, disorientation when awake, restlessness, diminished senses/inability to respond to stimulus although ability to be aware of them remains intact longer, changes in body temperatures, skin changes/mottling/cyanosis, respiratory pattern changes, oral secretions. Family verbalized understanding. The goal is to assure a peaceful . [facility] would like [facility] and [facility]. (7) Vascular dementia: Plan: see #6 above (8) Acute on chronic heart failure with reduced ejection fraction and diastolic dysfunction: (9) Acute hypoxemic respiratory failure: (10) Demand ischemia: (11) CKD (chronic kidney disease), stage III: Plan * HOME COORDINATOR, orders written * Comfort Care Discharge Summary & Plan of Care For Chcf/SNF/[facility] Patient Name: Joselito Kirkpatrick Comfort plan of care agreed upon by: family per ACP discussion above Discussed with Patient/Family on: today Copy of this plan will be/has been given to:miriam Pryor and barron perdomo [facility] Comfort plan of care parameters: 1. Patient/Family want hospice added to their care: they have [facility] due to prior good experience. 2. NO rehab/PT/OT 3. Strictly End of Life care only 4. NO escalation of care: do not increase oxygen, escalate therapies, etc. The focus is on comfort through end of life, assure this is accomplished with aggressive symptom management (i.e. relief of dyspnea, pain, etc.) 5. NO return to hospital 6. NO labs, imaging, surgery 7. Oral intake as desired for comfort and pleasure: NO dietary restriction 8. If difficulty urinating/commode/bedpan, ok to place Harding catheter for comfort/hygiene/skin protection AND/OR Continue Harding catheter for comfort/ hygiene/skin protection 9. NO: calorie counts, artificial nutrition, feeding tubes or IV fluids Medications to continue are noted on discharge summary. Provider to contact if any questions about comfort plan of care: Hospice Diabetes Nurse or designee * TS 120 min * I have updated nursing, primary team and CM. * Please note: the above document was generated using voice recognition software. It may contain unintentional grammatical, syntax or spelling errors. Any formal questions or concerns about the content, text or information contained within the body of this dictation should be directly addressed to the provider for clarification. Admission and Anticipated Discharge Date Admission Date: December 20, 2022 Subjective pt seen at bedside he is pleasantly confused he sees his occasionally in his room, she in May. This is not frightening him but at times he is frustrated she is not speaking with him as much as he would like. he is alert to self. unaware he was in the hospital, asking [facility] don't [facility] to be here. I don't want to come back to the hospitals anymore just let me stay home now." denies acute pain Review of Systems Review of Systems: All systems reviewed & are unremarkable except as noted in Subjective and Unobtainable due to cognitive status Physical Exam Physical Exam: Thin elderly male Chronically ill appearing Neck supple, no overt JVD Resp effort WAL, no distress, lungs diminished, few crackles S1S2, sl irreg abd scaphoid, non tender, BS+ generalized weakness, strength equal bilat but overall diminished skin pale/warm confused at baseline but alert to self sees his ( in May 2022) in his room/finds this comforting patient could not perform mini mental apart from stating his name and repeating he does not want to be in hospital Results & Data Vital Signs (Past 12 Hours) Vital Signs Temp Pulse Pulse Resp BP Pulse Ox O2 Del Method 12/23/22 08:12 37.3 C 64 20 153/61 H 91 Room Air 12/23/22 07:16 Nasal Cannula 12/23/22 07:04 62 08/16/23 03:00 36.7 C 60 20 158/64 H 93 Nasal Cannula 12/22/22 23:00 36.5 C 59 L 18 156/77 H 96 Nasal Cannula O2 Flow Rate 12/23/22 08:12 12/23/22 07:16 1 12/23/22 07:04 12/23/22 03:00 12/22/22 23:00 Laboratory Results data reviewed Diagnostic Findings data reviewed PG Care Time/CCT Total # of Minutes Spent Total Time Spent: 120 Total Time Spent with Patient: Total time spent is greater than 50% in coordination of care (as documented) at patient's floor/unit and/or counseling patient: I spent 120 minutes overall addressing this case: 10 in medical data review/discussion with referring provider(s) and/or preparation for the visit 20 in direct interaction with the patient 70 Advance Care Planning/Goals of Care discussions as detailed above in note (must be >16min) 10 in subsequent review and synthesis of assessment and plan 10 in communicating with other providers regarding the patient's case: nursing, primary team, care mgt Advanced Care Planning 98601 Advanced Care Planning 30 Min 99992 Advanced Care Planning Additional 30 Min [place] [address] SUB INP/OBS CARE 3/50MIN Patient Type Established History Comprehensive Exam Comprehensive Medical Decision Making High Complexity Diagnoses Dyspnea and respiratory abnormalities R06.00; R06.89 Chest pain R07.9 Altered mental status R41.82 Weakness generalized R53.1 Palliative care by specialist Z51.5 Discussion about advance care planning held with family member Z71.0 Vascular dementia F01.50 Acute on chronic heart failure with reduced ejection fraction and diastolic dysfunction I50.43 Acute hypoxemic respiratory failure J96.01 Demand ischemia I24.8 CKD (chronic kidney disease), stage III N18.3 Additional Codes Advanced Care Planning - 95349 Advanced Care Planning 30 Min: 67307 Advanced Care Planning 30 Min ([id number]) Advanced Care Planning - 42815 Advanced Care Planning Additional 30 Min: 88188 Advanced Care Planning Additional 30 Min ([id number])
--- NOTE | 2022-12-23 11:29 | Cardiology Progress Note ---
Date of Service December 23, 2022 Assessment & Plan Admission and Anticipated Discharge Date Admission Date: December 20, 2022 Supervising Physician Co-Signing Physician Notes Pt seen and evaluated with AP staff. 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 LAFB + 1st degree AVB + nonspecific ST/T wave abnormalities Hx: * Known CAD * PCI - SONI- (2008) - LAD * PCI - BMS - (2014) - RCA * HTN * Hyperlipidemia * Non smoker * No DM * + PVD - carotid disease (Left 2010); AAA (4.3 cm- 10/2022) * Anemia - declined evaluation * CLL * CKD - Stage III-IV Plans: * Dx - acute on chronic combined CHF * Cardiomyopathy LVEF 35-40% * + Valvular heart disease (AI + MR) * Exam - volume overload significantly improved * + Hypoxia on arrival - now on RA * Pt appears euvolemic on exam * Potential bedside US check of IVC * STOP Lasix IV * Start Torsemide 50 mg po per day on 12/24/2022 * Replete K+ * K+ goal 4.5-5 * Kdur 20 meq per day * BID BMP check * CKD - baseline creat is 2.5 - at baseline * Mag goal >2 * Troponin elevation likely secondary to demand ischemia in the setting of acute decompensated CHF * Not on DOC/ARB/ARNI - CKD * Creat >2 - no Aldactone * No beta blockers - sinus mando * Continue Hydralazine to 37.5 mg * Imdur (OFF) * Increase Isordil 40 mg po TID ("fullness") * On DVT ppx * HGB >8; transfusion reaction labs sent- patient has deferred w/u for anemia in past * Wean FIO2 As tolerated * Check Urine Protein/Creatinine ratio -PENDING * Nutritional support * Mobilize - bed to chair * Arrange [facility] outpt f[facility] with [facility] Cardiology Nagi Taylor Subjective Events overnight: * No events reported * No events on telemetry Subjective: * Occasional chest "fullness" Review of Systems Review of Systems: All systems reviewed & are unremarkable except as noted in HPI & below Results & Data Vital Signs (Past 12 Hours) Vital Signs Temp Pulse Pulse Resp BP Pulse Ox O2 Del Method 12/23/22 07:16 Nasal Cannula 12/23/22 07:04 62 12/23/22 03:00 36.7 C 60 20 158/64 H 93 Nasal Cannula 12/22/22 23:00 36.5 C 59 L 18 156/77 H 96 Nasal Cannula 12/22/22 22:48 67 12/22/22 20:00 Nasal Cannula O2 Flow Rate 12/23/22 07:16 1 12/23/22 07:04 12/23/22 03:00 12/22/22 23:00 12/22/22 22:48 12/22/22 20:00 Laboratory Results CBC 12/23/22 Range/Units 06:10 Hgb 7.6 L (14.0-18.0) g/dl Hct 23.8 L (42.0-52.0) % Comprehensive Metabolic Panel 12/22/22 12/23/22 Range/Units 14:38 06:10 Sodium 137 137 (136-145) mmol/L Potassium 4.4 4.3 (3.5-5.1) mmol/L Chloride 102 102 (98-107) mmol/L Carbon Dioxide 27 30 (21-32) mmol/L BUN 42 H 42 H (6-23) mg/dl Creatinine 2.61 H 2.72 H (0.6-1.4) mg/dl Glucose 122 H 104 H (70-99(Fasting)) mg/dl Calcium 8.2 L 8.1 L (8.6-10.3) mg/dl Intake and Output 12/22/22 12/23/22 12/23/22 22:59 06:59 14:59 Output Total 50 / 400 150 / 400 Balance -50 / 220 -150 / 220 Output: Urine 50 / 400 150 / 400 Other: # Unmeasured Voids 1 Medications Administered Current Inpatient Medications Acetaminophen (Acetaminophen 325 Mg Tab) 650 mg PO Q4H PRN PRN Reason: Pain or Fever Stop: 01/20/23 01:05 Famotidine (Famotidine 20 Mg Tab) 20 mg PO BID [facility] Stop: 01/20/23 08:59 Last Admin: 12/23/22 08:02 Dose: 20 mg Finasteride (Finasteride 5 Mg Tab) 5 mg PO DAILY [facility] Stop: 01/20/23 08:59 Last Admin: 12/23/22 08:02 Dose: 5 mg Glycopyrrolate (Glycopyrrolate 0.2 Mg/Ml Vial) 0.4 mg IV Q4H PRN PRN Reason: Secretions or Pulm Congestion Stop: 01/22/23 10:55 Haloperidol (Haloperidol 1 Mg Tab) 1 mg PO Q4H PRN PRN Reason: Anxiety/Agitation Stop: 01/22/23 10:55 Hydralazine HCl (Hydralazine Hcl 25 Mg Tab) 37.5 mg PO TID [facility] Stop: 01/21/23 13:59 Last Admin: 12/23/22 08:02 Dose: 37.5 mg Hydromorphone HCl (Hydromorphone Hcl 2 Mg Tab) 1 mg PO Q4H PRN PRN Reason: Pain or dyspne Stop: 01/06/23 10:57 Isosorbide Dinitrate (Isosorbide Dinitrate 20 Mg Tab) 20 mg PO TID [facility] Stop: 01/21/23 08:59 Last Admin: 12/23/22 08:01 Dose: 20 mg Lactulose (Lactulose Syrup 20 Gm/30 Ml Udc) 20 gm PO DAILY PRN PRN Reason: Constipation Stop: 01/20/23 01:14 Mirtazapine (Mirtazapine Tab 15 Mg Tab) 15 mg PO HS [facility] Stop: 01/20/23 20:59 Last Admin: 12/22/22 20:14 Dose: 15 mg Nitroglycerin (Nitroglycerin Sl 0.4 Mg/Tab Tab) 0.4 mg SL Q5M PRN PRN Reason: Chest Pain Stop: 01/20/23 09:42 Last Admin: 12/21/22 10:06 Dose: 0.4 mg Olanzapine (Olanzapine 10 Mg/2.1 Ml Sdv) 2.5 mg IM Q4H PRN PRN Reason: Anxiety/Agitation Stop: 01/20/23 00:00 Pantoprazole Sodium (Pantoprazole 40 Mg Tab) 40 mg PO BID BON Stop: 01/20/23 08:59 Last Admin: 12/23/22 08:01 Dose: 40 mg Potassium Chloride (Potassium Chloride Crtab 20 Meq Tabcr) 20 meq PO BID BON Stop: 01/20/23 08:59 Last Admin: 12/23/22 08:07 Dose: 20 meq Sertraline HCl (Sertraline Hcl 100 Mg Tablet) 100 mg PO DAILY BON Stop: 01/20/23 08:59 Last Admin: 12/23/22 08:01 Dose: 100 mg Tamsulosin HCl (Tamsulosin Hcl 0.4 Mg Cap) 0.8 mg PO HS BON Stop: 01/20/23 20:59 Last Admin: 12/22/22 20:15 Dose: 0.8 mg
[2022-12-23] MEDS: ISOSORBIDE DINITRATE 40 MG TAB PO SCH ×2 (13:24→16:50)
--- NOTE | 2022-12-23 15:39 | Hospitalist Progress Note ---
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 DNR Palliative care evaluated, patient is comfort measures 12/23. No dietary and fluid restriction. We will continue with antihypertensives and diuretics for p alliation. No further labs. Downgrade patient to [facility] floor. Admission and Anticipated Discharge Date Admission Date: December 20, 2022 Subjective Patient seen and examined at bedside as a follow-up of acute decompensated heart failure, acute hypoxemic respiratory failure, demand ischemia. Patient was sitting up in chair, on room air, does not appear to be in distress, reported no chest tightness, denies chest pain or pressure, denies headache or dizziness, denies fever or chills or new cough. Reports eating at his baseline which is generally low appetite for him, reports moving bowels okay. Per RN, patient has been confused on and off. Physical Exam Physical Exam: GENERAL: Alert and oriented x3. NAD, on ra. [place] HEENT: No pallor, no icterus. Pupils equal, round and reactive to light. Oral mucosa moist. NECK: No JVD, no neck masses. HEART: S1 and S2 heard. Regular rate and rhythm. + murmur, no gallop. RESPIRATORY SYSTEM: Normal AP diameter. No accessory muscle use. No wheezing, b/b rales and diminished breath sounds ABDOMEN: Soft, bowel sounds present, nontender, no distention. CENTRAL NERVOUS SYSTEM: No facial droop. Speech is clear. Obeys simple commands. Moves extremities. EXTREMITIES: No edema, no erythema seen. Results & Data Results & Data Vital Signs (Past 12 Hours) Vital Signs Temp Pulse Pulse Resp BP Pulse Ox O2 Del Method 12/23/22 08:12 37.3 C 64 20 153/61 H 91 Room Air 12/23/22 07:16 Nasal Cannula 12/23/22 07:04 62 O2 Flow Rate 12/23/22 08:12 12/23/22 07:16 1 12/23/22 07:04
[2022-12-23] MEDS: TAMSULOSIN HCL 0.4 MG CAP PO SCH (20:07)
[2022-12-23] MEDS: MIRTAZAPINE TAB 15 MG TAB PO SCH (20:07)
[2022-12-24] MEDS: ISOSORBIDE DINITRATE 40 MG TAB PO SCH ×2 (07:29→11:50)
[2022-12-24] MEDS: FAMOTIDINE 20 MG TAB PO SCH (08:20)
[2022-12-24] MEDS: FINASTERIDE 5 MG TAB PO SCH (08:20)
[2022-12-24] MEDS: hydrALAZINE HCL 25 MG TAB PO SCH (08:20)
[2022-12-24] MEDS: SERTRALINE HCL 100 MG TABLET PO SCH (08:22)
[2022-12-24] MEDS ORDERED: POTASSIUM CHLORIDE CRTAB 20 MEQ TABCR PO SCH (09:00)
[2022-12-24] MEDS ORDERED: TORSEMIDE 20 MG TAB PO SCH (09:00)
[2022-12-24] MEDS: PANTOprazole 40 MG TAB PO SCH (10:16)
--- NOTE | 2022-12-24 12:38 | Discharge Summary ---
Date of Service December 24, 2022 Admission HPI Per Admitting Provider History obtained from patient, family, and records. Limited history from patient secondary to confusion. 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 Last confinement September 24 to October 08, 2022 for decompensated heart failure. Patient noted to have heme positive melanotic stools during confinement. PPI recommended. Endoscopy deferred due to patient multiple medical issues as per note. Patient discharged back to personal care facility on Torsemide. Patient noted to have low pulse ox at personal care facility today. Patient noted to have difficulty breathing, denies cough symptoms. Denies chest pain. Patient more confused than usual as per transfer note. Lowest O2 sats of 80s noted at the ER. 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 Admission Exam Per Admitting Provider GENERAL: Disoriented, slightly hard of hearing, no respiratory distress SKIN: Pallor, warm HEENT: Pale palpebral conjunctivae, no ptosis, dry buccal mucosa, nasal cannula in place NECK : Supple, no tenderness CHEST : Decreased breath sounds, no tenderness HEART :RRR, no obvious murmurs ABDOMEN: Some distention, nontender EXTREMITIES : No LE swelling/tenderness, no other conspicuous deformities noted NEUROLOGIC : Disoriented, no facial asymmetry, slightly hard of hearing, gait and stance not assessed Principal Diagnosis Advanced stage heart failure Progressive vascular dementia Discharge Exam GENERAL: Alert and oriented x3. NAD, on ra. [place] HEENT: No pallor, no icterus. Pupils equal, round and reactive to light. Oral mucosa moist. NECK: No JVD, no neck masses. HEART: S1 and S2 heard. Regular rate and rhythm. + murmur, no gallop. RESPIRATORY SYSTEM: Normal AP diameter. No accessory muscle use. No wheezing, b/b rales and diminished breath sounds ABDOMEN: Soft, bowel sounds present, nontender, no distention. CENTRAL NERVOUS SYSTEM: No facial droop. Speech is clear. Obeys simple commands. Moves extremities. EXTREMITIES: No edema, no erythema seen. Discharge Data Allergies Allergy/AdvReac Type Severity Reaction Status Date / Time No Known Allergies Allergy Verified 12/20/22 22:33 Consultations 12/20/22 21:28 ED Decision to Admit Stat 12/21/22 01:06 Consult Cardiology Routine 12/21/22 17:40 Consult Palliative Care Routine Hospital Course (1) Acute hypoxemic respiratory failure: Patient was being managed for the following: Hypoxia Acute on chronic heart failure with reduced ejection fraction and diastolic dysfunction Demand ischemia Chronic anemia: Concern for transfusion reaction: Other chronic medical conditions: Continue with/resume home meds as and when able/appropriate hx 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 DNR Palliative care evaluated, patient is comfort measures 12/23. No dietary and fluid restriction. We will continue with antihypertensives and diuretics for palliation. No further labs. Downgrade patient to [facility] floor. Today DC to facilty w/ hospice. Home Health Attestation I certify that this patient is under my care and that I, or a physicians licensed physical therapist assistant working with me, had a face to-face encounter that meets the home health [id number] encounter requirements with this patient. The encounter with the patient was in whole, or in part, for the following medical condition, which is the primary reason for home health care (list medical condition): I certify that, based on my findings, the following services are medically necessary home health services: My clinical findings support the need for the above services because: Further, I certify that my clinical findings support that this patient is homebound (i.e. absences from home require considerable and taxing effort and are for medical reasons or yazidism services or infrequently or of short duration when for other reasons) because: Certification for Home Health Services: Based on the above findings, I certify that this patient is confined to the home and needs intermittent senior living care, physical therapy and/or speech therapy or continues to need occupational therapy. The patient is under my care, and I have initiated the establishment of the plan of care. This patient will be followed by a physician who will periodically review the plan of care. Total Time Total Time Spent Total Time Spent (In Minutes): 45 Discharge Plan Discharge Items Patient Disposition: Hospice - Medical Facility Reason For Visit: RESP FAILURE Discharge Diagnosis: Advanced stage heart failure Progressive vascular dementia Activity: Resume your previous activity Non-emergency contact: Primary Care Provider Call non-emergency contact if: you have any medication questions Follow-up/Referrals: MARK De Anda [Primary Care Provider] - Diet: Regular Addtl Attending Provider Instructions: You are being discharged on hospice to a facility. Your blood pressure medication and diuretic medications will be continued for comfort purposes. Your medications will be controlled by hospice providers once they start taking care of you. Pending Studies at Discharge: No Stand-Alone Forms: My [facility] Skilled Items Patient informed of condition?: Yes DNR: Yes Discharge Level of Care: Other Communicable Disease: No Discharge Prognosis: Other Lines: None Urinary Catheter: No Medications and DC Order Prescriptions: New hyoscyamine sulfate [Levsin/SL] 0.125 mg tablet, sublingual 0.125 mg PO Q4H Qty: 10 0RF isosorbide dinitrate [Isordil] 40 mg Tablet 40 mg PO TID@0700,1200,1700 Qty: 60 0RF haloperidol 1 mg Tablet 1 mg PO Q4H PRN (Reason: agitation) Qty: 10 0RF potassium chloride 20 mEq Tablet,Er Particles/Crystals 20 meq PO QAM Qty: 30 0RF torsemide 20 mg Tablet 50 mg PO QAM Qty: 60 0RF Continued sertraline 100 mg Tablet 100 mg PO DAILY hydralazine 25 mg Tablet 25 mg PO TID famotidine 20 mg Tablet 20 mg PO BID tamsulosin 0.4 mg Capsule 0.8 mg PO HS pantoprazole 40 mg Tablet,Delayed Release (Dr/Ec) 40 mg PO BID carbamide peroxide 6.5 % Drops 5 - 10 drp OTIC (EAR) Q12H PRN (Reason: .UP TO 4 DAYS) mirtazapine 15 mg Tablet 15 mg PO HS ondansetron 4 mg Tablet,Disintegrating 4 mg translingual Q6H PRN (Reason: Nausea) finasteride 5 mg Tablet 5 mg PO DAILY lactulose 10 gram/15 mL Solution 30 ml PO DAILY PRN (Reason: Constipation) Qc Pain Reliever Pm 1 tab PO HS Discontinued atorvastatin 80 mg Tablet 40 mg PO HS Rx Instructions: 1/2 TAB torsemide 20 mg Tablet 20 mg PO DAILY cyanocobalamin (vitamin B-12) [Vitamin B-12] 1,000 mcg Tablet 0 mcg PO DAILY potassium chloride 10 mEq Tablet Extended Release 10 meq PO DAILY isosorbide mononitrate 60 mg Tablet Extended Release 24 Hr 60 mg PO DAILY ferrous sulfate 325 mg (65 mg iron) Tablet 325 mg PO TID aspirin [Baby Aspirin] 81 mg Tablet,Chewable 81 mg PO DAILY albuterol sulfate 90 mcg/actuation Hfa Aerosol Inhaler 1 inh INHALATION Q4 PRN (Reason: Shortness Of Breath Or Wheezing) Discharge Orders: Discharge Order (Routine); Ordered 12/24/22 Ordered By: Debby Tomas Admission Data Admit Date/Time: 12/20/22 23:56 Attending Provider: Debby Tomas Admit Provider: Israel Pedro Primary Care Provider: MARK De Anda Other Providers: Israel Pedro ; Sue Sidhu
== END 2022-12-24 14:10 | disposition hospice, home (50) | DRG 291 ==
LOC: ED 18:12 → SUATTDRO 23:56 → EDINP 23:56 → 2S 12-21 01:07 → 3E 12-23 15:16